=== PATIENT | female | born 1950 | race Caucasian/White ===

== ENCOUNTER 2020-03-17 07:01 | Inpatient (IN) | payer MEDICARE, SELFPAY ==
[2020-03-17] VITALS (27 sets, daily range): BP systolic 70–137; BP diastolic 37–107; PULSE 67–114; RESP 12–23; TEMP 36.4–36.7; O2SAT 93–100; BMI 26.4
--- NOTE | ~2020-03-17 | CT_ITS ---
EXAMINATION:CT chest high resolution wo nm DATE: 03/25/2020 10:20 INDICATION: Abnormal chest radiographs. TECHNIQUE: Computed tomography (CT) of the chest was performed without intravenous contrast. Automate d exposure control and iterative reconstruction technique were employed. The dose-length product (DLP ) was 151.32 mGy-cm. COMPARISON: Chest single view 03/22/2020, 03/17/2020 FINDINGS: There is mild elevation of left hemidiaphragm. There are small pleural effusions. There are patchy groundglass opacities and reticular opacities with architectural distortion involving all lob es, right worse than left. Some of the reticular opacities demonstrate calcifications. There is mild bronchiectasis in right middle lobe and right lower lobe. No honeycombing. There is dependent atelect asis in the lower lobes. There are 11 mm, 9 mm, and 7 mm nodules in right upper lobe. The heart size is normal. There are coronary artery calcifications. No pericardial effusion. There are changes of ch olecystectomy. There is a small volume of perihepatic ascites. There is thoracic dextroscoliosis and thoracolumbar levoscoliosis. There is severe thoracolumbar spondylosis. IMPRESSION: 1. Chronic interstitial lung disease in a pattern of nonspecific interstitial pneumonia (NSIP) versus usual interstitial pneumonia (UIP). 2. Pulmonary nodules measuring up to 11 mm, which may be benign or malignant. Noncontrast chest CT is recommended in 3 months. 3. Small pleural effusions. Reviewed, dictated and finalized at location A. IMPRESSION: 1. Chronic interstitial lung disease in a pattern of nonspecific interstitial p neumonia (NSIP) versus usual interstitial pneumonia (UIP). 2. Pulmonary nodules measuring up to 11 mm, which may be benign or malignant. N oncontrast chest CT is recommended in 3 months. 3. Small pleural effusions.
--- NOTE | ~2020-03-17 | XR_ITS ---
EXAMINATION: XR chest 1V portable EXAM DATE: 03/22/2020 06:13 INDICATION: Pneumonia. TECHNIQUE: Portable AP frontal chest x-ray was obtained. Comparison is made to prior examination from 03/21/2020, 03/20 and 03/19. FINDINGS: There is moderate amount of bilateral ill-defined airspace disease, does not appear signifi cantly changed compared to yesterday, but there may be improvement in the retrocardiac left lower lob e component compared to 03/19. There is no pneumothorax suspected. There are no pleural effusions. Car diomediastinal silhouette is normal. Thoracolumbar spondylosis. Right humeral head rotator cuff repai r anchors. IMPRESSION: Moderate amount of Ill-defined bilateral airspace disease with improvement in retrocardia c consolidation, pneumonia. Uncertain how much of this is chronic interstitial lung disease. Reviewed, dictated and finalized at location A. IMPRESSION: Moderate amount of Ill-defined bilateral airspace disease with impr ovement in retrocardiac consolidation, pneumonia. Uncertain how much of this is chronic interstitial lung disease.
--- NOTE | ~2020-03-17 | XR_ITS ---
EXAMINATION: XR abdomen obstructive series DATE: 03/19/2020 08:29 INDICATION: Abdominal pain TECHNIQUE: Frontal supine and upright views of the abdomen were obtained. COMPARISON: None. FINDINGS: Cholecystectomy clips in the right upper quadrant. Gas within the stomach and several loops of bowel in the abdomen which appear primarily colonic although there is an ahaustral pattern to what appears to be the transverse colon. No dilated gas-filled loops of bowel. No free intraperitoneal gas. Bilat eral coarse interstitial opacities throughout both lungs. Moderate thoracolumbar levoscoliosis with s evere spondylosis. Partially visualized bipolar type right hip hemiarthroplasty. IMPRESSION: 1. No free intraperitoneal gas or dilated gas-filled loops of bowel to suggest obstruction. 2. Bilateral diffuse lung disease which could represent pulmonary edema, pneumonia and/or more chroni c interstitial lung disease. Reviewed, dictated and finalized at location A. IMPRESSION: 1. No free intraperitoneal gas or dilated gas-filled loops of bowel to suggest obstruction. 2. Bilateral diffuse lung disease which could represent pulmonary edema, pneumo analisa and/or more chronic interstitial lung disease.
--- NOTE | ~2020-03-17 | XR_ITS ---
EXAMINATION: XR chest 1V portable DATE: 03/18/2020 05:48 INDICATION: Pneumonia TECHNIQUE: frontal view of the chest was obtained. COMPARISON: Chest radiograph dated 03/17/2020 FINDINGS: Minimal change attending for increased expansion of lungs in interstitial and mild airspace opacities throughout the right lung and in the left mid to lower lung zone. No pleural effusion or pneumothora x. The cardiomediastinal silhouette is normal. Postoperative changes with internal fixation likely fo r posterior spinal fusion at the left side of the mid cervical spine. Suture anchors at the right hum eral head consistent with prior rotator cuff repair. IMPRESSION: 1. No significant change in bilateral predominantly interstitial lung disease, right greater than lef t which could represent asymmetric pulmonary edema, pneumonia or more chronic interstitial lung disea se. Reviewed, dictated and finalized at location A. IMPRESSION: 1. No significant change in bilateral predominantly interstitial lung disease, right greater than left which could represent asymmetric pulmonary edema, pneum onia or more chronic interstitial lung disease.
--- NOTE | ~2020-03-17 | US_ITS ---
EXAMINATION: US venous doppler [facility] DATE: 03/18/2020 13:27 INDICATION: Lower limb edema. TECHNIQUE: Grayscale ultrasound images without and with compression and Doppler ultrasound images of the bilateral lower extremity veins were obtained. COMPARISON: None. FINDINGS: The visualized portions of right common femoral vein, profunda (deep) femoral vein, femoral vein, pop liteal vein, peroneal veins, posterior tibial veins, and greater saphenous vein outflow are patent. The visualized portions of left common femoral vein, profunda femoral vein, femoral vein, popliteal v ein, peroneal veins, posterior tibial veins, and greater saphenous vein outflow are patent. IMPRESSION: 1. No deep venous thrombosis. Reviewed, dictated and finalized at location E.
--- NOTE | ~2020-03-17 | US_ITS ---
EXAMINATION: US carotid duplex BI DATE: 03/19/2020 11:42 INDICATION: Acute encephalopathy. TECHNIQUE: Grayscale, color Doppler, and pulsed Doppler images of the cervical carotid arteries were obtained. The degree of vessel stenosis is placed in one of the following categories: normal, <50%, 5 0-69%, >=70% but less than near-occlusion, near-occlusion, or total occlusion. Note that percent sten osis relative to normal distal artery lumen diameter is indirectly measured from velocity measurement s as described by Wesley, et al. Radiology 2003; 229:340-346. COMPARISON: None. FINDINGS: RIGHT: The right common carotid artery (CCA) peak systolic velocity (PSV) is 68 cm/s. The right internal car otid artery (ICA) PSV is 104 cm/s. The right ICA end-diastolic velocity (EDV) is 33 cm/s. The right I CA/CCA PSV ratio is 1.5. Grayscale and color Doppler images yield an estimate of <50% diameter reduct ion from plaque in the ICA. There is antegrade flow in the right vertebral artery. LEFT: The left CCA PSV is 66 cm/s. The left ICA PSV is 55 cm/s. The left ICA EDV is 27 cm/s. The left ICA/C CA PSV ratio is 1.1. Grayscale and color Doppler images yield an estimate of <50% diameter reduction from plaque in the ICA. There is antegrade flow in the left vertebral artery. IMPRESSION: 1. <50% stenosis in the right internal carotid artery. 2. <50% stenosis in the left internal carotid artery. Reviewed, dictated and finalized at location E.
--- NOTE | ~2020-03-17 | XR_ITS ---
XR chest 1V portable DATE: 03/21/2020 05:23 INDICATION: Pneumonia TECHNIQUE: Portable AP chest on 03/21/2020 at 0504 hours COMPARISON: 03/20/2020 portable AP chest at 0514 hours FINDINGS: There are persistent bilateral patchy pulmonary infiltrates, relatively stable since 020. Heart size appears normal. Aortic arch calcification. There is minimal if any pleural effusion. No pn eumothorax. Osteopenia. IMPRESSION: Little interval change of bilateral patchy pulmonary infiltrates since 03/20/2020 Reviewed, dictated and finalized at location A. IMPRESSION: Little interval change of bilateral patchy pulmonary infiltrates si nce 03/20/2020
--- NOTE | ~2020-03-17 | US_ITS ---
EXAMINATION: US venous doppler UE RT DATE: 03/18/2020 13:29 INDICATION: Right upper limb edema. TECHNIQUE: Grayscale ultrasound images without and with compression and Doppler ultrasound images of the right upper extremity veins were obtained. COMPARISON: None. FINDINGS: The visualized portions of the right internal jugular vein, subclavian vein, axillary vein, brachial veins, basilic vein, radial vein, and ulnar vein are patent. IMPRESSION: 1. No deep venous thrombosis. Reviewed, dictated and finalized at location E.
--- NOTE | ~2020-03-17 | XR_ITS ---
EXAMINATION: XR chest 1V portable DATE: 03/19/2020 05:56 INDICATION: Pneumonia TECHNIQUE: frontal view of the chest was obtained. COMPARISON: Chest radiograph dated 03/18/2020 FINDINGS: No significant interval change in bilateral coarse interstitial and mild airspace opacities throughou t both lungs. No pneumothorax. Minimal blunting at the bilateral costophrenic angles consistent with likely tiny bilateral pleural effusions. The cardiomediastinal silhouette is normal. Mild S-shaped cu rvature of the thoracolumbar spine with severe spondylosis. Suture anchors at the right humeral head consistent with prior rotator cuff repair. Instrumentation along the mid to left-sided the mid cervic al spine which may be related to prior posterior spinal fusion. IMPRESSION: 1. No significant change in bilateral lung disease which could represent pulmonary edema, pneumonia o r more chronic interstitial lung disease. 2. Tiny bilateral pleural effusions. Reviewed, dictated and finalized at location A. IMPRESSION: 1. No significant change in bilateral lung disease which could represent pulmon vipul edema, pneumonia or more chronic interstitial lung disease. 2. Tiny bilateral pleural effusions.
--- NOTE | ~2020-03-17 | XR_ITS ---
EXAMINATION: XR barium swallow modified DATE: 03/25/2020 10:50 INDICATION: Aspiration. TECHNIQUE: The patient was given barium-containing material of multiple consistencies to swallow by t dina speech pathologist while I performed fluoroscopy. Fluoroscopy exposure time was 1.7 minutes. The n umber of fluoroscopy images saved to the PACS was 1. Dose-area product was 0.817 Gy-cm^2. FINDINGS: There was trace laryngeal penetration. No aspiration. IMPRESSION: 1. Trace laryngeal penetration. 2. Please refer to the speech therapy report for recommendations. Reviewed, dictated and finalized at location A.
--- NOTE | ~2020-03-17 | CT_ITS ---
EXAMINATION: CT brain wo con DATE: 03/19/2020 09:34 INDICATION: Acute encephalopathy TECHNIQUE: Computed tomography (CT) of the head was performed without intravenous contrast. The mA wa s adjusted according to patient size. Iterative reconstruction technique was employed. Exam dose: 68 1.00 mGy-cm total exam DLP. COMPARISON: None FINDINGS: There is motion artifact. No intracranial mass lesion or hemorrhage or cerebrovascular accident is evident. No midline shifts o r mass effects. No subdural or epidural hematoma. No orbital mass lesion. No fracture or bone destruction of the cranial vault. Hyperostosis frontalis interna, not likely of a ny clinical significance. Small mucus retention cyst or polyp of the posteromedial left maxillary sinus. The paranasal sinuses and mastoid air cells otherwise are normally developed and aerated. IMPRESSION: No acute intracranial abnormality is detected Reviewed, dictated and finalized at [facility]. Reviewed, dictated and finalized at location [facility].
--- NOTE | ~2020-03-17 | XR_ITS ---
XR chest 1V portable DATE: 03/17/2020 10:46 INDICATION: Failed central venous catheter placement; evaluate for pneumothorax TECHNIQUE: Portable AP chest on 03/17/2020 at 1044 hours COMPARISON: 03/17/2020 portable AP chest at 0744 hours FINDINGS: Postoperative changes of the cervical spine. Diffuse osteopenia. There are congestive changes and bilateral patchy interstitial infiltrates and/atelectasis in the mid and particularly lower lung zones. No pneumothorax is evident following attempted central venous cat heter placement. IMPRESSION: No evidence of pneumothorax following attempted central venous catheter placement Reviewed, dictated and finalized at location [facility]. IMPRESSION: No evidence of pneumothorax following attempted central venous cath eter placement
--- NOTE | ~2020-03-17 | XR_ITS ---
XR chest 1V portable DATE: 03/20/2020 05:23 INDICATION: Pneumonia TECHNIQUE: Portable AP view on 03/20/2020 at 0514 hours COMPARISON: 03/19/2020 portable AP chest at 0534 hours FINDINGS: There are increased bilateral patchy pulmonary infiltrates since 03/19/2020, suggesting incr eased pulmonary edema or bilateral pneumonia. Heart size appears normal. Minimal right pleural effusion is suggested. No pneumothorax. Multiple anchor devices of the right humeral head. Osteopenia. Scoliosis and degenerative changes of the thoracic and lumbar spine. IMPRESSION: Increased bilateral infiltrates since 03/19/2020 Reviewed, dictated and finalized at location [facility].
--- NOTE | ~2020-03-17 | XR_ITS ---
EXAMINATION: XR chest 1V portable DATE: 03/17/2020 07:47 INDICATION: Weakness TECHNIQUE: frontal view of the chest was obtained. COMPARISON: None FINDINGS: Mild bandlike discoid atelectasis near the left costophrenic angle. Probably reticular interstitial o pacities throughout the right lung and to lesser degree in the left mid and lower lung zones. No pleu ral effusion or pneumothorax. The cardiomediastinal silhouette is normal. Mild thoracic dextroscolios is with moderate spondylosis. Suture anchors at the right humeral head suggesting prior rotator cuff repair. IMPRESSION: 1. Bilateral predominantly interstitial lung disease, right greater than left, which could represent asymmetric pulmonary edema, pneumonia, atelectasis or more chronic interstitial lung disease. Reviewed, dictated and finalized at location [facility]. IMPRESSION: 1. Bilateral predominantly interstitial lung disease, right greater than left, which could represent asymmetric pulmonary edema, pneumonia, atelectasis or mor e chronic interstitial lung disease.
--- NOTE | 2020-03-17 07:26 | ED.WEAKNESS ---
HPI - Weakness General Chief complaint: Weakness Stated complaint: WEAK, HYPOTENSION Time Seen by Provider: 03/17/20 07:02 History of Present Illness HPI Narrative: Patient is a 69-year-old female who presents the ER with weakness. Patient's blood pressure was in the 90s yesterday at her PCPs office and they discontinued 1 of her hypertension medications. Patient thinks she has been more weak for the last couple of days but cannot provide any details. She is oriented to self and place. Patient does have a fentanyl and patch in place right chest wall for chronic back pain. Related Data Home Medications Medication Instructions Recorded Confirmed albuterol sulfate [Ventolin HFA] 2 puff INHALATION QID PRN 03/17/20 03/17/20 atorvastatin 80 mg PO DAILY 03/17/20 03/17/20 buspirone 7.5 mg PO BID 03/17/20 03/17/20 diclofenac sodium 75 mg PO BID 03/17/20 03/17/20 fenofibrate micronized 134 mg PO DAILY 03/17/20 03/17/20 fentanyl 1 patch TRANSDERMAL Q72H 03/17/20 03/17/20 furosemide 40 mg PO DAILY 03/17/20 03/17/20 gabapentin 300 mg PO TID 03/17/20 03/17/20 hydroxyzine HCl 25 mg PO TID PRN 03/17/20 03/17/20 metformin 500 mg PO BID 03/17/20 03/17/20 midodrine 2.5 mg PO BID 03/17/20 03/17/20 oxybutynin chloride 10 mg PO DAILY 03/17/20 03/17/20 oxycodone 5 mg PO BID PRN 03/17/20 03/17/20 pantoprazole 40 mg PO BID 03/17/20 03/17/20 quetiapine 100 mg PO BID 03/17/20 03/17/20 Allergies Allergy/AdvReac Type Severity Reaction Status Date / Time No Known Allergies Allergy Verified 03/17/20 07:05 Review of Systems Review of Systems: ROS unobtainable: Yes unobtainable due to mental status PMFSH Past Medical History Medical History (Updated 03/17/20 @ 18:44 by Sheldon Dawson MD) Anemia With history of blood transfusion. Chronic back pain Chronic obstructive pulmonary disease Chronic, continuous use of opioids Fentanyl patch for chronic back pain. Deep venous thrombosis Depression with anxiety Diet-controlled type 2 diabetes mellitus Dyslipidemia Gastroesophageal reflux disease GERD (gastroesophageal reflux disease) Hypertension Osteoarthritis Osteoporosis Surgical History Surgical History (Updated 03/17/20 @ 16:09 by Lyudmila Beard PA-C) History of cataract extraction History of cholecystectomy History of hysterectomy History of right hip replacement Family History Family History Mother Hypertension Other Chronic obstructive pulmonary disease Congestive heart failure Diabetes mellitus Social History Social History (Updated 03/17/20 @ 16:10 by Lyudmila Beard PA-C) Social History: The patient is and lives with her in [place]. Years smoked: 50 Smoking status: Former smoker Tobacco type: cigarettes Alcohol intake: never Substance use: never Gender identity (if verbalized by the patient): Female Spiritual care concerns: No Exam Narrative: Exam Narrative: GENERAL: Chronically ill-appearing, well-nourished, and in no acute distress. HEAD: Normocephalic, atraumatic. ENT: Mucous membranes moist. CHEST: Clear to auscultation. No respiratory distress. HEART: Tachycardic and regular. Normal peripheral pulses. ABDOMEN: Soft, nontender, nondistended. EXTREMITIES: Normal range of motion. 2+ edema. SKIN: Warm, dry, no rash. NEURO:Alert and oriented x2. PSYCH: Normal mood and affect. Course Course Emergency Course: A&Ox3 now that fentanyl patch removed. No change in BP with 2,100ml IV. Pt reports chronically low BP which is why she takes midodrine. Consented to CVC placement. First attempt unsuccessful as the guide wire bent and then we were unable to get back into the IJ. Femoral line in place. Patient will go to the ICU with IV antibiotics and Levophed going. Patient received one half amp of D50 and 5 units of insulin IV. Vital Signs Vital signs: Vital Signs Temperature 97.7 F 03/17/20 06:54
--- NOTE | 2020-03-17 07:27 | PC.NURSE ---
Blood glucose of 74 via unidentified glucose identifier. Online form completed at this time.
--- NOTE | 2020-03-17 07:41 | PC.NURSE ---
straight cath 1125 cc valerio colored urine
[2020-03-17] MEDS: SODIUM CHLORIDE 0.9% IV 2,100 ML/1,000 ML BAG 999 ML IV CONT ×2 (07:43→08:44)
[2020-03-17 07:49] LABS: Hematocrit 22.5 % (37.0-47.0); Mean Corpuscular HGB Conc 31.1 g/dl (32-36); Mean Corpuscular Hemoglobin 27.8 pg (26-34); Mean Corpuscular Volume 89.3 fl (80-100); Mean Platelet Volume 9.1 fl (7.4-10.4); Platelet Count Result 541 k/mm3 (150-375); Red Blood Count 2.52 M/mm3 (4.2-5.4); Red Cell Distribution Width 15.2 % (11.5-14.5); White Blood Count 31.4 K/mm3 (4.5-10.0)
--- NOTE | 2020-03-17 07:49 | ECG_ITS ---
Measurements Intervals [place] Rate: 111 P: -18 IN: 140 QRS: -18 QRSD: 102 T: -12 QT: 326 QTc: 443 Interpretive Statements SINUS TACHYCARDIA LOW QRS VOLTAGE IN PRECORDIAL LEADS BORDERLINE R WAVE PROGRESSION, ANTERIOR LEADS INFERIOR INFARCT, AGE INDETERMINATE ABNORMAL ECG Electronically Signed On 03-17-2020 8:25:51 CDT by Byron Ricci D.O.
[2020-03-17 07:53] LABS: Add Urine Microscopic? YES; Appearance Urine Clear (Clear); Bilirubin Urine Negative (Negative); Blood Urine 2+ (Negative); Color Urine Yellow (Yellow); Glucose Urine UA Negative (Negative); Ketones Urine Negative (Negative); Leukocyte Esterase Ur Negative LEU/UL (Negative); Mucus Urine Rare /lpf; Nitrate Urine Negative (Negative); Protein Urine Negative (Negative); Specific Grav Ur 1.011 (1.001-1.035); Squamous Epithelial Cell Urine Rare /hpf (Few); WBC Urine 0-3 /hpf
[2020-03-17 07:54] LABS: INR 1.5; Prothrombin Time 17.7 Seconds (11.1-14.7)
[2020-03-17 07:55] LABS: Partial Thromboplastin Time 41.7 SECONDS (22.3-36.8)
[2020-03-17 07:56] LABS: Lactic Acid Reflex 1.5 mmol/L (0.7-2.1)
[2020-03-17 08:00] LABS: Band Neutrophils Percent 26 % (0-6); Lymphocytes Absolute Manual 1.25 K/mm3 (1.1-4.5); Monocytes Absolute Manual 1.57 K/mm3 (0.1-0.90); Monocytes Percent Manual 5 % (3-9); Neutrophils Absolute Manual 28.57 K/mm3 (1.7-7.2); Neutrophils Percent Manual 65 % (46-73); Platelet Estimate Increased (Adequate); Total Cells Counted 100
[2020-03-17 08:19] LABS: Alanine Aminotransferase 20 U/L (4-35); Alkaline Phosphatase 215 U/L (38-126); Aspartate Amino Transferase 29 U/L (14-36); Bilirubin,Total 0.9 mg/dL (0.2-1.3); Blood Urea Nitrogen 49 mg/dL (7-17); CRP 26.4 mg/dL (<1.0); Carbon Dioxide 15 mmol/L (22-30); Chloride 98 mmol/L (98-107); Estimated Glomerular Filt Rate 22; Glucose 74 mg/dL (65-105); Potassium 6.2 mmol/L (3.4-5.0); Sodium 121 mmol/L (137-145)
--- NOTE | 2020-03-17 09:30 | PC.NURSE ---
pt spoke with jase Bills on the phone regarding plan of care and need for central line and plan of care. pt to be full code.
[2020-03-17] MEDS: SODIUM CHLORIDE 0.9% IV 2,100 ML/1,000 ML BAG 200 ML IV CONT (09:45)
--- NOTE | 2020-03-17 09:45 | PC.NURSE ---
1st attempt at central right IJ unsuccessful
[2020-03-17 10:56] LABS: Alveolar/Arterial O2 Gradient 14.2 mmHg; Base Excess ABG -9.3 mEq/l (+/-2.0); Carboxyhemoglobin 0.2 % THb (0-2.0); Fractional Inspired Oxygen 21 %; HCO3 ABG 15.4 mEq/l (22.0-26.0); Methemoglobin ABG 0.2 %THb (0-1.5); Oxygen Content ABG 9.2 %vol (16.0-22.0); Oxygen Saturation ABG 97.5 % (95.0-100.0); Oxyhemoglobin 92.5 % THb (90.0-100.0); PCO2 ABG 28.6 mmHg (35.0-45.0); PO2 ABG 101.3 mmHg (80.0-100.0); PO2 FiO2 Ratio Arterial Blood 4.82 %; Reduced Hemoglobin 7.1 %THb (0-5.0); pH ABG 7.349 (7.350-7.450)
[2020-03-17] MEDS: DEXTROSE 50% 25 GM/50 ML SYRINGE IV PUSH ×2 (10:58→14:08)
[2020-03-17 11:01] LABS: Device ROOM AIR; Modified Allen's Test Pass; Site Drawn RIGHT RADIAL; Total Hemoglobin 6.9 g/dL (12.0-18.0)
[2020-03-17] MEDS: INSULIN HUMAN REGULAR (*BKC) 100 UNITS/ML IV PUSH (11:01)
[2020-03-17] MEDS: NOREPINEPHRINE 8 MG/D5W 250 ML 8 MG/250 ML BAG 7.5 MG IV CONT (11:08)
--- NOTE | 2020-03-17 12:15 | PC.NURSE ---
This patient, Kiya Esposito, was admitted to Intensive Care Unit-3. Patient/family oriented to hospital policies and general routines including ID bracelet, bed and alarms, visiting hours, pain management, procedures, bathroom and other care routines, personal items, smoking policy, room service/diet, and visiting hours. Valuables list has been completed. Information on how to activate the Rapid Response Team has been discussed. Patient/Family are encouraged to report perceived risks to care and to ask questions if they do not understand what they are told or what they should do.
--- NOTE | 2020-03-17 12:15 | WPDCNINT ---
Assessment and Plan Assessment and plan (1) Hypotension: Code(s): I95.9 - Hypotension, unspecified Status: Acute Assessment and Plan: patient is hypertension appears to be multifactorial with questionable sepsis secondary to pneumonia although lactate was normal, intravascular volume depletion which also led to her acute kidney injury and narcotics since patient was on p.o. hydrocodone and fentanyl patch with elevated creatinine patient received 30 mL/kg IV fluid bolus in ED now appears to be volume overloaded with bilateral lower extremity edema and bibasilar crackles will hold further IV fluids continue Levophed at this time (2) Septic shock: Code(s): A41.9 - Sepsis, unspecified organism; R65.21 - Severe sepsis with septic shock Status: Acute Assessment and Plan: see above Levophed infusion titration to maintain map above 65 check echo and BNP will check NICOM if pressor requirement increases (3) Pneumonia: Code(s): J18.9 - Pneumonia, unspecified organism Status: Acute Assessment and Plan: blood culture sent and pending empiric Rocephin and azithromycin check urine Legionella and strep pneumo antigen sputum culture COVID-19 suspected. SARS-CoV-2 PCR sent and results pending Patient is in Airborne, Droplet and Contact Isolation (4) MALCOM (acute kidney injury): Code(s): N17.9 - Acute kidney failure, unspecified Status: Acute Assessment and Plan: likely secondary to hypovolemia and medications as patient is on nonsteroidal anti-inflammatory drugs, Lasix, metformin IV fluid bolus given will hold further IV fluids as patient is overall volume overloaded significant amount of urine came out when patient has had Krause placed in ICU monitor electrolytes, urine output and creatinine level (5) Hyperkalemia: Code(s): E87.5 - Hyperkalemia Status: Acute Assessment and Plan: patient given IV fluid bolus and insulin with dextrose recheck level now (6) Diabetes type 2, controlled: Code(s): E11.9 - Type 2 diabetes mellitus without complications Status: Acute Assessment and Plan: hold metformin sliding scale insulin (7) GERD (gastroesophageal reflux disease): Code(s): K21.9 - Gastro-esophageal reflux disease without esophagitis Status: Acute Assessment and Plan: IV Protonix (8) Anemia: Code(s): D64.9 - Anemia, unspecified Status: Acute Assessment and Plan: check stool Hemoccult serial hemoglobin transfuse if needed (9) Encephalopathy: Code(s): G93.40 - Encephalopathy, unspecified Status: Acute Assessment and Plan: appears to be secondary to opioids in the setting of acute kidney injury and has improved as patient is now alert oriented x3 (10) CHF (congestive heart failure): Code(s): I50.9 - Heart failure, unspecified Status: Acute Assessment and Plan: patient reports chronic lower extremity swelling and orthopnea suggestive of heart failure. patient does have COPD which can lead to pulmonary hypertension and right heart failure check BNP and echocardiogram (11) COPD (chronic obstructive pulmonary disease): Code(s): J44.9 - Chronic obstructive pulmonary disease, unspecified Status: Acute Assessment and Plan: does not appear to be in exacerbation no wheezing on exam p.r.n. bronchodilator Additional Plan DVT prophylaxis - SCDs Stress ulcer prophylaxis - on PPI Nutrition - NPO Code Status - Full Code Total Critical Care Time - 35 minutes Due to a high probability of clinically significant, life threatening deterioration, the patient required my highest level of preparedness to intervene emergently and I personally spent this critical care time directly and personally managing the patient. This critical care time included obtaining a history; examining the patient; pulse oximetr
[2020-03-17] MEDS: NOREPINEPHRINE 8 MG/D5W 250 ML 8 MG/250 ML BAG 13.1 MG IV CONT (13:46)
[2020-03-17 14:15] LABS: Hematocrit 22.1 % (37.0-47.0)
[2020-03-17 14:20] LABS: Hemoglobin 6.8 g/dL (12.0-15.0)
[2020-03-17 14:38] LABS: Blood Urea Nitrogen 44 mg/dL (7-17); Calcium 5.5 mg/dL (8.4-10.2); Carbon Dioxide 14 mmol/L (22-30); Chloride 103 mmol/L (98-107); Estimated CRCL calculation 23 ml/min; Estimated Glomerular Filt Rate 26; Glucose 68 mg/dL (65-105); Potassium 5.5 mmol/L (3.4-5.0); Sodium 126 mmol/L (137-145)
[2020-03-17] MEDS: SODIUM BICARBONATE 8.4% 50 MEQ/50 ML VIAL 100 MEQ IV PUSH (15:20)
[2020-03-17] MEDS: SODIUM CHLORIDE 0.9% IV 250 ML 30 ML IV CONT (15:25)
[2020-03-17] MEDS: SODIUM BICARBONATE 8.4% 150 MEQ in DEXTROSE 5% 1,000 ML 950 ML 50 MEQ IV CONT (15:37)
[2020-03-17 15:38] LABS: Lactate Dehydrogenase 300 U/L (313-618); NT Pro B Type Natriuretic Pept 2250 PG/ML (5-100)
[2020-03-17 15:54] LABS: Glucose Point of Care 58 (65-105)
[2020-03-17 15:55] LABS: Glucose Point of Care 92 (65-105)
[2020-03-17] MEDS: ALBUMIN HUMAN 25% 25 GM/100 ML 200 ML IVPB ×2 (17:26→21:45)
[2020-03-17 18:10] LABS: Glucose Point of Care 122 (65-105)
[2020-03-17] MEDS: NOREPINEPHRINE 8 MG/D5W 250 ML 8 MG/250 ML BAG 39.4 MG IV CONT (19:30)
[2020-03-17] MEDS: PANTOPRAZOLE SODIUM IV 40 MG VIAL IV PUSH (20:01)
[2020-03-17 20:03] LABS: Hematocrit 25.7 % (37.0-47.0); Hemoglobin 8.2 g/dL (12.0-15.0)
--- NOTE | 2020-03-17 21:30 | PM.IMHP ---
H&P: HPI History of Present Illness Chief complaint: Generalized weakness. <Lyudmila Beard PA-C - Last Filed: 03/17/20 23:42> Narrative: Kiya Esposito is a 69-year-old female with history of hypertension, dyslipidemia, type 2 diabetes mellitus, anemia chronic pain syndrome on long-term opiates presented to the emergency department earlier this morning via EMS from home for evaluation of generalized weakness. At the time my evaluation, she is somnolent and is not interested in answering many of my questions. As such, some of this medical history is obtained via a review of her electronic medical records as well as discussions with nursing staff. Reportedly the patient was at physical therapy yesterday and was a bit lightheaded. Her blood pressures were found to be a bit low, although no actual numbers were given, and she was instructed to stop taking 1 of her antihypertensives by per her primary care provider. This morning, she was so weak that she was having a hard time holding herself upright and her called 911. On EMS arrival, her blood pressure was 60/40 and on arrival to the emergency department with 74/41. She was found to have a hemoglobin and hematocrit of 6.8 and 22.1% respectively as well as a presumed acute kidney injury. Urinalysis was really unremarkable and her chest x-ray showed bilateral infiltrates with a broad differential diagnosis. She was transfused packed red blood cells and was given IV fluid boluses at 30 milligrams/kilogram. Despite this, her blood pressures continued to be soft, and central line was placed and she is currently on vasopressors. IV fluids have since been discontinued as she developed crackles and pretty significant edema. She is being admitted with shock and presumptive diagnosis of pneumonia, rule out COVID-19. Currently her only complaint is of being a bit cold and wanting an extra blanket. She denies recent travel and sick contacts. No significant cough. No anosmia or dysgeusia. <Lyudmila Beard PA-C - Last Filed: 03/17/20 23:42> Review of Systems Review of Systems: Narrative: Twelve systems were reviewed but are limited as the patient is somnolent and wishes to not answer many questions as she wants to sleep. She denies fever. She has been feeling lightheaded. No sinus congestion, rhinorrhea, otalgia, or odynophagia. She denies chest pain and racing heart. Appetite has been poor but there has been no vomiting or diarrhea. She has noticed a decrease in urine output. She has chronic dyspnea on exertion orthopnea, which is unchanged. Her lower extremity edema is also a chronic finding, but may be a bit worse recently. <Lyudmila Beard PA-C - Last Filed: 03/17/20 23:42> [facility] Past Medical History Medical History: Medical History Anemia With history of blood transfusion. Chronic back pain Chronic obstructive pulmonary disease Chronic, continuous use of opioids Fentanyl patch for chronic back pain. Deep venous thrombosis Depression with anxiety Dyslipidemia Gastroesophageal reflux disease GERD (gastroesophageal reflux disease) Hypertension Osteoarthritis Osteoporosis Type 2 diabetes mellitus <MERRITT Lake Last Filed: 03/17/20 23:42> Surgical History Surgical History: Surgical History History of cataract extraction History of cholecystectomy History of hysterectomy History of right hip replacement <Lyudmila Beard PA-C - Last Filed: 03/17/20 23:42> Family History Family History: Family History Mother Hypertension Other Chronic obstructive pulmonary disease Congestive heart failure Diabetes mellitus <MERRITT [place] Last Filed: 03/17/20 23:42> Social History Social History: Social History (Updated 03/17/20 @ 23:10 by Lyudmila Guzman
[2020-03-17 22:18] LABS: SARS-CoV-2 RNA PCR Negative
[2020-03-17 23:49] LABS: Hematocrit 25.3 % (37.0-47.0); Hemoglobin 8.1 g/dL (12.0-15.0)
[2020-03-18] VITALS (16 sets, daily range): BP systolic 85–130; BP diastolic 53–86; PULSE 83–97; RESP 13–20; TEMP 36.1–37.4; O2SAT 20–99; BMI 26.0
--- NOTE | 2020-03-18 | ECHO_ITS ---
Patient Info Name: Kiya Esposito Age: 69 years : 1950 Gender: Female Ht: 65 in Wt: 157 lbs BSA: 1.82 m2 HR: 92 bpm BP: 112 / 53 mmHg Heart Rhythm: Sinus Rhythm Technical Quality: Good Exam Date: 03/18/2020 10:57 AM Exam Location: [facility] Pulmonary Exam Room: ICU -03 Patient Status: Inpatient Admit Date: 03/17/2020 Staff Ordering Physician: Tong Santana MD Attending Provider: Prabhakar Martínez MD Exam Type: CA echo doppler color flow Study Info Indications - shock Complete two-dimensional, color flow and Doppler transthoracic echocardiogram is performed. Summary 1. Left ventricular chamber dimension is normal. 2. Left ventricular systolic function is normal, estimated at 65-70%. 3. There is mildly increased left ventricular wall thickness. 4. Left ventricular septal wall motion is normal. 5. The left ventricular diastolic function is normal. 6. Global longitudinal strain is normal at -22 %. 7. Right ventricular chamber dimension is mildly enlarged. 8. Left atrial chamber dimension is moderately enlarged. 9. There is mild to moderate mitral valve regurgitation. 10. The mitral valve has thickened leaflets. 11. There is mild tricuspid valve regurgitation. 12. Mild pulmonary hypertension, estimated pulmonary arterial systolic pressure is 44 mmHg. 13. There is mild pulmonic regurgitation. Left Ventricle Left ventricular chamber dimension is normal. Left ventricular systolic function is normal, estimated at 65-70%. There is mildly increased left ventricular wall thickness. Left ventricular septal wall motion is normal. The left ventricular diastolic function is normal. Global longitudinal strain is normal at -22 %. Right Ventricle Right ventricular chamber dimension is mildly enlarged. Right ventricular systolic function is normal. Left Atria Left atrial chamber dimension is moderately enlarged. Right Atria Right atrial chamber dimension is normal. Atrial Septum Intact interatrial septum visualized by color flow imaging. Aortic Valve The aortic valve is trileaflet. There is mild aortic valve sclerosis. There is no aortic valve stenosis. There is trace aortic valve regurgitation. Pulmonic Valve The pulmonic valve is normal. There is no pulmonic valve stenosis. There is mild pulmonic regurgitation. Mitral Valve The mitral valve has thickened leaflets. There is no mitral valve stenosis. There is mild to moderate mitral valve regurgitation. Tricuspid Valve The tricuspid valve leaflets are normal. There is no significant tricuspid valve stenosis. There is mild tricuspid valve regurgitation. Mild pulmonary hypertension, estimated pulmonary arterial systolic pressure is 44 mmHg. Pericardium/Pleural The pericardium appears normal. There is no pericardial effusion. Inferior Vena Cava Normal inferior vena cava with <50% collapse upon inspiration consistent with normal right atrial pressure, 10 mmHg. Aorta The aortic root size at the sinus of Valsalva is normal. The prox ascending aorta size is normal. Left Ventricular Outflow Tract Name Value Normal LVOT 2D LVOT Diameter 2.0 cm LVOT Doppler
[2020-03-18 00:01] LABS: Blood Urea Nitrogen 43 mg/dL (7-17); Calcium 5.8 mg/dL (8.4-10.2); Carbon Dioxide 19 mmol/L (22-30); Chloride 101 mmol/L (98-107); Creatine Kinase < 20 U/L (30-135); Estimated CRCL calculation 27 ml/min; Estimated Glomerular Filt Rate 32; Glucose 154 mg/dL (65-105); Magnesium 2.8 mg/dL (1.6-2.3); Phosphorus 6.8 mg/dL (2.5-4.5); Potassium 5.1 mmol/L (3.4-5.0); Sodium 130 mmol/L (137-145)
[2020-03-18 00:15] LABS: Hemoglobin A1C 5.1 % (<5.7)
[2020-03-18 01:11] LABS: Creatinine Urine 11.3 mg/dL; Sodium Urine Random 21 meq/L
[2020-03-18 01:15] LABS: Folic Acid 16.1 ng/mL (2.76->20); Vitamin B12 > 1000.0 pg/mL (239-931)
[2020-03-18] MEDS: NOREPINEPHRINE 8 MG/D5W 250 ML 8 MG/250 ML BAG 35.6 MG IV CONT (03:17)
[2020-03-18 04:07] LABS: Alveolar/Arterial O2 Gradient 34.2 mmHg; Carboxyhemoglobin 0.2 % THb (0-2.0); Fractional Inspired Oxygen 21 %; HCO3 ABG 19.8 mEq/l (22.0-26.0); Methemoglobin ABG 0.3 %THb (0-1.5); Oxygen Content ABG 10.8 %vol (16.0-22.0); Oxygen Saturation ABG 96.1 % (95.0-100.0); Oxyhemoglobin 91.5 % THb (90.0-100.0); PCO2 ABG 30.8 mmHg (35.0-45.0); PO2 ABG 78.6 mmHg (80.0-100.0); PO2 FiO2 Ratio Arterial Blood 3.74 %; Total Hemoglobin 8.3 g/dL (12.0-18.0); pH ABG 7.426 (7.350-7.450)
[2020-03-18 04:08] LABS: Modified Allen's Test Pass; Site Drawn LEFT RADIAL
[2020-03-18 04:09] LABS: Device ROOM AIR
[2020-03-18] MEDS: ALBUMIN HUMAN 25% 25 GM/100 ML 200 ML IVPB (05:17)
[2020-03-18 05:43] LABS: Alanine Aminotransferase 18 U/L (4-35); Albumin Level 2.7 g/dL (3.5-5.1); Alkaline Phosphatase 144 U/L (38-126); Aspartate Amino Transferase 29 U/L (14-36); Blood Urea Nitrogen 40 mg/dL (7-17); Calcium 6.2 mg/dL (8.4-10.2); Carbon Dioxide 21 mmol/L (22-30); Chloride 105 mmol/L (98-107); Estimated CRCL calculation 27 ml/min; Estimated Glomerular Filt Rate 32; Glucose 152 mg/dL (65-105); Potassium 4.7 mmol/L (3.4-5.0); Sodium 135 mmol/L (137-145)
[2020-03-18] MEDS: PANTOPRAZOLE SODIUM IV 40 MG VIAL IV PUSH ×2 (08:04→20:05)
[2020-03-18 09:03] LABS: Glucose Point of Care 159 (65-105)
--- NOTE | 2020-03-18 09:15 | WPDINTPN ---
Progress Note: A&P Assessment and Plan (1) Hypotension: Code(s): I95.9 - Hypotension, unspecified Status: Acute Assessment and Plan: patient is hypertension appears to be multifactorial with questionable sepsis secondary to pneumonia although lactate was normal, intravascular volume depletion which also led to her acute kidney injury and narcotics since patient was on p.o. hydrocodone and fentanyl patch with elevated creatinine patient received 30 mL/kg IV fluid bolus in ED. patient did not show fluid responsiveness on NICOM assessment. I will hold further IV fluids continue Levophed at this time add vasopressin patient chronically has low blood pressure and is on midodrine at home resume midodrine add stress dose steroids echo pending albumin 25% (2) Septic shock: Code(s): A41.9 - Sepsis, unspecified organism; R65.21 - Severe sepsis with septic shock Status: Acute Assessment and Plan: see above (3) Pneumonia: Code(s): J18.9 - Pneumonia, unspecified organism Status: Acute Assessment and Plan: blood culture sent and pending empiric Rocephin and azithromycin check urine Legionella and strep pneumo antigen sputum culture COVID-19 was suspected due to infiltrates on chest x-ray although her picture did not fit with typical COVID-19. SARS-CoV-2 PCR sent and is negative will discontinue Airborne, Droplet and Contact Isolation (4) MALCOM (acute kidney injury): Code(s): N17.9 - Acute kidney failure, unspecified Status: Acute Assessment and Plan: likely secondary to hypovolemia and medications as patient is on nonsteroidal anti-inflammatory drugs, Lasix, metformin creatinine is improving IV fluid bolus given will hold further IV fluids as patient is overall volume overloaded significant amount of urine came out when patient has had Krause placed in ICU monitor electrolytes, urine output and creatinine level (5) Hyperkalemia: Code(s): E87.5 - Hyperkalemia Status: Acute Assessment and Plan: resolved with IV fluid bolus and insulin with dextrose monitor (6) Diabetes type 2, controlled: Code(s): E11.9 - Type 2 diabetes mellitus without complications Status: Acute Assessment and Plan: hold metformin sliding scale insulin (7) GERD (gastroesophageal reflux disease): Code(s): K21.9 - Gastro-esophageal reflux disease without esophagitis Status: Inactive Assessment and Plan: IV Protonix (8) Anemia: Code(s): D64.9 - Anemia, unspecified Status: Acute Assessment and Plan: not sure what patient's baseline. patient did not report any evidence or history of GI bleed on presentation and no episodes while in the hospital patient received 1 unit of packed red cell transfusion yesterday check stool Hemoccult is pending serial hemoglobin have been stable on IV PPI transfuse if needed (9) Encephalopathy: Code(s): G93.40 - Encephalopathy, unspecified Status: Acute Assessment and Plan: appears to be secondary to opioids in the setting of acute kidney injury and has improved as patient is now alert oriented x3 (10) CHF (congestive heart failure): Code(s): I50.9 - Heart failure, unspecified Status: Acute Assessment and Plan: patient reports chronic lower extremity swelling and orthopnea suggestive of heart failure. patient does have COPD which can lead to pulmonary hypertension and right heart failure BNP is above 2000 echocardiogram is pending (11) COPD (chronic obstructive pulmonary disease): Code(s): J44.9 - Chronic obstructive pulmonary disease, unspecified Status: Inactive Assessment and Plan: does not appear to be in exacerbation no wheezing on exam p.r.n. bronchodilator Additional Plan DVT prophylaxis - SCDs Stress ulcer prophylaxis - on PPI Nutrition - on p.o. diet Code S
[2020-03-18 10:08] LABS: Hematocrit 23.5 % (37.0-47.0); Hemoglobin 7.5 g/dL (12.0-15.0); Red Blood Count 2.68 M/mm3 (4.2-5.4); White Blood Count 18.5 K/mm3 (4.5-10.0)
[2020-03-18 10:09] LABS: Mean Corpuscular HGB Conc 31.9 g/dl (32-36); Mean Corpuscular Volume 87.7 fl (80-100); Platelet Count Result 408 k/mm3 (150-375); Red Cell Distribution Width 15.3 % (11.5-14.5)
[2020-03-18] MEDS: CALCIUM CHLOR 1,000MG/100ML NS 1,000 MG/100 ML BAG 100 MG IVPB (10:33)
[2020-03-18] MEDS: VASOPRESSIN INJ 100 UNITS in DEXTROSE 5% 95 ML IV CONT (10:33)
[2020-03-18 12:00] LABS: IFOB Positive Control Positive; Immunochemical Fecal Occult Bl Positive (N)
--- NOTE | 2020-03-18 12:03 | WPDGICN ---
Assessment and Plan Assessment and plan (1) Profound anemia: Code(s): D64.9 - Anemia, unspecified Status: Acute Assessment and Plan: Patient has rather profound anemia with hemoglobin 6.8 on presentation. Current hemoglobin has improved after transfusion. Now with a hemoglobin 7.5. No obvious signs of GI blood loss noted. Stool Hemoccult is in progress. Would also advise checking for iron folate B12 levels. We will follow with you. Should there be blood in her stool GI endoscopy would be suggested after she has hemodynamic stability. (2) Acute renal failure: Code(s): N17.9 - Acute kidney failure, unspecified Status: Acute Assessment and Plan: Etiology for renal insufficiency unclear. May be dehydrated. Uncertain if this could contribute to her anemia as well. Will continue monitor renal function. (3) Type 2 diabetes mellitus: Code(s): E11.9 - Type 2 diabetes mellitus without complications Status: Acute (4) Chronic back pain: Code(s): M54.9 - Dorsalgia, unspecified; G89.29 - Other chronic pain Status: Acute Assessment and Plan: Chronic narcotic use likely contributes to constipation. She should limit her narcotics if at all feasible. (5) Pneumonia: Code(s): J18.9 - Pneumonia, unspecified organism Status: Acute (6) Chronic obstructive pulmonary disease: Code(s): J44.9 - Chronic obstructive pulmonary disease, unspecified Status: Acute GI Consult Note Consult date/time: 03/18/20 12:03 HPI: Kiya Esposito is a 69 year old female seen in evaluation at the request of the [employer] order filler service. Patient has a past medical history of diabetes, COPD, chronic fentanyl patch use presented to the emergency room yesterday with weakness was found to have low blood pressure. Laboratory testing reveals that she is anemic. Patient denies any obvious signs of blood in her stools. She denies any bruises, nose bleeds or blood in her urine. She been identified as having pneumonia since admission to the hospital. Currently on pressure agents in the intensive care unit. She uses narcotics chronically. Has infrequent bowel habits. Had a bowel movement today after not having 1 for 3-4 days. Stool was somewhat darkish in nature. No obvious blood reported. She has evidence of renal insufficiency identified at the time [place] with elevated creatinine. Review of Systems Review of Systems: All systems reviewed & are unremarkable except as noted in HPI and below PMFSH Past Medical History Medical History Anemia With history of blood transfusion. Chronic back pain Chronic obstructive pulmonary disease Chronic, continuous use of opioids Fentanyl patch for chronic back pain. Deep venous thrombosis Depression with anxiety Dyslipidemia Gastroesophageal reflux disease GERD (gastroesophageal reflux disease) Hypertension Osteoarthritis Osteoporosis Type 2 diabetes mellitus Surgical History Surgical History History of cataract extraction History of cholecystectomy History of hysterectomy History of right hip replacement Family History Family History Mother Hypertension Other Chronic obstructive pulmonary disease Congestive heart failure Diabetes mellitus Social History Social History (Updated 03/17/20 @ 23:10 by Lyudmila Beard PA-C) Social History: The patient is and lives with her in [place]. She smoked for about 50 years and quit several years ago. She denies alcohol and drug use. She designates her son, Sanju Alonzo, as her surrogate decision maker and she wishes to be a full code. Years smoked: 50 Smoking status: Former smoker Tobacco type: cigarettes Alcohol intake: never Substance use: never Gender identity (if verbalized by the
[2020-03-18] MEDS: NOREPINEPHRINE 8 MG/D5W 250 ML 8 MG/250 ML BAG 15 MG IV CONT (12:31)
[2020-03-18] MEDS: MIDODRINE HCL 2.5 MG TABLET 5 MG PO ×2 (12:32→16:33)
[2020-03-18] MEDS: PHENOL/SOD PHENO SPRAY CHERRY (*BKC) 1 SPRAY MUCOUS MEM (12:33)
[2020-03-18] MEDS: LORAZEPAM INJ 2 MG/ML VIAL 0.5 MG IV PUSH (14:08)
[2020-03-18] MEDS: HYDROCORTISONE SODIUM SUCCINATE 100 MG/2 ML VIAL IV PUSH ×2 (14:09→22:18)
[2020-03-18] MEDS: SODIUM BICARBONATE TAB 650 MG TABLET PO (16:33)
--- NOTE | 2020-03-18 17:05 | PM.IMPN ---
Progress Note: A&P Assessment and Plan (1) Shock: Code(s): R57.9 - Shock, unspecified Status: Acute Assessment and Plan: Differential diagnosis includes septic shock versus hypovolemic shock, on levophed (2) Pneumonia: Code(s): J18.9 - Pneumonia, unspecified organism Status: Acute Assessment and Plan: She has been started on azithromycin and ceftriaxone. covid pending (3) Electrolyte imbalance: Code(s): E87.8 - Other disorders of electrolyte and fluid balance, not elsewhere classified Status: Acute Assessment and Plan: Hyponatremia with a sodium of 135 much improved (4) Hypoglycemia: Code(s): E16.2 - Hypoglycemia, unspecified Status: Acute Assessment and Plan: Oral hypoglycemics on hold. Initiate Accu-Cheks and hypoglycemic protocol. (5) Profound anemia: Code(s): D64.9 - Anemia, unspecified Status: Acute Assessment and Plan: hb is 7.5 seen by gi (6) Acute kidney injury: Code(s): N17.9 - Acute kidney failure, unspecified Status: Acute Assessment and Plan: Likely multifactorial in etiology to include hypotension or narcotics - continue to monitor (7) Type 2 diabetes mellitus: Code(s): E11.9 - Type 2 diabetes mellitus without complications Status: Acute Assessment and Plan: Oral hypoglycemics currently on hold. Check hemoglobin A1c. Initiate sliding scale insulin, Accu-Cheks, and hypoglycemic protocol. (8) Chronic, continuous use of opioids: Code(s): F11.90 - Opioid use, unspecified, uncomplicated Status: Acute Assessment and Plan: Fentanyl patch on hold given hypotension. Subjective Date/time seen: 03/18/20 17:05 Interval history: 69-year-old female with history of hypertension, dyslipidemia, type 2 diabetes mellitus, anemia chronic pain syndrome on long-term opiates presented to the emergency department earlier this morning via EMS from home for evaluation of generalized weakness.admitted for suspected covid, pneumonia and septic shock. Discussed case with icu attending. Review of Systems Review of Systems: All systems reviewed & are unremarkable except as noted in HPI and below Exam Narrative: Exam Narrative: bp is 127/67 pulse 92 rr 16 temp 36.8 on room air comfortable in icu room Objective Data Vital Signs Vital Signs: Vital Signs - 24 hr 03/17/20 17:40 03/17/20 18:00 03/17/20 20:00 Temperature 36.7 C 36.7 C Pulse Rate 67 112 H 92 Respiratory Rate 18 20 18 Blood Pressure 97/53 L 114/66 137/107 H Pulse Oximetry 99 100 99 03/17/20 22:00 03/18/20 00:00 03/18/20 02:00 Temperature 37.2 C Pulse Rate 106 H 96 95 Respiratory Rate 12 16 14 Blood Pressure 106/61 116/62 110/61 Pulse Oximetry 97 99 94 03/18/20 04:00 03/18/20 06:00 03/18/20 08:00 Temperature 37.1 C 37.4 C Pulse Rate 96 92 97 Respiratory Rate 14 14 17 Blood Pressure 123/86 112/53 L 118/64 Pulse Oximetry 95 94 93 03/18/20 10:00 03/18/20 12:00 03/18/20 14:00 Temperature 36.1 C L Pulse Rate 93 93 92 Respiratory Rate 20 19 18 Blood Pressure 123/62 129/71 130/68 Pulse Oximetry 97 93 03/18/20 16:00 Temperature 36.8 C Pulse Rate 92 Respiratory Rate 16 Blood Pressure 127/67 Pulse Oximetry 92 Intake/Output Intake/Output: Intake & Output 03/15/20 03/16/20 03/17/20 03/18/20 23:59 23:59 23:59 23:59 Intake Total 3350 3164 Output Total 3500 4850 Balance -150 -9572 Meds/Results Medications: Active
--- NOTE | 2020-03-18 19:05 | PC.NURSE ---
Patient transferred to ICU-9 at 1700
[2020-03-18] MEDS: MORPHINE SULFATE 4 MG/ML INJ IV PUSH (23:34)
[2020-03-19] VITALS (18 sets, daily range): BP systolic 100–143; BP diastolic 52–84; PULSE 82–106; RESP 13–18; TEMP 36.6–36.9; O2SAT 95–100
[2020-03-19 00:57] LABS: Glucose Point of Care 168 (65-105)
[2020-03-19 00:58] LABS: Glucose Point of Care 131 (65-105)
[2020-03-19 04:24] LABS: Hematocrit 24.4 % (37.0-47.0); Hemoglobin 7.8 g/dL (12.0-15.0); Mean Corpuscular Volume 87.5 fl (80-100); Mean Platelet Volume 9.1 fl (7.4-10.4); Platelet Count Result 390 k/mm3 (150-375); Red Blood Count 2.79 M/mm3 (4.2-5.4); Red Cell Distribution Width 14.9 % (11.5-14.5); White Blood Count 20.2 K/mm3 (4.5-10.0)
[2020-03-19 04:37] LABS: Alanine Aminotransferase 22 U/L (4-35); Albumin Level 2.8 g/dL (3.5-5.1); Alkaline Phosphatase 113 U/L (38-126); Aspartate Amino Transferase 36 U/L (14-36); Bilirubin,Total 0.9 mg/dL (0.2-1.3); Blood Urea Nitrogen 30 mg/dL (7-17); Carbon Dioxide 21 mmol/L (22-30); Chloride 106 mmol/L (98-107); Estimated CRCL calculation 33 ml/min; Estimated Glomerular Filt Rate 41; Glucose 127 mg/dL (65-105); Potassium 3.8 mmol/L (3.4-5.0); Sodium 138 mmol/L (137-145)
[2020-03-19] MEDS: HYDROCORTISONE SODIUM SUCCINATE 100 MG/2 ML VIAL IV PUSH (05:03)
[2020-03-19 07:55] LABS: Glucose Point of Care 129 (65-105)
--- NOTE | 2020-03-19 08:07 | WPDGIPROGNO ---
Progress Note: A&P Additional Plan Patient alert this morning. She is a poor historian. No visible bleeding evident. She states abdominal pain has improved dramatically after recent bowel movements. Physical exam reveals her to be alert. Vital signs are stable. She is off of pressor agents this morning. BP much improved. Lungs reveal a few rales. Abdomen is soft and nontender. Labs reveal stool Hemoccult positive. Hemoglobin 7.8, hematocrit 24.4 after transfusion. Stable this morning. Impression 1. Resolved hypotension. 2. Occult blood in stool. 3. Anemia. Likely multifactorial. Cannot exclude bleeding as a contributing cause. 4. Pneumonia. Plan is for GI endoscopy in the morning after preparation today. Continue to monitor hemoglobin. Transfuse if necessary. Subjective Date/time seen: 03/19/20 08:07 Objective Data Vital Signs Vital Signs: Vital Signs - 24 hr 03/18/20 10:00 03/18/20 12:00 03/18/20 14:00 Temperature 36.1 C L Pulse Rate 93 93 92 Respiratory Rate 20 19 18 Blood Pressure 123/62 129/71 130/68 Pulse Oximetry 97 93 03/18/20 16:00 03/18/20 18:00 03/18/20 20:00 Temperature 36.8 C 36.7 C Pulse Rate 93 89 85 Respiratory Rate 16 18 18 Blood Pressure 127/67 85/72 L 92/76 L Pulse Oximetry 92 92 93 03/18/20 20:30 03/18/20 21:00 03/18/20 21:30 Temperature Pulse Rate 85 83 83 Respiratory Rate 17 Blood Pressure 123/70 122/63 111/61 Pulse Oximetry 94 03/18/20 22:00 03/18/20 23:54 03/19/20 00:00 Temperature 36.6 C Pulse Rate 83 83 85 Respiratory Rate 15 13 14 Blood Pressure 122/54 L 103/55 L Pulse Oximetry 94 96 95 03/19/20 01:34 03/19/20 02:00 03/19/20 03:26 Temperature Pulse Rate 84 87 87 Respiratory Rate 14 13 16 Blood Pressure 100/52 L 109/53 L Pulse Oximetry 96 97 96 03/19/20 04:00 03/19/20 05:02 03/19/20 06:00 Temperature 36.8 C Pulse Rate 89 88 85 Respiratory Rate 13 15 13 Blood Pressure 120/59 L 120/60 115/63 Pulse Oximetry 97 97 98 03/19/20 07:53 03/19/20 07:54 Temperature 36.8 C Pulse Rate 94 Respiratory Rate 15 Blood Pressure 121/83 Pulse Oximetry 99 99 Intake/Output Intake/Output: Intake & Output 03/16/20 03/17/20 03/18/20 03/19/20 23:59 23:59 23:59 23:59 Intake Total 3350 3164 500 Output Total 3500 3150 800 Balance -150 -1286 -300 Meds/Results Medications: Active Medications Generic Name Dose Route Start Last Admin Trade Name Freq PRN Reason Stop Dose Admin Acetaminophen 650 mg 03/17/20 11:03 Tylenol Tablet PO Q4H PRN Mild Pain (1-3) or Fever Hydrocodone Bitart/Acetaminophen 1 tab 03/17/20 11:03 03/18/20 20:05 [place]fe 5-325 Mg PO 1 tab Q4H PRN Administration Pain Rated 4-6 Albuterol 2.5 mg 03/17/20 12:56 Albuterol Sulf Neb 2.5mg/0.5ml INHALATION Q4HRT PRN Shortness Of Breath Albuterol 2 puff 03/17/20 23:33 Proventil Hfa INHALATION QID PRN Wheezing Dextrose 12.5 gm 03/17/20 23:29 Dextrose 50% Syringe IV PUSH PRN PRN Hypoglycemia Protocol Glucagon 1 mg 03/17/20 23:29 Glucagon For Inj IM PRN PRN Hypoglycemia Protocol Glucose 15 gm 03/17/20 23:29 Glutose 15 PO PRN PRN Hypoglycemia Protocol Hydrocortisone Sodium Succinate 100 mg 03/18/20 14:00 03/19/20 05:03 Solu-Cortef IV PUSH 100 mg Q8HR YAKELIN Administration Azithromycin 500 mg in 250 mls @ 250 mls/hr 03/18/20 10:00 03/18/20 11:30 Zithromax IVPB Infused Q24H YAKELIN Infusion Ceftriaxone Sodium/Dextrose 1 gm in 50 mls @ 100 mls/hr 03/18/20 08:00 03/19/20 07:38 Rocephin 1 Gm/D5w 50 Ml IVPB 100 mls/hr Q24H YAKELIN Administration Norepinephrine Bitartrate 8 mg in 250 mls @ 0 mls/hr 03/17/20 13:30 03/19/20 04:00 Levophed 8 Mg/D5w 250 Ml IV CONT 0 mcg/min .Q0M YAKELIN 0 mls/hr Titration Protocol 0 MCG/MIN Dextrose 1,000 mls @ 100 mls/hr 03/17/20 23:29 De
[2020-03-19 08:32] LABS: Alveolar/Arterial O2 Gradient 45.6 mmHg; Base Excess ABG -4.7 mEq/l (+/-2.0); Fractional Inspired Oxygen 21 %; HCO3 ABG 18.4 mEq/l (22.0-26.0); Oxygen Content ABG 10.7 %vol (16.0-22.0); Oxygen Saturation ABG 95.4 % (95.0-100.0); Oxyhemoglobin 90.4 % THb (90.0-100.0); PO2 ABG 71.8 mmHg (80.0-100.0); PO2 FiO2 Ratio Arterial Blood 3.42 %; Total Hemoglobin 8.3 g/dL (12.0-18.0); pH ABG 7.452 (7.350-7.450)
[2020-03-19 08:34] LABS: Device ROOM AIR; Modified Allen's Test Pass; Site Drawn RIGHT RADIAL
[2020-03-19] MEDS: ACETAMINOPHEN 325 MG TABLET 650 MG PO ×2 (08:48→17:16)
[2020-03-19 08:53] LABS: Lactic Acid Reflex 0.5 mmol/L (0.7-2.1)
[2020-03-19] MEDS: PANTOPRAZOLE SODIUM IV 40 MG VIAL IV PUSH ×2 (10:13→21:46)
--- NOTE | 2020-03-19 10:37 | PCDIET ---
ICU Rounding Note: Patient on clear liquid diet and preparing for scope tomorrow. Average intake yesterday was 38% of meals. Last recorded weight is 71.7kg which is stable. Bowel Motility: +BM reported with improvement in abdominal pain thereafter. Labs Reviewed: Hgb (7.8), Hct (24.4), Glu (129), BUN (30), Cr (1.3), Alb (2.8) Meds Noted: Albuterol, Zithromax, Rocephin, Solu Cortef, Novolog, Atrovent, Levophed, Protonix, Sodium Bicarbonate, Vasopressin Additional Notes: +Hemoccult. No change in skin reported. Following daily in ICU rounds. Assessing/reassessing every 5 days.
--- NOTE | 2020-03-19 11:30 | WPDINTPN ---
Progress Note: A&P Assessment and Plan (1) Hypotension: Code(s): I95.9 - Hypotension, unspecified Status: Acute Assessment and Plan: patient is hypertension appears to be multifactorial with questionable sepsis secondary to pneumonia although lactate was normal, intravascular volume depletion which also led to her acute kidney injury and narcotics since patient was on p.o. hydrocodone and fentanyl patch with elevated creatinine patient received 30 mL/kg IV fluid bolus in ED. patient did not show fluid responsiveness on NICOM assessment. - off ALL PRESSORS - patient chronically has low blood pressure and is on midodrine at home, will continue midodrine - quickly taper stress dose steroids add stress dose steroids echo 11/17/2019: EF 65-70%, LV diastolic function is normal, mild pulmonary hypertension with RVSP of 44 mmHg. mild to moderate mitral valve regurg with left atrial chamber being moderately enlarged (2) Septic shock: Code(s): A41.9 - Sepsis, unspecified organism; R65.21 - Severe sepsis with septic shock Status: Acute Assessment and Plan: see above (3) Pneumonia: Code(s): J18.9 - Pneumonia, unspecified organism Status: Acute Assessment and Plan: blood culture sent and pending - empiric Rocephin and azithromycin - urine Legionella and strep pneumo antigen pending COVID-19 was suspected due to infiltrates on chest x-ray although her picture did not fit with typical COVID-19. SARS-CoV-2 PCR sent and is negative will discontinue Airborne, Droplet and Contact Isolation (4) MALCOM (acute kidney injury): Code(s): N17.9 - Acute kidney failure, unspecified Status: Acute Assessment and Plan: likely secondary to hypovolemia and medications as patient is on nonsteroidal anti-inflammatory drugs, Lasix, metformin - creatinine is improving - patient adequately fluid-resuscitated - urine output has been good, continue to monitor - monitor electrolytes, urine output and creatinine level (5) Hyperkalemia: Code(s): E87.5 - Hyperkalemia Status: Acute Assessment and Plan: resolved with IV fluid bolus and insulin with dextrose monitor (6) Diabetes type 2, controlled: Code(s): E11.9 - Type 2 diabetes mellitus without complications Status: Acute Assessment and Plan: continue sliding scale and Accu-Cheks (7) GERD (gastroesophageal reflux disease): Code(s): K21.9 - Gastro-esophageal reflux disease without esophagitis Status: Inactive Assessment and Plan: IV Protonix (8) Anemia: Qualifiers: Anemia type: unspecified type Qualified Code(s): D64.9 - Anemia, unspecified Code(s): D64.9 - Anemia, unspecified Status: Acute Assessment and Plan: not sure what patient's baseline. patient did not report any evidence or history of GI bleed on presentation and no episodes while in the hospital - patient received 1 unit of packed red cell transfusion 03/17/2020 - his stool for occult blood was positive - hemoglobin has been stable serial hemoglobin have been stable - on IV PPI - GI has been consulted and appreciate their evaluation and recommendation. for colonoscopy On 03/20/2020 (9) Encephalopathy: Code(s): G93.40 - Encephalopathy, unspecified Status: Acute Assessment and Plan: encephalopathy can be multifactorial, could be related to opioids and kidney injury. - CT scan of the brain did not show any intracranial abnormality - creatinine much improved so doubt uremia - ammonia level < 9, which is normal - ABGs done, did not show any hypercapnia or hypoxia - patient moves all extremities, follows simple commands and is alert and oriented x2 you the name of the President and the year. She could not tell me the name of the hospital but she knew that she is at a hospital. - This could possibly be ICU to the area, could be
[2020-03-19 11:39] LABS: Ammonia < 9 umol/L (9-30)
[2020-03-19 12:27] LABS: Glucose Point of Care 111 (65-105)
[2020-03-19 13:24] LABS: Add Urine Microscopic? YES; Appearance Urine Clear (Clear); Bacteria Urine Trace /hpf; Bilirubin Urine Negative (Negative); Blood Urine 3+ (Negative); Color Urine Yellow (Yellow); Glucose Urine UA Negative (Negative); Ketones Urine Negative (Negative); Leukocyte Esterase Ur Trace LEU/UL (NEGATIVE); Mucus Urine Rare /lpf; Nitrate Urine Negative (Negative); Protein Urine 2+ mg/dL (Negative); RBC Urine >75 /hpf (0-2); Specific Grav Ur 1.018 (1.001-1.035)
[2020-03-19] MEDS: HYDROCORTISONE SODIUM SUCCINATE 100 MG/2 ML VIAL 50 MG IV PUSH ×2 (15:35→21:46)
--- NOTE | 2020-03-19 15:41 | P.PNIM_ITS ---
Progress Note: A&P Assessment and Plan (1) Shock: Code(s): R57.9 - Shock, unspecified Status: Acute Assessment and Plan: * Differential diagnosis includes septic shock versus hypovolemic shock, * On levophed, vasopressin, midodrine * Severe hypotension (2) Pneumonia: Code(s): J18.9 - Pneumonia, unspecified organism Status: Acute Assessment and Plan: * She has been started on azithromycin and ceftriaxone. * covid is negative * wcc is 20,000 * awaiting BC and urine serum antigens (3) Electrolyte imbalance: Code(s): E87.8 - Other disorders of electrolyte and fluid balance, not elsewhere classified Status: Acute Assessment and Plan: * Hyponatremia with a sodium of 135 much improved (4) Hypoglycemia: Code(s): E16.2 - Hypoglycemia, unspecified Status: Acute Assessment and Plan: * Oral hypoglycemics on hold. * Initiate Accu-Cheks and hypoglycemic protocol. (5) Profound anemia: Code(s): D64.9 - Anemia, unspecified Status: Acute Assessment and Plan: * hb is 7.8 seen by gi will be having EGD tomorrow (6) Acute kidney injury: Code(s): N17.9 - Acute kidney failure, unspecified Status: Acute Assessment and Plan: * Likely multifactorial in etiology to include hypotension or narcotics - con tinue to monitor (7) Type 2 diabetes mellitus: Code(s): E11.9 - Type 2 diabetes mellitus without complications Status: Acute Assessment and Plan: * Oral hypoglycemics currently on hold. * Check hemoglobin A1c. * Initiate sliding scale insulin, Accu-Cheks, and hypoglycemic protocol. (8) Chronic, continuous use of opioids: Code(s): F11.90 - Opioid use, unspecified, uncomplicated Status: Acute Assessment and Plan: * Fentanyl patch on hold given hypotension. Subjective Date/time seen: 03/19/20 15:41 Interval history: 69-year-old female with history of hypertension, dyslipidemia, type 2 diabetes mellitus, anemia chronic pain syndrome on long-term opiates presented to the emergency department earlier this morning via EMS from home for evaluation of generalized weakness.Admitted for suspected covid, pneumonia and septic shock. Pt was found to be covid negative, awaiting BC and atypical tests. Pt appears frustrated wants more for pain, uses fentanyl for pain chronically. Holding conversation on the phone does not appear confused. Explained she is going for EGD tomorrow because of low Hb levels. Wants to be left alone. Wants more for pain. Review of Systems 2 Review of Systems: All systems reviewed & are unremarkable except as noted in HPI and below Constitutional: Comments: Upset because of pain Exam Narrative: Exam Narrative: BP is 125/63, pulse 94, RR 14 pt is in icu room not fully examined pt wants to be left alone upset alert talkative but upset Objective Data Vital Signs Vital Signs: Vital Signs - 24 hr 03/18/20 16:00 03/18/20 18:00 03/18
--- NOTE | 2020-03-19 15:41 | PM.IMPN ---
Progress Note: A&P Assessment and Plan (1) Shock: Code(s): R57.9 - Shock, unspecified Status: Acute Assessment and Plan: Differential diagnosis includes septic shock versus hypovolemic shock, On levophed, vasopressin, midodrine Severe hypotension (2) Pneumonia: Code(s): J18.9 - Pneumonia, unspecified organism Status: Acute Assessment and Plan: She has been started on azithromycin and ceftriaxone. covid is negative wcc is 20,000 awaiting BC and urine serum antigens (3) Electrolyte imbalance: Code(s): E87.8 - Other disorders of electrolyte and fluid balance, not elsewhere classified Status: Acute Assessment and Plan: Hyponatremia with a sodium of 135 much improved (4) Hypoglycemia: Code(s): E16.2 - Hypoglycemia, unspecified Status: Acute Assessment and Plan: Oral hypoglycemics on hold. Initiate Accu-Cheks and hypoglycemic protocol. (5) Profound anemia: Code(s): D64.9 - Anemia, unspecified Status: Acute Assessment and Plan: hb is 7.8 seen by gi will be having EGD tomorrow (6) Acute kidney injury: Code(s): N17.9 - Acute kidney failure, unspecified Status: Acute Assessment and Plan: Likely multifactorial in etiology to include hypotension or narcotics - continue to monitor (7) Type 2 diabetes mellitus: Code(s): E11.9 - Type 2 diabetes mellitus without complications Status: Acute Assessment and Plan: Oral hypoglycemics currently on hold. Check hemoglobin A1c. Initiate sliding scale insulin, Accu-Cheks, and hypoglycemic protocol. (8) Chronic, continuous use of opioids: Code(s): F11.90 - Opioid use, unspecified, uncomplicated Status: Acute Assessment and Plan: Fentanyl patch on hold given hypotension. Subjective Date/time seen: 03/19/20 15:41 Interval history: 69-year-old female with history of hypertension, dyslipidemia, type 2 diabetes mellitus, anemia chronic pain syndrome on long-term opiates presented to the emergency department earlier this morning via EMS from home for evaluation of generalized weakness.Admitted for suspected covid, pneumonia and septic shock. Pt was found to be covid negative, awaiting BC and atypical tests. Pt appears frustrated wants more for pain, uses fentanyl for pain chronically. Holding conversation on the phone does not appear confused. Explained she is going for EGD tomorrow because of low Hb levels. Wants to be left alone. Wants more for pain. Review of Systems Review of Systems: All systems reviewed & are unremarkable except as noted in HPI and below Constitutional: Comments: Upset because of pain Exam Narrative: Exam Narrative: BP is 125/63, pulse 94, RR 14 pt is in icu room not fully examined pt wants to be left alone upset alert talkative but upset Objective Data Vital Signs Vital Signs: Vital Signs - 24 hr 03/18/20 16:00 03/18/20 18:00 03/18/20 20:00 Temperature 36.8 C 36.7 C Pulse Rate 93 89 85 Respiratory Rate 16 18 18 Blood Pressure 127/67 85/72 L 92/76 L Pulse Oximetry 92 92 93 03/18/20 20:30 03/18/20 21:00 03/18/20 21:30 Temperature Pulse Rate 85 83 83 Respiratory Rate 17 Blood Pressure 123/70 122/63 111/61 Pulse Oximetry 94 03/18/20 22:00 03/18/20 23:54 03/19/20 00:00 Temperature 36.6 C Pulse Rate 83 83 85 Respiratory Rate 15 13 14 Blood Pressure 122/54 L 103/55 L Pulse Oximetry 94 96 95 03/19/20 01:34 03/19/20 02:00
[2020-03-19] MEDS: PEG (High)/E-LYTE SOLN 4,000 ML BTL 4000 ML PO (15:57)
[2020-03-19] MEDS: MIDODRINE HCL 2.5 MG TABLET 5 MG PO (17:17)
[2020-03-19] MEDS: SODIUM BICARBONATE TAB 650 MG TABLET PO (17:18)
[2020-03-19 20:41] LABS: Glucose Point of Care 124 (65-105)
[2020-03-19 22:28] LABS: Glucose Point of Care 114 (65-105)
[2020-03-20] VITALS (15 sets, daily range): BP systolic 101–135; BP diastolic 56–79; PULSE 62–106; RESP 13–23; TEMP 36.1–36.8; O2SAT 97–100
[2020-03-20 05:46] LABS: Basophils Absolute Auto 0.1 K/mm3 (0.0-0.1); Basophils Percent Auto 0.5 % (0.2-1.2); Hematocrit 24.7 % (37.0-47.0); Hemoglobin 7.8 g/dL (12.0-15.0); Immature Granulocyte Absolute 0.23 K/mm3 (0.00-0.031); Immature Granulocyte Percent A 1.8 % (0-0.5); Lymphocytes Absolute Auto 1.17 K/mm3 (0.9-3.2); Mean Corpuscular HGB Conc 31.6 g/dl (32-36); Mean Corpuscular Hemoglobin 27.6 pg (26-34); Mean Corpuscular Volume 87.3 fl (80-100); Mean Platelet Volume 9.3 fl (7.4-10.4); Monocytes Absolute Auto 0.7 K/mm3 (0.1-0.6); Monocytes Percent Auto 5.4 % (2.6-8.5); Neutrophils Absolute Auto 10.9 K/mm3 (1.3-6.7); Neutrophils Percent Auto 83.3 % (45.5-73.1); Platelet Count Result 324 k/mm3 (150-375); Red Blood Count 2.83 M/mm3 (4.2-5.4); Red Cell Distribution Width 14.6 % (11.5-14.5)
[2020-03-20] MEDS: HYDROCORTISONE SODIUM SUCCINATE 100 MG/2 ML VIAL 50 MG IV PUSH (05:52)
[2020-03-20 06:02] LABS: Alanine Aminotransferase 22 U/L (4-35); Albumin Level 2.4 g/dL (3.5-5.1); Alkaline Phosphatase 112 U/L (38-126); Aspartate Amino Transferase 34 U/L (14-36); Bilirubin,Total 0.7 mg/dL (0.2-1.3); Blood Urea Nitrogen 28 mg/dL (7-17); Calcium 7.5 mg/dL (8.4-10.2); Carbon Dioxide 23 mmol/L (22-30); Chloride 108 mmol/L (98-107); Estimated CRCL calculation 39 ml/min; Estimated Glomerular Filt Rate 49; Glucose 120 mg/dL (65-105); Magnesium 2.7 mg/dL (1.6-2.3); Phosphorus 4.6 mg/dL (2.5-4.5); Potassium 3.2 mmol/L (3.4-5.0); Sodium 136 mmol/L (137-145)
--- NOTE | 2020-03-20 06:54 | WPDANESEPP ---
Anes - Eval Pre Procedure Procedure: Operation Date: 03/20/20 07:30 Proposed Procedures p Esophagogastroduodenoscopy - Inderjit Bourne MD Date/Time: 03/20/20 06:54 Surgeon: Tayla Preop Diagnosis: Anemia Pre Op Diagnosis: Generalized weakness. Patient Data Age: 69 Gender: F Height: 5 ft 5 in Weight: 70 kg Last Vital Signs Temp 97.6 F 03/20/20 04:00 Pulse 62 03/20/20 04:00 Resp 22 H 03/20/20 04:00 BP 101/67 03/20/20 04:00 Pulse Ox 99 03/20/20 04:00 Allergies Allergy/AdvReac Type Severity Reaction Status Date / Time No Known Allergies Allergy Verified 03/17/20 07:05 Home Medications Medication Instructions Recorded Confirmed Type albuterol sulfate [Ventolin HFA] 2 puff INHALATION QID PRN 03/17/20 03/17/20 History atorvastatin 80 mg PO DAILY 03/17/20 03/17/20 History buspirone 7.5 mg PO BID 03/17/20 03/17/20 History diclofenac sodium 75 mg PO BID 03/17/20 03/17/20 History fenofibrate micronized 134 mg PO DAILY 03/17/20 03/17/20 History fentanyl 1 patch TRANSDERMAL Q72H 03/17/20 03/17/20 History furosemide 40 mg PO DAILY 03/17/20 03/17/20 History gabapentin 300 mg PO TID 03/17/20 03/17/20 History hydroxyzine HCl 25 mg PO TID PRN 03/17/20 03/17/20 History metformin 500 mg PO BID 03/17/20 03/17/20 History midodrine 2.5 mg PO BID 03/17/20 03/17/20 History oxybutynin chloride 10 mg PO DAILY 03/17/20 03/17/20 History oxycodone 5 mg PO BID PRN 03/17/20 03/17/20 History pantoprazole 40 mg PO BID 03/17/20 03/17/20 History quetiapine 100 mg PO BID 03/17/20 03/17/20 History Laboratory Tests 03/19/20 03/19/20 03/19/20 07:36 08:25 08:33 WBC RBC Hgb Hct MCV MCH MCHC RDW Plt Count MPV Immature Gran % (Auto) Neut % (Auto) Lymph % (Auto) [place] % (Auto) Eos % (Auto) Baso % (Auto) Lymph # (Auto) [place] # (Auto) Eos # (Auto) Baso # (Auto) Abs Immat Gran (auto) Absolute Neuts (auto) Absolute Nucleated RBC Nucleated RBC % Puncture Site Right radial ABG pH 7.452 H (7.350-7.450) ABG pCO2 27.0 mmHg L mmHg (35.0-45.0) ABG pO2 71.8 mmHg L mmHg (80.0-100.0) ABG PO2/FiO2 Ratio 3.42 % % ABG HCO3 18.4 mEq/l L mEq/l (22.0-26.0) ABG O2 Saturation 95.4 % % (95.0-100.0) ABG O2 Content 10.7 %vol L %vol (16.0-22.0) ABG Base Excess -4.7 mEq/l mEq/l (+/-2.0) A-a Gradient 45.6 mmHg mmHg Oxyhemoglobin 90.4 % THb % THb (90.0-100.0) Total Hemoglobin 8.3 g/dL L g/dL (12.0-18.0) O2 Delivery Device Room air O2 Liters/Min Not Reportable FiO2 21 % % Sodium Potassium Chloride Carbon Dioxide BUN Creatinine Estim Creat Clear Calc Estimated GFR Glucose POC Capillary Glucose 129 mg/dl H mg/dl (65-105) Lactic Acid 0.5 mmol/L L mmol/L (0.7-2.1) Calcium Phosphorus Magnesium Total Bilirubin AST ALT Alkaline Phosphatase Ammonia Total Protein Albumin Urine Color Urine Appearance Urine pH Ur Specific [place] Urine Protein Urine Glucose (UA) Urine Ketones Ur Blood (Man) Urine Nitrate Urine Bilirubin Urine Urobilinogen Ur Leukocyte Esterase Urine RBC Urine WBC Urine Bacteria Urine Mucus 03/19/20 03/19/20 03/19/20 11:16
[2020-03-20] MEDS: LACTATED RINGERS 1,000 ML 150 ML IV CONT (07:18)
[2020-03-20] MEDS: GABAPENTIN 300 MG CAPSULE PO ×3 (08:43→16:48)
[2020-03-20] MEDS: busPIRone HCL 2.5 MG TABLET 7.5 MG PO ×2 (08:43→20:37)
[2020-03-20] MEDS: QUEtiapine FUMARATE 100 MG TABLET PO ×2 (08:43→16:51)
[2020-03-20] MEDS: FUROSEMIDE 40 MG TABLET PO (08:43)
[2020-03-20] MEDS: SODIUM BICARBONATE TAB 650 MG TABLET PO ×2 (08:44→16:51)
[2020-03-20] MEDS: PANTOPRAZOLE SODIUM IV 40 MG VIAL IV PUSH (08:44)
[2020-03-20] MEDS: MIDODRINE HCL 2.5 MG TABLET 5 MG PO ×3 (08:44→16:49)
[2020-03-20 09:00] LABS: Glucose Point of Care 116 (65-105)
--- NOTE | 2020-03-20 10:47 | WPDINTPN ---
Progress Note: A&P Assessment and Plan (1) Hypotension: Code(s): I95.9 - Hypotension, unspecified Status: Acute Assessment and Plan: patient is hypertension appears to be multifactorial with questionable sepsis secondary to pneumonia although lactate was normal, intravascular volume depletion which also led to her acute kidney injury and narcotics since patient was on p.o. hydrocodone and fentanyl patch with elevated creatinine patient received 30 mL/kg IV fluid bolus in ED. patient did not show fluid responsiveness on NICOM assessment. - OFF ALL PRESSORS - patient chronically has low blood pressure and is on midodrine at home, will continue midodrine - quickly taper stress dose steroids - wean stress dose steroids echo 11/17/2019: EF 65-70%, LV diastolic function is normal, mild pulmonary hypertension with RVSP of 44 mmHg. mild to moderate mitral valve regurg with left atrial chamber being moderately enlarged (2) Septic shock: Code(s): A41.9 - Sepsis, unspecified organism; R65.21 - Severe sepsis with septic shock Status: Acute Assessment and Plan: RESOLVED, see above (3) Pneumonia: Code(s): J18.9 - Pneumonia, unspecified organism Status: Acute Assessment and Plan: blood culture sent and pending - empiric Rocephin and azithromycin will continue for total of 5 days - urine Legionella and strep pneumo antigen pending COVID-19 was suspected due to infiltrates on chest x-ray although her picture did not fit with typical COVID-19. SARS-CoV-2 PCR sent and is negative will discontinue Airborne, Droplet and Contact Isolation (4) MALCOM (acute kidney injury): Code(s): N17.9 - Acute kidney failure, unspecified Status: Acute Assessment and Plan: likely secondary to hypovolemia and medications as patient is on nonsteroidal anti-inflammatory drugs, Lasix, metformin - creatinine is improving - patient adequately fluid-resuscitated - urine output has been good, continue to monitor - monitor electrolytes, urine output and creatinine level (5) Hyperkalemia: Code(s): E87.5 - Hyperkalemia Status: Acute Assessment and Plan: RESOLVED - continue to monitor (6) Diabetes type 2, controlled: Code(s): E11.9 - Type 2 diabetes mellitus without complications Status: Acute Assessment and Plan: continue sliding scale and Accu-Cheks (7) GERD (gastroesophageal reflux disease): Code(s): K21.9 - Gastro-esophageal reflux disease without esophagitis Status: Inactive Assessment and Plan: IV Protonix (8) Anemia: Qualifiers: Anemia type: unspecified type Qualified Code(s): D64.9 - Anemia, unspecified Code(s): D64.9 - Anemia, unspecified Status: Acute Assessment and Plan: not sure what patient's baseline. patient did not report any evidence or history of GI bleed on presentation and no episodes while in the hospital - patient received 1 unit of packed red cell transfusion 03/17/2020 - her stool for occult blood was positive - hemoglobin has been stable serial hemoglobin have been stable - on IV PPI - appreciate GI evaluation recommendation, EGD 03/20/2020 showed gastric ulcer, biopsies taken (9) Encephalopathy: Code(s): G93.40 - Encephalopathy, unspecified Status: Acute Assessment and Plan: encephalopathy can be multifactorial, could be related to opioids and kidney injury. - CT scan of the brain did not show any intracranial abnormality - creatinine much improved so doubt uremia - ammonia level < 9, which is normal - ABGs done, did not show any hypercapnia or hypoxia - patient moves all extremities, follows simple commands and is alert and oriented x2 you the name of the President and the year. She could not tell me the name of the hospital but she knew that she is at a hospital. - This could possibly be ICU delirium, - r
[2020-03-20 12:45] LABS: Pneumococcal Antigen Urine Not Detected (Not Detected)
[2020-03-20] MEDS: NEOMYCIN/POLYMYXIN/BACITRACIN OINTMENT PACKET 1 PACKET (12:50)
[2020-03-20 12:57] LABS: Glucose Point of Care 149 (65-105)
[2020-03-20] MEDS: FENOFIBRATE NANOCRYSTALLIZED 145 MG TABLET PO (13:01)
--- NOTE | 2020-03-20 14:05 | PC.NURSE ---
Received from ICU/ via bed.
--- NOTE | 2020-03-20 14:07 | PC.NURSE ---
This patient, Kiya Esposito, was transferred to [facility] on 03/20/20 at 1557. Personal belongings sent with patient. Belongings list checked and signed with receiving RN. Report given to ATTILA Oshea. Appropriate documentation sent with patient. Transferred via bed without issues.
--- NOTE | 2020-03-20 15:05 | PM.IMPN ---
Progress Note: A&P Assessment and Plan (1) Shock: Code(s): R57.9 - Shock, unspecified Status: Resolved Assessment and Plan: Severe hypotension is resolved. (2) Pneumonia: Code(s): J18.9 - Pneumonia, unspecified organism Status: Acute Assessment and Plan: She has been started on azithromycin and ceftriaxone. covid is negative wcc is 13,000 awaiting BC and urine serum antigens (3) Electrolyte imbalance: Code(s): E87.8 - Other disorders of electrolyte and fluid balance, not elsewhere classified Status: Acute Assessment and Plan: Hyponatremia with a sodium of 136 much improved (4) Hypoglycemia: Code(s): E16.2 - Hypoglycemia, unspecified Status: Acute Assessment and Plan: Oral hypoglycemics on hold. Initiate Accu-Cheks and hypoglycemic protocol. (5) Profound anemia: Code(s): D64.9 - Anemia, unspecified Status: Acute Assessment and Plan: Sp EGD (6) Acute kidney injury: Code(s): N17.9 - Acute kidney failure, unspecified Status: Acute Assessment and Plan: Likely multifactorial in etiology to include hypotension or narcotics - continue to monitor (7) Type 2 diabetes mellitus: Code(s): E11.9 - Type 2 diabetes mellitus without complications Status: Acute Assessment and Plan: Oral hypoglycemics currently on hold. Check hemoglobin A1c. Initiate sliding scale insulin, Accu-Cheks, and hypoglycemic protocol. (8) Chronic, continuous use of opioids: Code(s): F11.90 - Opioid use, unspecified, uncomplicated Status: Acute Assessment and Plan: Fentanyl patch on hold given hypotension. Subjective Date/time seen: 03/20/20 15:05 Interval history: 69-year-old female with history of hypertension, dyslipidemia, type 2 diabetes mellitus, anemia chronic pain syndrome on long-term opiates presented to the emergency department earlier this morning via EMS from home for evaluation of generalized weakness.Admitted for suspected covid, pneumonia and septic shock. Pt was found to be covid negative, awaiting BC and atypical tests. Pt appears frustrated wants more for pain, uses fentanyl for pain chronically. Pt had EGD which showed- gastric ulcer, Bp better, hb is 7.8 Review of Systems Review of Systems: All systems reviewed & are unremarkable except as noted in HPI and below Exam Narrative: Exam Narrative: Temp Pulse Resp BP Pulse Ox 36.4 C 97 18 130/67 100 03/20/20 14:00 03/20/20 14:10 03/20/20 14:10 03/20/20 14:00 03/20/20 14:10 Elderly lady upset and frustated not fully examined Objective Data Vital Signs Vital Signs: Vital Signs - 24 hr 03/19/20 15:57 03/19/20 16:00 03/19/20 18:00 Temperature 36.7 C Pulse Rate 86 103 H Respiratory Rate 14 16 Blood Pressure 122/60 143/84 H Pulse Oximetry 100 100 100 03/19/20 20:00 03/19/20 22:00 03/20/20 00:00 Temperature 36.9 C 36.4 C L Pulse Rate 96 88 78 Respiratory Rate 18 15 14 Blood Pressure 131/67 124/73 128/63 Pulse Oximetry 100 99 99 03/20/20 02:00 03/20/20 04:00 03/20/20 06:00 Temperature 36.4 C Pulse Rate 97 62 79 Respiratory Rate 16 22 H 23 H Blood Pressure 135/76 101/67 118/58 L Pulse Oximetry 99 99 97 03/20/20 07:06 03/20/20 07:25 03/20/20 07:35 Temperature Pulse Rate 88 78 81 Respiratory Rate 13 18 18 Blood Pr
[2020-03-20 16:32] LABS: Glucose Point of Care 99 (65-105)
[2020-03-20] MEDS: metFORMIN HCL 500 MG TABLET PO (16:49)
[2020-03-20] MEDS: PANTOPRAZOLE 40 MG TABLET PO (16:49)
[2020-03-20] MEDS: MIDODRINE HCL 2.5 MG TABLET PO (16:50)
[2020-03-20 21:21] LABS: Glucose Point of Care 141 (65-105)
[2020-03-21 04:05] LABS: Osmolality, Urine 162 mOsm/kg (50-1200)
[2020-03-21 06:00] VITALS: BP 119/57; PULSE 85; RESP 20; TEMP 36.4; O2SAT 98
[2020-03-21 06:25] LABS: Hematocrit 25.9 % (37.0-47.0); Hemoglobin 7.8 g/dL (12.0-15.0); Mean Corpuscular HGB Conc 30.1 g/dl (32-36); Mean Corpuscular Hemoglobin 27.4 pg (26-34); Mean Corpuscular Volume 90.9 fl (80-100); Mean Platelet Volume 10.1 fl (7.4-10.4); Platelet Count Result 277 k/mm3 (150-375); Red Blood Count 2.85 M/mm3 (4.2-5.4); Red Cell Distribution Width 14.7 % (11.5-14.5)
[2020-03-21 06:39] LABS: Alanine Aminotransferase 20 U/L (4-35); Albumin Level 2.4 g/dL (3.5-5.1); Alkaline Phosphatase 95 U/L (38-126); Aspartate Amino Transferase 27 U/L (14-36); Bilirubin,Total 0.5 mg/dL (0.2-1.3); Blood Urea Nitrogen 23 mg/dL (7-17); Calcium 7.4 mg/dL (8.4-10.2); Carbon Dioxide 23 mmol/L (22-30); Chloride 108 mmol/L (98-107); Estimated CRCL calculation 47 ml/min; Estimated Glomerular Filt Rate > 60; Glucose 74 mg/dL (65-105); Potassium 2.9 mmol/L (3.4-5.0); Sodium 136 mmol/L (137-145)
--- NOTE | 2020-03-21 07:15 | WPDANESPN ---
Anes - Prog Note Post-Op Date/Time: 03/21/20 07:15 Cardiovascular status: normal Respiratory status: normal Airway patency: baseline Mental status: baseline Post-Op hydration status: normal Vital Signs: Last Vital Signs Temp 36.1 C L 03/20/20 22:00 Pulse 69 03/20/20 22:00 Resp 20 03/20/20 22:00 BP 106/56 L 03/20/20 22:00 Pulse Ox 98 03/20/20 22:00 I/O: Intake & Output 03/20/20 03/20/20 03/21/20 15:59 23:59 07:59 Intake Total 650 747 Output Total 550 Balance 650 197 Laboratory Tests 03/21/20 05:46 03/21/20 05:46 03/17/20 03/18/20 03/20/20 23:40 00:33 08:12 WBC RBC Hgb Hct MCV MCH MCHC RDW Plt Count MPV Sodium Potassium Chloride Carbon Dioxide BUN Creatinine Estim Creat Clear Calc Estimated GFR Glucose POC Capillary Glucose 116 H Serum Osmolality 291 Calcium Total Bilirubin AST ALT Alkaline Phosphatase Total Protein Albumin Urine Osmolality 162 Urine Pneumococcal Ag Not detected 03/20/20 03/20/20 03/20/20 12:48 16:30 20:35 WBC RBC Hgb Hct MCV MCH MCHC RDW Plt Count MPV Sodium Potassium Chloride Carbon Dioxide BUN Creatinine Estim Creat Clear Calc Estimated GFR Glucose POC Capillary Glucose 149 H 99 141 H Serum Osmolality Calcium Total Bilirubin AST ALT Alkaline Phosphatase Total Protein Albumin Urine Osmolality Urine Pneumococcal Ag 03/21/20 03/21/20 05:46 05:46 WBC 9.0 RBC 2.85 L Hgb 7.8 L Hct 25.9 L MCV 90.9 MCH 27.4 MCHC 30.1 L RDW 14.7 H Plt Count 277 MPV 10.1 Sodium 136 L Potassium 2.9 L Chloride 108 H Carbon Dioxide 23 BUN 23 H Creatinine 0.90 Estim Creat Clear Calc 47 Estimated GFR > 60 Glucose 74 POC Capillary Glucose Serum Osmolality Calcium 7.4 L Total Bilirubin 0.5 AST 27 ALT 20 Alkaline Phosphatase 95 Total Protein 5.0 L Albumin 2.4 L Urine Osmolality Urine Pneumococcal Ag Microbiology 03/19/20 13:12 Urine [place] Urine Culture - Preliminary Escherichia Coli Post-procedural complaints: none Patient Feedback: Patient satisfied with anesthetic care.
[2020-03-21 08:08] LABS: Glucose Point of Care 73 (65-105)
[2020-03-21] MEDS: FUROSEMIDE 40 MG TABLET PO (08:57)
[2020-03-21] MEDS: busPIRone HCL 2.5 MG TABLET 7.5 MG PO ×2 (08:57→20:47)
[2020-03-21] MEDS: QUEtiapine FUMARATE 100 MG TABLET PO ×2 (08:57→17:25)
[2020-03-21] MEDS: PANTOPRAZOLE 40 MG TABLET PO ×2 (08:57→17:24)
[2020-03-21] MEDS: ATORVASTATIN 40 MG TABLET 80 MG PO (08:57)
[2020-03-21] MEDS: GABAPENTIN 300 MG CAPSULE PO ×3 (08:57→17:25)
[2020-03-21] MEDS: SODIUM BICARBONATE TAB 650 MG TABLET PO ×2 (08:57→17:24)
[2020-03-21] MEDS: MIDODRINE HCL 2.5 MG TABLET PO ×2 (08:57→17:25)
[2020-03-21] MEDS: HYDROCORTISONE SODIUM SUCCINATE 100 MG/2 ML VIAL 50 MG IV PUSH (08:58)
[2020-03-21] MEDS: FENOFIBRATE NANOCRYSTALLIZED 145 MG TABLET PO (09:00)
[2020-03-21 11:41] LABS: Glucose Point of Care 162 (65-105)
--- NOTE | 2020-03-21 13:14 | WPDGIPROGNO ---
Progress Note: A&P Additional Plan Patient alert and comfortable this morning. Tolerating diet. No additional bleeding noted. Physical exam abdomen benign soft and nontender. Lungs are clear. Heart without murmur. Labs reveal hemoglobin 7.8, hematocrit 25.9, MCV 90.9. Stable Impression 1. Gastric ulcer. Patient on proton pump inhibitor. Plan is to advance diet. Plan is to continue proton pump inhibitor. Avoid nonsteroidal anti-inflammatory agents. Because of gastric ulcer consider follow-up EGD in 2 months. Subjective Date/time seen: 03/21/20 13:14 Objective Data Vital Signs Vital Signs: Vital Signs - 24 hr 03/20/20 14:00 03/20/20 14:10 03/20/20 16:35 Temperature 36.4 C 36.4 C Pulse Rate 97 97 106 H Respiratory Rate 18 18 18 Blood Pressure 130/67 125/57 L Pulse Oximetry 100 100 99 03/20/20 22:00 03/21/20 06:00 Temperature 36.1 C L 36.4 C L Pulse Rate 69 85 Respiratory Rate 20 20 Blood Pressure 106/56 L 119/57 L Pulse Oximetry 98 98 Intake/Output Intake/Output: Intake & Output 03/18/20 03/19/20 03/20/20 03/21/20 23:59 23:59 23:59 23:59 Intake Total 3164 800 1477 1230 Output Total 4850 1550 1150 800 Balance -1686 -750 327 430 Meds/Results Medications: Active Medications Generic Name Dose Route Start Last Admin Trade Name Freq PRN Reason Stop Dose Admin Acetaminophen 650 mg 03/17/20 11:03 03/19/20 17:16 Tylenol Tablet PO 650 mg Q4H PRN Administration Mild Pain (1-3) or Fever Hydrocodone Bitart/Acetaminophen 1 tab 03/17/20 11:03 03/18/20 20:05 [place] 5-325 Mg PO 1 tab Q4H PRN Administration Pain Rated 4-6 Albuterol 2.5 mg 03/17/20 12:56 Albuterol Sulf Neb 2.5mg/0.5ml INHALATION Q4HRT PRN Shortness Of Breath Albuterol 2 puff 03/17/20 23:33 Proventil Hfa INHALATION QID PRN Wheezing Amoxicillin/Clavulanate Potassium 1 tablet 03/21/20 21:00 Augmentin 875-125 Mg Tab PO Q12HR YAKELIN Atorvastatin Calcium 80 mg 03/21/20 09:00 03/21/20 08:57 Lipitor PO 80 mg DAILY YAKELIN Administration Buspirone HCl 7.5 mg 03/20/20 09:00 03/21/20 08:57 Buspar PO 7.5 mg Q12HR YAKELIN Administration Dextrose 12.5 gm 03/17/20 23:29 Dextrose 50% Syringe IV PUSH PRN PRN Hypoglycemia Protocol Fenofibrate 145 mg 03/20/20 09:00 03/21/20 09:00 Tricor PO 145 mg QAM YAKELIN Administration Furosemide 40 mg 03/20/20 09:00 03/21/20 08:57 Lasix Tablet PO 40 mg DAILY YAKELIN Administration Gabapentin 300 mg 03/20/20 09:00 03/21/20 08:57 Neurontin PO 300 mg TID YAKELIN Administration Glucagon 1 mg 03/17/20 23:29 Glucagon For Inj IM PRN PRN Hypoglycemia Protocol Glucose 15 gm 03/17/20 23:29 Glutose 15 PO PRN PRN Hypoglycemia Protocol Hydrocortisone Sodium Succinate 50 mg 03/21/20 09:00 03/21/20 08:58 Solu-Cortef IV PUSH 03/22/20 23:59 50 mg DAILY YAKELIN Administration Hydroxyzine HCl 25 mg 03/20/20 07:59 Atarax Tablet PO TID PRN Anxiety Dextrose 1,000 mls @ 100 mls/hr 03/17/20 23:29 Dextrose 5% 1,000 Ml IVPB PRN PRN Hypoglycemia Protocol Insulin Aspart 2 - 5 units 03/18/20 08:00 03/21/20 11:41 Novolog SUB-Q Not Given TIDWM [facility] Protocol Ipratropium [place] 0.5 mg 03/17/20 12:56 Atrovent Neb INHALATION Q4HRT PRN Shortness Of Breath Metformin HCl 500 mg 03/20/20 17:00 03/21/20 08:08 Glucophage PO Not Given BIDWM [facility] Midodrine 2.5 mg 03/20/20 17:00 03/21/20 08:57 Proamatine PO 2.5 mg BID YAKELIN Administration Morphine Sulfate 4 mg 03/17/20 11:03 03/18/20 23:34 Morphine Sulfate Inj IV PUSH 4 mg Q2H PRN Administration Pain Rated 7-10 Ondansetron HCl 4 mg 03/17/20 11:03 Zofran Inj IV PUSH Q4H PRN Nausea Oxybutynin Chloride 10 mg 03/21/20 09:00 03/21/20 08:57 Ditropan Xl PO 10 mg DAILY [facility] Administ
[2020-03-21 14:00] VITALS: BP 102/72; PULSE 78; RESP 16; TEMP 36.1; O2SAT 96
--- NOTE | 2020-03-21 15:03 | P.PNIM_ITS ---
Progress Note: A&P Assessment and Plan (1) Shock: Code(s): R57.9 - Shock, unspecified Status: Resolved Assessment and Plan: Severe hypotension is resolved. (2) Pneumonia: Code(s): J18.9 - Pneumonia, unspecified organism Status: Acute Assessment and Plan: * She has been started on azithromycin and ceftriaxone. * covid is negative * wcc is 13,000 * awaiting BC and urine serum antigens * All iv abx stopped as pt is having foul smelling diarrhea * Cdiff is ordered potassium low, Wcc is nl, HB is low * order KCL with NS fluids (3) Electrolyte imbalance: Code(s): E87.8 - Other disorders of electrolyte and fluid balance, not elsewhere classified Status: Acute Assessment and Plan: * Hyponatremia with a sodium of 136 much improved (4) Hypoglycemia: Code(s): E16.2 - Hypoglycemia, unspecified Status: Acute Assessment and Plan: * Oral hypoglycemics on hold. * Initiate Accu-Cheks and hypoglycemic protocol. (5) Profound anemia: Code(s): D64.9 - Anemia, unspecified Status: Acute Assessment and Plan: Sp EGD (6) Acute kidney injury: Code(s): N17.9 - Acute kidney failure, unspecified Status: Acute Assessment and Plan: * Likely multifactorial in etiology to include hypotension or narcotics - co ntinue to monitor (7) Type 2 diabetes mellitus: Code(s): E11.9 - Type 2 diabetes mellitus without complications Status: Acute Assessment and Plan: * Oral hypoglycemics currently on hold. * Check hemoglobin A1c. * Initiate sliding scale insulin, Accu-Cheks, and hypoglycemic protocol. (8) Chronic, continuous use of opioids: Code(s): F11.90 - Opioid use, unspecified, uncomplicated Status: Acute Assessment and Plan: * Fentanyl patch on hold given hypotension. Subjective Date/time seen: 03/21/20 15:03 Interval history: 69-year-old female with history of hypertension, dyslipidemia, type 2 diabetes mellitus, anemia chronic pain syndrome on long-term opiates presented to the emergency department earlier this morning via EMS from home for evaluation of generalized weakness.Admitted for suspected covid, pneumonia and s eptic shock. Pt was found to be covid negative, awaiting BC and atypical tests. Pt appears frustrated wants more for pain, uses fentanyl for pain chronically. Pt had EGD which showed- gastric ulcer. Today pt is having foul swelling diarrhea cdiff is ordered. Review of Systems Review of Systems: All systems reviewed & are unremarkable except as noted in HPI and below Respiratory: Respiratory: Denies chest congestion, Denies cough and Denies dyspnea Gastrointestinal: Gastrointestinal: Denies abdominal pain, Reports diarrhea and Reports loose stools Exam Narrative: Exam Narrative: Temp Pulse Resp BP Pulse Ox 36.4 C 97 18 130/67 100
--- NOTE | 2020-03-21 15:03 | PM.IMPN ---
Progress Note: A&P Assessment and Plan (1) Shock: Code(s): R57.9 - Shock, unspecified Status: Resolved Assessment and Plan: Severe hypotension is resolved. (2) Pneumonia: Code(s): J18.9 - Pneumonia, unspecified organism Status: Acute Assessment and Plan: She has been started on azithromycin and ceftriaxone. covid is negative wcc is 13,000 awaiting BC and urine serum antigens All iv abx stopped as pt is having foul smelling diarrhea Cdiff is ordered potassium low, Wcc is nl, HB is low order KCL with NS fluids (3) Electrolyte imbalance: Code(s): E87.8 - Other disorders of electrolyte and fluid balance, not elsewhere classified Status: Acute Assessment and Plan: Hyponatremia with a sodium of 136 much improved (4) Hypoglycemia: Code(s): E16.2 - Hypoglycemia, unspecified Status: Acute Assessment and Plan: Oral hypoglycemics on hold. Initiate Accu-Cheks and hypoglycemic protocol. (5) Profound anemia: Code(s): D64.9 - Anemia, unspecified Status: Acute Assessment and Plan: Sp EGD (6) Acute kidney injury: Code(s): N17.9 - Acute kidney failure, unspecified Status: Acute Assessment and Plan: Likely multifactorial in etiology to include hypotension or narcotics - continue to monitor (7) Type 2 diabetes mellitus: Code(s): E11.9 - Type 2 diabetes mellitus without complications Status: Acute Assessment and Plan: Oral hypoglycemics currently on hold. Check hemoglobin A1c. Initiate sliding scale insulin, Accu-Cheks, and hypoglycemic protocol. (8) Chronic, continuous use of opioids: Code(s): F11.90 - Opioid use, unspecified, uncomplicated Status: Acute Assessment and Plan: Fentanyl patch on hold given hypotension. Subjective Date/time seen: 03/21/20 15:03 Interval history: 69-year-old female with history of hypertension, dyslipidemia, type 2 diabetes mellitus, anemia chronic pain syndrome on long-term opiates presented to the emergency department earlier this morning via EMS from home for evaluation of generalized weakness.Admitted for suspected covid, pneumonia and septic shock. Pt was found to be covid negative, awaiting BC and atypical tests. Pt appears frustrated wants more for pain, uses fentanyl for pain chronically. Pt had EGD which showed- gastric ulcer. Today pt is having foul swelling diarrhea cdiff is ordered. Review of Systems Review of Systems: All systems reviewed & are unremarkable except as noted in HPI and below Respiratory: Respiratory: Denies chest congestion, Denies cough and Denies dyspnea Gastrointestinal: Gastrointestinal: Denies abdominal pain, Reports diarrhea and Reports loose stools Exam Narrative: Exam Narrative: Temp Pulse Resp BP Pulse Ox 36.4 C 97 18 130/67 100 03/20/20 14:00 03/20/20 14:10 03/20/20 14:10 03/20/20 14:00 03/20/20 14:10 Elderly lady upset and frustrated +diarrhea Objective Data Vital Signs Vital Signs: Vital Signs - 24 hr 03/20/20 16:35 03/20/20 22:00 03/21/20 06:00 Temperature 36.4 C 36.1 C L 36.4 C L Pulse Rate 106 H 69 85 Respiratory Rate 18 20 20 Blood Pressure 125/57 L 106/56 L 119/57 L Pulse Oximetry 99 98 98 03/21/20 14:00 Temperature 36.1 C L Pulse Rate 78 Respiratory Rate 16 Blood Pressure 102/72 Pulse Oximetry
[2020-03-21] MEDS: POTASSIUM CHLORIDE INJ 10 MEQ in DEXTROSE 5%/0.45% SOD CHL 1,000 ML 100 MEQ IV CONT (16:29)
[2020-03-21 16:35] LABS: Glucose Point of Care 136 (65-105)
[2020-03-21] MEDS: AMOXICILLIN/CLAVULANATE K 875-125 MG TAB 1 TABLET PO (20:47)
[2020-03-21 20:53] LABS: Glucose Point of Care 195 (65-105)
[2020-03-21 21:04] VITALS: BP 104/47; PULSE 81; RESP 18; TEMP 37.1; O2SAT 97
[2020-03-22] MEDS: POTASSIUM CHLORIDE INJ 10 MEQ in DEXTROSE 5%/0.45% SOD CHL 1,000 ML 100 MEQ IV CONT ×3 (02:42→21:47)
[2020-03-22 05:41] VITALS: BP 111/42; PULSE 74; RESP 20; TEMP 36.7; O2SAT 100
[2020-03-22 06:06] LABS: Hematocrit 23.4 % (37.0-47.0); Hemoglobin 7.3 g/dL (12.0-15.0); Mean Corpuscular HGB Conc 31.2 g/dl (32-36); Mean Corpuscular Hemoglobin 27.4 pg (26-34); Mean Platelet Volume 9.4 fl (7.4-10.4); Platelet Count Result 264 k/mm3 (150-375); Red Blood Count 2.66 M/mm3 (4.2-5.4); Red Cell Distribution Width 14.4 % (11.5-14.5); White Blood Count 8.6 K/mm3 (4.5-10.0)
[2020-03-22 06:37] LABS: Alanine Aminotransferase 16 U/L (4-35); Albumin Level 2.2 g/dL (3.5-5.1); Alkaline Phosphatase 79 U/L (38-126); Aspartate Amino Transferase 22 U/L (14-36); Bilirubin,Total 0.4 mg/dL (0.2-1.3); Blood Urea Nitrogen 13 mg/dL (7-17); Calcium 6.9 mg/dL (8.4-10.2); Carbon Dioxide 26 mmol/L (22-30); Chloride 104 mmol/L (98-107); Estimated CRCL calculation 59 ml/min; Estimated Glomerular Filt Rate > 60; Glucose 103 mg/dL (65-105); Potassium 2.9 mmol/L (3.4-5.0); Sodium 134 mmol/L (137-145)
[2020-03-22 07:43] LABS: Glucose Point of Care 111 (65-105)
[2020-03-22] MEDS: GABAPENTIN 300 MG CAPSULE PO ×3 (08:24→17:15)
[2020-03-22] MEDS: ATORVASTATIN 40 MG TABLET 80 MG PO (08:24)
[2020-03-22] MEDS: busPIRone HCL 2.5 MG TABLET 7.5 MG PO ×2 (08:24→21:34)
[2020-03-22] MEDS: AMOXICILLIN/CLAVULANATE K 875-125 MG TAB 1 TABLET PO ×2 (08:25→21:35)
[2020-03-22] MEDS: FENOFIBRATE NANOCRYSTALLIZED 145 MG TABLET PO (08:26)
[2020-03-22] MEDS: MIDODRINE HCL 2.5 MG TABLET PO ×2 (08:26→17:15)
[2020-03-22] MEDS: HYDROCORTISONE SODIUM SUCCINATE 100 MG/2 ML VIAL 50 MG IV PUSH (08:26)
[2020-03-22] MEDS: QUEtiapine FUMARATE 100 MG TABLET PO ×2 (08:27→17:17)
[2020-03-22] MEDS: PANTOPRAZOLE 40 MG TABLET PO ×2 (08:27→17:16)
[2020-03-22 09:44] LABS: Prolactin 5.4 ng/mL (***)
[2020-03-22 11:57] LABS: Glucose Point of Care 210 (65-105)
[2020-03-22] MEDS: INSULIN ASPART (*BKC) 100 UNITS/ML SUB-Q (12:06)
--- NOTE | 2020-03-22 12:17 | PM.IMPN ---
Progress Note: A&P Assessment and Plan (1) Shock: Code(s): R57.9 - Shock, unspecified Status: Resolved Assessment and Plan: Severe hypotension is resolved. (2) Pneumonia: Code(s): J18.9 - Pneumonia, unspecified organism Status: Acute Assessment and Plan: She has been started on azithromycin orally transitioned off iV abx covid is negative wcc is 8,000 awaiting BC and urine serum antigens All iv abx stopped as pt is having foul smelling diarrhea Cdiff is ordered potassium low, order KCL with NS fluids (3) Electrolyte imbalance: Code(s): E87.8 - Other disorders of electrolyte and fluid balance, not elsewhere classified Status: Acute Assessment and Plan: Hyponatremia with a sodium of 134 much improved (4) Hypoglycemia: Code(s): E16.2 - Hypoglycemia, unspecified Status: Acute Assessment and Plan: Oral hypoglycemics on hold. Initiate Accu-Cheks and hypoglycemic protocol. (5) Profound anemia: Code(s): D64.9 - Anemia, unspecified Status: Acute Assessment and Plan: Sp EGD, pt hb is low will need to dischrage on iron supplements. (6) Acute kidney injury: Code(s): N17.9 - Acute kidney failure, unspecified Status: Acute Assessment and Plan: Likely multifactorial in etiology to include hypotension or narcotics - continue to monitor (7) Type 2 diabetes mellitus: Code(s): E11.9 - Type 2 diabetes mellitus without complications Status: Acute Assessment and Plan: Oral hypoglycemics currently on hold. Check hemoglobin A1c. Initiate sliding scale insulin, Accu-Cheks, and hypoglycemic protocol. (8) Chronic, continuous use of opioids: Code(s): F11.90 - Opioid use, unspecified, uncomplicated Status: Acute Assessment and Plan: Fentanyl patch on hold given hypotension. Subjective Date/time seen: 03/22/20 12:17 Interval history: 69-year-old female with history of hypertension, dyslipidemia, type 2 diabetes mellitus, anemia chronic pain syndrome on long-term opiates presented to the emergency department earlier this morning via EMS from home for evaluation of generalized weakness.Admitted for suspected covid, pneumonia and septic shock. Pt was found to be covid negative, awaiting BC and atypical tests. Pt appears frustrated wants more for pain, uses fentanyl for pain chronically. Pt had EGD which showed- gastric ulcer. Today pt is having foul swelling diarrhea cdiff is ordered.AWaiting results. Pt looks more alert and relaxed today. Diarrhea is better. Pt is eating more Review of Systems Review of Systems: All systems reviewed & are unremarkable except as noted in HPI and below Exam Narrative: Exam Narrative: Temp Pulse Resp BP Pulse Ox 36.7 C 74 20 111/42 L 100 03/22/20 05:41 03/22/20 05:41 03/22/20 05:41 03/22/20 05:41 03/22/20 05:41 Temp Pulse Resp BP Pulse Ox 36.4 C 97 18 130/67 100 03/20/20 14:00 03/20/20 14:10 03/20/20 14:10 03/20/20 14:00 03/20/20 14:10 Elderly lady is calm and pleasant today Objective Data Vital Signs Vital Signs: Vital Signs - 24 hr 03/21/20 14:00 03/21/20 21:04 03/22/20 05:41 Temperature 36.1 C L 37.1 C 36.7 C
[2020-03-22 14:00] VITALS: BP 126/50; PULSE 81; RESP 16; TEMP 36.2; O2SAT 99
[2020-03-22 16:44] LABS: Glucose Point of Care 162 (65-105)
[2020-03-22 19:57] VITALS: BP 120/56; PULSE 73; RESP 18; TEMP 36.7; O2SAT 100
[2020-03-22 22:10] LABS: Glucose Point of Care 158 (65-105)
[2020-03-23 06:19] VITALS: BP 118/58; PULSE 73; RESP 16; TEMP 36.6; O2SAT 97
[2020-03-23 07:38] LABS: Glucose Point of Care 99 (65-105)
[2020-03-23] MEDS: POTASSIUM CHLORIDE INJ 10 MEQ in DEXTROSE 5%/0.45% SOD CHL 1,000 ML 100 MEQ IV CONT ×2 (07:40→18:16)
[2020-03-23] MEDS: ATORVASTATIN 40 MG TABLET 80 MG PO (08:40)
[2020-03-23] MEDS: QUEtiapine FUMARATE 100 MG TABLET PO ×2 (08:41→17:18)
[2020-03-23] MEDS: AMOXICILLIN/CLAVULANATE K 875-125 MG TAB 1 TABLET PO ×2 (08:42→21:53)
[2020-03-23] MEDS: FUROSEMIDE 40 MG TABLET PO (08:43)
[2020-03-23] MEDS: GABAPENTIN 300 MG CAPSULE PO ×3 (08:43→17:19)
[2020-03-23] MEDS: busPIRone HCL 2.5 MG TABLET 7.5 MG PO ×2 (08:44→21:52)
[2020-03-23 08:45] VITALS: RESP 16; O2SAT 97
[2020-03-23] MEDS: PANTOPRAZOLE 40 MG TABLET PO ×2 (08:45→17:18)
[2020-03-23] MEDS: MIDODRINE HCL 2.5 MG TABLET PO ×2 (08:45→17:19)
[2020-03-23] MEDS: FENOFIBRATE NANOCRYSTALLIZED 145 MG TABLET PO (08:45)
[2020-03-23 11:25] LABS: Glucose Point of Care 136 (65-105)
--- NOTE | 2020-03-23 11:36 | WPDGIPROGNO ---
Progress Note: A&P Additional Plan Patient more alert today. She reports some diarrhea. No bleeding described. Physical exam reveals her to be alert and oriented. Lungs are clear. Heart without murmur. Abdomen is soft and nontender. Labs reveal hemoglobin 7.3, hematocrit 23.4, MCV 88. Stools reported to be positive for C difficile toxin. Impression 1. Gastric ulcer. Now on proton pump inhibitor. Plan to avoid nonsteroidal anti-inflammatory agents. Follow-up EGD in 2 months advised. 2. C difficile positive stools. Some stool noted on Sunday. She may have loose stools still . Plan is for 7-10 day course of vancomycin. 3. Urinary tract infection. For 4. Resolved encephalopathy. Plan is to advance diet. Hopefully discharge soon follow-up CBC is an outpatient. Subjective Date/time seen: 03/23/20 11:36 Objective Data Vital Signs Vital Signs: Vital Signs - 24 hr 03/22/20 14:00 03/22/20 19:57 03/23/20 06:19 Temperature 36.2 C L 36.7 C 36.6 C Pulse Rate 81 73 73 Respiratory Rate 16 18 16 Blood Pressure 126/50 L 120/56 L 118/58 L Pulse Oximetry 99 100 97 03/23/20 08:45 Temperature Pulse Rate Respiratory Rate 16 Blood Pressure Pulse Oximetry 97 Intake/Output Intake/Output: Intake & Output 03/20/20 03/21/20 03/22/20 03/23/20 23:59 23:59 23:59 23:59 Intake Total 1477 1770 4797 1390 Output Total 1150 2150 1800 1950 Balance 327 -380 2997 -560 Meds/Results Medications: Active Medications Generic Name Dose Route Start Last Admin Trade Name Freq PRN Reason Stop Dose Admin Acetaminophen 650 mg 03/17/20 11:03 03/19/20 17:16 Tylenol Tablet PO 650 mg Q4H PRN Administration Mild Pain (1-3) or Fever Hydrocodone Bitart/Acetaminophen 1 tab 03/17/20 11:03 03/18/20 20:05 [place] 5-325 Mg PO 1 tab Q4H PRN Administration Pain Rated 4-6 Albuterol 2.5 mg 03/17/20 12:56 Albuterol Sulf Neb 2.5mg/0.5ml INHALATION Q4HRT PRN Shortness Of Breath Albuterol 2 puff 03/17/20 23:33 Proventil Hfa INHALATION QID PRN Wheezing Amoxicillin/Clavulanate Potassium 1 tablet 03/21/20 21:00 03/23/20 08:42 Augmentin 875-125 Mg Tab PO 1 tablet Q12HR YAKELIN Administration Atorvastatin Calcium 80 mg 03/21/20 09:00 03/23/20 08:40 Lipitor PO 80 mg DAILY YAKELIN Administration Buspirone HCl 7.5 mg 03/20/20 09:00 03/23/20 08:44 Buspar PO 7.5 mg Q12HR YAKELIN Administration Dextrose 12.5 gm 03/17/20 23:29 Dextrose 50% Syringe IV PUSH PRN PRN Hypoglycemia Protocol Fenofibrate 145 mg 03/20/20 09:00 03/23/20 08:45 Tricor PO 145 mg QAM YAKELIN Administration Furosemide 40 mg 03/20/20 09:00 03/23/20 08:43 Lasix Tablet PO 40 mg DAILY YAKELIN Administration Gabapentin 300 mg 03/20/20 09:00 03/23/20 08:43 Neurontin PO 300 mg TID YAKELIN Administration Glucagon 1 mg 03/17/20 23:29 Glucagon For Inj IM PRN PRN Hypoglycemia Protocol Glucose 15 gm 03/17/20 23:29 Glutose 15 PO PRN PRN Hypoglycemia Protocol Hydroxyzine HCl 25 mg 03/20/20 07:59 Atarax Tablet PO TID PRN Anxiety Dextrose 1,000 mls @ 100 mls/hr 03/17/20 23:29 Dextrose 5% 1,000 Ml IVPB PRN PRN Hypoglycemia Protocol Potassium Chloride 10 meq/ 1,000 mls @ 100 mls/hr 03/21/20 16:30 03/23/20 07:40 Dextrose/Sodium Chloride IV CONT 100 mls/hr .Q10H YAKELIN Administration Insulin Aspart 2 - 5 units 03/18/20 08:00 03/23/20 11:35 Novolog SUB-Q Not Given TIDWM [facility] Protocol Ipratropium [place] 0.5 mg 03/17/20 12:56 Atrovent Neb INHALATION Q4HRT PRN Shortness Of Breath Metformin HCl 500 mg 03/20/20 17:00 03/21/20 08:08 Glucophage PO Not Given BIDWM YAKELIN Midodrine 2.5 mg 03/20/20 17:00 03/23/20 08:45 Proamatine PO 2.5 mg BID YAKELIN Administration Morphine Sulfate 4 mg 03/17/20 11:03 03/18/20 23:34 Morphine
[2020-03-23] MEDS: VANCOMYCIN ORAL 125 MG/2.5 ML SYRUP PO ×2 (12:59→17:18)
--- NOTE | 2020-03-23 14:41 | PCDIET ---
Nutrition Follow-Up Complete: Suboptimal oral intake related to multiple medical issues as evidenced by meal intake 0-25%. Patient to consume 50% of meals/supplements. Goal: Goal met. Continue goal. Pt current nutrition is DBCC+Glucerna . Nutrition recommendation: Agree Last recorded weight is 70 kg (down 2kg from assessment wt) Bowel Motility:Diarrhea today Labs Reviewed:Glucose 136 Meds Noted:PPI, Vancomycin Additional Notes: Pt eating 85% of meals on appropriate diet. Discussed cdiff+ and how overgrowth leads to symptoms. Edu provided on use of pre and probiotic foods after antibiotic treatment to help suppress cdiff from overgrowth again. Pt agrees to start banatrol TID here. Recommend a good probtiotic such as NOW brand to pt for 3-6 months after d/c. We will continue to monitor every five days.
[2020-03-23 16:52] LABS: Glucose Point of Care 114 (65-105)
--- NOTE | 2020-03-23 17:26 | PM.IMPN ---
Progress Note: A&P Assessment and Plan (1) Shock: Code(s): R57.9 - Shock, unspecified Status: Resolved Assessment and Plan: Severe hypotension is resolved. (2) Pneumonia: Code(s): J18.9 - Pneumonia, unspecified organism Status: Acute Assessment and Plan: She has been started on azithromycin orally transitioned off iV abx covid is negative wcc is 8,000 awaiting BC and urine serum antigens All iv abx stopped as pt is having foul smelling diarrhea Cdiff is ordered potassium low, order KCL with NS fluids 69-year-old female with history of hypertension, dyslipidemia, type 2 diabetes mellitus, anemia chronic pain syndrome on long-term opiates presented to the emergency department earlier this morning via EMS from home for evaluation of generalized weakness.Admitted for suspected covid, pneumonia and septic shock. Pt was found to be covid negative, awaiting BC and atypical tests. Pt appears frustrated wants more for pain, uses fentanyl for pain chronically. Pt had EGD which showed- gastric ulcer. on 03/22 pt was having foul swelling diarrhea cdiff is positive, Pt looks more alert and relaxed today. Diarrhea is better. Pt is eating more, patient is urine culture is positive for E coli ESBL, does not have any urinary sysmptoms will consult Dr. Prado for further recommendation. (3) Electrolyte imbalance: Code(s): E87.8 - Other disorders of electrolyte and fluid balance, not elsewhere classified Status: Acute Assessment and Plan: Hyponatremia with a sodium of 134 much improved (4) Hypoglycemia: Code(s): E16.2 - Hypoglycemia, unspecified Status: Acute Assessment and Plan: Oral hypoglycemics on hold. Initiate Accu-Cheks and hypoglycemic protocol. (5) Profound anemia: Code(s): D64.9 - Anemia, unspecified Status: Acute Assessment and Plan: Sp EGD, pt hb is low will need to dischrage on iron supplements. (6) Acute kidney injury: Code(s): N17.9 - Acute kidney failure, unspecified Status: Acute Assessment and Plan: Likely multifactorial in etiology to include hypotension or narcotics - continue to monitor (7) Type 2 diabetes mellitus: Code(s): E11.9 - Type 2 diabetes mellitus without complications Status: Acute Assessment and Plan: Oral hypoglycemics currently on hold. Check hemoglobin A1c. Initiate sliding scale insulin, Accu-Cheks, and hypoglycemic protocol. (8) Chronic, continuous use of opioids: Code(s): F11.90 - Opioid use, unspecified, uncomplicated Status: Acute Assessment and Plan: Fentanyl patch on hold given hypotension. Subjective Date/time seen: 03/23/20 17:26 Interval history: 69-year-old female with history of hypertension, dyslipidemia, type 2 diabetes mellitus, anemia chronic pain syndrome on long-term opiates presented to the emergency department earlier this morning via EMS from home for evaluation of generalized weakness.Admitted for suspected covid, pneumonia and septic shock. Pt was found to be covid negative, awaiting BC and atypical tests. Pt appears frustrated wants more for pain, uses fentanyl for pain chronically. Pt had EGD which showed- gastric ulcer. on 03/22 pt was having foul swelling diarrhea cdiff is positive, Pt looks more alert and relaxed today. Diarrhea is better. Pt is eating more, patient is urine culture is positive for E coli ESBL, does not have any urinary sysmptoms will consult Dr. Prado for further recommendati
[2020-03-23 17:30] VITALS: BP 105/59; PULSE 60; RESP 16; TEMP 36.3; O2SAT 100
[2020-03-23 20:00] VITALS: BP 125/67; PULSE 86; RESP 16; TEMP 36.7; O2SAT 98
[2020-03-23 21:28] LABS: Legionella pneumophila Ag Ur Not Detected (Not Detected)
[2020-03-23 23:23] LABS: Glucose Point of Care 103 (65-105)
[2020-03-24] MEDS: VANCOMYCIN ORAL 125 MG/2.5 ML SYRUP PO ×5 (00:08→23:06)
[2020-03-24 06:00] VITALS: BP 117/52; PULSE 79; RESP 20; TEMP 37.6; O2SAT 99
[2020-03-24] MEDS: POTASSIUM CHLORIDE INJ 10 MEQ in DEXTROSE 5%/0.45% SOD CHL 1,000 ML 100 MEQ IV CONT ×2 (06:16→17:20)
[2020-03-24 08:01] LABS: Glucose Point of Care 95 (65-105)
[2020-03-24] MEDS: AMOXICILLIN/CLAVULANATE K 875-125 MG TAB 1 TABLET PO (08:38)
[2020-03-24] MEDS: busPIRone HCL 2.5 MG TABLET 7.5 MG PO ×2 (08:38→21:14)
[2020-03-24] MEDS: ATORVASTATIN 40 MG TABLET 80 MG PO (08:39)
[2020-03-24] MEDS: FENOFIBRATE NANOCRYSTALLIZED 145 MG TABLET PO (08:39)
[2020-03-24] MEDS: GABAPENTIN 300 MG CAPSULE PO ×3 (08:40→17:20)
[2020-03-24] MEDS: PANTOPRAZOLE 40 MG TABLET PO ×2 (08:40→17:22)
[2020-03-24] MEDS: MIDODRINE HCL 2.5 MG TABLET PO ×2 (08:41→17:22)
[2020-03-24 08:42] VITALS: PULSE 79; RESP 20; O2SAT 99
[2020-03-24] MEDS: FUROSEMIDE 40 MG TABLET PO (08:42)
[2020-03-24] MEDS: QUEtiapine FUMARATE 100 MG TABLET PO ×2 (08:42→17:22)
--- NOTE | 2020-03-24 09:38 | P.CDI_ITS ---
CDI Query Clarification Request - On arrival H&H 7.0/22.5 then 6.8/22.1 - One unit of blood was transfused - Stool for OB was positive - EGD showed acute gastric ulcer with block material/clot present - Profound anemia has been documented Please clarify cause and acuity of profound anemia: * Acute blood loss anemia due to GI bleed * Acute anemia of other cause * Acute on chronic anemia and cause * Chronic anemia and cause * Other * Unable to determine <Michelle Antony RN - Last Filed: 03/24/20 09:43> Clarified Diagnosis (1) Profound anemia: Code(s): D64.9 - Anemia, unspecified <Michelle Antony RN - Last Filed: 03/24/20 09:43> Status: Acute <Michelle Antony RN - Last Filed: 03/24/20 09:43> Assessment and Plan: most likely acute on chronic 2/2 gastric ulcer found on EGD. <Prabhakar Martínez MD - Last Filed: 03/24/20 14:11>
--- NOTE | 2020-03-24 10:25 | WPDGIPROGNO ---
Progress Note: A&P Additional Plan Patient alert and comfortable this morning. Tolerating diet. No active bleeding described. Diarrhea has improved. Physical exam abdomen soft bowel sounds are present nontender with no organomegaly. Labs reveal hemoglobin 7.3, hematocrit 23.4, MCV 88. Impression 1. Gastric ulcer. Appears to been etiology for GI bleeding. Now resolved. Follow-up EGD in 2 months advised. Continue PPI for now. 2. C difficile toxin positive. Patient now on antibiotics. Brief diarrhea likely related to this. Improving on vancomycin. Continue vancomycin for 1 week after discharge. 3. Pneumonia. 4. Anemia. Likely multifactorial. Blood loss from gastric ulcer likely contributes to this. Subjective Date/time seen: 03/24/20 10:25 Objective Data Vital Signs Vital Signs: Vital Signs - 24 hr 03/23/20 17:30 03/23/20 20:00 03/24/20 06:00 Temperature 36.3 C L 36.7 C 37.6 C Pulse Rate 60 86 79 Respiratory Rate 16 16 20 Blood Pressure 105/59 L 125/67 117/52 L Pulse Oximetry 100 98 99 Intake/Output Intake/Output: Intake & Output 03/21/20 03/22/20 03/23/20 03/24/20 23:59 23:59 23:59 23:59 Intake Total 1770 4797 4342 1440 Output Total 2150 1800 7905 1700 Balance -380 1899 -571 -081 Meds/Results Medications: Active Medications Generic Name Dose Route Start Last Admin Trade Name Freq PRN Reason Stop Dose Admin Acetaminophen 650 mg 03/17/20 11:03 03/19/20 17:16 Tylenol Tablet PO 650 mg Q4H PRN Administration Mild Pain (1-3) or Fever Hydrocodone Bitart/Acetaminophen 1 tab 03/17/20 11:03 03/18/20 20:05 [place] 5-325 Mg PO 1 tab Q4H PRN Administration Pain Rated 4-6 Albuterol 2.5 mg 03/17/20 12:56 Albuterol Sulf Neb 2.5mg/0.5ml INHALATION Q4HRT PRN Shortness Of Breath Albuterol 2 puff 03/17/20 23:33 Proventil Hfa INHALATION QID PRN Wheezing Amoxicillin/Clavulanate Potassium 1 tablet 03/21/20 21:00 03/24/20 08:38 Augmentin 875-125 Mg Tab PO 1 tablet Q12HR YAKELIN Administration Atorvastatin Calcium 80 mg 03/21/20 09:00 03/24/20 08:39 Lipitor PO 80 mg DAILY YAKELIN Administration Buspirone HCl 7.5 mg 03/20/20 09:00 03/24/20 08:38 Buspar PO 7.5 mg Q12HR YAKELIN Administration Dextrose 12.5 gm 03/17/20 23:29 Dextrose 50% Syringe IV PUSH PRN PRN Hypoglycemia Protocol Fenofibrate 145 mg 03/20/20 09:00 03/24/20 08:39 Tricor PO 145 mg QAM YAKELIN Administration Furosemide 40 mg 03/20/20 09:00 03/24/20 08:42 Lasix Tablet PO 40 mg DAILY YAKELIN Administration Gabapentin 300 mg 03/20/20 09:00 03/24/20 08:40 Neurontin PO 300 mg TID YAKELIN Administration Glucagon 1 mg 03/17/20 23:29 Glucagon For Inj IM PRN PRN Hypoglycemia Protocol Glucose 15 gm 03/17/20 23:29 Glutose 15 PO PRN PRN Hypoglycemia Protocol Hydroxyzine HCl 25 mg 03/20/20 07:59 Atarax Tablet PO TID PRN Anxiety Dextrose 1,000 mls @ 100 mls/hr 03/17/20 23:29 Dextrose 5% 1,000 Ml IVPB PRN PRN Hypoglycemia Protocol Potassium Chloride 10 meq/ 1,000 mls @ 100 mls/hr 03/21/20 16:30 03/24/20 06:16 Dextrose/Sodium Chloride IV CONT 100 mls/hr .Q10H [facility] Administration Insulin Aspart 2 - 5 units 03/18/20 08:00 03/24/20 08:38 Novolog SUB-Q Not Given TIDWM [facility] Protocol Ipratropium [place] 0.5 mg 03/17/20 12:56 Atrovent Neb INHALATION Q4HRT PRN Shortness Of Breath Metformin HCl 500 mg 03/20/20 17:00 03/21/20 08:08 Glucophage PO Not Given BIDWM [facility] Miconazole Nitrate 1 applic 03/23/20 09:00 03/24/20 08:41 Aloe [place] TOPICAL 1 applic Q12HR [facility] Administration Midodrine 2.5 mg 03/20/20 17:00 03/24/20 08:41 Proamatine PO 2.5 mg BID YAKELIN Administration Morphine Sulfate 4 mg 03/17/20 11:03 03/18/20 23:34 Morphine Sulfate Inj IV PUSH 4 mg Q2H PRN Ad
[2020-03-24 11:55] LABS: Glucose Point of Care 152 (65-105)
--- NOTE | 2020-03-24 12:09 | WPDINFPN2 ---
Progress Note: A&P Assessment and Plan (1) Colitis due to Clostridioides difficile: Code(s): A04.72 - Enterocolitis due to Clostridium difficile, not specified as recurrent Status: Acute Assessment and Plan: 1. C diff infection 2. Asymptomatic bacteriuria 3. Chronic lung infiltrates, possible ILD 4. Crohn's disease REC Vanc oral # 2 / 14 days. Ok discharge. See records coordinator or Pulmonary for eval of lung infiltrates (no current infection) Subjective Date/time seen: 03/24/20 12:09 Objective Data Vital Signs Vital Signs: Vital Signs - 24 hr 03/23/20 17:30 03/23/20 20:00 03/24/20 06:00 Temperature 36.3 C L 36.7 C 37.6 C Pulse Rate 60 86 79 Respiratory Rate 16 16 20 Blood Pressure 105/59 L 125/67 117/52 L Pulse Oximetry 100 98 99 03/24/20 08:42 Temperature Pulse Rate 79 Respiratory Rate 20 Blood Pressure Pulse Oximetry 99 Intake/Output Intake/Output: Intake & Output 03/21/20 03/22/20 03/23/20 03/24/20 23:59 23:59 23:59 23:59 Intake Total 1770 4797 4342 1440 Output Total 2150 1800 4975 1700 Balance -380 8698 -475 -824 Meds/Results Medications: Active Medications Generic Name Dose Route Start Last Admin Trade Name Freq PRN Reason Stop Dose Admin Acetaminophen 650 mg 03/17/20 11:03 03/19/20 17:16 Tylenol Tablet PO 650 mg Q4H PRN Administration Mild Pain (1-3) or Fever Hydrocodone Bitart/Acetaminophen 1 tab 03/17/20 11:03 03/18/20 20:05 [place] 5-325 Mg PO 1 tab Q4H PRN Administration Pain Rated 4-6 Albuterol 2.5 mg 03/17/20 12:56 Albuterol Sulf Neb 2.5mg/0.5ml INHALATION Q4HRT PRN Shortness Of Breath Albuterol 2 puff 03/17/20 23:33 Proventil Hfa INHALATION QID PRN Wheezing Atorvastatin Calcium 80 mg 03/21/20 09:00 03/24/20 08:39 Lipitor PO 80 mg DAILY YAKELIN Administration Buspirone HCl 7.5 mg 03/20/20 09:00 03/24/20 08:38 Buspar PO 7.5 mg Q12HR YAKELIN Administration Dextrose 12.5 gm 03/17/20 23:29 Dextrose 50% Syringe IV PUSH PRN PRN Hypoglycemia Protocol Fenofibrate 145 mg 03/20/20 09:00 03/24/20 08:39 Tricor PO 145 mg QAM YAKELIN Administration Furosemide 40 mg 03/20/20 09:00 03/24/20 08:42 Lasix Tablet PO 40 mg DAILY YAKELIN Administration Gabapentin 300 mg 03/20/20 09:00 03/24/20 08:40 Neurontin PO 300 mg TID YAKELIN Administration Glucagon 1 mg 03/17/20 23:29 Glucagon For Inj IM PRN PRN Hypoglycemia Protocol Glucose 15 gm 03/17/20 23:29 Glutose 15 PO PRN PRN Hypoglycemia Protocol Hydroxyzine HCl 25 mg 03/20/20 07:59 Atarax Tablet PO TID PRN Anxiety Dextrose 1,000 mls @ 100 mls/hr 03/17/20 23:29 Dextrose 5% 1,000 Ml IVPB PRN PRN Hypoglycemia Protocol Potassium Chloride 10 meq/ 1,000 mls @ 100 mls/hr 03/21/20 16:30 03/24/20 06:16 Dextrose/Sodium Chloride IV CONT 100 mls/hr .Q10H YAKELIN Administration Insulin Aspart 2 - 5 units 03/18/20 08:00 03/24/20 12:01 Novolog SUB-Q Not Given TIDWM [facility] Protocol Ipratropium [place] 0.5 mg 03/17/20 12:56 Atrovent Neb INHALATION Q4HRT PRN Shortness Of Breath Metformin HCl 500 mg 03/20/20 17:00 03/21/20 08:08 Glucophage PO Not Given BIDWM [facility] Miconazole Nitrate 1 applic 03/23/20 09:00 03/24/20 08:41 Aloe [place] TOPICAL 1 applic Q12HR YAKELIN Administration Midodrine 2.5 mg 03/20/20 17:00 03/24/20 08:41 Proamatine PO 2.5 mg BID YAKELIN Administration Morphine Sulfate 4 mg 03/17/20 11:03 03/18/20 23:34 Morphine Sulfate Inj IV PUSH 4 mg Q2H PRN Administration Pain Rated 7-10 Ondansetron HCl 4 mg 03/17/20 11:03 Zofran Inj IV PUSH Q4H PRN Nausea Oxybutynin Chloride 10 mg 03/21/20 09:00 03/24/20 08:40 Ditropan Xl PO 10 mg DAILY YAKELIN Administration Oxycodone HCl 5 mg 03/20/20 15:10 Roxicodone Ir Tablet PO
[2020-03-24 16:00] VITALS: BP 123/64; PULSE 83; RESP 16; TEMP 36.9; O2SAT 98
[2020-03-24 16:48] LABS: Glucose Point of Care 94 (65-105)
--- NOTE | 2020-03-24 16:50 | PM.IMPN ---
Progress Note: A&P Assessment and Plan (1) Colitis due to Clostridioides difficile: Code(s): A04.72 - Enterocolitis due to Clostridium difficile, not specified as recurrent Status: Acute Assessment and Plan: 9-year-old female with history of hypertension, dyslipidemia, type 2 diabetes mellitus, anemia chronic pain syndrome on long-term opiates presented to the emergency department earlier this morning via EMS from home for evaluation of generalized weakness.Admitted for suspected covid, pneumonia and septic shock. Pt was found to be covid negative, awaiting BC and atypical tests. Pt appears frustrated wants more for pain, uses fentanyl for pain chronically. Pt had EGD which showed- gastric ulcer. on 03/22 pt was having foul swelling diarrhea cdiff is positive, patient was started on vancomycin 125 mg p.o. every 6 hours, today patient was seen by Dr. chakraborty recommending to continue vancomycin for 14 days, patient does not need any antibiotics for UTI and pneumonia however his recommending the patient see immigration judge for abnormal chest x-ray will consult Dr. Schmid for her recommendation, patient is clinically stable remains clinically stable tomorrow may discharge home on oral vancomycin (2) Shock: Code(s): R57.9 - Shock, unspecified Status: Resolved Assessment and Plan: resolved (3) Pneumonia: Code(s): J18.9 - Pneumonia, unspecified organism Status: Acute Assessment and Plan: resolved (4) Acute hyponatremia: Code(s): E87.1 - Hypo-osmolality and hyponatremia Status: Acute Assessment and Plan: most likely due to pneumonia now improved (5) Suspected COVID-19 virus infection: Code(s): Z20.828 - Contact with and (suspected) exposure to other viral communicable diseases Status: Acute Assessment and Plan: it was negative (6) Profound anemia: Code(s): D64.9 - Anemia, unspecified Status: Acute Assessment and Plan: most likely due to gastric ulcer (7) Electrolyte imbalance: Code(s): E87.8 - Other disorders of electrolyte and fluid balance, not elsewhere classified Status: Acute Assessment and Plan: most likely due to diarrhea will supplement, (8) Chronic obstructive pulmonary disease: Code(s): J44.9 - Chronic obstructive pulmonary disease, unspecified Status: Acute Assessment and Plan: patient with hx of COPD, chest shows chronic infiltrates will consult Dr. Schmid for further recommendations. Subjective Date/time seen: 03/24/20 16:50 Interval history: 69-year-old female with history of hypertension, dyslipidemia, type 2 diabetes mellitus, anemia chronic pain syndrome on long-term opiates presented to the emergency department earlier this morning via EMS from home for evaluation of generalized weakness.Admitted for suspected covid, pneumonia and septic shock. Pt was found to be covid negative, awaiting BC and atypical tests. Pt appears frustrated wants more for pain, uses fentanyl for pain chronically. Pt had EGD which showed- gastric ulcer. on 03/22 pt was having foul swelling diarrhea cdiff is positive, patient was started on vancomycin 125 mg p.o. every 6 hours, today patient was seen by Dr. chakraborty recommending to continue vancomycin for 14 days, patient does not need any antibiotics for UTI and pneumonia however his recommending the patient see immigration judge for abnormal chest x-ray will consult Dr. Schmid for her recommendation, patient is clinically stable remains clinically stable tomorrow may discharge home on oral vancomycin Review of Systems Review of Systems: All systems reviewed & are unremarkable except as noted in HPI and below Exam Narrative: Exam Narrative: Patient is sitting in the chair Const: General: comfortable and no acute distress HENMT: General nose exam: Normal nares present Mouth: Yes moist mucous membranes Eyes: General: appearance normal, both eyes a
--- NOTE | 2020-03-24 17:02 | CONS_ITS ---
DATE OF CONSULTATION: 03/24/2020 REASON FOR CONSULTATION: Diarrhea. HISTORY OF PRESENT ILLNESS: The patient is a 69-year-old female, known to me from January 22 when she was at [facility] with episode of hypotension and syncope. She had been in the hospital earlier in December with healthcare-associated pneumonia, treated with multiple antibiotics for 2 weeks plus. My assessment at the time was that she had chronic lung disease by x-ray and CT, which was improving. I recommended no additional antibiotics. She did have a positive urine culture at that time, which was asymptomatic. She was discharged home. She was admitted to this hospital on March 17 with generalized weakness. She was found to have some mild hypotension. She had volume resuscitation with success. She has been given currently Augmentin, but also ceftriaxone, azithromycin, hydrocortisone while here. The patient did develop diarrhea several days ago and was started on oral vancomycin yesterday. Consultation now requested. The patient does note that the bowel movements are more firm than previously and also less frequent. She denies nausea, vomiting, abdominal pain, other recent antibiotics for other purposes, fever, chills, sweats, cough, sputum production, hemoptysis, nor any voiding symptoms whatsoever. She also denies flank pain and CVA pain. She hopes to go home soon. ALLERGIES: NONE KNOWN. PRESENT MEDICATIONS: Hydrocortisone is stopped. No other immunosuppressants. HABITS: Ex-smoker. No alcohol. PAST MEDICAL HISTORY: Possible COPD, hyperlipidemia, hypertension, diabetes mellitus, chronic back pain, anxiety, spinal surgeries, cholecystectomy, hysterectomy, rotator cuff repair, DVT, GERD, osteoporosis, osteoarthritis, cataract repairs, right total hip arthroplasty. FAMILY HISTORY: Not pertinent to her present illness. SOCIAL HISTORY: She is , retired and lives in the [facility]. REVIEW OF SYSTEMS: Easy bruisability, generalized weakness. Prior weight loss that has stabilized. A 14-point review otherwise negative. PHYSICAL EXAMINATION: GENERAL: This is an elderly female who appears older than her actual age, thin though not cachectic, no acute distress. VITAL SIGNS: Afebrile since arrival, 79, 20, 117/52, 99% on room air. SKIN: Decreased turgor. Warm and dry. No rashes. NODES: She has no axillary or cervical adenopathy. EENT: Conjunctivae are normal. Pupils equal, round, and reactive to light. The oropharynx, oral mucosa normal. NECK: No masses, thyromegaly, tenderness, or meningismus. LUNGS: Clear to auscultation and percussion. CHEST: Equal expansion. Normal AP diameter. CARDIAC: Regular rate and rhythm. No murmur, gallop, or rub. ABDOMEN: Not distended. No masses. No organomegaly. Soft. EXTREMITIES: No clubbing, cyanosis, edema. NEUROLOGIC: Awake, alert, oriented, appropriate. LABORATORY DATA: Blood cultures from admission, final no growth. Urine culture had an ESBL-producing E coli obtained 2 days after admission. Her C difficile toxin assay is positive. White blood cell count on admission 31.4, has declined since then, 9 on the , 8.6 two days ago. Hemoglobin 7.3, which is stable. Platelets 264. Blood gases 7.45, 27, 72 that is on room air. Accu-Cheks variable, 95 up to 162. Hemoglobin A1c 5.1%. She has mild hyponatremia, hypokalemia, calcium 6.9, albumin 2.2. Urinalysis from the same day as the urine culture, 3+ blood, 2+ protein, 10-15 white cells, greater than 75 red cells. Urine pneumococcal antigen nonreactive and her COVID was negative. Legionella antigen also nonreactive. RADIOLOGY: I personally reviewed her chest x-ray. She has interstitial lung infiltrates, right worse than left. No cavities are involved. ASSESS
--- NOTE | 2020-03-24 17:13 | PM.CNPUL ---
Assessment and Plan Assessment and plan (1) Pulmonary infiltrates: Code(s): R91.8 - Other nonspecific abnormal finding of lung field Status: Acute Assessment and Plan: She has had abnormal chest imaging since November, recurrent infiltrates, has been treated for pneumonia. She has not had any organisms recovered. Dentition is poor, and a swallowing evaluation is indicated. I do not see that she has had this before. She has a long history of tobacco, probable COPD. Differential diagnosis includes chronic ILD, chronic infections including bacterial/mycobacterial, fungal or viral, and assorted noninfectious causes for infiltrates. PLAN: High res chest CT MBS - r/o aspiration with poor dentition as a contributing factor to her persistently abnormal imaging. IgG to evaluate for immune deficiency with recurrent episodes of pneumonia More outpatient follow up with PFT/ walk study and additional evaluation when she is more stable. she says that she is going home tomorrow, and that appears to be fine from the pulmonary standpoint. It is easier to get testing in the hospital than after discharge, so will try to get as much as possible before she is discharged. Thank you for the consult. History of Present Illness History of Present Illness Consult date: 03/25/20 Requesting physician: Prabhakar Martínez MD Reason for consult: abnormal CXR/CT (suspected chronic lung disease ) and other Chief complaint: Generalized weakness. Narrative: NEW: Dr Martínez consulted me to see Kiya Esposito for an abnormal CXR with suspected chronic lung disease; she is a 69 yo female admitted March 17 with extreme weakness and altered mental status with hypotension, BP 74; had sepsis with hypovolemic shock, encephalopathy, presumed pneumonia with bilateral infiltrates R>L, acute kidney injury with anemia. She was critically ill on presentation, was admitted to the ICU, placed on levophed for BP support, however did not require high O2 flow, and was not placed on a ventilator. She had hyponatremia with sodium 121, K+ 6.2, BUN 49, creat 2.2, CRP 26.4, WBC 31.4 K, and H/H 7/22.5% at admission. She improved, was weaned off levophed, March 20 had upper endoscopy showing an acute gastric ulcer causing her anemia. She was diagnosed with C diff enterocolitis and started on oral vanco, and is on a PPI and avoiding NSAIDS. Dr Prado saw her, recommends continuing 14 days of oral vancomycin for C diff colitis. Her blood pressure has been low at home, and midodrine was one of her home meds. Earlier this year she was diagnosed with RUL cavitary pneumonia at [facility] in Nov 2019, treated with vancomycin, Levaquin and Zosyn with completion of IV therapy at a [facility] for 2 weeks in Nov. She was re-admitted at [facility] Dec 3 - several days for hypotension, anemia requiring transfusion with 2 units packed RBC for hemoglobin 6.2, had EGD on Dec 31 showing gastric ulcers and Tonya esophagitis. Was readmitted January 23 with hypotension, CT chest showing improvement in the infiltrates R>L. She has a long history of smoking, stopped last year, at most smoked 2 ppd, and 50 years at the longest. She has a nebulizer at home, says that it does not help her, and she uses only her albuterol rescue inhaler as needed, which is infrequently. She freely admits that she is having problems with her memory, is tearful when I tell her what her admission has shown this past week with acute kidney injury, anemia, upper endoscopy and abnormal CXRs. I am not certain that her recall of symptoms is accurate. She worked in a [employer] 15 years, stopped in 2007 when she went on disability for her back with chronic pain and history of surgery. 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 She suspects the [employer] may have been dangerous with strong smells. She has had pneumonia 3 times in the last year, and not at all in the years prior. She describes being intubated in the
[2020-03-24 21:00] VITALS: BP 129/57; PULSE 75; RESP 16; TEMP 36.9; O2SAT 98
[2020-03-24 21:18] LABS: Glucose Point of Care 184 (65-105)
[2020-03-25] MEDS: POTASSIUM CHLORIDE INJ 10 MEQ in DEXTROSE 5%/0.45% SOD CHL 1,000 ML 100 MEQ IV CONT (02:40)
[2020-03-25] MEDS: VANCOMYCIN ORAL 125 MG/2.5 ML SYRUP PO ×2 (05:22→12:17)
[2020-03-25 06:14] LABS: Blood Urea Nitrogen 3 mg/dL (7-17); Calcium 7.1 mg/dL (8.4-10.2); Carbon Dioxide 23 mmol/L (22-30); Chloride 108 mmol/L (98-107); Estimated CRCL calculation 68 ml/min; Estimated Glomerular Filt Rate > 60; Glucose 93 mg/dL (65-105); Potassium 3.9 mmol/L (3.4-5.0); Sodium 133 mmol/L (137-145)
[2020-03-25 06:25] VITALS: BP 112/64; PULSE 80; RESP 14; TEMP 36.9; O2SAT 98
[2020-03-25] MEDS: PANTOPRAZOLE 40 MG TABLET PO (08:10)
[2020-03-25] MEDS: FENOFIBRATE NANOCRYSTALLIZED 145 MG TABLET PO (08:10)
[2020-03-25] MEDS: busPIRone HCL 2.5 MG TABLET 7.5 MG PO (08:10)
[2020-03-25] MEDS: QUEtiapine FUMARATE 100 MG TABLET PO (08:10)
[2020-03-25] MEDS: ATORVASTATIN 40 MG TABLET 80 MG PO (08:10)
[2020-03-25] MEDS: MIDODRINE HCL 2.5 MG TABLET PO (08:10)
[2020-03-25] MEDS: FUROSEMIDE 40 MG TABLET PO (08:10)
[2020-03-25] MEDS: GABAPENTIN 300 MG CAPSULE PO ×2 (08:11→12:17)
[2020-03-25 08:22] LABS: Glucose Point of Care 99 (65-105)
--- NOTE | 2020-03-25 08:37 | WPDGIPROGNO ---
Progress Note: A&P Additional Plan Patient alert and comfortable this morning. Tolerating diet without difficulty. She states that diarrhea has improved. On physical exam patient is alert. Vital signs are stable. HEENT exam she is anicteric. Lungs are clear to auscultation and percussion. Heart is without murmur. Abdomen bowel sounds are present soft nontender with no organomegaly. Impression 1. Gastric ulcer. Patient improving clinically. Plan to avoid nonsteroidal anti-inflammatory agents. Continue proton pump inhibitor. Follow-up EGD in 2 months advised. 2. C difficile diarrhea. Appreciate infectious disease input. Plan is to continue vancomycin for 7-10 days after discharge. 3. Pneumonia. Pulmonary service now following. Plan plan is for discharge when okay with other services. Follow-up EGD is planned in 2 months. Subjective Date/time seen: 03/25/20 08:37 Objective Data Vital Signs Vital Signs: Vital Signs - 24 hr 03/24/20 08:42 03/24/20 16:00 03/24/20 21:00 Temperature 36.9 C 36.9 C Pulse Rate 79 83 75 Respiratory Rate 20 16 16 Blood Pressure 123/64 129/57 L Pulse Oximetry 99 98 98 03/25/20 06:25 Temperature 36.9 C Pulse Rate 80 Respiratory Rate 14 Blood Pressure 112/64 Pulse Oximetry 98 Intake/Output Intake/Output: Intake & Output 03/22/20 03/23/20 03/24/20 03/25/20 23:59 23:59 23:59 23:59 Intake Total 4797 4342 3585 2300 Output Total 1800 4975 5250 1900 Balance 1657 -236 -0146 400 Meds/Results Medications: Active Medications Generic Name Dose Route Start Last Admin Trade Name Freq PRN Reason Stop Dose Admin Acetaminophen 650 mg 03/17/20 11:03 03/19/20 17:16 Tylenol Tablet PO 650 mg Q4H PRN Administration Mild Pain (1-3) or Fever Hydrocodone Bitart/Acetaminophen 1 tab 03/17/20 11:03 03/18/20 20:05 [place] 5-325 Mg PO 1 tab Q4H PRN Administration Pain Rated 4-6 Albuterol 2.5 mg 03/17/20 12:56 Albuterol Sulf Neb 2.5mg/0.5ml INHALATION Q4HRT PRN Shortness Of Breath Albuterol 2 puff 05/20/20 23:33 Proventil Hfa INHALATION QID PRN Wheezing Atorvastatin Calcium 80 mg 03/21/20 09:00 03/25/20 08:10 Lipitor PO 80 mg DAILY YAKELIN Administration Buspirone HCl 7.5 mg 03/20/20 09:00 03/25/20 08:10 Buspar PO 7.5 mg Q12HR YAKELIN Administration Dextrose 12.5 gm 03/17/20 23:29 Dextrose 50% Syringe IV PUSH PRN PRN Hypoglycemia Protocol Fenofibrate 145 mg 03/20/20 09:00 03/25/20 08:10 Tricor PO 145 mg QAM YAKELIN Administration Furosemide 40 mg 03/20/20 09:00 03/25/20 08:10 Lasix Tablet PO 40 mg DAILY YAKELIN Administration Gabapentin 300 mg 03/20/20 09:00 03/25/20 08:11 Neurontin PO 300 mg TID YAKELIN Administration Glucagon 1 mg 03/17/20 23:29 Glucagon For Inj IM PRN PRN Hypoglycemia Protocol Glucose 15 gm 03/17/20 23:29 Glutose 15 PO PRN PRN Hypoglycemia Protocol Hydroxyzine HCl 25 mg 03/20/20 07:59 Atarax Tablet PO TID PRN Anxiety Dextrose 1,000 mls @ 100 mls/hr 03/17/20 23:29 Dextrose 5% 1,000 Ml IVPB PRN PRN Hypoglycemia Protocol Potassium Chloride 10 meq/ 1,000 mls @ 100 mls/hr 03/21/20 16:30 03/25/20 02:42 Dextrose/Sodium Chloride IV CONT Infused .Q10H YAKELIN Infusion Insulin Aspart 2 - 5 units 03/18/20 08:00 03/25/20 08:09 Novolog SUB-Q Not Given TIDWM [facility] Protocol Ipratropium [place] 0.5 mg 03/17/20 12:56 Atrovent Neb INHALATION Q4HRT PRN Shortness Of Breath Metformin HCl 500 mg 03/20/20 17:00 03/21/20 08:08 Glucophage PO Not Given BIDWM [facility] Miconazole Nitrate 1 applic 03/23/20 09:00 03/25/20 08:11 Aloe [place] TOPICAL 1 applic Q12HR YAKELIN Administration Midodrine 2.5 mg 03/20/20 17:00 03/25/20 08:10 Proamatine PO 2.5 mg BID YAKELIN Administration Morphine Sulfate 4 mg 03/17/20 11
[2020-03-25 11:53] LABS: Glucose Point of Care 109 (65-105)
--- NOTE | 2020-03-25 12:29 | PM.PNPUL ---
Progress Note: A&P Assessment and Plan (1) ILD (interstitial lung disease): Code(s): J84.9 - Interstitial pulmonary disease, unspecified Status: Acute Assessment and Plan: Appears chronic. Not UIP/IPF pattern. NSIP and mixed ILD is more probable - no treatment is required at this time - will order f/u HRCT of the chest in 12 months - f/u with us in clinic 6 weeks - will need outpatient PFT in a few weeks (2) Chronic obstructive pulmonary disease: Code(s): J44.9 - Chronic obstructive pulmonary disease, unspecified Status: Acute Assessment and Plan: - start Spiriva 18 mcg 1 puff daily - start Symbicort 160/4.5 mcg 1 puff bid - PFT as outpatient Subjective Date/time seen: 03/25/20 12:29 Interval history: Reviewed her HRCT CT today which shows asymetric mild fibrosis R>L involving upper and lower lung field. No traction bronchitis or honey combing. She also has small bilateral pleural effusions. She has no history of autoimmune disorders and denies using macrobid or amiodarone. She says she was diagnosed with Crohn's Disease recently at another facility but cannot remember where or by which physician and did not recall getting a colonoscopy or biopsy. Review of Systems Review of Systems: All systems reviewed & are unremarkable except as noted in HPI and below Exam Const: General: comfortable HENMT: Head: normal to inspection and other (extremely thin hair ) Ears: hearing grossly normal bilaterally General nose exam: Normal external nose present and Normal nares present Face and sinus: no sinus tenderness Mouth: Yes dry mucous membranes Teeth and gingiva: poor dentition (few remaining teeth) Throat: posterior oropharynx normal (Mallampati III) Eyes: General: appearance normal, both eyes and all related structures Neck: Neck: no JVD Resp: Effort & Inspection: normal respiratory effort Other: soft crackles left > right bases; she says that she has not been told that she has crackles in the past Cardio: Rate: regular rate Rhythm: regular rhythm Heart sounds: no murmurs GI: GI Palp: Yes Soft to palpation Skin: General skin exam: normal color Neuro: Speech: normal speech (poor memory) Extrem: General: pedal edema (3+ edema almost up to her knees) Psych: Mental Status: mental status grossly normal Objective Data Vital Signs Vital Signs: Vital Signs - 24 hr 05/27/20 16:00 03/24/20 21:00 03/25/20 06:25 Temperature 36.9 C 36.9 C 36.9 C Pulse Rate 83 75 80 Respiratory Rate 16 16 14 Blood Pressure 123/64 129/57 L 112/64 Pulse Oximetry 98 98 98 Intake/Output Intake/Output: Intake & Output 03/22/20 03/23/20 03/24/20 03/25/20 23:59 23:59 23:59 23:59 Intake Total 4797 4342 3585 2940 Output Total 0889 6279 9387 0572 Balance 2587 -208 -1665 -1560 Meds/Results Medications: Active Medications Generic Name Dose Route Start Last Admin Trade Name Freq PRN Reason Stop Dose Admin Acetaminophen 650 mg 03/17/20 11:03 03/19/20 17:16 Tylenol Tablet PO 650 mg Q4H PRN Administration Mild Pain (1-3) or Fever Hydrocodone Bitart/Acetaminophen 1 tab 03/17/20 11:03 03/18/20 20:05 [place] 5-325 Mg PO 1 tab Q4H PRN Administration Pain Rated 4-6 Albuterol 2.5 mg 03/17/20 12:56 Albuterol Sulf Neb 2.5mg/0.5ml INHALATION Q4HRT PRN Shortness Of Breath Albuterol 2 puff 03/17/20 23:33 Proventil Hfa INHALATION QID PRN Wheezing Atorvastatin Calcium 80 mg 03/21/20 09:00 03/25/20 08:10 Lipitor PO 80 mg DAILY YAKELIN Administration Buspirone HCl 7.5 mg 03/20/20 09:00 03/25/20 08:10 Buspar PO 7.5 mg Q12HR YAKELIN Administration Dextrose 12.5 gm 03/17/20 23:29 Dextrose 50% Syringe IV PUSH PRN PRN Hypoglycemia Protocol Fenofibrate 145 mg 03/20/20 09:00 03/25/20 08:10 Tricor PO 145 mg QAM YAKELIN Administration Furosemide 40 mg 03/20/20 09:00 03/25/20 08:10 Lasix Tablet
--- NOTE | 2020-03-25 12:34 | PCSTNOTE ---
Please refer to the Modified Barium Swallow Evaluation in the EMR.
--- NOTE | 2020-03-25 12:41 | PM.DS ---
DS: Admitting Diagnosis Admitting Diagnosis Admitting Diagnosis: Hypotension, unspecified DS: Discharge Diagnosis Discharge Diagnosis (1) Colitis due to Clostridioides difficile: Code(s): A04.72 - Enterocolitis due to Clostridium difficile, not specified as recurrent Status: Acute Assessment and Plan: 69-year-old female with history of hypertension, dyslipidemia, type 2 diabetes mellitus, anemia chronic pain syndrome on long-term opiates presented to the emergency department earlier this morning via EMS from home for evaluation of generalized weakness.Admitted for suspected covid, pneumonia and septic shock. Pt was found to be covid negative, awaiting BC and atypical tests. Pt appears frustrated wants more for pain, uses fentanyl for pain chronically. Pt had EGD which showed- gastric ulcer. on 03/22 pt was having foul swelling diarrhea cdiff is positive, patient was started on vancomycin 125 mg p.o. every 6 hours, today patient was seen by Dr. chakraborty recommending to continue vancomycin for 14 days, patient does not need any antibiotics for UTI and pneumonia however his recommending the patient see genetics teacher for abnormal chest x-ray will consult Dr. Schmid for her recommendation, patient is clinically stable remains clinically stable tomorrow may discharge home on oral vancomycin (2) Shock: Code(s): R57.9 - Shock, unspecified Status: Resolved Assessment and Plan: resolved (3) Pneumonia: Code(s): J18.9 - Pneumonia, unspecified organism Status: Acute Assessment and Plan: resolved (4) Acute hyponatremia: Code(s): E87.1 - Hypo-osmolality and hyponatremia Status: Acute Assessment and Plan: most likely due to pneumonia now improved (5) Suspected COVID-19 virus infection: Code(s): Z20.828 - Contact with and (suspected) exposure to other viral communicable diseases Status: Acute Assessment and Plan: it was negative (6) Profound anemia: Code(s): D64.9 - Anemia, unspecified Status: Acute Assessment and Plan: most likely due to gastric ulcer (7) Electrolyte imbalance: Code(s): E87.8 - Other disorders of electrolyte and fluid balance, not elsewhere classified Status: Acute Assessment and Plan: most likely due to diarrhea will supplement, (8) Chronic obstructive pulmonary disease: Code(s): J44.9 - Chronic obstructive pulmonary disease, unspecified Status: Acute Assessment and Plan: patient with hx of COPD, chest shows chronic infiltrates will consult Dr. Schmid for further recommendations. DS: Summary Hospital Course Reason for hospitalization: Kiya Esposito is a 69-year-old female with history of hypertension, dyslipidemia, type 2 diabetes mellitus, anemia chronic pain syndrome on long-term opiates presented to the emergency department earlier this morning via EMS from home for evaluation of generalized weakness. At the time my evaluation, she is somnolent and is not interested in answering many of my questions. As such, some of this medical history is obtained via a review of her electronic medical records as well as discussions with nursing staff. Reportedly the patient was at physical therapy yesterday and was a bit lightheaded. Her blood pressures were found to be a bit low, although no actual numbers were given, and she was instructed to stop taking 1 of her antihypertensives by per her primary care provider. This morning, she was so weak that she was having a hard time holding herself upright and her called 911. On EMS arrival, her blood pressure was 60/40 and on arrival to the emergency department with 74/41. She was found to have a hemoglobin and hematocrit of 6.8 and 22.1% respectively as well as a presumed acute kidney injury. Urinalysis was really unremarkable and her chest x-ray showed bilateral infiltrates with a broad differential diagnosis. She was transfused p
--- NOTE | 2020-03-25 12:50 | WPDINFPN2 ---
Progress Note: A&P Assessment and Plan (1) Colitis due to Clostridioides difficile: Code(s): A04.72 - Enterocolitis due to Clostridium difficile, not specified as recurrent Status: Acute Assessment and Plan: 1. C diff infection, no further BMs. However, I do not think that her + test is a false +, thus she should still be treated. 2. Asymptomatic bacteriuria 3. Chronic lung infiltrates, possible ILD 4. Crohn's disease REC Vanc oral # 3 / 14 days. Ok discharge. Pulm. Med. eval appreciated. No f/u needed with unless recurrent C diff. Will sign off Subjective Date/time seen: 03/25/20 12:50 Interval history: no further diarrhea, no dysuria nor other voiding symptoms, good appetite Exam Narrative: Exam Narrative: afebrile Const: General: no acute distress Eyes: General: appearance normal, both eyes and all related structures Resp: Auscultation: clear to auscultation bilaterally Cardio: Rate: regular rate Rhythm: regular rhythm Heart sounds: no gallops and no murmurs GI: Inspection: non-distended GI Palp: Yes Soft to palpation, No Tenderness to palpation present (GI) and No Guarding due to palpation present (GI) Auscultation: normal bowel sounds : General: Yes bladder normal to palpation Skin: General skin exam: normal color and no rashes or lesions noted Objective Data Vital Signs Vital Signs: Vital Signs - 24 hr 03/24/20 16:00 03/24/20 21:00 03/25/20 06:25 Temperature 36.9 C 36.9 C 36.9 C Pulse Rate 83 75 80 Respiratory Rate 16 16 14 Blood Pressure 123/64 129/57 L 112/64 Pulse Oximetry 98 98 98 Intake/Output Intake/Output: Intake & Output 03/22/20 03/23/20 03/24/20 03/25/20 23:59 23:59 23:59 23:59 Intake Total 4798 4342 3585 3180 Output Total 3891 7295 5250 4500 Balance 0137 -994 -1667 -0024 Meds/Results Medications: Active Medications Generic Name Dose Route Start Last Admin Trade Name Freq PRN Reason Stop Dose Admin Acetaminophen 650 mg 03/17/20 11:03 03/19/20 17:16 Tylenol Tablet PO 650 mg Q4H PRN Administration Mild Pain (1-3) or Fever Hydrocodone Bitart/Acetaminophen 1 tab 03/17/20 11:03 03/18/20 20:05 [place] 5-325 Mg PO 1 tab Q4H PRN Administration Pain Rated 4-6 Albuterol 2.5 mg 03/17/20 12:56 Albuterol Sulf Neb 2.5mg/0.5ml INHALATION Q4HRT PRN Shortness Of Breath Albuterol 2 puff 03/17/20 23:33 Proventil Hfa INHALATION QID PRN Wheezing Atorvastatin Calcium 80 mg 03/21/20 09:00 03/25/20 08:10 Lipitor PO 80 mg DAILY YAKELIN Administration Budesonide/Formoterol Fumarate 1 puff 03/25/20 20:00 Symbicort 160-4.5 Mcg (*Sp) Inhaler INHALATION Q12HRT YAKELIN Buspirone HCl 7.5 mg 03/20/20 09:00 03/25/20 08:10 Buspar PO 7.5 mg Q12HR YAKELIN Administration Dextrose 12.5 gm 03/17/20 23:29 Dextrose 50% Syringe IV PUSH PRN PRN Hypoglycemia Protocol Fenofibrate 145 mg 03/20/20 09:00 03/25/20 08:10 Tricor PO 145 mg QAM YAKELIN Administration Furosemide 40 mg 03/20/20 09:00 03/25/20 08:10 Lasix Tablet PO 40 mg DAILY YAKELIN Administration Gabapentin 300 mg 03/20/20 09:00 03/25/20 12:17 Neurontin PO 300 mg TID YAKELIN Administration Glucagon 1 mg 03/17/20 23:29 Glucagon For Inj IM PRN PRN Hypoglycemia Protocol Glucose 15 gm 03/17/20 23:29 Glutose 15 PO PRN PRN Hypoglycemia Protocol Hydroxyzine HCl 25 mg 03/20/20 07:59 Atarax Tablet PO TID PRN Anxiety Dextrose 1,000 mls @ 100 mls/hr 03/17/20 23:29 Dextrose 5% 1,000 Ml IVPB PRN PRN Hypoglycemia Protocol Potassium Chloride 10 meq/ 1,000 mls @ 100 mls/hr 03/21/20 16:30 03/25/20 02:42 Dextrose/Sodium Chloride IV CONT Infused .Q10H YAKELIN Infusion Insulin Aspart 2 - 5 units 03/18/20 08:00 05/28/20 12:04 Novolog SUB-Q Not Given TIDWM [facility] Protocol Ipratropium [place] 0.5 mg 03/17/20 1
[2020-03-25 14:00] VITALS: BP 116/54; PULSE 77; RESP 16; TEMP 36.8; O2SAT 100
[2020-03-28 23:59] LABS: Immunoglobulin G, Serum 1076 mg/dL (600-1540); Immunoglobulin G1 710 mg/dL (382-929); Immunoglobulin G2 236 mg/dL (241-700); Immunoglobulin G3 41 mg/dL (22-178)
== END 2020-03-25 15:55 | disposition home health service (06) | DRG 871 ==
LOC: ANHED 10:38 → ANHICU 11:20 → ANH3MED 03-20 14:05
PROVIDERS: Internal Medicine; Internal Medicine Critical Care Medicine; Internal Medicine Gastroenterology; Physician Assistant; Admitting Provider Family Medicine; Emergency Provider Emergency Medicine; PCP Internal Medicine; Visit Provider Family Medicine
PROC: 0DJ08ZZ Inspection of Upper Intestinal Tract, Via Natural or Artificial Opening Endoscopic (ICD-10-PCS; CPT 43235; principal; 2020-03-20 07:30)
DX: A41.9 Sepsis, unspecified organism (principal); J18.9 Pneumonia, unspecified organism; K25.4 Chronic or unspecified gastric ulcer with hemorrhage; E87.1 Hypo-osmolality and hyponatremia; N17.9 Acute kidney failure, unspecified; G93.40 Encephalopathy, unspecified; A04.72 Enterocolitis due to Clostridium difficile, not specified as recurrent; D62 Acute posthemorrhagic anemia; K50.90 Crohn's disease, unspecified, without complications; R65.20 Severe sepsis without septic shock; E87.5 Hyperkalemia; D64.9 Anemia, unspecified; J44.9 Chronic obstructive pulmonary disease, unspecified; E11.9 Type 2 diabetes mellitus without complications; K21.9 Gastro-esophageal reflux disease without esophagitis; I10 Essential (primary) hypertension; F11.90 Opioid use, unspecified, uncomplicated; E11.649 Type 2 diabetes mellitus with hypoglycemia without coma; I95.9 Hypotension, unspecified; I50.9 Heart failure, unspecified; Z03.818 Encounter for observation for suspected exposure to other biological agents ruled out
CPT/HCPCS: 31500; 36415; 36430; 36600; 70450; 71045; 71250; 74019; 80048; 80053; 81001; 82140; 82274; 82375; 82533; 82550; 82570; 82607; 82728; 82746; 82784; 82787; 82805; 83036; 83050; 83605; 83615; 83735; 83880; 83930; 83935; 84100; 84146; 84300; 84443; 85014; 85018; 85025; 85027; 85610; 85730; 86140; 86850; 86900; 86901; 86923; 87040; 87045; 87046; 87077; 87086; 87088; 87186; 87324; 87427; 87449; 87635; 87899; 88305; 88342; 92611; 93005; 93306; 93880; 93970; 93971; 96361; 96365; 96367; 96375; 97110; 97116; 97161; 97165; 97530; 97535; 99291; A9270; C1751; C9113; C9803; J0456; J0696; J1720; J1815; J2060; J2270; J2704; J3480; J7030; J7050; J7070; J7120; P9016; P9047; U0003

== ENCOUNTER 2020-04-07 12:07 | Inpatient (IN) | payer MEDICARE, SELFPAY ==
[2020-04-07] VITALS (14 sets, daily range): BP systolic 73–108; BP diastolic 41–68; PULSE 103–128; RESP 12–26; TEMP 37–37.7; O2SAT 96–100; BMI 25.3
--- NOTE | ~2020-04-07 | CT_ITS ---
EXAMINATION: CT abdomen pelvis w con DATE: 04/07/2020 16:36 INDICATION: Abdominal pain. TECHNIQUE: Computed tomography (CT) of the abdomen and pelvis was performed with 100 mL Omnipaque 350 intravenous contrast. Automated exposure control and iterative reconstruction technique were employe d. The dose-length product was 643.04 mGy-cm. COMPARISON: None. FINDINGS: The visualized portions of the lung bases demonstrate reticular opacities with architectura l distortion in right middle lobe and right lower lobe, consistent with chronic interstitial lung dis ease. There is mild atelectasis in left lower lobe. No pleural effusion. The heart size is normal. No pericardial effusion. The liver demonstrates periportal edema. There are changes of cholecystectomy. There is a small sliding hiatal hernia. There is wall thickening of the gastric antrum. The spleen a nd pancreas are normal. There are masses in the glands measuring up to 2.3 cm on the left measuring s oft tissue attenuation. There are cysts in the kidneys measuring up to 1.4 cm on the left. The append ix is normal. There is a moderate volume of stool in colon. There are many dilated loops of small bow el, most of which are fluid-filled. There is desiccated stool in distal small bowel. There is a small volume of ascites. There is gas in the wall of the proximal duodenum. There is gas in the retroperit oneum. There is gas in the small bowel mesentery. There are scattered foci of free intraperitoneal ga s. There are no pathologically enlarged lymph nodes. Body wall edema is noted. There is a right hip a rthroplasty. There is left thoracolumbar levoscoliosis and severe spondylosis. IMPRESSION: 1. Wall thickening of the gastric antrum, consistent with peptic ulcer disease. 2. Gas in the duodenal wall, retroperitoneum, small bowel mesentery, and peritoneum, consistent with perforated viscus, such as an ulcer. I called this result to Dr. Marvin on 04/07/20 at 17:01. 3. Dilated small bowel without focal transition point, likely adynamic ileus. 4. Bilateral adrenal masses measuring up to 2.3 cm on the left. In the absence of known malignancy, t hese findings are likely adenomas. 5. Small volume of ascites. Reviewed, dictated and finalized at location A. IMPRESSION: 1. Wall thickening of the gastric antrum, consistent with peptic ulcer disease. 2. Gas in the duodenal wall, retroperitoneum, small bowel mesentery, and perito neum, consistent with perforated viscus, such as an ulcer. I called this result to Dr. Marvin on 04/07/20 at 17:01. 3. Dilated small bowel without focal transition point, likely adynamic ileus. 4. Bilateral adrenal masses measuring up to 2.3 cm on the left. In the absence of known malignancy, these findings are likely adenomas. 5. Small volume of ascites.
--- NOTE | ~2020-04-07 | CT_ITS ---
EXAMINATION: CT brain wo con INDICATION: Septic shock, encephalopathy COMPARISON: 03/19/2020 TECHNIQUE: Standard unenhanced head CT. The dose-length product (DLP) was 605.33 mGy-cm. The mA was a djusted according to patient size. Iterative reconstruction technique was employed. FINDINGS: There is no intracranial hemorrhage, acute infarction, or abnormal mass lesion. The ventric les are normal. There is no abnormal mass effect or midline shift. The nieves-white matter differentiat ion is normal. The basal cisterns are patent. The orbits are normal. There are bilateral mastoid effu sions. There is mild mucosal thickening of the paranasal sinuses. IMPRESSION: 1. No acute intracranial abnormality. 2. Bilateral mastoid effusions. Reviewed, dictated and finalized at location A.
--- NOTE | ~2020-04-07 | XR_ITS ---
XR chest 1V portable 04/18/2020 05:38 Indication: Respiratory failure. Septic shock. Procedure: AP portable chest Comparison: Comparison to multiple prior studies sequentially, with oldest reviewed study dated 04/15. Findings: Endotracheal tube tip 4.4 cm above the nichol. NG tube in the stomach. Right IJ central chapin e tip in the SVC. Heart size normal. Mild interstitial edema. No pleural effusion or pneumothorax. Impression: 1: Mild interstitial edema without significant change. Reviewed, dictated and finalized at location A. Impression: 1: Mild interstitial edema without significant change.
--- NOTE | ~2020-04-07 | XR_ITS ---
EXAMINATION: XR chest port-a-cath/central DATE: 04/15/2020 14:24 INDICATION: Central line placement. TECHNIQUE: A single frontal view of the chest was obtained. COMPARISON: Chest single view 04/15/2020 at 5:41 AM FINDINGS: There are interstitial opacities and mild airspace opacities involving all lung zones bilat erally. No pleural effusion or pneumothorax. The heart size is normal. The endotracheal tube tip is 2 .6 cm above the nichol. The nasogastric tube tip is in the stomach. There is a right internal jugular central venous catheter with tip at superior cavoatrial junction. There are suture anchors in right humeral head. IMPRESSION: 1. Central line tip at superior cavoatrial junction. 2. Stable diffuse lung disease, consistent with pulmonary edema versus pneumonia superimposed on metal sorter jennifer interstitial lung disease. Reviewed, dictated and finalized at location A. IMPRESSION: 1. Central line tip at superior cavoatrial junction. 2. Stable diffuse lung disease, consistent with pulmonary edema versus pneumoni a superimposed on chronic interstitial lung disease.
--- NOTE | ~2020-04-07 | XR_ITS ---
XR chest 1V portable 04/17/2020 05:38 Indication: Respiratory failure. Septic shock. Procedure: AP portable chest Comparison: Comparison to multiple prior studies sequentially, with oldest reviewed study dated 04/14. Findings: Endotracheal tube tip 3.7 cm above the nichol. Heart size normal. NG tube in the stomach. R ight IJ central line tip in the SVC. Persistent mild interstitial edema. No pleural effusion or pneum othorax. There are cholecystectomy clips. Impression: 1: Stable mild interstitial edema. Reviewed, dictated and finalized at location A. Impression: 1: Stable mild interstitial edema.
--- NOTE | ~2020-04-07 | US_ITS ---
EXAMINATION: US venous doppler [facility] DATE: 04/21/2020 12:42 INDICATION: Respiratory failure TECHNIQUE: Alcantara scale images without and with compression and Doppler images of the bilateral lower e xtremity veins were obtained. COMPARISON: 03/18/2020 FINDINGS: The peroneal veins are not well demonstrated due to lower limb edema. The right common femoral vein, profunda femoral vein, femoral vein, popliteal vein, posterior tibial veins, and greater saphenous vein are patent. The left common femoral vein, profunda femoral vein, femoral vein, popliteal vein, posterior tibial v eins, and greater saphenous vein are patent. IMPRESSION: 1. Patent bilateral lower extremity veins. No evidence of deep venous thrombosis. Peroneal veins not well evaluated due to edema. Reviewed, dictated and finalized at location A. IMPRESSION: 1. Patent bilateral lower extremity veins. No evidence of deep venous thrombosi s. Peroneal veins not well evaluated due to edema.
--- NOTE | ~2020-04-07 | XR_ITS ---
EXAMINATION: XR chest 1V portable DATE: 04/22/2020 05:31 INDICATION: Intubated TECHNIQUE: frontal view of the chest was obtained. COMPARISON: Chest radiograph dated 04/21/2020 FINDINGS: Endotracheal tube tip 3.1 cm above the nichol. Enteric feeding tube extends into the stomach with dis derrick tip collimated beyond the inferior margin of the [id number]. Right internal jugular central ve nous catheter with distal tip near the superior cavoatrial junction. No significant interval change in diffuse fine reticulonodular opacities in both lungs, right greater than left. No pleural effusion or pneumothorax. The cardiomediastinal silhouette is normal. IMPRESSION: 1. No significant interval change in bilateral lung disease, right greater than left, which could rep resent pneumonia or asymmetric pulmonary edema. Reviewed, dictated and finalized at location A. IMPRESSION: 1. No significant interval change in bilateral lung disease, right greater than left, which could represent pneumonia or asymmetric pulmonary edema.
--- NOTE | ~2020-04-07 | XR_ITS ---
EXAMINATION: XR chest 1V portable EXAM DATE: 04/25/2020 06:13 INDICATION: Respiratory failure. TECHNIQUE: Portable AP frontal chest x-ray was obtained. Comparison is made to prior examination from 04/24/2020. FINDINGS: Endotracheal tube tip is 3-4 centimeters above the nichol (ideal range is between 2 to 5 cm ). There is a right-sided IJ line in position. There is a feeding tube tube seen with tip collimated off the study, but probably in the duodenum. There is mild ill-defined right-sided perihilar distribution predominant airspace disease suspicious for edema and/or pneumonia. There are no sizable pleural effusions. There is no pneumothorax suspe cted. Cardiomediastinal silhouette is normal. Mild to moderate thoracolumbar scoliosis and spondyl osis. There is no significant interval change compared to prior exam. IMPRESSION: 1. Line(s) and tube(s) in position. 2. Stable airspace disease and other findings as above. Reviewed, dictated and finalized at location A.
--- NOTE | ~2020-04-07 | XR_ITS ---
EXAMINATION: XR chest 1V portable DATE: 04/12/2020 05:46 INDICATION: Acute respiratory failure. TECHNIQUE: A single frontal view of the chest was obtained. COMPARISON: Chest single view 04/11/2020, 03/17/2020, CT abdomen and pelvis 04/07/2020 FINDINGS: The lung volumes are normal. There is a diffuse interstitial pattern in the lungs with arch itectural distortion. There are mild airspace opacities in the mid and lower lung zones. No pleural e ffusion or pneumothorax. The heart size is normal. The endotracheal tube tip is 2.1 cm above the preston na. The nasogastric tube tip is in the stomach. There are suture anchors in right humeral head. IMPRESSION: 1. Unchanged diffuse lung disease, consistent with chronic interstitial lung disease with superimpose d atelectasis versus pulmonary edema versus pneumonia. Reviewed, dictated and finalized at location A. IMPRESSION: 1. Unchanged diffuse lung disease, consistent with chronic interstitial lung di sease with superimposed atelectasis versus pulmonary edema versus pneumonia.
--- NOTE | ~2020-04-07 | XR_ITS ---
EXAMINATION: XR fl Dobhoff insert/rad w img DATE: 04/19/2020 11:57 INDICATION: Dobbhoff placement TECHNIQUE: A Dobbhoff type feeding tube was advanced into the duodenum utilizing intermittent fluoroscopy. Small amount of gas and 50 mL Omnipaque 240 contrast material was injected through the existing nasogastri c tube to delineate the anatomy of the stomach. Final image demonstrates the feeding tube in position with the weighted tip at the expected location of the ligament of Treitz. The tube was flushed with 10 mL sterile saline and fixed to the nares with adhesive tape. A single fluoroscopic image was recor ded. A single fluoroscopic spot image was recorded. The amount of fluoroscopy time used during this p rocedure was 1.2 minutes. There were no immediate complications. FINDINGS/IMPRESSION: Successful fluoroscopy-guided Dobbhoff feeding tube placement with distal tip in the fourth portion o f the duodenum. Reviewed, dictated and finalized at location A.
--- NOTE | ~2020-04-07 | CT_ITS ---
EXAMINATION: CTA chest PE protocol DATE: 04/20/2020 22:47 INDICATION: Respiratory failure TECHNIQUE: Computed tomography angiography (CTA) of the chest was performed with 100 mL Omnipaque-350 intravenous contrast timed to evaluate the pulmonary arteries. Coronal maximum intensity projection 3D-reconstructions were created by the technologist. The dose-length product (DLP) was 490.41 mGy-cm. Automated exposure control and iterative reconstruction technique were employed. COMPARISON: 03/25/2020 FINDINGS: The pulmonary arteries are well-opacified. Respiratory motion artifact limits evaluation of peripheral pulmonary arteries. There is no central pulmonary embolism. There appear to be pulmonary emboli of subsegmental branches of the right lower lobe. Groundglass and reticular opacities of the l venkat persist without significant change. Previously described pulmonary nodules also appear stable. Th ere is no pneumothorax. The previously described pleural effusions have resolved. A Dobbhoff tube is followed as far as the stomach. Endotracheal tube is 2.6 cm above the nichol. There is severe thoraco lumbar spondylosis. The heart size is normal. There are no pathologically enlarged thoracic lymph nod es. Upper abdominal ascites has increased. IMPRESSION: 1. Pulmonary emboli in subsegmental branches of the right lower lobe. These findings and recommendati ons were discussed with Alexander Gilbert RN in the ICU at 2305 hours on 04/20/2020. 2. Resolved pleural effusions. 3. Increase in upper abdominal ascites. Reviewed, dictated and finalized at location A. IMPRESSION: 1. Pulmonary emboli in subsegmental branches of the right lower lobe. These fin dings and recommendations were discussed with Alexander Gilbert RN in the ICU at 2 305 hours on 04/20/2020. 2. Resolved pleural effusions. 3. Increase in upper abdominal ascites.
--- NOTE | ~2020-04-07 | XR_ITS ---
EXAMINATION: XR chest 1V portable EXAM DATE: 04/24/2020 05:59 INDICATION: Respiratory failure. TECHNIQUE: Portable AP frontal chest x-ray was obtained. Comparison is made to prior examination from 03/30/2020. FINDINGS: Endotracheal tube tip is 3 centimeters above the nichol (ideal range is between 2 to 5 cm). There is a right-sided IJ line in position. There is a nasogastric tube seen with tip collimated of f the study, but below the left hemidiaphragm. There is mild ill-defined right-sided perihilar distribution predominant airspace disease suspicious for edema and/or pneumonia. There are no sizable pleural effusions. There is no pneumothorax suspe cted. Cardiomediastinal silhouette is normal. Mild to moderate thoracolumbar scoliosis and spondyl osis. There is no significant interval change compared to prior exam. IMPRESSION: 1. Line(s) and tube(s) in position. 2. Stable airspace disease and other findings as above. Reviewed, dictated and finalized at location A.
--- NOTE | ~2020-04-07 | XR_ITS ---
EXAMINATION: XR abdomen NG/feed tube rechec DATE: 04/08/2020 19:30 INDICATION: Nasogastric tube adjustment. TECHNIQUE: A semiupright view of the abdomen was obtained. COMPARISON: Abdomen single view 04/07/2020 FINDINGS: The lower abdomen is excluded. There are no visible dilated loops of bowel. The nasogastric tube tip is in the stomach. There are airspace opacities at left lung base with volume loss, likely atelectasis. There are scattered reticular opacities in the lungs with architectural distortion, cons istent with chronic lung disease. The endotracheal tube tip is in the right mainstem bronchus. IMPRESSION: 1. Endotracheal tube tip in the right mainstem bronchus. Retraction 2.5 cm is recommended. I called t his result to Maria Del Carmen Torres on 04/08/20 at 19:39. 2. Nasogastric tube tip in the stomach. 3. Worsened airspace opacities and volume loss at left lung base, likely atelectasis. Reviewed, dictated and finalized at location A. IMPRESSION: 1. Endotracheal tube tip in the right mainstem bronchus. Retraction 2.5 cm is r ecommended. I called this result to Maria Del Carmen Torres on 04/08/20 at 19:39. 2. Nasogastric tube tip in the stomach. 3. Worsened airspace opacities and volume loss at left lung base, likely atelec tasis.
--- NOTE | ~2020-04-07 | XR_ITS ---
EXAMINATION: XR chest 1V portable INDICATION: Acute respiratory failure TECHNIQUE: Portable AP chest at 0538 hours COMPARISON: 04/08/2020 FINDINGS: The endotracheal tube ends approximately 1.9 cm above the nichol. A nasogastric tube is in the stomach. Left basilar airspace opacities persist without significant change. The lung volumes are low. A mild diffuse interstitial pattern has the appearance of chronic interstitial lung disease. No acute opacities are identified. There is no pleural effusion or pneumothorax. Suture anchors are not ed in the right humeral head. IMPRESSION: 1. No acute cardiopulmonary abnormality. Reviewed, dictated and finalized at location A.
--- NOTE | ~2020-04-07 | XR_ITS ---
EXAMINATION: XR abdomen NG/feed tube insert DATE: 04/07/2020 22:32 INDICATION: Nasogastric tube placement. TECHNIQUE: A semiupright view of the abdomen was obtained. COMPARISON: CT abdomen and pelvis 04/07/2020 FINDINGS: The lower abdomen is excluded. The nasogastric tube tip is in the stomach. There are dilate d loops of small bowel. IMPRESSION: 1. Nasogastric tube tip in the stomach. 2. Dilated small bowel, likely adynamic ileus. Reviewed, dictated and finalized at location A.
--- NOTE | ~2020-04-07 | XR_ITS ---
EXAMINATION: XR chest 1V portable INDICATION: Acute respiratory failure TECHNIQUE: Portable AP chest at 0537 hours COMPARISON: 04/10/2020 FINDINGS: The endotracheal tube ends approximately 3.7 cm above the nichol. The nasogastric tube is in the stomach. Left basilar airspace opacities persist but have improved. Again seen are chronic froylan ateral reticular opacities, consistent with chronic interstitial lung disease. The cardiomediastinal silhouette is normal. No pleural effusion or pneumothorax is identified. IMPRESSION: 1. Minimal left basilar airspace opacity, likely atelectasis. Reviewed, dictated and finalized at location A.
--- NOTE | ~2020-04-07 | XR_ITS ---
XR chest 1V portable 04/07/2020 13:31 Indication: Shortness of breath Procedure: AP portable chest Comparison: Comparison to multiple prior studies sequentially, with oldest reviewed study dated 03/19. Findings: Heart size normal. Left basilar atelectasis. No edema, pleural effusion or pneumothorax. Impression: 1: Left basilar atelectasis. Reviewed, dictated and finalized at location A. Impression: 1: Left basilar atelectasis.
--- NOTE | ~2020-04-07 | XR_ITS ---
EXAMINATION: XR chest ET placement DATE: 04/08/2020 20:00 INDICATION: Endotracheal tube repositioning. TECHNIQUE: A single frontal view of the chest was obtained. COMPARISON: Chest single view 04/07/2020 FINDINGS: There is a diffuse reticular opacities in the lungs with architectural distortion, likely c hronic lung disease. There are airspace opacities at left lung base with volume loss, likely atelecta sis. No pleural effusion or pneumothorax. The heart size is normal. The endotracheal tube tip is 1.8 cm with a chronic. The nasogastric tube tip is in the stomach. There are suture anchors in right onofre ral head. IMPRESSION: 1. Airspace opacities at left lung base with volume loss, likely atelectasis. 2. Chronic interstitial lung disease. Reviewed, dictated and finalized at location A.
--- NOTE | ~2020-04-07 | XR_ITS ---
EXAMINATION: XR chest 1V portable DATE: 04/19/2020 05:42 INDICATION: Respiratory failure. Septic shock. TECHNIQUE: frontal view of the chest was obtained. COMPARISON: Chest radiograph dated 04/18/2020 FINDINGS: Endotracheal tube tip 2.3 cm above the nichol. Nasogastric tube with proximal side-port in the body o f the stomach and distal tip collimated off the study. Oblique skinfold projects over the right lung. No interval change in diffuse mild bilateral interstit ial edema. No focal airspace consolidation, pleural effusion or pneumothorax. The cardiomediastinal s ilhouette is normal. IMPRESSION: 1. Unchanged diffuse bilateral mild interstitial edema. Reviewed, dictated and finalized at location A.
--- NOTE | ~2020-04-07 | XR_ITS ---
EXAMINATION: XR chest 1V portable DATE: 04/15/2020 05:49 INDICATION: Respiratory failure. Septic shock. TECHNIQUE: A single frontal view of the chest was obtained. COMPARISON: Chest single view 04/14/2020 FINDINGS: There is a diffuse interstitial pattern in the lungs with architectural distortion. There a re mild airspace opacities in the lower lung zones. No pleural effusion or pneumothorax. The heart si ze is normal. The endotracheal tube tip is 1.4 cm above the nichol. The nasogastric tube tip is beyon d the inferior margin of the radiograph, but at least to the stomach. IMPRESSION: 1. Stable diffuse lung disease, consistent with chronic interstitial lung disease with superimposed p ulmonary edema versus pneumonia. Reviewed, dictated and finalized at location A. IMPRESSION: 1. Stable diffuse lung disease, consistent with chronic interstitial lung disea se with superimposed pulmonary edema versus pneumonia.
--- NOTE | ~2020-04-07 | XR_ITS ---
EXAMINATION: XR chest 1V portable DATE: 04/16/2020 05:32 INDICATION: Respiratory failure. Septic shock. TECHNIQUE: A single frontal view of the chest was obtained. COMPARISON: Chest single view 04/15/2020 FINDINGS: The lung volumes are small. There is a diffuse interstitial pattern in the lungs. There are mild airspace opacities at right lung base and in the perihilar regions. No pleural effusion or pneu mothorax. The heart size is normal. The endotracheal tube tip is 2.5 cm above the nichol. The nasogas tric tube tip is in the stomach. A right internal jugular central venous catheter is seen with tip in the proximal right atrium. There are suture anchors in right humeral head. Surgical clips in the rig ht upper quadrant are likely from cholecystectomy. IMPRESSION: 1. Diffuse lung disease with slight improvement, consistent with pulmonary edema versus pneumonia sup erimposed on chronic interstitial lung disease. Reviewed, dictated and finalized at location A. IMPRESSION: 1. Diffuse lung disease with slight improvement, consistent with pulmonary romana a versus pneumonia superimposed on chronic interstitial lung disease.
--- NOTE | ~2020-04-07 | XR_ITS ---
EXAMINATION: XR chest 1V portable DATE: 04/20/2020 05:42 INDICATION: Respiratory failure TECHNIQUE: frontal view of the chest was obtained. COMPARISON: Chest radiograph dated 04/19/2020 FINDINGS: Endotracheal tube tip 1.8 cm above the nichol. Nasoenteric feeding tube extends into the stomach with distal tip collimated beyond the inferior margin of the [id number]-yv-vgon. Right internal jugular centra l venous catheter with distal tip near the superior cavoatrial junction. Unchanged diffuse bilateral increased interstitial pattern with Alexander B-lines consistent with mild p ulmonary edema. No focal airspace opacities, pleural effusion or pneumothorax. The cardiomediastinal silhouette is within normal limits accounting for leftward rotation of the patient. IMPRESSION: 1. Unchanged diffuse mild pulmonary edema. Reviewed, dictated and finalized at location A.
--- NOTE | ~2020-04-07 | XR_ITS ---
EXAMINATION: XR chest 1V portable DATE: 04/21/2020 04:55 INDICATION: Respiratory failure TECHNIQUE: frontal view of the chest was obtained. COMPARISON: Chest radiograph and CT dated 04/20/2020 FINDINGS: Endotracheal tube tip 4.9 cm above the nichol. Right internal jugular central venous catheter with di stal tip at the caudal superior vena cava. Enteric feeding tube extends into the stomach with distal tip collimated beyond the inferior margin of the rztss-[id number]-fgap. Similar mild reticulonodular pattern throughout the right lung and subtle opacities in the left lower lung zone. No pleural effusion or pneumothorax. The cardiomediastinal silhouette is within normal li mits accounting for mild leftward rotation of the patient. IMPRESSION: 1. Minimal change in bilateral lung disease, right greater than left which could represent pneumonia or asymmetric pulmonary edema. Reviewed, dictated and finalized at location A. IMPRESSION: 1. Minimal change in bilateral lung disease, right greater than left which coul d represent pneumonia or asymmetric pulmonary edema.
--- NOTE | ~2020-04-07 | XR_ITS ---
EXAMINATION: XR chest 1V portable DATE: 04/23/2020 05:50 INDICATION: Respiratory failure TECHNIQUE: frontal view of the chest was obtained. COMPARISON: Chest radiograph dated 04/22/2020 FINDINGS: Endotracheal tube tip 2.7 cm above the nichol. Right internal jugular central venous catheter tip at the caudal superior vena cava. Enteric feeding tube extends into the stomach with distal tip collimat ed beyond the inferior margin of the hvjgw-og-pzob. No significant interval change in diffuse fine reticulonodular opacities in both lungs, right greater than left. No pleural effusion or pneumothorax. The cardiomediastinal silhouette is normal. IMPRESSION: 1. No significant interval change in bilateral lung disease, right greater than left, which could rep resent pneumonia or asymmetric pulmonary edema. Reviewed, dictated and finalized at location A. IMPRESSION: 1. No significant interval change in bilateral lung disease, right greater than left, which could represent pneumonia or asymmetric pulmonary edema.
--- NOTE | ~2020-04-07 | XR_ITS ---
EXAMINATION: XR chest 1V portable DATE: 04/14/2020 05:26 INDICATION: Acute respiratory failure. TECHNIQUE: A single frontal view of the chest was obtained. COMPARISON: Chest single view 04/13/2020 FINDINGS: There is a diffuse interstitial pattern in the lungs with architectural distortion. There a re mild airspace opacities in the mid and lower lung zones. No pleural effusion or pneumothorax. The heart size is normal. The endotracheal tube tip is 12 mm above the nichol. The nasogastric tube tip i s in the stomach. IMPRESSION: 1. Stable diffuse lung disease, consistent with chronic interstitial lung disease with superimposed p ulmonary edema versus pneumonia. Reviewed, dictated and finalized at location A. IMPRESSION: 1. Stable diffuse lung disease, consistent with chronic interstitial lung disea se with superimposed pulmonary edema versus pneumonia.
--- NOTE | ~2020-04-07 | XR_ITS ---
EXAMINATION: XR chest 1V portable DATE: 04/13/2020 04:25 INDICATION: Acute respiratory failure. TECHNIQUE: A single frontal view of the chest was obtained. COMPARISON: Chest single view 04/12/2020 FINDINGS: There is a diffuse interstitial pattern in the lungs with architectural distortion. There a re mild airspace opacities in the mid and lower lung zones. No pleural effusion or pneumothorax. The heart size is normal. The endotracheal tube tip is 2.2 cm above the nichol. The nasogastric tube tip is in the stomach. Surgical clips in the right upper quadrant are likely from cholecystectomy. IMPRESSION: 1. Stable diffuse lung disease, consistent with chronic interstitial lung disease with superimposed p ulmonary edema versus pneumonia. Reviewed, dictated and finalized at location A. IMPRESSION: 1. Stable diffuse lung disease, consistent with chronic interstitial lung disea se with superimposed pulmonary edema versus pneumonia.
--- NOTE | 2020-04-07 12:40 | PC.NURSE ---
Pt vomited approx 3L of partially digested food on floor, splattering cabinets.
--- NOTE | 2020-04-07 13:09 | ECG_ITS ---
Measurements Intervals [place] Rate: 117 P: -7 NH: 111 QRS: 19 QRSD: 78 T: -56 QT: 242 QTc: 339 Interpretive Statements SINUS OR ECTOPIC ATRIAL TACHYCARDIA WITH SHORT NH INTERVAL LOW QRS VOLTAGE- DIFFUSE LEADS BORDERLINE R WAVE PROGRESSION, ANTERIOR LEADS ST-T WAVE ABNORMALITY IN ANTEROLAT/INF LEADS- CONSIDER ISCHEMIA BASELINE ARTIFACT- I, II, III, AVR, AVL, AVF, V1-V6 ABNORMAL ECG Electronically Signed On 04-07-2020 16:16:26 CDT by Byron Ricci D.O.
--- NOTE | 2020-04-07 13:46 | PC.NURSE ---
Multiple attempts at IV per this RN and one other. Joy, Vascular insert molding operator contacted and at bedside to attempt venipuncture and IV start.
--- NOTE | 2020-04-07 13:52 | ED.ABDPAIN ---
HPI - Abdominal Pain General Chief Complaint: Abdominal Pain Stated Complaint: LOWER LEG SWELLING AND REDNESS Time Seen by Provider: 04/07/20 13:34 Source: patient History of Present Illness HPI narrative: Patient is 69 years old white female complaining of diffuse abdominal pain started this morning associated with vomiting. Patient lives at home with her , came by ambulance. Patient reports having similar symptoms and was hospitalized for 10 days got discharged on March 25 and does not know the diagnosis. Related Data Home Medications Medication Instructions Recorded Confirmed albuterol sulfate [Ventolin HFA] 2 puff INHALATION QID PRN 03/17/20 03/17/20 atorvastatin 80 mg PO DAILY 03/17/20 03/17/20 buspirone 7.5 mg PO BID 03/17/20 03/17/20 diclofenac sodium 75 mg PO BID 03/17/20 03/17/20 fenofibrate micronized 134 mg PO DAILY 03/17/20 03/17/20 fentanyl 1 patch TRANSDERMAL Q72H 03/17/20 03/17/20 furosemide 40 mg PO DAILY 03/17/20 03/17/20 gabapentin 300 mg PO TID 03/17/20 03/17/20 hydroxyzine HCl 25 mg PO TID PRN 03/17/20 03/17/20 metformin 500 mg PO BID 03/17/20 03/17/20 midodrine 2.5 mg PO BID 03/17/20 03/17/20 oxybutynin chloride 10 mg PO DAILY 03/17/20 03/17/20 oxycodone 5 mg PO BID PRN 03/17/20 03/17/20 pantoprazole 40 mg PO BID 03/17/20 03/17/20 quetiapine 100 mg PO BID 03/17/20 03/17/20 Allergies Allergy/AdvReac Type Severity Reaction Status Date / Time No Known Allergies Allergy Verified 04/07/20 12:19 Review of Systems Review of Systems: Narrative: CONSTITUTIONAL: Denies fever, chills, or sweats. EYES: Denies visual changes, redness, or discharge. ENT: Denies rhinorrhea, congestion, sore throat, or otalgia. CARDIOVASCULAR: Denies chest pain, palpitations, or edema. RESPIRATORY: Denies cough or dyspnea. GASTROINTESTINAL: Diffuse abdominal pain, nausea and vomiting GENITOURINARY: Denies dysuria or hematuria. SKIN: Denies rash or itching. MUSCULOSKELETAL: Denies back pain, joint pain, or myalgia. NEUROLOGIC: Denies headache, numbness, or weakness. PSYCHIATRIC: Denies anxiety or depression. [facility] Past Medical History Medical History Anemia With history of blood transfusion. Chronic back pain Chronic obstructive pulmonary disease Chronic, continuous use of opioids Fentanyl patch for chronic back pain. Crohn disease Deep venous thrombosis Depression with anxiety Dyslipidemia Gastroesophageal reflux disease GERD (gastroesophageal reflux disease) Hypertension Osteoarthritis Osteoporosis Pulmonary infiltrates Type 2 diabetes mellitus Surgical History Surgical History History of cataract extraction History of cholecystectomy History of hysterectomy History of right hip replacement Family History Family History Mother Hypertension Sibling Chronic obstructive pulmonary disease was trying to find metastatic cancer, EMR would not allow me to add this diagnosis so I picked COPD because I could. Other Congestive heart failure Diabetes mellitus Social History Social History Social History: The patient is and lives with her in [place]. She smoked for about 50 years and quit several years ago. She denies alcohol and drug use. She designates her son, Sanju Alonzo, as her surrogate decision maker and she wishes to be a full code. Smoking packs per day: 2 Smoking cigarettes per day: 40.0 Years smoked: 50 Smoking pack-years: 100.00 Smoking status: Former smoker Tobacco type: cigarettes Alcohol intake: never Substance use: never Additional occupation/education comments: Worked in a [employer] 15 years, stopped 2007 when disabled due to back pain. Gender identity (if verbalized by the patient): Female Spiritual care concerns: No
[2020-04-07 14:07] LABS: Basophils Absolute Auto 0.1 K/mm3 (0.0-0.1); Basophils Percent Auto 0.4 % (0.2-1.2); Eosinophils Percent Auto 0.1 % (0-4.4); Hematocrit 33.4 % (37.0-47.0); Hemoglobin 10.3 g/dL (12.0-15.0); Immature Granulocyte Absolute 0.18 K/mm3 (0.00-0.031); Immature Granulocyte Percent A 0.9 % (0-0.5); Lymphocytes Percent Auto 2.5 % (18.3-44.2); Mean Corpuscular HGB Conc 30.8 g/dl (32-36); Mean Corpuscular Hemoglobin 28.5 pg (26-34); Mean Corpuscular Volume 92.5 fl (80-100); Mean Platelet Volume 9.7 fl (7.4-10.4); Monocytes Absolute Auto 1.2 K/mm3 (0.1-0.6); Monocytes Percent Auto 5.8 % (2.6-8.5); Neutrophils Absolute Auto 17.8 K/mm3 (1.3-6.7); Neutrophils Percent Auto 90.3 % (45.5-73.1); Platelet Count Result 523 k/mm3 (150-375); Red Blood Count 3.61 M/mm3 (4.2-5.4); Red Cell Distribution Width 16.3 % (11.5-14.5); White Blood Count 19.7 K/mm3 (4.5-10.0)
[2020-04-07 14:14] LABS: INR 1.4; Prothrombin Time 16.8 Seconds (11.1-14.7)
[2020-04-07] MEDS: SODIUM CHLORIDE 0.9% IV 1,000 ML 999 ML IV CONT ×2 (14:23→14:56)
[2020-04-07] MEDS: ONDANSETRON INJ 4 MG/2 ML VIAL IV PUSH ×2 (14:26→21:42)
[2020-04-07 14:46] LABS: Add Urine Microscopic? YES; Appearance Urine Clear (Clear); Bacteria Urine Trace /hpf; Bilirubin Urine Negative (Negative); Blood Urine 2+ (Negative); Color Urine Yellow (Yellow); Glucose Urine UA Negative (Negative); Ketones Urine Negative (Negative); Leukocyte Esterase Ur Negative LEU/UL (Negative); Mucus Urine Rare /lpf; Nitrate Urine Negative (Negative); Protein Urine Negative (Negative); Specific Grav Ur 1.014 (1.001-1.035); Urobilinogen Urine Negative mg/dL (<2.0); WBC Urine 0-3 /hpf
--- NOTE | 2020-04-07 14:55 | PC.NURSE ---
Assumed care of pt. Pt is alert on stretcher, on tele monitor. Discussed POC.
[2020-04-07 15:52] LABS: Alanine Aminotransferase 11 U/L (4-35); Albumin Level 1.4 g/dL (3.5-5.1); Alkaline Phosphatase 92 U/L (38-126); Aspartate Amino Transferase 14 U/L (14-36); Bilirubin,Total 0.2 mg/dL (0.2-1.3); Blood Urea Nitrogen 25 mg/dL (7-17); Calcium 5.1 mg/dL (8.4-10.2); Carbon Dioxide 15 mmol/L (22-30); Chloride 111 mmol/L (98-107); Estimated CRCL calculation 33 ml/min; Estimated Glomerular Filt Rate 41; Glucose 80 mg/dL (65-105); Sodium 134 mmol/L (137-145)
[2020-04-07 16:04] LABS: NT Pro B Type Natriuretic Pept 1570 PG/ML (5-100); Troponin I < 0.012 ng/mL (0.000-0.034)
[2020-04-07 16:08] LABS: Lipase < 10 U/L (23-300)
--- NOTE | 2020-04-07 19:42 | PM.IMHP ---
H&P: HPI History of Present Illness Chief complaint: Perforated viscus/MALCOM/leukocytosis/adrenal mass Narrative: This is a 69 year Diabetic female who is well known to our Hospitalist service was she was just treated and discharged at the end of last month for c. diff colitis and returned to the hospital today with a complaint of diffuse abdominal pain, nausea and vomiting. Her last meal was last night and today she suddenly developed diffuse abdominal pain in the morning. She did have a bowel movement this morning which was well formed and nonbloody. She describes having #3 episodes of nonbloody vomiting today as well. She denies any fevers, chills, cough, chest pain, sore throat, headache, neck stiffness, dysuria, hematuria, diarrhea or rectal bleeding. She does however report worsening lower extremity swelling this week and mild shortness of breath today. She has not required any supplemental oxygen. The patient was evaluated in the ER today and found to have a perforated viscus on CT Abd/Pelvis. General Surgery has been consulted and has asked that we admit the patient to the hospital and they will manage her perforated viscus. The patient is known to be on chronic narcotic medications at home for chronic pain. She was found to be severely septic in the ER today with fever, tachycardia, tachypnea, leukocytosis. Lactic acid is pending. Embossing Press Operator Molded Goods, Dr. Greenfield has been consulted and the patient has been admitted to the ICU. Review of Systems Review of Systems: All systems reviewed & are unremarkable except as noted in HPI and below PMFSH Past Medical History Medical History Anemia With history of blood transfusion. Chronic back pain Chronic obstructive pulmonary disease Chronic, continuous use of opioids Fentanyl patch for chronic back pain. Crohn disease Deep venous thrombosis Depression with anxiety Dyslipidemia Gastroesophageal reflux disease GERD (gastroesophageal reflux disease) Hypertension Osteoarthritis Osteoporosis Pulmonary infiltrates Type 2 diabetes mellitus Surgical History Surgical History History of cataract extraction History of cholecystectomy History of hysterectomy History of right hip replacement Family History Family History Mother Hypertension Sibling Chronic obstructive pulmonary disease was trying to find metastatic cancer, EMR would not allow me to add this diagnosis so I picked COPD because I could. Other Congestive heart failure Diabetes mellitus Social History Social History Social History: The patient is and lives with her in [place]. She smoked for about 50 years and quit several years ago. She denies alcohol and drug use. She designates her son, Sanju Alonzo, as her surrogate decision maker and she wishes to be a full code. Smoking packs per day: 2 Smoking cigarettes per day: 40.0 Years smoked: 50 Smoking pack-years: 100.00 Smoking status: Former smoker Tobacco type: cigarettes Alcohol intake: never Substance use: never Additional occupation/education comments: Worked in a [employer] 15 years, stopped 2007 when disabled due to back pain. Gender identity (if verbalized by the patient): Female Spiritual care concerns: No Meds Home Medications and Allergies Home Medications Medication Instructions Recorded Confirmed Type albuterol sulfate [Ventolin HFA] 2 puff INHALATION QID PRN 03/17/20 04/07/20 History atorvastatin 80 mg PO DAILY 03/17/20 04/07/20 History buspirone 7.5 mg PO BID 03/17/20 04/07/20 History diclofenac sodium 75 mg PO BID 03/17/20 04/07/20 History fenofibrate micronized 134 mg PO DAILY 03/17/20 04/07/20 History fentanyl 1 patch TRANSDERMAL Q72H 03/17/20 04/07/20 History
[2020-04-07] MEDS: LACTATED RINGERS 1,000 ML 150 ML IV CONT (20:13)
[2020-04-07 20:44] LABS: Troponin I < 0.012 ng/mL (0.000-0.034)
--- NOTE | 2020-04-07 20:44 | P.PCNBED_ITS ---
Procedures Central Line Placement Right Femoral: Central Line Date: 04/07/20 Central Line Time: 20:45 Discussed w/ the patient/family/POA,the placement of a central venous catheter, including its clinical necessity/indication & associated potential risks, benifits and alternatives.: Yes Time Out Performed: Yes Patient Position: supine Patient placed on monitor/pulse ox: Yes Provider Prep: mask, sterile gown, sterile gloves, Max. sterile barrier precautions, cap and hand hygiene Central line prep: Povidone-Iodine 1% Local anesthesia used: lidocaine 1% Amount of anesthesia used (ml): 5 Ultrasound used for placement: Yes Central line lumen inserted: triple Green[place]ic: 7 Length (cm): 20 Depth of Insertion (cm): 20 Post procedure: sutured in place, good blood return, all ports aspirated, flushed, capped, tegaderm, hemostatic disc and aseptic technique maintained throughout procedure Complications: none Additional comments: Date of service was 04/07/2020 at 08:30 pm.
[2020-04-07] MEDS: CALCIUM GLUC 1,000 MG/NS 50 ML 1,000 MG/50 ML BAG 100 MG IVPB (20:48)
[2020-04-07 21:09] LABS: Lactic Acid Reflex 3.9 mmol/L (0.7-2.1)
--- NOTE | 2020-04-07 21:57 | PM.CNGS ---
Assessment and Plan Assessment and plan (1) Perforated viscus: Code(s): R19.8 - Other specified symptoms and signs involving the digestive system and abdomen Status: Acute Assessment and Plan: CT reviewed and perforation seems contained within retroperitoneum, given poor surgical candidate will cont medical mgmt c IV abx, resuscitation, bowel rest c NG decompression, d/w pt need for poss emergent operative intervention and pt would like to exhaust conservative measures first, cont serial exams, labs (2) Severe sepsis: Code(s): A41.9 - Sepsis, unspecified organism; R65.20 - Severe sepsis without septic shock Status: Acute Assessment and Plan: see above, may need pressors in addition to IV abx (3) CHF (congestive heart failure): Code(s): I50.9 - Heart failure, unspecified Status: Acute Assessment and Plan: careful resuscitation given CHF (4) Chronic obstructive pulmonary disease: Qualifiers: COPD type: unspecified COPD Qualified Code(s): J44.9 - Chronic obstructive pulmonary disease, unspecified Code(s): J44.9 - Chronic obstructive pulmonary disease, unspecified Status: Chronic Assessment and Plan: currently oxygenating well (5) Suspected COVID-19 virus infection: Code(s): Z20.828 - Contact with and (suspected) exposure to other viral communicable diseases Status: Acute Assessment and Plan: test pending, cont precautions History of Present Illness Consult details Consult date: 04/07/20 Reason for consult: abdominal pain Requesting physician: Tim Quiroga MD Narrative: Pt is a 69 y/o F c multiple med issues presenting to ED c/o 1 d h/o upper abd pain, N/V. Pt reports she last ate the night prior s issue. Pt reports she had normal BM this am. Pt then developed progressively worsening upper abd pain. Pt reports anorexia, nausea, emesis x 3. Pt recently admitted for CDiff and was dc'd last week. Workup in the ED including imaging suggestive of perf'd gastric ulcer. Review of Systems Constitutional: Constitutional: Denies chills, Reports fatigue, Reports lethargy and Reports weakness Eyes: Eyes: Reports no additional eye complaints ENT: Reports Normal hearing present and Denies dysphagia Cardiovascular: Cardiovascular: Denies chest pain, Reports leg edema and Denies palpitations Respiratory: Respiratory: Denies cough and Reports dyspnea Gastrointestinal: Gastrointestinal: Reports abdominal pain, Reports bloating, Denies constipation, Denies diarrhea, Reports nausea and Reports vomiting Genitourinary: Genitourinary: Reports dysuria Musculoskeletal: Musculoskeletal: Denies no additional musculoskeletal complaints Integumentary/Breasts: Skin/Breast: Denies erythema and Denies rash Neurologic: Denies confusion and Denies headache(s) Psychiatric: Psychiatric: Denies no additional psychiatric complaints PMFSH Past Medical History Medical History Anemia With history of blood transfusion. Chronic back pain Chronic obstructive pulmonary disease Chronic, continuous use of opioids Fentanyl patch for chronic back pain. Crohn disease Deep venous thrombosis Depression with anxiety Dyslipidemia Gastroesophageal reflux disease GERD (gastroesophageal reflux disease) Hypertension Osteoarthritis Osteoporosis Pulmonary infiltrates Type 2 diabetes mellitus Surgical History Surgical History History of cataract extraction History of cholecystectomy History of hysterectomy History of right hip replacement Family History Family History Mother Hypertension Sibling Chronic obstructive pulmonary disease was trying to find metastatic cancer, EMR would not allow me to add this diagnosis so I picked COPD because I could. Other Congestive heart failur
[2020-04-07 23:50] LABS: Glucose Point of Care 84 (65-105)
[2020-04-07 23:56] LABS: Reflex Lactic Acid Yes or No Add Lactic
[2020-04-08] VITALS (27 sets, daily range): BP systolic 78–140; BP diastolic 44–75; PULSE 100–129; RESP 12–26; TEMP 36.4–37.2; O2SAT 91–100
[2020-04-08] MEDS: SODIUM CHLORIDE 0.9% IV 500 ML IV CONT (00:05)
[2020-04-08] MEDS: NOREPINEPHRINE 8 MG/D5W 250 ML 8 MG/250 ML BAG 9.4 MG IV CONT (01:35)
[2020-04-08] MEDS: LACTATED RINGERS 1,000 ML 150 ML IV CONT (04:35)
[2020-04-08] MEDS: ONDANSETRON INJ 4 MG/2 ML VIAL IV PUSH (04:54)
[2020-04-08 05:06] LABS: Hematocrit 28.6 % (37.0-47.0); Hemoglobin 8.8 g/dL (12.0-15.0); Mean Corpuscular HGB Conc 30.8 g/dl (32-36); Mean Corpuscular Hemoglobin 28.9 pg (26-34); Mean Corpuscular Volume 93.8 fl (80-100); Mean Platelet Volume 9.6 fl (7.4-10.4); Platelet Count Result 576 k/mm3 (150-375); Red Blood Count 3.05 M/mm3 (4.2-5.4); Red Cell Distribution Width 16.6 % (11.5-14.5); White Blood Count 33.1 K/mm3 (4.5-10.0)
[2020-04-08 05:20] LABS: Lactic Acid 6.1 mmol/L (0.7-2.1)
[2020-04-08 05:25] LABS: Blood Urea Nitrogen 31 mg/dL (7-17); Calcium 6.2 mg/dL (8.4-10.2); Carbon Dioxide 13 mmol/L (22-30); Chloride 105 mmol/L (98-107); Estimated CRCL calculation 22 ml/min; Estimated Glomerular Filt Rate 25; Glucose 52 mg/dL (65-105); Magnesium 2.1 mg/dL (1.6-2.3); Potassium 4.9 mmol/L (3.4-5.0); Sodium 132 mmol/L (137-145)
[2020-04-08] MEDS: DEXTROSE 50% 25 GM/50 ML SYRINGE IV PUSH (05:31)
[2020-04-08 06:14] LABS: Glucose Point of Care 75 (65-105)
[2020-04-08 06:23] LABS: Band Neutrophils Percent 12 % (0-6); Lymphocytes Absolute Manual 1.65 K/mm3 (1.1-4.5); Metamyelocytes Percent 2 %; Monocytes Absolute Manual 2.31 K/mm3 (0.1-0.90); Monocytes Percent Manual 7 % (3-9); Neutrophils Absolute Manual 28.46 K/mm3 (1.7-7.2); Neutrophils Percent Manual 74 % (46-73); Platelet Estimate Increased (Adequate); Total Cells Counted 100
--- NOTE | 2020-04-08 07:16 | PC.NURSE ---
Dr Nicholson notified of change in patient condition.
[2020-04-08] MEDS: LACTATED RINGERS 1,000 ML 999 ML IV CONT ×2 (08:22→21:00)
[2020-04-08 08:41] LABS: Alveolar/Arterial O2 Gradient 41.5 mmHg; Base Excess ABG -13.6 mEq/l (+/-2.0); Fractional Inspired Oxygen 21 %; Oxygen Content ABG 12.3 %vol (16.0-22.0); Oxygen Saturation ABG 96.5 % (95.0-100.0); Oxyhemoglobin 93.9 % THb (90.0-100.0); PO2 ABG 86.4 mmHg (80.0-100.0); PO2 FiO2 Ratio Arterial Blood 4.11 %; Total Hemoglobin 9.2 g/dL (12.0-18.0); pH ABG 7.359 (7.350-7.450)
[2020-04-08] MEDS: SODIUM BICARBONATE 8.4% 150 MEQ in DEXTROSE 5% 1,000 ML 950 ML 100 MEQ IV CONT ×2 (08:41→19:47)
[2020-04-08 08:44] LABS: Modified Allen's Test Pass; PCO2 ABG 18.2 mmHg (35.0-45.0); Site Drawn RIGHT RADIAL
[2020-04-08 08:45] LABS: Device ROOM AIR
[2020-04-08] MEDS: CALCIUM GLUC 2,000 MG/NS 100ML 2,000 MG/100 ML BAG 100 MG IVPB (09:02)
[2020-04-08] MEDS: SODIUM BICARBONATE 8.4% 50 MEQ/50 ML VIAL IV PUSH (09:27)
--- NOTE | 2020-04-08 09:39 | PM.IMPN ---
Progress Note: A&P Assessment and Plan (1) Perforated viscus: Code(s): R19.8 - Other specified symptoms and signs involving the digestive system and abdomen Status: Acute Assessment and Plan: CT A/P shownig wall thickening of the gastric antrum with gas in the duodenal wall, retroperitoneum, small bowel mesentery, and peritoneum consistent with perforated viscus. Patietn with peritoneal signs. Concern for a perforated ulcer or possibly ischemic bowel. General surgery involved and discussed. He was concerned that her symptoms could also be related to colon pathology from the recent CDiff infection and Flagyl added. Continue broad spectrum abx. Plan for surgical exploration later today. Appreciate Photographic Equipment Technician and GenSurg input. (2) Ileus: Code(s): K56.7 - Ileus, unspecified Status: Acute Assessment and Plan: CT scan showing dilated small bowel without focal transition point, likely adynamic ileus. NGT in place to suction. Continue to monitor for the return of bowel function. (3) Severe sepsis: Code(s): A41.9 - Sepsis, unspecified organism; R65.20 - Severe sepsis without septic shock Status: Acute Assessment and Plan: Severe sepsis with septic shock currently on Levophed 16mcg/min. Related to acute peritonitis from perforated viscus. Lactic acid 3.9 on admission with renal failure and leukocytosis. WBC and lactic acid worse today. Metabolic acidosis related to lactic acidosis and currently on bnicarb drip. Continue fluid resuscitation and IV abx. Discussed with surgery who recommended Flagyl which was added. Blood cultures are pending. Central line in place. (4) Suspected COVID-19 virus infection: Code(s): Z20.828 - Contact with and (suspected) exposure to other viral communicable diseases Status: Acute Assessment and Plan: The patient just tested negative for COVID-19 last week and was retested here. Continue Droplet Isolation. Covid-19 results are pending. (5) Acute renal failure: Code(s): N17.9 - Acute kidney failure, unspecified Status: Acute Assessment and Plan: Likely secondary to severe sepsis/ATN. Cr worse today at 2.0. UOP poor. Continue IV fluid hydration. Monitor renal function and urine output. Avoid nephrotoxic agents. Renally dose medications. (6) Hypocalcemia: Code(s): E83.51 - Hypocalcemia Status: Acute Assessment and Plan: Ca 5.1 but corrected calcium for low albumin is 7.2 on admission and she received calcium gluconate. Calcium 6.2 today and this was replaced again. Monitor for signs and symptoms of hypocalcemia. (7) Leukocytosis: Qualifiers: Leukocytosis type: unspecified Qualified Code(s): D72.829 - Elevated white blood cell count, unspecified Code(s): D72.829 - Elevated white blood cell count, unspecified Status: Acute Assessment and Plan: WBC 31K on 03/17 related to the CDiff infection that eventually normallized. WBC 20K on admission now that has climbed to 33K today. Secondary to severe sepsis. Continue to monitor CBCd. (8) Anemia: Qualifiers: Anemia type: unspecified type Qualified Code(s): D64.9 - Anemia, unspecified Code(s): D64.9 - Anemia, unspecified Status: Chronic Assessment and Plan: Chronic anemia in the 7-8 range. B12/folate/Ferritin normal. No iron studies. Hgb 10 on admission but probably more hemoconcentrated. Hgb dropped to 8.8 this morning. Contineu to monitor blood counts. Some old blood in the groin noted by RN but no active bleeding. Monitor H/H, transfuse prn. (9) Thrombocytosis: Code(s): D47.3 - Essential (hemorrhagic) thrombocythemia Status: Acute Assessment and Plan: Likely reactive. Monitor serum platelets. (10) Type 2 diabetes mellitus: Qualifiers: Diabetes mellitus complication status: without complication Di
[2020-04-08] MEDS: metroNIDAZOLE 500 MG/ISO 100ML 500 MG/100 ML BAG 100 MG IVPB ×2 (10:55→19:50)
[2020-04-08 11:09] LABS: Lactic Acid Reflex 8.4 mmol/L (0.7-2.1)
--- NOTE | 2020-04-08 11:14 | WPDCNINT ---
Assessment and Plan Assessment and plan (1) Septic shock: Code(s): A41.9 - Sepsis, unspecified organism; R65.21 - Severe sepsis with septic shock Status: Acute Assessment and Plan: Septic shock most likely related to perforated viscus, ileus -patient adequately fluid-resuscitated -elevated lactic acid, received additional IV fluids in the ICU this morning -continue Zosyn, Flagyl was added -patient going to OR today per surgery -continue Levophed, maintain mean arterial pressures > 65 mm Hg -arterial line was inserted on 04/08/2020 (2) Diabetes type 2, controlled: Code(s): E11.9 - Type 2 diabetes mellitus without complications Status: Acute Assessment and Plan: Continue Accu-Cheks and sliding scale insulin -patient was hypoglycemic morning requiring dextrose. (3) MALCOM (acute kidney injury): Code(s): N17.9 - Acute kidney failure, unspecified Status: Acute Assessment and Plan: Patient with acute kidney injury most likely related to hypotension, septic shock, hypovolemia, ATN -patient given fluids in the ED, on maintenance IV fluids -additional IV fluid bolus given in the ICU this morning -will switch maintenance IV fluids sodium bicarb infusion given severe metabolic acidosis -continue monitor urine output, electrolytes and renal function (4) Anemia: Qualifiers: Anemia type: unspecified type Qualified Code(s): D64.9 - Anemia, unspecified Code(s): D64.9 - Anemia, unspecified Status: Chronic Assessment and Plan: History of chronic anemia with hemoglobin between 7-8. B12/folate/ferritin normal. -continue to monitor blood count. -will transfused if needed (5) Suspected COVID-19 virus infection: Code(s): Z20.828 - Contact with and (suspected) exposure to other viral communicable diseases Status: Acute Assessment and Plan: Patient suspected for COVID-19 -SARS-CoV-2 PCR has been obtained and pending -patient on airborne, droplet and contact precautions -chest x-ray shows left basilar atelectasis (6) Perforated viscus: Code(s): R19.8 - Other specified symptoms and signs involving the digestive system and abdomen Status: Acute Assessment and Plan: CT scan abdomen and pelvis showed wall thickening of the gastric antrum with gas in the duodenal wall, retroperitoneum, small bowel mesentery, and peritoneum consistent with perforated viscus. Patietn with peritoneal signs. Concern for a perforated ulcer. -surgery following the patient -discussed with surgeon, patient will be taken to the OR today -continue antibiotics as above, Flagyl added for possible C diff (7) Ileus: Code(s): K56.7 - Ileus, unspecified Status: Acute Assessment and Plan: CT scan showed dilated small bowels without focal transition point. Likely adynamic ileus. NG tube to suction, patient is having a lot of NG tube drainage -continue bowel rest -NG tube to suction (8) Hypocalcemia: Code(s): E83.51 - Hypocalcemia Status: Acute Assessment and Plan: Calcium repleted (9) DVT prophylaxis: Code(s): Z29.9 - Encounter for prophylactic measures, unspecified Status: Acute Assessment and Plan: DVT prophylaxis: SCDs Stress ulcer prophylaxis: Protonix Additional Plan Discussed with patient, and updated her with her condition and plan of care. She is aware that she will be going to the OR today for exploration Code status: Full code Critical care time spent: 43 minutes Due to a high probability of clinically significant, life threatening deterioration, the patient required my highest level of preparedness to intervene emergently and I personally spent this critical care time directly and personally managing the patient. This critical care time included obtaining a history; examining the patient; pulse oximetry; ordering and review of studies; arranging urgent treatment with development o
[2020-04-08] MEDS: hetaSTARCH 6%/NACL 500 ML 250 ML IV CONT ×2 (11:15→18:17)
--- NOTE | 2020-04-08 11:43 | WPDPROCEDUR ---
Procedures Arterial Line Arterial Line Date: 04/08/20 Arterial Line Time: 08:34 Discussed with the patient/family/POA, the placement of an arterial catheter, including its clinical necessity/indication and associated potential risks, benefits and alternatives.: Yes Time Out Performed: Yes Patient Position: supine Rn Social Services Prep: sterile gown and sterile gloves Site: left and femoral Site Prep: chlorhexidine and sterile drape Skin Anesthesia: 1% lidocaine Technique used: ultrasound-guided Length: 12 cm Closure/Dressing: suture, antimicrobial disc and tegaderm Patient tolerated procedure: well Complications: none
[2020-04-08] MEDS: NOREPINEPHRINE 8 MG/D5W 250 ML 8 MG/250 ML BAG 30 MG IV CONT (11:47)
[2020-04-08 12:00] LABS: Glucose Point of Care 79 (65-105)
[2020-04-08 13:52] LABS: Reflex Lactic Acid Yes or No Add Lactic
--- NOTE | 2020-04-08 14:14 | WPDANESEPPF ---
Anes - Initial Pre Proc Eval Procedure: Operation Date: 04/08/20 15:30 Proposed Procedures p Exploratory Laparotomy, Possible Bowel Resection,Possible Ostomy - Beba Nicholson MD Date/Time: 04/08/20 14:14 Surgeon: Laith Quiroga MD Pre Op Diagnosis: Perforated viscus/MALCOM/leukocytosis/adrenal mass Patient Data Age: 69 Gender: F Height: 5 ft 5 in Weight: 76.2 kg Last Vital Signs Temp 36.6 C 04/08/20 08:00 Pulse 120 H 04/08/20 12:00 Resp 21 H 04/08/20 12:00 BP 110/56 L 04/08/20 12:00 Pulse Ox 93 04/08/20 12:00 Allergies Allergy/AdvReac Type Severity Reaction Status Date / Time No Known Allergies Allergy Verified 04/07/20 12:19 Home Medications Medication Instructions Recorded Confirmed Type albuterol sulfate [Ventolin HFA] 2 puff INHALATION QID PRN 03/17/20 04/07/20 History atorvastatin 80 mg PO DAILY 03/17/20 04/07/20 History buspirone 7.5 mg PO BID 03/17/20 04/07/20 History diclofenac sodium 75 mg PO BID 03/17/20 04/07/20 History fenofibrate micronized 134 mg PO DAILY 03/17/20 04/07/20 History fentanyl 1 patch TRANSDERMAL Q72H 03/17/20 04/07/20 History furosemide 40 mg PO DAILY 03/17/20 04/07/20 History gabapentin 300 mg PO TID 03/17/20 04/07/20 History hydroxyzine HCl 25 mg PO TID PRN 03/17/20 04/07/20 History metformin 500 mg PO BID 03/17/20 04/07/20 History midodrine 2.5 mg PO BID 03/17/20 04/07/20 History oxybutynin chloride 10 mg PO DAILY 03/17/20 04/07/20 History oxycodone 5 mg PO BID PRN 03/17/20 04/07/20 History pantoprazole 40 mg PO BID 03/17/20 04/07/20 History quetiapine 100 mg PO BID 03/17/20 04/07/20 History miconazole nitrate [Aloe [place] 1 applic TOPICAL Q12HR #30 g 03/25/20 04/07/20 Rx Antifungal (micon)] phenol [Chloraseptic Throat [place]] 1 spray MUCOUS MEMBRANE PRN PRN 03/25/20 04/07/20 Rx #10 ml vancomycin 125 mg PO Q6HR #44 ea 03/25/20 04/07/20 Rx Laboratory Tests 04/07/20 04/07/20 04/07/20 13:57 13:57 14:32 WBC 19.7 K/mm3 H K/mm3 (4.5-10.0) RBC 3.61 M/mm3 L M/mm3 (4.2-5.4) Hgb 10.3 g/dL L D g/dL (12.0-15.0) Hct 33.4 % L % (37.0-47.0) MCV 92.5 fl fl (80-100) MCH 28.5 pg pg (26-34) MCHC 30.8 g/dl L g/dl (32-36) RDW 16.3 % H % (11.5-14.5) Plt Count 523 k/mm3 H D k/mm3 (150-375) MPV 9.7 fl fl (7.4-10.4) Immature Gran % (Auto) 0.9 % H % (0-0.5) Neut % (Auto) 90.3 % H % (45.5-73.1) Lymph % (Auto) 2.5 % L % (18.3-44.2) [place] % (Auto) 5.8 % % (2.6-8.5) Eos % (Auto) 0.1 % % (0-4.4) Baso % (Auto) 0.4 % % (0.2-1.2) Lymph # (Auto) 0.50 K/mm3 L K/mm3 (0.9-3.2) [place] # (Auto) 1.2 K/mm3 H K/mm3 (0.1-0.6) Eos # (Auto) 0.0 K/mm3 K/mm3 (0-0.3) Baso # (Auto) 0.1 K/mm3 K/mm3 (0.0-0.1) Abs Immat Gran (auto) 0.18 K/mm3 H K/mm3 (0.00-0.031) Absolute Neuts (auto) 17.8 K/mm3 H K/mm3 (1.3-6.7) Absolute Nucleated RBC 0.0 K/mm3 K/mm3 (0.0-0.012) Total Counted Neutrophils % (Manual) Band Neutrophils % Lymphocytes % (Manual) Monocytes % (Manual) Metamyelocytes % Nucleated RBC % 0.0 % % (0.0-0.2) Abs Neuts (Manual) Abs Lymphs (Manual) Abs Monocytes (Manual) Platelet Estimate PT 16.8 Seconds H Seconds (11.1-14.7) INR 1.4 APTT 38.0 SECONDS H SECONDS (22.3-36.8) Puncture Site ABG pH ABG pCO2 ABG pO2 ABG PO2/FiO2 Ratio ABG HCO3 ABG O2 Saturation ABG O2 Content ABG Base Excess A-a Gradient Oxyhemoglobin Total Hemoglobin O2 Delivery Device O2 Liters/Min FiO2 Sodium
[2020-04-08 14:31] LABS: Lactic Acid 8.6 mmol/L (0.7-2.1)
[2020-04-08] MEDS: METHYLENE BLUE 0.5% INJ 10 ML AMPULE 20 ML IRRIGATION (15:37)
--- NOTE | 2020-04-08 15:59 | SUR.OPER ---
Dr. Nicholson applied Abthera wound dressing to abdominal surgical incision
--- NOTE | 2020-04-08 16:33 | P.OP_ITS ---
Procedure Note - Detailed Date of procedure: 04/08/20 Pre-op diagnosis: Perforated viscus/MALCOM/leukocytosis/adrenal mass intraabdominal sepsis Post-op diagnosis: other (ischemic small bowel) Procedure performed: exploratory laparotomy, lysis of adhesions including Ko cherization of the duodenum, small-bowel resection, placement of greater than 50 sq cm of ABThera wound VAC Description of procedure: The patient was taken into the operating room placed in the supine position. After adequate induction of general anesthesia, the patient was prepped and draped in normal sterile fashion. A time-out was then done to verify the patient's identity as well as the procedure being performed. A generous midline incision is taken down into the peritoneal cavity. Once into the peritoneal cavity, a large amount of ascitic fluid was noted. Of note, no succus or free air was noted. I began by running the small intestine from the ligament of Treitz to the ileo cecal junction. Proximally, the small intestine was noted to be dilated however healthy and viable. Around the area of the mid jejunum, the small intestine becomes more focally narrow and inflamed. There is also noted to be a large amount of vascular congestion. Also in the remaining small intestine, there is noted to be air within the mesentery. This mid to distal jejunum is noted to be viable although there are some areas of duskiness. At the level of the proximal ileum, the intestine in this area is frankly ischemic and necrotic. This continues to about 20 cm proximal to the ileocecal valve. The distal ileum is unremarkable and collapsed. I then examined the colon and the entirety of the colon is noted to be unremarkable. I then examined the stomach which was noted to be dilated but unremarkable. I then Kocherized the duodenum, which was also noted to be unremarkable. The NG tube was noted to be in good position and I had anesthesia flush some methylene blue through the tube. No methylene blue was noted to be leaking. Given this, I went ahead and resected the frankly ischemic small bowel. This was noted to be approximately 2 feet. I decided to leave the small intestine in discontinuity given the patient's instability and the vascular congestion and duskiness in the jejunum. I then copiously washed out the abdominal cavity. ABThera wound VAC was then placed. The patient will now be sent back to the ICU in critical condition. The plan is for second-look laparotomy in the next 24-48 hours. Implants: ABThera wound VAC Anesthesia: GETA Surgeon: Beba Nicholson MD Estimated blood loss (mL): 50 Drains: Yes (abthera wound vac) Packing: Yes Pathology: yes Complications: No immediate complications Condition: critical Disposition: ICU Findings: Frankly ischemic distal jejunum proximal ileum, congestion and duskiness in jejunum, air in small bowel mesentery
[2020-04-08] MEDS: PANTOPRAZOLE SODIUM IV 40 MG VIAL IV PUSH (16:44)
[2020-04-08 16:51] LABS: SARS-CoV-2 RNA PCR Negative
[2020-04-08 18:43] LABS: Glucose Point of Care 79 (65-105)
[2020-04-08] MEDS: NOREPINEPHRINE 8 MG/D5W 250 ML 8 MG/250 ML BAG 52.5 MG IV CONT (18:47)
[2020-04-08 20:50] LABS: Lactic Acid 8.2 mmol/L (0.7-2.1)
[2020-04-08 21:10] LABS: Alveolar/Arterial O2 Gradient 240.1 mmHg; Base Excess ABG -12.5 mEq/l (+/-2.0); Carboxyhemoglobin 0.3 % THb (0-2.0); Fractional Inspired Oxygen 60 %; HCO3 ABG 15.6 mEq/l (22.0-26.0); Methemoglobin ABG 0.2 %THb (0-1.5); Oxygen Content ABG 10.7 %vol (16.0-22.0); Oxygen Saturation ABG 97.9 % (95.0-100.0); Oxyhemoglobin 95.8 % THb (90.0-100.0); PCO2 ABG 46.5 mmHg (35.0-45.0); PO2 ABG 136.6 mmHg (80.0-100.0); PO2 FiO2 Ratio Arterial Blood 2.28 %; Reduced Hemoglobin 3.7 %THb (0-5.0)
[2020-04-08 21:14] LABS: Total Hemoglobin 7.7 g/dL (12.0-18.0); pH ABG 7.144 (7.350-7.450)
[2020-04-08 21:15] LABS: Arterial Blood Gas Vent Mode CMV; Arterial Blood Gas Ventilator rate 12 /MIN; Device VENTILATOR; Site Drawn ARTLINE
[2020-04-08 21:16] LABS: Arterial Blood Gas PEEP 5 cmH2O; Arterial Blood Gas Tidal Volume 430 ml
[2020-04-08] MEDS: SODIUM BICARBONATE 8.4% 50 MEQ/50 ML VIAL (21:32)
[2020-04-08] MEDS: VASOPRESSIN INJ 100 UNITS in DEXTROSE 5% 95 ML IV CONT (21:42)
[2020-04-08 21:47] LABS: Hematocrit 22.2 % (37.0-47.0); Mean Corpuscular HGB Conc 29.3 g/dl (32-36); Mean Corpuscular Hemoglobin 28.3 pg (26-34); Mean Corpuscular Volume 96.5 fl (80-100); Red Cell Distribution Width 16.5 % (11.5-14.5); White Blood Count 18.1 K/mm3 (4.5-10.0)
[2020-04-08 21:58] LABS: Blood Urea Nitrogen 29 mg/dL (7-17); Calcium 5.1 mg/dL (8.4-10.2); Carbon Dioxide 19 mmol/L (22-30); Chloride 103 mmol/L (98-107); Estimated CRCL calculation 23 ml/min; Estimated Glomerular Filt Rate 22; Glucose 90 mg/dL (65-105); Potassium 4.3 mmol/L (3.4-5.0); Sodium 133 mmol/L (137-145)
[2020-04-08 21:59] LABS: Hemoglobin 6.5 g/dL (12.0-15.0)
[2020-04-08 22:06] LABS: Anisocytosis 2+ (NORMAL); Band Neutrophils Percent 27 % (0-6); Lymphocytes Absolute Manual 2.53 K/mm3 (1.1-4.5); Metamyelocytes Percent 2 %; Monocytes Absolute Manual 4.88 K/mm3 (0.1-0.90); Monocytes Percent Manual 27 % (3-9); Neutrophils Absolute Manual 10.31 K/mm3 (1.7-7.2); Neutrophils Percent Manual 30 % (46-73); Platelet Estimate Adequate (Adequate); Total Cells Counted 100
[2020-04-08 22:07] LABS: Hypochromasia 1+ (NORMAL)
[2020-04-08] MEDS: SODIUM CHLORIDE 0.9% IV 250 ML 30 ML IV CONT (22:41)
[2020-04-09] VITALS (50 sets, daily range): BP systolic 85–136; BP diastolic 25–59; PULSE 78–134; RESP 18–28; TEMP 36.1–38.6; O2SAT 92–100; BMI 28.6
[2020-04-09] MEDS: NOREPINEPHRINE 8 MG/D5W 250 ML 8 MG/250 ML BAG 45 MG IV CONT (00:06)
[2020-04-09 00:15] LABS: Glucose Point of Care 84 (65-105)
[2020-04-09] MEDS: metroNIDAZOLE 500 MG/ISO 100ML 500 MG/100 ML BAG 100 MG IVPB ×2 (00:59→06:02)
[2020-04-09] MEDS: CALCIUM GLUC 2,000 MG/NS 100ML 2,000 MG/100 ML BAG 100 MG IVPB (02:22)
[2020-04-09 04:37] LABS: Alveolar/Arterial O2 Gradient 246.3 mmHg; Base Excess ABG -8.5 mEq/l (+/-2.0); Carboxyhemoglobin 0.3 % THb (0-2.0); Fractional Inspired Oxygen 50 %; HCO3 ABG 15.6 mEq/l (22.0-26.0); Methemoglobin ABG 0.1 %THb (0-1.5); Oxygen Content ABG 13.2 %vol (16.0-22.0); Oxygen Saturation ABG 95.7 % (95.0-100.0); Oxyhemoglobin 93.9 % THb (90.0-100.0); PCO2 ABG 27.5 mmHg (35.0-45.0); PO2 ABG 79.3 mmHg (80.0-100.0); PO2 FiO2 Ratio Arterial Blood 1.59 %; Reduced Hemoglobin 5.7 %THb (0-5.0); Total Hemoglobin 9.9 g/dL (12.0-18.0); pH ABG 7.371 (7.350-7.450)
[2020-04-09 04:38] LABS: Arterial Blood Gas PEEP 5 cmH2O; Arterial Blood Gas Tidal Volume 430 ml; Arterial Blood Gas Vent Mode CMV; Arterial Blood Gas Ventilator rate 18 /MIN; Device VENTILATOR; Site Drawn ARTLINE
[2020-04-09] MEDS: NOREPINEPHRINE 8 MG/D5W 250 ML 8 MG/250 ML BAG 48.8 MG IV CONT ×2 (05:50→11:16)
[2020-04-09 06:33] LABS: INR 4.3; Prothrombin Time 40.6 Seconds (11.1-14.7)
[2020-04-09 06:34] LABS: Hematocrit 31.9 % (37.0-47.0); Hemoglobin 9.6 g/dL (12.0-15.0); Mean Corpuscular HGB Conc 30.1 g/dl (32-36); Mean Corpuscular Hemoglobin 28.2 pg (26-34); Mean Corpuscular Volume 93.8 fl (80-100); Mean Platelet Volume 10.2 fl (7.4-10.4); Platelet Count Result 187 k/mm3 (150-375); Red Cell Distribution Width 16.6 % (11.5-14.5); White Blood Count 13.8 K/mm3 (4.5-10.0)
[2020-04-09 06:36] LABS: D Dimer 3.14 ug/mL (<0.48)
[2020-04-09 07:41] LABS: Alkaline Phosphatase 80 U/L (38-126); Aspartate Amino Transferase 53 U/L (14-36); Bilirubin,Total 0.8 mg/dL (0.2-1.3); Blood Urea Nitrogen 31 mg/dL (7-17); Calcium 5.3 mg/dL (8.4-10.2); Carbon Dioxide 16 mmol/L (22-30); Chloride 101 mmol/L (98-107); Glucose 72 mg/dL (65-105); Phosphorus 7.6 mg/dL (2.5-4.5); Potassium 4.6 mmol/L (3.4-5.0); Sodium 131 mmol/L (137-145)
[2020-04-09] MEDS: hetaSTARCH 6%/NACL 500 ML 250 ML IV CONT (07:41)
[2020-04-09] MEDS: SODIUM BICARBONATE 8.4% 150 MEQ in DEXTROSE 5% 1,000 ML 950 ML 100 MEQ IV CONT ×2 (07:45→18:20)
[2020-04-09 07:46] LABS: Fibrinogen 108 mg/dl (215-510)
[2020-04-09] MEDS: PANTOPRAZOLE SODIUM IV 40 MG VIAL IV PUSH (08:11)
[2020-04-09 08:16] LABS: Alanine Aminotransferase 23 U/L (4-35); Estimated CRCL calculation 26 ml/min; Estimated Glomerular Filt Rate 26
[2020-04-09] MEDS: ALBUMIN HUMAN 25% 12.5 GM/50ML 50 ML IVPB ×2 (09:40→20:02)
--- NOTE | 2020-04-09 09:59 | WPDINTPN ---
Progress Note: A&P Assessment and Plan (1) Respiratory failure: Code(s): J96.90 - Respiratory failure, unspecified, unspecified whether with hypoxia or hypercapnia Status: Acute Assessment and Plan: Post surgery respiratory failure secondary to metabolic acidosis, ischemic bowel -patient on 50% FiO2 and peep of 5 commode CMV mode of ventilation -chest x-ray and ABGs reviewed, ventilator adjusted -continue Versed and fentanyl infusion of sedation maintenance a RASS of 0 to -2 (2) Septic shock: Code(s): A41.9 - Sepsis, unspecified organism; R65.21 - Severe sepsis with septic shock Status: Acute Assessment and Plan: Septic shock most likely related to perforated viscus, ileus -patient adequately fluid-resuscitated and continues to be fluid-resuscitated with had a starch, IV fluid bolus, maintenance fluids and blood products -significantly elevated lactic acid, surgeon aware -continue Zosyn, Flagyl -patient going to the OR again today -continue Levophed and vasopressin, maintain mean arterial pressures > 65 mm Hg -arterial line was inserted on 04/08/2020 (3) Perforated viscus: Code(s): R19.8 - Other specified symptoms and signs involving the digestive system and abdomen Status: Acute Assessment and Plan: CT scan abdomen and pelvis showed wall thickening of the gastric antrum with gas in the duodenal wall, retroperitoneum, small bowel mesentery, and peritoneum consistent with perforated viscus. Patietn with peritoneal signs. -patient had significantly elevated lactic acid levels, was in septic shock, patient was taken to the OR on 04/08/2020 status post ex lap, lysis of adhesions, small-bowel resection, of wound VAC placement. -surgery following closely, will be taking patient back to the OR again today -patient be given albumin and Hespan, -coagulopathy be corrected aggressively, giving 2 units of cryoprecipitate, since of FFP, 1 unit of platelet -patient did receive a unit of packed RBCs overnight -continue antibiotics as above, Flagyl added for possible C diff (4) Diabetes type 2, controlled: Code(s): E11.9 - Type 2 diabetes mellitus without complications Status: Acute Assessment and Plan: Continue Accu-Cheks and sliding scale insulin (5) MALCOM (acute kidney injury): Code(s): N17.9 - Acute kidney failure, unspecified Status: Acute Assessment and Plan: Patient with acute kidney injury most likely related to hypotension, septic shock, hypovolemia, ATN -patient given fluids in the ED, on sodium bicarb infusion -additional IV fluid bolus given in the ICU this morning along with blood products -continue monitor urine output, electrolytes and renal function (6) Anemia: Qualifiers: Anemia type: unspecified type Qualified Code(s): D64.9 - Anemia, unspecified Code(s): D64.9 - Anemia, unspecified Status: Chronic Assessment and Plan: History of chronic anemia with hemoglobin between 7-8. B12/folate/ferritin normal. -continue to monitor blood count. -patient received 1 unit of packed RBCs overnight (7) Suspected COVID-19 virus infection: Code(s): Z20.828 - Contact with and (suspected) exposure to other viral communicable diseases Status: Acute Assessment and Plan: Patient suspected for COVID-19 -SARS-CoV-2 PCR -NEGATIVE -patient taken OFF airborne, droplet and contact precautions -chest x-ray shows left basilar atelectasis (8) Ileus: Code(s): K56.7 - Ileus, unspecified Status: Acute Assessment and Plan: CT scan showed dilated small bowels without focal transition point. Likely adynamic ileus. NG tube to suction, patient is having a lot of NG tube drainage -continue bowel rest -NG tube to suction (9) Hypocalcemia: Code(s): E83.51 - Hypocalcemia Status: Acute Assessment and Plan: Calcium repleted (10) DVT prophylaxis: Code(s): Z29.9 - Encounter f
--- NOTE | 2020-04-09 10:01 | WPDANESPN ---
Anes - Prog Note Post-Op Date/Time: 04/09/20 10:01 Cardiovascular status: other (Pt continues on vasopressors per RN) Respiratory status: other (Pt intubated and on ventilator ) Airway patency: other (Pt. intubated and on ventilator) Mental status: other (Pt sedated, intubated and on ventilator) Post-Op hydration status: normal Vital Signs: Last Vital Signs Temp 37.4 C 04/09/20 08:00 Pulse 133 H 04/09/20 08:02 Resp 26 H 04/09/20 08:00 BP 118/54 L 04/09/20 08:00 Pulse Ox 100 04/09/20 06:00 Pain Score (VAS): Patient remains intubated and on ventilator at time of assessment. Vasopressors continue per RN. No concerns per RN at this time. I/O: Intake & Output 04/08/20 04/09/20 04/09/20 23:59 07:59 15:59 Intake Total 3850.0 2205.7 Output Total 950 2150 Balance 2900.0 55.7 Laboratory Tests 04/09/20 05:48 04/09/20 05:47 04/07/20 04/08/20 04/08/20 18:18 08:27 10:50 WBC RBC Hgb Hct MCV MCH MCHC RDW Plt Count MPV Immature Gran % (Auto) Neut % (Auto) Lymph % (Auto) [place] % (Auto) Eos % (Auto) Baso % (Auto) Lymph # (Auto) [place] # (Auto) Eos # (Auto) Baso # (Auto) Abs Immat Gran (auto) Absolute Neuts (auto) Absolute Nucleated RBC Total Counted Neutrophils % (Manual) Band Neutrophils % Lymphocytes % (Manual) Monocytes % (Manual) Metamyelocytes % Nucleated RBC % Abs Neuts (Manual) Abs Lymphs (Manual) Abs Monocytes (Manual) Platelet Estimate % Immature Plt Fraction Hypochromasia Anisocytosis PT INR APTT Fibrinogen D-Dimer Puncture Site ABG pH ABG pCO2 ABG pO2 ABG PO2/FiO2 Ratio ABG HCO3 ABG O2 Saturation ABG O2 Content ABG Base Excess A-a Gradient Oxyhemoglobin Carboxyhemoglobin Methemoglobin Reduced Hemoglobin Total Hemoglobin O2 Delivery Device O2 Liters/Min Minute Volume Vent Rate Vent Mode FiO2 Tidal Volume PEEP Peak Inspir Pressure Pressure Support Sodium Potassium Chloride Carbon Dioxide BUN Creatinine Estim Creat Clear Calc Estimated GFR Glucose POC Capillary Glucose Lactic Acid 8.4 H* Calcium Phosphorus Magnesium Total Bilirubin AST ALT Alkaline Phosphatase Total Protein Albumin SARS-CoV-2 RNA (RT-PCR) Negative Blood Type O Positive Antibody Screen Negative Crossmatch See Detail 04/08/20 04/08/20 04/08/20 11:43 14:08 18:30 WBC RBC Hgb Hct MCV MCH MCHC RDW Plt Count MPV Immature Gran % (Auto) Neut % (Auto) Lymph % (Auto) [place] % (Auto) Eos % (Auto) Baso % (Auto) Lymph # (Auto) [place] # (Auto) Eos # (Auto) Baso # (Auto) Abs Immat Gran (auto) Absolute Neuts (auto) Absolute Nucleated RBC Total Counted Neutrophils % (Manual) Band Neutrophils % Lymphocytes % (Manual) Monocytes % (Manual) Metamyelocytes % Nucleated RBC % Abs Neuts (Manual) Abs Lymphs (Manual) Abs Monocytes (Manual) Platelet Estimate % Immature Plt Fraction Hypochromasia Anisocytosis PT INR APTT Fibrinogen D-Dimer Puncture Site ABG pH ABG pCO2 ABG pO2 ABG PO2/FiO2 Ratio ABG HCO3 ABG O2 Saturation ABG O2 Content ABG Base Excess A-a Gradient Oxyhemoglobin Carboxyhemoglobin Methemoglobin Reduced Hemoglobin Total Hemoglobin O2 Delivery Device O2 Liters/Min Minute Volume Vent Rate Vent Mode FiO2 Tidal Volume PEEP Peak Inspir Pressure Pressure Support Sodium Potassium Chloride Carbon Dioxide BUN Creatinine Estim Creat Clear Calc Estimated GFR Glucose POC Capillary Glucose 79 79 Lactic Acid 8.6 H* Calcium Phosphorus Magnesium Tota
[2020-04-09] MEDS: SODIUM CHLORIDE 0.9% IV 250 ML 30 ML IV CONT (10:45)
[2020-04-09 11:21] LABS: Glucose Point of Care 51 (65-105)
[2020-04-09] MEDS: DEXTROSE 50% 25 GM/50 ML SYRINGE IV PUSH (11:26)
[2020-04-09 11:51] LABS: Glucose Point of Care 143 (65-105)
[2020-04-09 11:51] LABS: Glucose Point of Care 131 (65-105)
[2020-04-09] MEDS: SODIUM CHLORIDE 0.9% IV 250 ML 30 ML (12:43)
--- NOTE | 2020-04-09 13:40 | PC.NURSE ---
To OR per [bed. IV fluids, levophed, versed, fentynal, vasopressin, and 2 units of FFP infusing. Pt bagged during transport and tolerated transport. Pt also sent with wound vac, NG, ETT, and menchaca in place. Consent obtained from Juan Esposito, .
--- NOTE | 2020-04-09 14:19 | WPDANESEFPP ---
Anes - Eval Final PreProcedure Day of Procedure 04/09/20 14:19 Patient weight: overweight Heart: tachycardia Lungs: decreased breath sounds Airway: other (intubated) Neurological: unresponsive (sedated) Last oral intake: >/= 8 hours ASA classification: V Emergent: yes Anesthetic plan: proceed Anesthesia type and monitoring: general ETT, standard monitoring and invasive monitoring Informed Consent: The patient's anesthetic plan and its attendant risks and benefits were discussed with the patient/family/POA. Questions were solicited and answers provided to the satisfaction of the patient/family/POA.
--- NOTE | 2020-04-09 15:11 | PM.IMPN ---
Progress Note: A&P Assessment and Plan (1) Perforated viscus: Code(s): R19.8 - Other specified symptoms and signs involving the digestive system and abdomen Status: Acute Assessment and Plan: CT A/P shownig wall thickening of the gastric antrum with gas in the duodenal wall, retroperitoneum, small bowel mesentery, and peritoneum consistent with perforated viscus. Patient taken to the OR yesterday and is now POD#1 from a exploratory laparotomy, lysis of adhesions, small-bowel resection (approx 2 feet), placement of wound VAC. Mid to distal jejunum is noted to be viable with areas of duskiness. At the level of the proximal ileum, there was jaylin ischemia and necrosis up to 20cm proximal to the ileoccecal valve. Plan for repeat surgery today. POD #0: Patient again noted to have ischemic bowel requiring 13.5 inches resected at the distal jejunum and proximal ileum. (2) Severe sepsis: Code(s): A41.9 - Sepsis, unspecified organism; R65.20 - Severe sepsis without septic shock Status: Acute Assessment and Plan: Severe sepsis with septic shock currently on Levophed and RAIL BENDER. Related to acute peritonitis from perforated viscus and ischemic bowel. Lactic acid 3.9 on admission but 10 this morning. Metabolic lactic acidosis and currently on bnicarb drip. Possible DIC now with fibrinogen 108, DD 3, and INR 4.3. FFP, Cryo ordered. Continue fluid resuscitation and IV abx. Discussed with writing center director. (3) Ileus: Code(s): K56.7 - Ileus, unspecified Status: Acute Assessment and Plan: CT scan showing dilated small bowel without focal transition point related to above. As above. (4) Acute renal failure: Code(s): N17.9 - Acute kidney failure, unspecified Status: Acute Assessment and Plan: Likely secondary to severe sepsis/ATN. Cr stable at 1.9 today. )nly 50Ml record for UOP yesterday but RN states 450ml and about 100 today. Continue to monitor renal function and urine output. Avoid nephrotoxic agents. Renally dose medications. (5) Hypocalcemia: Code(s): E83.51 - Hypocalcemia Status: Acute Assessment and Plan: Serum calcium remains in the 5 range. This will be near impossible to correct given that her Albumin was 1.0 this mornig. Albumin was given. (6) Leukocytosis: Qualifiers: Leukocytosis type: unspecified Qualified Code(s): D72.829 - Elevated white blood cell count, unspecified Code(s): D72.829 - Elevated white blood cell count, unspecified Status: Acute Assessment and Plan: WBC 31K on 03/17 related to the CDiff infection that eventually normallized. WBC 20K on admission now that has climbed to 33K yesterday. WBC down to 13.8K today but again may not be a good prognostic sign. Continue to monitor CBCd. (7) Anemia: Qualifiers: Anemia type: unspecified type Qualified Code(s): D64.9 - Anemia, unspecified Code(s): D64.9 - Anemia, unspecified Status: Chronic Assessment and Plan: Chronic anemia in the 7-8 range. B12/folate/Ferritin normal. No iron studies. Hgb 10 on admission but probably more hemoconcentrated. Hgb dropped to 6.5 last night and received 1U PRBC. Hgb better this morning. Contineu to monitor H/H, transfuse prn. (8) Thrombocytosis: Code(s): D47.3 - Essential (hemorrhagic) thrombocythemia Status: Acute Assessment and Plan: Likely reactive but now trending down which may not be a good prognostic sign. Continue to monitor serum platelets. (9) Type 2 diabetes mellitus: Qualifiers: Diabetes mellitus complication status: without complication Diabetes mellitus roller repairer insulin use: without roller repairer use Qualified Code(s): E11.9 - Type 2 diabetes mellitus without complications Code(s): E11.9 - Type 2 diabetes mellitus without complications Status: Chronic Assessment and Plan: Glucose revie
--- NOTE | 2020-04-09 15:17 | P.OP_ITS ---
Procedure Note - Detailed Date of procedure: 04/09/20 Pre-op diagnosis: intraabdominal sepsis, ischemic bowel Post-op diagnosis: same Procedure performed: Second-look laparotomy, abdominal washout, small-bowel resection, placement of greater than 50 sq cm of abdominal wound VAC Description of procedure: The patient was taken to the operating and placed in the supine. After adequate induction of general anesthesia, the patient was prepped and draped normal sterile fashion. A time-out was then done to verify the patient's identity as well as the procedure being performed. Of note, the previous ABThera wound VAC was removed prior to prepping the patient. I began by this exploring the abdomen. There was noted to be a small amount of ascites. No bleeding or abscess cavity was noted in the abdominal cavity. I began once again by examining the stomach and upper abdomen which was unremarkable. This examination did include the duodenum which was again noted to be dilated but unremarkable. Liver was also noted to be dusky but u nremarkable. I then examined rest of the small intestine from the ligament of Treitz distally. The proximal jejunum was noted to be dilated but unremarkable. Upon getting to the mid jejunum, the bowel becomes much more congested and inflamed. The bowel did look somewhat improved compared to yesterday. Distally, in the distal jejunum proximal ileum, there were areas of jaylin ischemia. I did end up resecting these areas and it included about 13-1/2 inches of small intestine. There was another area proximal to this that had some patchy duskiness but no jaylin ischemia. The distal ileum was noted to be unremarkable. The entirety of the colon was examined and noted to be unremarkable. Given this I went ahead and washed out the abdomen. The ABThera wound VAC was then replaced and was noted to be greater than 50 sq cm. The patient tolerated the procedure relatively well and will be transferred back to the ICU in critically ill condition. Of note Dr. Mariano did open up the small bowel specimen on the back table and there was noted to be some areas of transmural necrosis as well as diffuse mucosal thickening and inflammation. Implants: ABThera abdominal wound VAC Anesthesia: GLMA and GETA Surgeon: Beba Nicholson MD Estimated blood loss (mL): 5 Drains: Yes Packing: Yes Pathology: yes Complications: No immediate complications Condition: critical Disposition: ICU Findings: additional 13.5 and segment of ischemic small bowel
--- NOTE | 2020-04-09 15:50 | PC.NURSE ---
Addendum entered by Romina Sandoval RN 04/09/20 17:24: Levophed infusing at rate of 20mcg/min upon return. Original Note: Returned from OR per bed. IV fluids, vasopressin and levophed infusing upon return.
[2020-04-09] MEDS: NOREPINEPHRINE 8 MG/D5W 250 ML 8 MG/250 ML BAG 37.5 MG IV CONT (17:00)
[2020-04-09 18:04] LABS: Glucose Point of Care 83 (65-105)
[2020-04-09 19:43] LABS: Alveolar/Arterial O2 Gradient 208.6 mmHg; Base Excess ABG -3.9 mEq/l (+/-2.0); Fractional Inspired Oxygen 50 %; HCO3 ABG 20.5 mEq/l (22.0-26.0); Oxygen Content ABG 10.3 %vol (16.0-22.0); Oxyhemoglobin 95.2 % THb (90.0-100.0); PCO2 ABG 34.1 mmHg (35.0-45.0); PO2 ABG 109.5 mmHg (80.0-100.0); PO2 FiO2 Ratio Arterial Blood 2.19 %; pH ABG 7.397 (7.350-7.450)
[2020-04-09 19:48] LABS: Device VENTILATOR; Modified Allen's Test Pass; Site Drawn ARTLINE; Total Hemoglobin 7.5 g/dL (12.0-18.0)
[2020-04-09 19:50] LABS: Arterial Blood Gas PEEP 5 cmH2O; Arterial Blood Gas Tidal Volume 430 ml; Arterial Blood Gas Vent Mode CMV; Arterial Blood Gas Ventilator rate 18 /MIN
[2020-04-09 20:05] LABS: Hematocrit 22.4 % (37.0-47.0); Mean Corpuscular HGB Conc 30.8 g/dl (32-36); Mean Corpuscular Hemoglobin 28.4 pg (26-34); Mean Corpuscular Volume 92.2 fl (80-100); Mean Platelet Volume 10.2 fl (7.4-10.4); Platelet Count Result 76 k/mm3 (150-375); Red Blood Count 2.43 M/mm3 (4.2-5.4); Red Cell Distribution Width 16.6 % (11.5-14.5); White Blood Count 8.5 K/mm3 (4.5-10.0)
[2020-04-09 20:06] LABS: Hemoglobin 6.9 g/dL (12.0-15.0)
[2020-04-09 20:17] LABS: INR 2.1; Prothrombin Time 22.8 Seconds (11.1-14.7)
[2020-04-09 20:18] LABS: Partial Thromboplastin Time 45.3 SECONDS (22.3-36.8)
[2020-04-09 20:19] LABS: Fibrinogen 148 mg/dl (215-510)
[2020-04-09 20:21] LABS: D Dimer 1.97 ug/mL (<0.48); Lactic Acid Reflex 9.4 mmol/L (0.7-2.1)
[2020-04-09 20:24] LABS: Blood Urea Nitrogen 30 mg/dL (7-17); Calcium 5.7 mg/dL (8.4-10.2); Carbon Dioxide 19 mmol/L (22-30); Chloride 97 mmol/L (98-107); Estimated CRCL calculation 26 ml/min; Estimated Glomerular Filt Rate 26; Glucose 98 mg/dL (65-105); Phosphorus 7.5 mg/dL (2.5-4.5); Potassium 3.9 mmol/L (3.4-5.0); Sodium 132 mmol/L (137-145)
[2020-04-09 23:03] LABS: Reflex Lactic Acid Yes or No Add Lactic
[2020-04-10] VITALS (35 sets, daily range): BP systolic 90–127; BP diastolic 42–59; PULSE 72–91; RESP 18–20; TEMP 36.4–37.2; O2SAT 91–100
[2020-04-10 00:01] LABS: Lactic Acid 9.2 mmol/L (0.7-2.1)
[2020-04-10] MEDS: metroNIDAZOLE 500 MG/ISO 100ML 500 MG/100 ML BAG 100 MG IVPB ×5 (00:04→23:08)
[2020-04-10 00:26] LABS: Glucose Point of Care 89 (65-105)
[2020-04-10] MEDS: NOREPINEPHRINE 8 MG/D5W 250 ML 8 MG/250 ML BAG 33.8 MG IV CONT ×2 (00:45→14:28)
[2020-04-10] MEDS: ALBUMIN HUMAN 25% 12.5 GM/50ML 50 ML IVPB ×4 (01:07→20:47)
[2020-04-10 05:37] LABS: Glucose Point of Care 70 (65-105)
[2020-04-10] MEDS: SODIUM BICARBONATE 8.4% 150 MEQ in DEXTROSE 5% 1,000 ML 950 ML 100 MEQ IV CONT (06:20)
[2020-04-10 06:21] LABS: Hematocrit 28.9 % (37.0-47.0); Hemoglobin 9.3 g/dL (12.0-15.0); Mean Corpuscular HGB Conc 32.2 g/dl (32-36); Mean Corpuscular Hemoglobin 28.9 pg (26-34); Mean Corpuscular Volume 89.8 fl (80-100); Platelet Count Result 60 k/mm3 (150-375); Red Blood Count 3.22 M/mm3 (4.2-5.4); Red Cell Distribution Width 15.8 % (11.5-14.5); White Blood Count 8.7 K/mm3 (4.5-10.0)
[2020-04-10 06:40] LABS: Alanine Aminotransferase 25 U/L (4-35); Albumin Level 1.8 g/dL (3.5-5.1); Alkaline Phosphatase 67 U/L (38-126); Aspartate Amino Transferase 51 U/L (14-36); Bilirubin,Total 1.8 mg/dL (0.2-1.3); Blood Urea Nitrogen 28 mg/dL (7-17); Calcium 5.4 mg/dL (8.4-10.2); Carbon Dioxide 22 mmol/L (22-30); Chloride 95 mmol/L (98-107); Estimated CRCL calculation 30 ml/min; Estimated Glomerular Filt Rate 30; Glucose 114 mg/dL (65-105); Lactic Acid 8.8 mmol/L (0.7-2.1); Magnesium 1.9 mg/dL (1.6-2.3); Phosphorus 6.4 mg/dL (2.5-4.5); Potassium 3.2 mmol/L (3.4-5.0); Sodium 131 mmol/L (137-145)
[2020-04-10] MEDS: NOREPINEPHRINE 8 MG/D5W 250 ML 8 MG/250 ML BAG 50.6 MG IV CONT (07:00)
[2020-04-10 08:16] LABS: Immature Platelet Fraction Pct 2.4 % (0.9-11.2); Mean Platelet Volume 10.7 fl (7.4-10.4); Platelet Count Result 59 k/mm3 (150-375)
[2020-04-10 08:23] LABS: INR 2.3; Prothrombin Time 24.8 Seconds (11.1-14.7)
[2020-04-10 08:24] LABS: Partial Thromboplastin Time 51.1 SECONDS (22.3-36.8)
[2020-04-10 08:27] LABS: D Dimer 2.61 ug/mL (<0.48)
[2020-04-10 08:37] LABS: Fibrinogen 136 mg/dl (215-510)
[2020-04-10] MEDS: PANTOPRAZOLE SODIUM IV 40 MG VIAL IV PUSH (08:45)
[2020-04-10] MEDS: CALCIUM GLUC 2,000 MG/NS 100ML 2,000 MG/100 ML BAG 100 MG IVPB (08:45)
--- NOTE | 2020-04-10 08:47 | PM.IMPN ---
Progress Note: A&P Assessment and Plan (1) Perforated viscus: Code(s): R19.8 - Other specified symptoms and signs involving the digestive system and abdomen Status: Acute Assessment and Plan: CT A/P 04/07/20 showing wall thickening of the gastric antrum with gas in the duodenal wall, retroperitoneum, small bowel mesentery, and peritoneum consistent with perforated viscus. Patient taken to the OR 04/08 and is now POD#2 from a exploratory laparotomy, lysis of adhesions, small-bowel resection (approx 2 feet), placement of wound VAC. Mid to distal jejunum is noted to be viable with areas of duskiness. At the level of the proximal ileum, there was jaylin ischemia and necrosis up to 20cm proximal to the ileoccecal valve. Ptient had repeat surgery 04/09/20 and is now POD #1 from a bowel resection of 13.5 inches of the distal jejunum and proximal ileum. There was no evidence of bowel leakage. Plan for a 3rd surgery since still some areas of possible bowel necrosis. TPN to start. (2) Severe sepsis: Code(s): A41.9 - Sepsis, unspecified organism; R65.20 - Severe sepsis without septic shock Status: Acute Assessment and Plan: Severe sepsis with septic shock currently on Levophed and DIE MAINTENANCE. Related to acute peritonitis from perforated viscus and ischemic bowel. Lactic acid 3.9 on admission but down to 8.8 this morning. Metabolic lactic acidosis and currently on bicarb drip. INR better at 2.3 with fibrinogen 136 and DD 2.6. Continue fluid resuscitation and IV abx. Discussed with rim technician and general surgeon. (3) Acute renal failure: Code(s): N17.9 - Acute kidney failure, unspecified Status: Acute Assessment and Plan: Likely secondary to severe sepsis/ATN. Cr as high as 2.2 but has dropped to 1.5 today. UOP improved today. Continue to monitor renal function and urine output. Avoid nephrotoxic agents. Renally dose medications. (4) Hypocalcemia: Code(s): E83.51 - Hypocalcemia Status: Acute Assessment and Plan: Serum calcium remains in the 5 range. Albumin given and Albumin at 1.9 today. Continue to follow. (5) Ileus: Code(s): K56.7 - Ileus, unspecified Status: Acute Assessment and Plan: CT scan showing dilated small bowel without focal transition point related to above. As above. (6) Leukocytosis: Qualifiers: Leukocytosis type: unspecified Qualified Code(s): D72.829 - Elevated white blood cell count, unspecified Code(s): D72.829 - Elevated white blood cell count, unspecified Status: Acute Assessment and Plan: WBC 20K on admission that climbed to 33K but has now normalized which may not be a good prognistic sign. Continue to monitor CBCd. (7) Anemia: Qualifiers: Anemia type: unspecified type Qualified Code(s): D64.9 - Anemia, unspecified Code(s): D64.9 - Anemia, unspecified Status: Chronic Assessment and Plan: Chronic anemia in the 7-8 range. B12/folate/Ferritin normal. No iron studies. Hgb 10 on admission but probably more hemoconcentrated. Hgb dropped to 6.5 on 04/08 and received 1U PRBC. Hgb stable in the 9 range. Continue to monitor H/H, transfuse prn. (8) Thrombocytosis: Code(s): D47.3 - Essential (hemorrhagic) thrombocythemia Status: Acute Assessment and Plan: Thrombocytosis related to above but now has converted to thrombocytopenia. Plt count has dropped to 50K range now related to consumption and DIC. Monitor closely. No Heparin products. (9) Type 2 diabetes mellitus: Qualifiers: Diabetes mellitus complication status: without complication Diabetes mellitus senior living insulin use: without intermediate designer use Qualified Code(s): E11.9 - Type 2 diabetes mellitus without complications Code(s): E11.9 - Type 2 diabetes mellitus without complications Status: Chronic Assessment and Plan: Glucose r
--- NOTE | 2020-04-10 09:48 | WPDINTPN ---
Progress Note: A&P Assessment and Plan (1) Respiratory failure: Qualifiers: Respiratory failure complication: unspecified whether with hypoxia or hypercapnia Code(s): J96.90 - Respiratory failure, unspecified, unspecified whether with hypoxia or hypercapnia Status: Acute Assessment and Plan: Post surgery respiratory failure secondary to metabolic acidosis, ischemic bowel -patient on 50% FiO2 and peep of 5, on CMV mode of ventilation, will decrease FiO2 40% -chest x-ray and ABGs reviewed, ventilator adjusted -continue Versed and fentanyl infusion of sedation maintenance a RASS of 0 to -2 (2) Septic shock: Code(s): A41.9 - Sepsis, unspecified organism; R65.21 - Severe sepsis with septic shock Status: Acute Assessment and Plan: Septic shock most likely related to perforated viscus, ileus, ischemic bowel -patient adequately fluid-resuscitated and continues to be fluid-resuscitated. Now on albumin -lactic acid trending down gradually with still elevated at 8.8 -continue Zosyn, Flagyl -continue Levophed and vasopressin, maintain mean arterial pressures > 65 mm Hg -arterial line was inserted on 04/08/2020 (3) Perforated viscus: Code(s): R19.8 - Other specified symptoms and signs involving the digestive system and abdomen Status: Acute Assessment and Plan: CT scan abdomen and pelvis showed wall thickening of the gastric antrum with gas in the duodenal wall, retroperitoneum, small bowel mesentery, and peritoneum consistent with perforated viscus. Patietn with peritoneal signs. -04/08/2020 status post ex lap, lysis of adhesions, small-bowel resection, of wound VAC placement. - 04/09/2020: Status post 2nd laparotomy abdominal washout and 13 in of small-bowel resection along with wound VAC placement -coagulopathy be corrected aggressively, giving 2 units of cryoprecipitate, since of FFP, 1 unit of platelet -patient did receive a unit of packed RBCs overnight -continue antibiotics as above, Flagyl added for possible C diff (4) Diabetes type 2, controlled: Code(s): E11.9 - Type 2 diabetes mellitus without complications Status: Acute Assessment and Plan: Continue Accu-Cheks and sliding scale insulin (5) MALCOM (acute kidney injury): Code(s): N17.9 - Acute kidney failure, unspecified Status: Acute Assessment and Plan: Patient with acute kidney injury most likely related to hypotension, septic shock, hypovolemia, ATN -patient given fluids in the ED, on sodium bicarb infusion -multiple blood products were given on 04/09/2020: Urine output has slightly improved, creatinine trending down -continue monitor urine output, electrolytes and renal function (6) Anemia: Qualifiers: Anemia type: unspecified type Qualified Code(s): D64.9 - Anemia, unspecified Code(s): D64.9 - Anemia, unspecified Status: Chronic Assessment and Plan: History of chronic anemia with hemoglobin between 7-8. B12/folate/ferritin normal. -patient was transfused 1 unit of packed RBCs on 04/09/2020 -monitor H&H transfuse as needed (7) Suspected COVID-19 virus infection: Code(s): Z20.828 - Contact with and (suspected) exposure to other viral communicable diseases Status: Acute Assessment and Plan: Patient suspected for COVID-19 -SARS-CoV-2 PCR -NEGATIVE -patient taken OFF airborne, droplet and contact precautions -chest x-ray shows left basilar atelectasis (8) Ileus: Code(s): K56.7 - Ileus, unspecified Status: Acute Assessment and Plan: CT scan showed dilated small bowels without focal transition point. Likely adynamic ileus. NG tube to suction, patient is having a lot of NG tube drainage -continue bowel rest -NG tube to suction (9) Hypocalcemia: Code(s): E83.51 - Hypocalcemia Status: Acute Assessment and Plan: Calcium repleted (10) DVT prophylaxis: Code(s): Z29.9 - Encou
--- NOTE | 2020-04-10 10:57 | WPDANESPN ---
Anes - Prog Note Post-Op Date/Time: 04/10/20 10:57 Cardiovascular status: other (management per ICU team) Respiratory status: other (Pt intubated and on ventilator ) Airway patency: other (Pt. intubated and on ventilator) Mental status: other (Pt sedated) Post-Op hydration status: normal (management per ICU team) Vital Signs: Last Vital Signs Temp 36.4 C 04/10/20 08:00 Pulse 72 04/10/20 10:05 Resp 18 04/10/20 10:00 BP 119/51 L 04/10/20 10:00 Pulse Ox 91 04/10/20 10:00 I/O: Intake & Output 04/09/20 04/10/20 04/10/20 23:59 07:59 15:59 Intake Total 1951.0 2142.7 Output Total 825 1875 Balance 1126.0 267.7 Laboratory Tests 04/10/20 08:04 04/10/20 06:07 04/08/20 04/09/20 04/09/20 08:27 11:15 11:47 WBC RBC Hgb Hct MCV MCH MCHC RDW Plt Count MPV % Immature Plt Fraction PT INR APTT Fibrinogen D-Dimer Puncture Site ABG pH ABG pCO2 ABG pO2 ABG PO2/FiO2 Ratio ABG HCO3 ABG O2 Saturation ABG O2 Content ABG Base Excess A-a Gradient Oxyhemoglobin Total Hemoglobin O2 Delivery Device O2 Liters/Min Minute Volume Vent Rate Vent Mode FiO2 Tidal Volume PEEP Peak Inspir Pressure Pressure Support Sodium Potassium Chloride Carbon Dioxide BUN Creatinine Estim Creat Clear Calc Estimated GFR Glucose POC Capillary Glucose 51 L* 131 H Lactic Acid Calcium Phosphorus Magnesium Total Bilirubin AST ALT Alkaline Phosphatase Total Protein Albumin Blood Type O Positive Antibody Screen Negative Crossmatch See Detail 04/09/20 04/09/20 04/09/20 11:49 17:58 19:21 WBC RBC Hgb Hct MCV MCH MCHC RDW Plt Count MPV % Immature Plt Fraction PT INR APTT Fibrinogen D-Dimer Puncture Site Artline ABG pH 7.397 ABG pCO2 34.1 L ABG pO2 109.5 H ABG PO2/FiO2 Ratio 2.19 ABG HCO3 20.5 L ABG O2 Saturation 98.0 ABG O2 Content 10.3 L ABG Base Excess -3.9 A-a Gradient 208.6 Oxyhemoglobin 95.2 Total Hemoglobin 7.5 L* O2 Delivery Device Ventilator O2 Liters/Min Not Reportable Minute Volume Not Reportable Vent Rate 18 Vent Mode Cmv FiO2 50 Tidal Volume 430 PEEP 5 Peak Inspir Pressure Not Reportable Pressure Support Not Reportable Sodium Potassium Chloride Carbon Dioxide BUN Creatinine Estim Creat Clear Calc Estimated GFR Glucose POC Capillary Glucose 143 H 83 Lactic Acid Calcium Phosphorus Magnesium Total Bilirubin AST ALT Alkaline Phosphatase Total Protein Albumin Blood Type Antibody Screen Crossmatch 04/09/20 04/09/20 04/09/20 20:00 20:00 20:00 WBC 8.5 RBC 2.43 L Hgb 6.9 L* Hct 22.4 L MCV 92.2 MCH 28.4 MCHC 30.8 L RDW 16.6 H Plt Count 76 L D MPV 10.2 % Immature Plt Fraction PT 22.8 H D INR 2.1 APTT 45.3 H Fibrinogen 148 L D-Dimer 1.97 H Puncture Site ABG pH ABG pCO2 ABG pO2 ABG PO2/FiO2 Ratio ABG HCO3 ABG O2 Saturation ABG O2 Content ABG Base Excess A-a Gradient Oxyhemoglobin Total Hemoglobin O2 Delivery Device O2 Liters/Min Minute Volume Vent Rate Vent Mode FiO2 Tidal Volume PEEP Peak Inspir Pressure Pressure Support Sodium 132 L Potassium 3.9 Chloride 97 L Carbon Dioxide 19 L BUN 30 H Creatinine 1.90 H Estim Creat Clear Calc 26 Estimated GFR 26 L Glucose 98 POC Capillary Glucose Lactic Acid Calcium 5.7 L Phosphorus 7.5 H Magnesium 2.0 Total Bilirubin AST ALT Alkaline Phosphatase Total Protein Albumin Blood Type Antibody Screen Crossmatch 04/09/20 04/09/20 04/10/20 20:00 23
--- NOTE | 2020-04-10 11:12 | PM.PNGS ---
Progress Note: A&P Assessment and Plan (1) Severe sepsis: Code(s): A41.9 - Sepsis, unspecified organism; R65.20 - Severe sepsis without septic shock Status: Acute Assessment and Plan: see above, on pressors in addition to IV abx Pressors have been able to be weaned some overnight. (2) CHF (congestive heart failure): Code(s): I50.9 - Heart failure, unspecified Status: Acute Assessment and Plan: careful resuscitation given CHF (3) Chronic obstructive pulmonary disease: Qualifiers: COPD type: unspecified COPD Qualified Code(s): J44.9 - Chronic obstructive pulmonary disease, unspecified Code(s): J44.9 - Chronic obstructive pulmonary disease, unspecified Status: Chronic Assessment and Plan: currently oxygenating well (4) Suspected COVID-19 virus infection: Code(s): Z20.828 - Contact with and (suspected) exposure to other viral communicable diseases Status: Acute Assessment and Plan: test shows negative for this virus. (5) Coagulopathy: Code(s): D68.9 - Coagulation defect, unspecified Status: Acute (6) Sacral decubitus ulcer, stage II: Code(s): L89.152 - Pressure ulcer of sacral region, stage 2 Status: Chronic (7) Perforated viscus: Code(s): R19.8 - Other specified symptoms and signs involving the digestive system and abdomen Status: Acute Assessment and Plan: I was present with Dr. Nicholson at the patient's 2nd look surgery yesterday. A small amount more of small bowel distally was resected. ABThera was replaced. There was no significant peritoneal contamination. Patient's lactic acid continues to run high so there may still be some compromised bowel present however there is no signs of purulence coming from the ABThera drainage system. For now will plan another look within the abdomen on Sunday in the afternoon. If her vitals become less stable and/or her lactic acid goes up significantly we may move that up by 1 day. For today will continue supportive care in the ICU. (8) Type 2 diabetes mellitus: Qualifiers: Diabetes mellitus complication status: without complication Diabetes mellitus fpc insulin use: without fpc use Qualified Code(s): E11.9 - Type 2 diabetes mellitus without complications Code(s): E11.9 - Type 2 diabetes mellitus without complications Status: Chronic Assessment and Plan: Treatment as per hospitalist and lumber puller service. Subjective Subjective Date/Time Seen: 04/10/20 11:12 Post Op day: 1 (Patient had 2nd look procedure yesterday, slightly more small bowel was removed.) Interval history: Patient remains intubated and on a ventilator with sedation so is not able to contribute any history. -04/09/2020: Status post 2nd laparotomy abdominal washout and 13 inches of small-bowel resection along with replacement of the Abthera abdomminal wound VAC system. 04/27/2020: Patient remains intubated, on 50% FiO2 and peep of 5. Patient remains on Levophed at 27 mcg/min and vasopressinm at 0.02 units/min. Urine output has improved overnight, creatinine trending down. Lactic slightly down to 8.8. Patient has been afebrile. Increased NG tube and wound VAC drainage. Remains on you bicarb infusion as maintenance fluids. Patient sedated with fentanyl 100 mcg/hour and Versed 3 mg/hour. Review of Systems Review of Systems: Narrative: Patient is intubated and unable to contribute anything for review of systems. Exam HENMT: Mouth: Yes dry mucous membranes Eyes: Pupils: Equal, round and reactive pupils present EOM: EOMs intact bilaterally Neck: Neck: supple and no JVD Lymphatic: lymphadenopathy not noted Resp: Auscultation: diminished lung sounds Cardio: Rate: tachycardic GI: Inspection: other (Abthera open abdominal treatment in place, serous drainage in container.) GI Palp: Yes Firmness to palpation present (GI) and No Hernia prese
[2020-04-10 11:38] LABS: Glucose Point of Care 75 (65-105)
[2020-04-10 11:43] LABS: Eosinophils Percent Auto 0.3 % (0-4.4); Hematocrit 30.5 % (37.0-47.0); Hemoglobin 9.9 g/dL (12.0-15.0); Immature Granulocyte Absolute 0.05 K/mm3 (0.00-0.031); Immature Granulocyte Percent A 0.6 % (0-0.5); Immature Platelet Fraction Pct 2.9 % (0.9-11.2); Lymphocytes Absolute Auto 0.78 K/mm3 (0.9-3.2); Lymphocytes Percent Auto 9.9 % (18.3-44.2); Mean Corpuscular HGB Conc 32.5 g/dl (32-36); Mean Corpuscular Hemoglobin 28.7 pg (26-34); Mean Corpuscular Volume 88.4 fl (80-100); Mean Platelet Volume 9.7 fl (7.4-10.4); Monocytes Absolute Auto 0.4 K/mm3 (0.1-0.6); Monocytes Percent Auto 5.1 % (2.6-8.5); Neutrophils Absolute Auto 6.6 K/mm3 (1.3-6.7); Neutrophils Percent Auto 84.1 % (45.5-73.1); Platelet Count Result 53 k/mm3 (150-375); Red Blood Count 3.45 M/mm3 (4.2-5.4); Red Cell Distribution Width 15.8 % (11.5-14.5); White Blood Count 7.9 K/mm3 (4.5-10.0)
[2020-04-10 11:57] LABS: Partial Thromboplastin Time 45.4 SECONDS (22.3-36.8)
[2020-04-10 12:01] LABS: Albumin Level 1.9 g/dL (3.5-5.1); Alkaline Phosphatase 74 U/L (38-126); Aspartate Amino Transferase 47 U/L (14-36); Blood Urea Nitrogen 26 mg/dL (7-17); Calcium 5.9 mg/dL (8.4-10.2); Carbon Dioxide 21 mmol/L (22-30); Chloride 94 mmol/L (98-107); Glucose 113 mg/dL (65-105); Potassium 3.7 mmol/L (3.4-5.0); Sodium 131 mmol/L (137-145)
[2020-04-10 12:16] LABS: Alanine Aminotransferase 26 U/L (4-35); Estimated CRCL calculation 33 ml/min; Estimated Glomerular Filt Rate 34
[2020-04-10] MEDS: SODIUM CHLORIDE 0.9% IV 250 ML 30 ML IV CONT (12:52)
[2020-04-10 14:11] LABS: Transferrin < 80 mg/dL (206-381)
[2020-04-10] MEDS: SODIUM CHLORIDE 0.9% IV 250 ML 30 ML (15:06)
[2020-04-10] MEDS: FAT EMULSIONS IV 20% 250 ML 20.8 ML IVPB (17:13)
[2020-04-10 18:05] LABS: Glucose Point of Care 114 (65-105)
[2020-04-10] MEDS: TOLNAFTATE 1% POWDER 45 GM BTL 1 APPLIC TOPICAL (20:29)
[2020-04-10] MEDS: NOREPINEPHRINE 8 MG/D5W 250 ML 8 MG/250 ML BAG 28.1 MG IV CONT (21:30)
[2020-04-10 21:31] LABS: Reflex Lactic Acid Yes or No Add Lactic
[2020-04-10 22:13] LABS: Lactic Acid 7.2 mmol/L (0.7-2.1)
[2020-04-10 23:59] LABS: Glucose Point of Care 136 (65-105)
[2020-04-11] VITALS (21 sets, daily range): BP systolic 93–111; BP diastolic 47–53; PULSE 8–107; RESP 18–20; TEMP 36.1–37.1; O2SAT 96–100
[2020-04-11] MEDS: ALBUMIN HUMAN 25% 12.5 GM/50ML 50 ML IVPB ×3 (00:04→11:02)
[2020-04-11 04:08] LABS: Alveolar/Arterial O2 Gradient 80.9 mmHg; Base Excess ABG 1.9 mEq/l (+/-2.0); Carboxyhemoglobin 0.3 % THb (0-2.0); Fractional Inspired Oxygen 30 %; HCO3 ABG 25.4 mEq/l (22.0-26.0); Methemoglobin ABG 0.2 %THb (0-1.5); Oxygen Content ABG 13.5 %vol (16.0-22.0); Oxygen Saturation ABG 97.5 % (95.0-100.0); Oxyhemoglobin 95.1 % THb (90.0-100.0); PCO2 ABG 35.4 mmHg (35.0-45.0); PO2 ABG 91.4 mmHg (80.0-100.0); PO2 FiO2 Ratio Arterial Blood 3.05 %; Reduced Hemoglobin 4.4 %THb (0-5.0); pH ABG 7.474 (7.350-7.450)
[2020-04-11 04:09] LABS: Arterial Blood Gas PEEP 5 cmH2O; Arterial Blood Gas Vent Mode CMV; Arterial Blood Gas Ventilator rate 18 /MIN; Device VENTILATOR; Site Drawn ARTLINE
[2020-04-11 04:10] LABS: Arterial Blood Gas Tidal Volume 430 ml
[2020-04-11] MEDS: metroNIDAZOLE 500 MG/ISO 100ML 500 MG/100 ML BAG 100 MG IVPB ×4 (04:17→23:47)
[2020-04-11 05:12] LABS: Hematocrit 29.1 % (37.0-47.0); Hemoglobin 9.8 g/dL (12.0-15.0); Immature Platelet Fraction Pct 3.2 % (0.9-11.2); Mean Corpuscular HGB Conc 33.7 g/dl (32-36); Mean Corpuscular Hemoglobin 30.1 pg (26-34); Mean Corpuscular Volume 89.3 fl (80-100); Mean Platelet Volume 11.2 fl (7.4-10.4); Platelet Count Result 55 k/mm3 (150-375); Red Blood Count 3.26 M/mm3 (4.2-5.4); Red Cell Distribution Width 15.4 % (11.5-14.5); White Blood Count 3.8 K/mm3 (4.5-10.0)
[2020-04-11 05:22] LABS: INR 1.8; Prothrombin Time 20.5 Seconds (11.1-14.7)
[2020-04-11 05:23] LABS: Partial Thromboplastin Time 38.8 SECONDS (22.3-36.8)
[2020-04-11 05:39] LABS: Lactic Acid 7.7 mmol/L (0.7-2.1)
[2020-04-11 05:40] LABS: Alanine Aminotransferase 25 U/L (4-35); Albumin Level 2.3 g/dL (3.5-5.1); Alkaline Phosphatase 72 U/L (38-126); Aspartate Amino Transferase 34 U/L (14-36); Blood Urea Nitrogen 24 mg/dL (7-17); Calcium 5.9 mg/dL (8.4-10.2); Carbon Dioxide 23 mmol/L (22-30); Chloride 93 mmol/L (98-107); Estimated CRCL calculation 45 ml/min; Estimated Glomerular Filt Rate 49; Glucose 143 mg/dL (65-105); Phosphorus 3.9 mg/dL (2.5-4.5); Potassium 2.4 mmol/L (3.4-5.0); Sodium 127 mmol/L (137-145)
[2020-04-11] MEDS: NOREPINEPHRINE 8 MG/D5W 250 ML 8 MG/250 ML BAG 22.5 MG IV CONT (06:29)
[2020-04-11] MEDS: PANTOPRAZOLE SODIUM IV 40 MG VIAL IV PUSH (08:10)
[2020-04-11] MEDS: CALCIUM GLUC 2,000 MG/NS 100ML 2,000 MG/100 ML BAG 100 MG IVPB (08:11)
[2020-04-11] MEDS: TOLNAFTATE 1% POWDER 45 GM BTL 1 APPLIC TOPICAL ×2 (08:11→18:19)
[2020-04-11] MEDS: SODIUM BICARBONATE 8.4% 150 MEQ in DEXTROSE 5% 1,000 ML 950 ML 50 MEQ IV CONT (08:14)
--- NOTE | 2020-04-11 08:45 | WPDINTPN ---
Progress Note: A&P Assessment and Plan (1) Respiratory failure: Qualifiers: Respiratory failure complication: unspecified whether with hypoxia or hypercapnia Code(s): J96.90 - Respiratory failure, unspecified, unspecified whether with hypoxia or hypercapnia Status: Acute Assessment and Plan: Post surgery respiratory failure secondary to metabolic acidosis, ischemic bowel -patient on 30% FiO2 and peep of 5, on CMV mode of ventilation, -chest x-ray and ABGs reviewed, ventilator adjusted -continue Versed and fentanyl infusion of sedation maintenance a RASS of 0 to -2 (2) Septic shock: Code(s): A41.9 - Sepsis, unspecified organism; R65.21 - Severe sepsis with septic shock Status: Acute Assessment and Plan: Septic shock most likely related to perforated viscus, ileus, ischemic bowel -patient adequately fluid-resuscitated and continues to be fluid-resuscitated. Now on albumin -lactic acid trending down gradually with still elevated at 7.7 -continue Zosyn, Flagyl -continue Levophed and vasopressin, maintain mean arterial pressures > 65 mm Hg -arterial line was inserted on 04/08/2020 (3) Perforated viscus: Code(s): R19.8 - Other specified symptoms and signs involving the digestive system and abdomen Status: Acute Assessment and Plan: CT scan abdomen and pelvis showed wall thickening of the gastric antrum with gas in the duodenal wall, retroperitoneum, small bowel mesentery, and peritoneum consistent with perforated viscus. Patietn with peritoneal signs. -04/08/2020 status post ex lap, lysis of adhesions, small-bowel resection, of wound VAC placement. - 04/09/2020: Status post 2nd laparotomy abdominal washout and 13 in of small-bowel resection along with wound VAC placement -coagulopathy be corrected aggressively, giving 2 units of cryoprecipitate, since of FFP, 1 unit of platelet -patient did receive a unit of packed RBCs overnight -continue antibiotics as above, Flagyl added for possible C diff -discussed with surgery, patient will be taken to OR on 04/12/2020, as she continues to have elevated lactic acid which could be due to some compromise bowel still present. (4) Diabetes type 2, controlled: Code(s): E11.9 - Type 2 diabetes mellitus without complications Status: Acute Assessment and Plan: Continue Accu-Cheks and sliding scale insulin -patient started on TPN on 04/10/2022 (5) MALCOM (acute kidney injury): Code(s): N17.9 - Acute kidney failure, unspecified Status: Acute Assessment and Plan: Patient with acute kidney injury most likely related to hypotension, septic shock, hypovolemia, ATN -patient given fluids in the ED, on sodium bicarb infusion -multiple blood products were given on 04/09/2020: Urine output has slightly improved, creatinine trending down -continue monitor urine output, electrolytes and renal function -creatinine 1.1 this morning, -significant amount wound VAC in NG drainage likely secondary to 3rd spacing. Patient on albumin (6) Anemia: Qualifiers: Anemia type: unspecified type Qualified Code(s): D64.9 - Anemia, unspecified Code(s): D64.9 - Anemia, unspecified Status: Chronic Assessment and Plan: History of chronic anemia with hemoglobin between 7-8. B12/folate/ferritin normal. -patient was transfused 1 unit of packed RBCs on 04/09/2020. Hemoglobin has been stable -monitor H&H transfuse as needed (7) Suspected COVID-19 virus infection: Code(s): Z20.828 - Contact with and (suspected) exposure to other viral communicable diseases Status: Acute Assessment and Plan: Patient suspected for COVID-19 -SARS-CoV-2 PCR -NEGATIVE -patient taken OFF airborne, droplet and contact precautions -chest x-ray shows left basilar atelectasis (8) Ileus: Code(s): K56.7 - Ileus, unspecified Status: Acute Assessment and Plan: CT scan showed dilated small harjit
[2020-04-11 09:40] LABS: Add Urine Microscopic? YES; Appearance Urine Clear (Clear); Bacteria Urine Trace /hpf; Bilirubin Urine Negative (Negative); Blood Urine 3+ (Negative); Budding Yeast Urine Present /hpf; Color Urine Amber (Yellow); Glucose Urine UA Negative (Negative); Ketones Urine Negative (Negative); Leukocyte Esterase Ur Trace LEU/UL (Negative); Nitrate Urine Negative (Negative); Protein Urine 2+ mg/dL (Negative); RBC Urine 21-50 /hpf (0-2); Urobilinogen Urine Negative mg/dL (<2.0)
[2020-04-11 09:45] LABS: Creatine Kinase 168 U/L (30-135)
[2020-04-11] MEDS: FAT EMULSIONS IV 20% 250 ML 20.8 ML IVPB (11:00)
[2020-04-11 11:08] LABS: Glucose Point of Care 138 (65-105)
[2020-04-11 11:20] LABS: Triglycerides 681 mg/dL (<150)
--- NOTE | 2020-04-11 13:00 | PM.IMPN ---
Progress Note: A&P Assessment and Plan (1) Perforated viscus: Code(s): R19.8 - Other specified symptoms and signs involving the digestive system and abdomen Status: Acute Assessment and Plan: CT A/P 04/07/20 showing wall thickening of the gastric antrum with gas in the duodenal wall, retroperitoneum, small bowel mesentery, and peritoneum consistent with perforated viscus. Patient taken to the OR 04/08 and is now POD#3 from a exploratory laparotomy, lysis of adhesions, small-bowel resection (approx 2 feet), placement of wound VAC. Mid to distal jejunum is noted to be viable with areas of duskiness. At the level of the proximal ileum, there was jaylin ischemia and necrosis up to 20cm proximal to the ileoccecal valve. Patient had repeat surgery 04/09/20 and is now POD #2 from a bowel resection of 13.5 inches of the distal jejunum and proximal ileum. There was no evidence of bowel leakage. Plan for a 3rd surgery tomorrow since still some areas of possible bowel necrosis. Continue TPN. (2) Severe sepsis: Code(s): A41.9 - Sepsis, unspecified organism; R65.20 - Severe sepsis without septic shock Status: Acute Assessment and Plan: Severe sepsis with septic shock currently on Levophed. Related to acute peritonitis from perforated viscus and ischemic bowel. Lactic acid 3.9 on admission and peaked at 10. Better today at 7.7 this morning. Metabolic lactic acidosis and currently on bicarb drip. INR better at 1.8. Has received 2U PRBC, 6U FFP, 2U Plt, and 3U Cryo. Continue fluids and IV abx. Discussed with technical fellow. (3) Acute renal failure: Code(s): N17.9 - Acute kidney failure, unspecified Status: Acute Assessment and Plan: Likely secondary to severe sepsis/ATN. Cr as high as 2.2 but has dropped to 1.1 today related to improved renalperfusion. Good UOP. Continue to monitor renal function and urine output. Avoid nephrotoxic agents. Renally dose medications. (4) Hypocalcemia: Code(s): E83.51 - Hypocalcemia Status: Acute Assessment and Plan: Serum calcium remains in the 5 range. Albumin given and Albumin at 2.3 today with corrected Ca 7.6. Continue to follow. (5) Ileus: Code(s): K56.7 - Ileus, unspecified Status: Acute Assessment and Plan: CT scan showing dilated small bowel without focal transition point related to above. As above. (6) Leukocytosis: Qualifiers: Leukocytosis type: unspecified Qualified Code(s): D72.829 - Elevated white blood cell count, unspecified Code(s): D72.829 - Elevated white blood cell count, unspecified Status: Acute Assessment and Plan: WBC 20K on admission that climbed to 33K but has now normalized which may not be a good prognistic sign. Continue to monitor CBCd. (7) Anemia: Qualifiers: Anemia type: unspecified type Qualified Code(s): D64.9 - Anemia, unspecified Code(s): D64.9 - Anemia, unspecified Status: Chronic Assessment and Plan: Chronic anemia in the 7-8 range. B12/folate/Ferritin normal. No iron studies. Hgb 10 on admission but probably more hemoconcentrated. Hgb dropped to 6.5 on 04/08 and received 1U PRBC. Hgb dropped again and received a 2nd unit on 04/09. Hgb stable in the 9 range since last transfusion. Continue to monitor H/H, transfuse prn. (8) Thrombocytosis: Code(s): D47.3 - Essential (hemorrhagic) thrombocythemia Status: Acute Assessment and Plan: Thrombocytosis related to above but now has converted to thrombocytopenia. Plt count has dropped to 50K range now related to consumption. Monitor closely. No Heparin products. 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
[2020-04-11 16:44] LABS: Glucose Point of Care 142 (65-105)
[2020-04-11 20:49] LABS: Potassium 2.3 mmol/L (3.4-5.0)
--- NOTE | 2020-04-11 21:16 | PM.PNGS ---
Progress Note: A&P Assessment and Plan (1) Severe sepsis: Code(s): A41.9 - Sepsis, unspecified organism; R65.20 - Severe sepsis without septic shock Status: Acute Assessment and Plan: see above, on pressors in addition to IV abx Pressors have been able to be weaned some overnight. (2) CHF (congestive heart failure): Code(s): I50.9 - Heart failure, unspecified Status: Acute Assessment and Plan: careful resuscitation given CHF (3) Chronic obstructive pulmonary disease: Qualifiers: COPD type: unspecified COPD Qualified Code(s): J44.9 - Chronic obstructive pulmonary disease, unspecified Code(s): J44.9 - Chronic obstructive pulmonary disease, unspecified Status: Chronic Assessment and Plan: currently oxygenating well (4) Suspected COVID-19 virus infection: Code(s): Z20.828 - Contact with and (suspected) exposure to other viral communicable diseases Status: Acute Assessment and Plan: test shows negative for this virus. (5) Coagulopathy: Code(s): D68.9 - Coagulation defect, unspecified Status: Acute Assessment and Plan: Still partially of concern. Now white count is low. Dr. Greenfield gave platelets yesterday and her platelets count is still low at 55,000 five thousand. May consider repeat transfusion today and repeat testing in a.m. because surgical intervention is planned tomorrow afternoon. (6) Sacral decubitus ulcer, stage II: Code(s): L89.152 - Pressure ulcer of sacral region, stage 2 Status: Chronic (7) Perforated viscus: Code(s): R19.8 - Other specified symptoms and signs involving the digestive system and abdomen Status: Acute Assessment and Plan: I was present with Dr. Nicholson at the patient's 2nd look surgery Sunday. A small amount more of small bowel distally was resected. Abthera was replaced. There was no significant peritoneal contamination. Patient's lactic acid continues to run high so there may still be some compromised bowel present, however there is no signs of purulence coming from the Abthera drainage system. For now will plan another look within the abdomen on Sunday in the afternoon. If her vitals become less stable and/or her lactic acid goes up significantly we may move that up. For today will continue supportive care in the ICU. (8) Type 2 diabetes mellitus: Qualifiers: Diabetes mellitus penitentiary insulin use: without exterminator helper use Diabetes mellitus complication status: without complication Qualified Code(s): E11.9 - Type 2 diabetes mellitus without complications Code(s): E11.9 - Type 2 diabetes mellitus without complications Status: Chronic Assessment and Plan: Treatment as per hospitalist and cylinder dyer service. Subjective Subjective Date/Time Seen: Late entry: 21:17 visit was @ 04/11/20 07:16 Patient seen and examined early this morning in the ICU. Remains intubated on CMV mode of ventilation, 30% FiO2, peep of 5. Patient on Levophed 12 mcg/min.(Down for 25 yesterday) Off vasopressin. Patient on fentanyl 25 mcg/hr and Versed 1 mg/hr fro sedation. Patient with better urine output, creatinine 1.10 this morning. Lactic 7.7. LFTs have normalized. Patient now has leukopenia with WBC of 3.8, hemoglobin of 9.8 and platelet counts of 55. Patient is on TPN, sodium bicarbonate at 50 mL/hr. Patient has had significant amount of drainage in the wound VAC Approx - 2000 cc of light yellow clear drianage and some NG drainage. Review of Systems Review of Systems: Narrative: patient is a is intubated and on sedation so is not cooperative for this part of the exam. Exam Const: General: in distress moderate; No confusion Orientation/consciousness: No confusion HENMT: Mouth: Yes dry mucous membranes Eyes: Pupils: Equal, round and reactive pupils present EOM: EOMs intact bilaterally Neck: Neck: supple and no JVD Lymphatic
[2020-04-11] MEDS: NOREPINEPHRINE 8 MG/D5W 250 ML 8 MG/250 ML BAG 15 MG IV CONT (21:25)
[2020-04-11 23:30] LABS: Glucose Point of Care 150 (65-105)
[2020-04-12] VITALS (34 sets, daily range): BP systolic 89–112; BP diastolic 48–64; PULSE 75–128; RESP 18–28; TEMP 36.4–37.2; O2SAT 94–100
[2020-04-12] MEDS: VASOPRESSIN INJ 100 UNITS in DEXTROSE 5% 95 ML IV CONT (01:51)
[2020-04-12 02:15] LABS: Magnesium 1.9 mg/dL (1.6-2.3); Potassium 2.9 mmol/L (3.4-5.0)
[2020-04-12 04:03] LABS: Alveolar/Arterial O2 Gradient 74.7 mmHg; Base Excess ABG -0.7 mEq/l (+/-2.0); Carboxyhemoglobin 0.3 % THb (0-2.0); Fractional Inspired Oxygen 30 %; HCO3 ABG 22.4 mEq/l (22.0-26.0); Methemoglobin ABG 0.3 %THb (0-1.5); Oxygen Content ABG 15.2 %vol (16.0-22.0); Oxyhemoglobin 95.6 % THb (90.0-100.0); PCO2 ABG 31.7 mmHg (35.0-45.0); Reduced Hemoglobin 3.8 %THb (0-5.0); Total Hemoglobin 11.2 g/dL (12.0-18.0); pH ABG 7.467 (7.350-7.450)
[2020-04-12 04:04] LABS: Arterial Blood Gas PEEP 5 cmH2O; Arterial Blood Gas Vent Mode CMV; Arterial Blood Gas Ventilator rate 18 /MIN; Device VENTILATOR; Site Drawn ARTLINE
[2020-04-12 04:05] LABS: Arterial Blood Gas Tidal Volume 430 ml
[2020-04-12 05:21] LABS: Glucose Point of Care 189 (65-105)
[2020-04-12] MEDS: metroNIDAZOLE 500 MG/ISO 100ML 500 MG/100 ML BAG 100 MG IVPB ×4 (05:43→23:53)
[2020-04-12 06:46] LABS: Basophils Percent Auto 0.2 % (0.2-1.2); Eosinophils Percent Auto 0.2 % (0-4.4); Hematocrit 30.9 % (37.0-47.0); Immature Granulocyte Absolute 0.03 K/mm3 (0.00-0.031); Immature Granulocyte Percent A 0.5 % (0-0.5); Immature Platelet Fraction Pct 7.8 % (0.9-11.2); Lymphocytes Absolute Auto 0.97 K/mm3 (0.9-3.2); Lymphocytes Percent Auto 15.3 % (18.3-44.2); Mean Corpuscular HGB Conc 32.4 g/dl (32-36); Mean Corpuscular Hemoglobin 28.6 pg (26-34); Mean Corpuscular Volume 88.3 fl (80-100); Mean Platelet Volume 12.6 fl (7.4-10.4); Monocytes Absolute Auto 0.5 K/mm3 (0.1-0.6); Monocytes Percent Auto 8.4 % (2.6-8.5); Neutrophils Absolute Auto 4.8 K/mm3 (1.3-6.7); Neutrophils Percent Auto 75.4 % (45.5-73.1); Platelet Count Result 28 k/mm3 (150-375); Red Cell Distribution Width 14.8 % (11.5-14.5); White Blood Count 6.3 K/mm3 (4.5-10.0)
[2020-04-12 06:56] LABS: INR 2.2; Prothrombin Time 23.6 Seconds (11.1-14.7)
[2020-04-12 06:57] LABS: Partial Thromboplastin Time 41.7 SECONDS (22.3-36.8)
[2020-04-12 07:00] LABS: D Dimer 3.21 ug/mL (<0.48)
[2020-04-12 07:03] LABS: Fibrinogen 187 mg/dl (215-510)
[2020-04-12 07:09] LABS: Albumin Level 2.1 g/dL (3.5-5.1); Alkaline Phosphatase 65 U/L (38-126); Aspartate Amino Transferase 21 U/L (14-36); Blood Urea Nitrogen 16 mg/dL (7-17); Calcium 6.2 mg/dL (8.4-10.2); Carbon Dioxide 25 mmol/L (22-30); Chloride 97 mmol/L (98-107); Estimated CRCL calculation 48 ml/min; Estimated Glomerular Filt Rate 55; Glucose 180 mg/dL (65-105); Magnesium 1.9 mg/dL (1.6-2.3); Phosphorus 2.6 mg/dL (2.5-4.5); Potassium 3.1 mmol/L (3.4-5.0); Sodium 130 mmol/L (137-145)
[2020-04-12 07:41] LABS: Alanine Aminotransferase 23 U/L (4-35)
[2020-04-12 07:47] LABS: Transferrin < 80 mg/dL (206-381)
[2020-04-12] MEDS: CALCIUM GLUC 2,000 MG/NS 100ML 2,000 MG/100 ML BAG 100 MG IVPB (08:28)
[2020-04-12] MEDS: PANTOPRAZOLE SODIUM IV 40 MG VIAL IV PUSH (08:28)
[2020-04-12] MEDS: TOLNAFTATE 1% POWDER 45 GM BTL 1 APPLIC TOPICAL ×2 (08:28→21:31)
--- NOTE | 2020-04-12 09:12 | WPDINTPN ---
Progress Note: A&P Assessment and Plan (1) Respiratory failure: Qualifiers: Respiratory failure complication: unspecified whether with hypoxia or hypercapnia Chronicity: acute Qualified Code(s): J96.00 - Acute respiratory failure, unspecified whether with hypoxia or hypercapnia Code(s): J96.90 - Respiratory failure, unspecified, unspecified whether with hypoxia or hypercapnia Status: Acute Assessment and Plan: Post surgery respiratory failure secondary to metabolic acidosis, ischemic bowel -patient on 30% FiO2 and peep of 5, on CMV mode of ventilation, -chest x-ray and ABGs reviewed, ventilator adjusted -continue Versed and fentanyl infusion of sedation maintenance a RASS of 0 to -2 (2) Septic shock: Code(s): A41.9 - Sepsis, unspecified organism; R65.21 - Severe sepsis with septic shock Status: Acute Assessment and Plan: Septic shock most likely related to perforated viscus, ileus, ischemic bowel -patient adequately fluid-resuscitated and continues to be fluid-resuscitated. Now on albumin -lactic acid trending down gradually with still elevated at 7.0 -continue Zosyn, Flagyl -continue Levophed and vasopressin, maintain mean arterial pressures > 65 mm Hg -arterial line was inserted on 04/08/2020 (3) Perforated viscus: Code(s): R19.8 - Other specified symptoms and signs involving the digestive system and abdomen Status: Acute Assessment and Plan: CT scan abdomen and pelvis showed wall thickening of the gastric antrum with gas in the duodenal wall, retroperitoneum, small bowel mesentery, and peritoneum consistent with perforated viscus. Patietn with peritoneal signs. -04/08/2020 status post ex lap, lysis of adhesions, small-bowel resection, of wound VAC placement. - 04/09/2020: Status post 2nd laparotomy abdominal washout and 13 in of small-bowel resection along with wound VAC placement -coagulopathy be corrected aggressively, giving 2 units of cryoprecipitate, since of FFP, 1 unit of platelet -patient did receive a unit of packed RBCs overnight -continue antibiotics as above, Flagyl added for possible C diff -to OR today, will give 2 units of platelets, 1 unit of cryoprecipitate and 2 units of FFP (4) Diabetes type 2, controlled: Code(s): E11.9 - Type 2 diabetes mellitus without complications Status: Acute Assessment and Plan: Continue Accu-Cheks and sliding scale insulin -patient started on TPN on 04/10/2022 (5) MALCOM (acute kidney injury): Code(s): N17.9 - Acute kidney failure, unspecified Status: Acute Assessment and Plan: Patient with acute kidney injury most likely related to hypotension, septic shock, hypovolemia, ATN -patient given fluids in the ED, on sodium bicarb infusion -continue monitor urine output, electrolytes and renal function -creatinine 1.0 this morning, -significant amount wound VAC in NG drainage likely secondary to 3rd spacing. Patient on albumin (6) Anemia: Qualifiers: Anemia type: unspecified type Qualified Code(s): D64.9 - Anemia, unspecified Code(s): D64.9 - Anemia, unspecified Status: Chronic Assessment and Plan: History of chronic anemia with hemoglobin between 7-8. B12/folate/ferritin normal. -patient was transfused 1 unit of packed RBCs on 04/09/2020. Hemoglobin has been stable -monitor H&H transfuse as needed (7) Suspected COVID-19 virus infection: Code(s): Z20.828 - Contact with and (suspected) exposure to other viral communicable diseases Status: Acute Assessment and Plan: Patient suspected for COVID-19 -SARS-CoV-2 PCR -NEGATIVE -patient taken OFF airborne, droplet and contact precautions -chest x-ray shows left basilar atelectasis (8) Ileus: Code(s): K56.7 - Ileus, unspecified Status: Acute Assessment and Plan: CT scan showed dilated small bowels without focal transition point. Likely adynamic ileus. NG tube to
[2020-04-12] MEDS: SODIUM CHLORIDE 0.9% IV 250 ML 30 ML IV CONT (11:01)
[2020-04-12] MEDS: NOREPINEPHRINE 8 MG/D5W 250 ML 8 MG/250 ML BAG 16.9 MG IV CONT (11:01)
--- NOTE | 2020-04-12 11:17 | PCDIET ---
Nutrition Follow-Up Complete: Inadequate oral intake related to small bowel resection as evidenced by NPO status, mechanical ventilation. Patient to meet estimated nutritional needs. Goal: Progressing towards goal. Continue current goal Pt current nutrition is TPN 03/12 + 20% lipids. Nutrition recommendation: Agree Last recorded weight is 77.1 kg (wt down slightly from 78.1kg on assessment) Bowel Motility: 04/11 Labs Reviewed:Bilirubin 2.0, Lactic 7.0, Ca 6.2, Glucose 180, GFR 55, K 3.1, Na 130, Alb 2.1 Meds Noted:Albumin, Levo, Insulin, Versed, Protonix, Fentanyl, Flagyl, Additional Notes: Pt with perforated viscus and wound vac. Currently npo. Bowels moving appropriately. TPN started at 35ml/hr, providing 1180 kcals, 42g protein, and 1132ml of fluid, meeting 66% of needs today. We will continue this rate for 24hrs and reassess for tolerance. Recommend increasing to goal of 70ml/hr tomorrow if tolerating. At goal, pt will receive 1693 kcals, 84 g protein, and 1930ml of fluid. Third abdominal surgery today. Pt with 3rd spacing. Albumin started. We will follow up tomorrow to check appropriateness for increasing TPN.
[2020-04-12 11:58] LABS: Glucose Point of Care 117 (65-105)
[2020-04-12] MEDS: ALBUMIN HUMAN 25% 12.5 GM/50ML 50 ML IVPB ×3 (12:12→23:10)
[2020-04-12] MEDS: SODIUM BICARBONATE 8.4% 150 MEQ in DEXTROSE 5% 1,000 ML 950 ML 50 MEQ IV CONT (13:53)
[2020-04-12 14:20] LABS: Potassium 3.4 mmol/L (3.4-5.0)
--- NOTE | 2020-04-12 15:14 | WPDANESEFPP ---
Anes - Eval Final PreProcedure Day of Procedure 04/12/20 15:14 Patient weight: overweight Heart: tachycardia Lungs: decreased breath sounds Airway: other (intubated) Neurological: unresponsive Last oral intake: >/= 8 hours ASA classification: V Emergent: yes Anesthetic plan: proceed Anesthesia type and monitoring: general and standard monitoring Informed Consent: The patient's anesthetic plan and its attendant risks and benefits were discussed with the patient/family/POA. Questions were solicited and answers provided to the satisfaction of the patient/family/POA.
--- NOTE | 2020-04-12 15:40 | PM.PROC ---
Procedure Note - Detailed Date of procedure: 04/12/20 Pre-op diagnosis: intraabdominal sepsis, ischemic bowel Post-op diagnosis: same Procedure performed: Reopening of previous laparotomy, abdominal washout, entero entero anastomosis, placement of abdominal wound VAC Description of procedure: The patient was taken to the operating room placed in the supine position. Induction of general anesthesia, the patient was prepped and draped in normal sterile fashion. The previous ABThera wound VAC was removed and a time-out was performed. Began by examining the intra-abdominal contents. No further evidence of ischemia was noted and there is only a mild amount of ascites within the abdominal cavity. The small bowel looked to be somewhat inflamed, however it was much improved from previous exploration. There was no evidence of any further ischemic bowel. At this point, I went ahead and did a entero entero anastomosis between the distal jejunum and the distal ileum. This was done with a 55 CAROLINE stapler followed by a TX 60 stapler. This was a [id number] functional end-to-end anastomosis. Given the amount of inflammation I did go ahead and over sewed the staple lines with interrupted 3 0 silk sutures. I closed the mesenteric defect with a 3 0 silk suture. We then did a thorough intra-abdominal washout. The stomach duodenum in the entirety of the colon was visualized and noted to be on remarkable. The NG tube was noted to be in good position and the body of the stomach. I then went ahead and closed the fascia with looped 0 PDS suture x2. A abdominal wound VAC was then placed over the fascial closure. The patient tolerated the procedure well and continues to be in critically ill condition. She will be sent to the ICU in critical condition. Implants: none Surgeon: Beba Nicholson MD Estimated blood loss (mL): 5 Drains: No Packing: Yes Pathology: none sent Complications: No immediate complications Condition: critical Disposition: ICU Findings: no further evidence of ischemia
--- NOTE | 2020-04-12 16:24 | PM.IMPN ---
Progress Note: A&P Assessment and Plan (1) Perforated viscus: Code(s): R19.8 - Other specified symptoms and signs involving the digestive system and abdomen Status: Acute Assessment and Plan: CT A/P 04/07/20 showing wall thickening of the gastric antrum with gas in the duodenal wall, retroperitoneum, small bowel mesentery, and peritoneum consistent with perforated viscus. Patient taken to the OR 04/08 and is now POD#4 from a exploratory laparotomy, lysis of adhesions, small-bowel resection (approx 2 feet), placement of wound VAC. Mid to distal jejunum is noted to be viable with areas of duskiness. At the level of the proximal ileum, there was jaylin ischemia and necrosis up to 20cm proximal to the ileoccecal valve. Patient had repeat surgery 04/09/20 and is now POD #23 from a bowel resection of 13.5 inches of the distal jejunum and proximal ileum. There was no evidence of bowel leakage. A 3rd surgery performed earlier today (POD#0) and patient had abdominal washout and entero-entero anastomosis. Wound vac placed. She is having BMs. Continue TPN. Appreciate General surgery and outsole splicer input. (2) Severe sepsis: Code(s): A41.9 - Sepsis, unspecified organism; R65.20 - Severe sepsis without septic shock Status: Acute Assessment and Plan: Severe sepsis with septic shock currently on Levophed and vasopressin. Related to acute peritonitis from perforated viscus and ischemic bowel. Lactic acid 3.9 on admission and peaked at 10. Better today at 7.0 this morning. Metabolic lactic acidosis and remains on bicarb drip. INR Up to 2.2. Has received multiple blood products. Continue fluids and IV abx. (3) Paroxysmal atrial fibrillation: Code(s): I48.0 - Paroxysmal atrial fibrillation Status: Acute Assessment and Plan: Evidence of atrial fib by tele. Related to above. Contineu to monitor. (4) Acute renal failure: Code(s): N17.9 - Acute kidney failure, unspecified Status: Acute Assessment and Plan: Likely secondary to severe sepsis/ATN. Cr as high as 2.2 but has dropped to 1.0 today related to improved renal perfusion. Good UOP. Continue to monitor renal function and urine output. Avoid nephrotoxic agents. Renally dose medications. (5) Thrombocytopenia: Code(s): D69.6 - Thrombocytopenia, unspecified Status: Acute Assessment and Plan: Thrombocytosis related to above but now has converted to thrombocytopenia. Plt count has dropped to 28K today. [place] related to consumption. Patient received platelet transfusion today prior to surgery. Monitor closely. No Heparin products. (6) Hypocalcemia: Code(s): E83.51 - Hypocalcemia Status: Acute Assessment and Plan: Serum calcium remains in the 5-6 range but related to the hypoalbuminemia. Albumin given and Albumin at 2.1 today with corrected Ca 7.7. Continue to follow. (7) Ileus: Code(s): K56.7 - Ileus, unspecified Status: Acute Assessment and Plan: CT scan showing dilated small bowel without focal transition point related to above. As above. (8) Leukocytosis: Qualifiers: Leukocytosis type: unspecified Qualified Code(s): D72.829 - Elevated white blood cell count, unspecified Code(s): D72.829 - Elevated white blood cell count, unspecified Status: Acute Assessment and Plan: WBC 20K on admission that climbed to 33K but has now normalized which may not be a good prognistic sign. Continue to monitor CBCd. (9) Anemia: Qualifiers: Anemia type: unspecified type Qualified Code(s): D64.9 - Anemia, unspecified Code(s): D64.9 - Anemia, unspecified Status: Chronic Assessment and Plan: Chronic anemia in the 7-8 range. B12/folate/Ferritin normal. No iron studies. Hgb 10 on admission but probably more hemoconcentrated. Hgb dropped to 6.5 on 04/08 and received 1U PRBC. Hgb dropped
[2020-04-12] MEDS: FAT EMULSIONS IV 20% 250 ML 20.8 ML IVPB (16:52)
[2020-04-12 17:18] LABS: Glucose Point of Care 126 (65-105)
[2020-04-13] VITALS (22 sets, daily range): BP systolic 94–113; BP diastolic 43–58; PULSE 73–101; RESP 14–19; TEMP 36.3–36.6; O2SAT 99–100
[2020-04-13 00:11] LABS: Glucose Point of Care 207 (65-105)
[2020-04-13] MEDS: INSULIN ASPART (*BKC) 100 UNITS/ML SUB-Q (00:14)
[2020-04-13 04:50] LABS: Hematocrit 28.7 % (37.0-47.0); Hemoglobin 9.5 g/dL (12.0-15.0); Immature Platelet Fraction Pct 9.3 % (0.9-11.2); Mean Corpuscular HGB Conc 33.1 g/dl (32-36); Mean Corpuscular Hemoglobin 29.2 pg (26-34); Mean Corpuscular Volume 88.3 fl (80-100); Mean Platelet Volume 12.3 fl (7.4-10.4); Platelet Count Result 53 k/mm3 (150-375); Red Blood Count 3.25 M/mm3 (4.2-5.4); Red Cell Distribution Width 14.7 % (11.5-14.5); White Blood Count 6.6 K/mm3 (4.5-10.0)
[2020-04-13 04:58] LABS: Alveolar/Arterial O2 Gradient 47.4 mmHg; Base Excess ABG 3.6 mEq/l (+/-2.0); Carboxyhemoglobin 0.3 % THb (0-2.0); Fractional Inspired Oxygen 30 %; Methemoglobin ABG 0.1 %THb (0-1.5); Oxygen Content ABG 13.7 %vol (16.0-22.0); Oxygen Saturation ABG 98.7 % (95.0-100.0); Oxyhemoglobin 96.7 % THb (90.0-100.0); PCO2 ABG 36.2 mmHg (35.0-45.0); PO2 FiO2 Ratio Arterial Blood 4.13 %; Reduced Hemoglobin 2.9 %THb (0-5.0); Total Hemoglobin 9.9 g/dL (12.0-18.0); pH ABG 7.491 (7.350-7.450)
[2020-04-13 04:59] LABS: Modified Allen's Test Pass; Site Drawn ARTLINE
[2020-04-13 05:00] LABS: Arterial Blood Gas Ventilator rate 18 /MIN; Device VENTILATOR
[2020-04-13 05:01] LABS: Arterial Blood Gas PEEP 5 cmH2O; Arterial Blood Gas Pressure Support 0 cmH2O; Arterial Blood Gas Tidal Volume 430 ml; Arterial Blood Gas Vent Mode CMV; INR 2.1; Prothrombin Time 23.1 Seconds (11.1-14.7)
[2020-04-13 05:02] LABS: Partial Thromboplastin Time 37.3 SECONDS (22.3-36.8)
[2020-04-13 05:05] LABS: D Dimer 2.53 ug/mL (<0.48)
[2020-04-13 05:06] LABS: Lactic Acid 6.7 mmol/L (0.7-2.1)
[2020-04-13 05:14] LABS: Fibrinogen 217 mg/dl (215-510)
[2020-04-13 05:15] LABS: Alanine Aminotransferase 20 U/L (4-35); Albumin Level 2.4 g/dL (3.5-5.1); Alkaline Phosphatase 51 U/L (38-126); Aspartate Amino Transferase 18 U/L (14-36); Bilirubin,Total 1.9 mg/dL (0.2-1.3); Blood Urea Nitrogen 13 mg/dL (7-17); Calcium 6.7 mg/dL (8.4-10.2); Carbon Dioxide 28 mmol/L (22-30); Chloride 94 mmol/L (98-107); Estimated CRCL calculation 67 ml/min; Estimated Glomerular Filt Rate > 60; Glucose 194 mg/dL (65-105); Magnesium 1.8 mg/dL (1.6-2.3); Phosphorus 1.5 mg/dL (2.5-4.5); Potassium 2.2 mmol/L (3.4-5.0); Sodium 131 mmol/L (137-145)
[2020-04-13] MEDS: NOREPINEPHRINE 8 MG/D5W 250 ML 8 MG/250 ML BAG 11.3 MG IV CONT (05:24)
[2020-04-13] MEDS: metroNIDAZOLE 500 MG/ISO 100ML 500 MG/100 ML BAG 100 MG IVPB ×4 (05:36→23:28)
[2020-04-13] MEDS: ALBUMIN HUMAN 25% 12.5 GM/50ML 50 ML IVPB ×3 (06:34→17:11)
[2020-04-13] MEDS: TOLNAFTATE 1% POWDER 45 GM BTL 1 APPLIC TOPICAL ×2 (08:46→20:26)
[2020-04-13] MEDS: PANTOPRAZOLE SODIUM IV 40 MG VIAL IV PUSH (08:46)
[2020-04-13] MEDS: MAGNESIUM SULF 2 GM/WATER 50ML 2 GM/50 ML BAG IVPB (08:55)
[2020-04-13] MEDS: POTASSIUM PHOS,M-BASIC-D-BASIC 20 MMOL in SODIUM CHLORIDE 0.9% IV 250 ML 62.5 MMOL IVPB (10:32)
--- NOTE | 2020-04-13 10:37 | WPDINTPN ---
Progress Note: A&P Assessment and Plan (1) Respiratory failure: Qualifiers: Chronicity: acute Respiratory failure complication: unspecified whether with hypoxia or hypercapnia Qualified Code(s): J96.00 - Acute respiratory failure, unspecified whether with hypoxia or hypercapnia Code(s): J96.90 - Respiratory failure, unspecified, unspecified whether with hypoxia or hypercapnia Status: Acute Assessment and Plan: Post surgery respiratory failure secondary to metabolic acidosis, ischemic bowel -patient on 30% FiO2 and peep of 5, on CMV mode of ventilation, -chest x-ray and ABGs reviewed, ventilator adjusted -continue Versed and fentanyl infusion of sedation maintenance a RASS of 0 to -2 (2) Septic shock: Code(s): A41.9 - Sepsis, unspecified organism; R65.21 - Severe sepsis with septic shock Status: Acute Assessment and Plan: Septic shock most likely related to perforated viscus, ileus, ischemic bowel -patient adequately fluid-resuscitated and continues to be fluid-resuscitated. Now on albumin -lactic acid trending down gradually with still elevated at 7.0 -continue Zosyn, Flagyl -continue Levophed and vasopressin, maintain mean arterial pressures > 65 mm Hg -arterial line was inserted on 04/08/2020 (3) Perforated viscus: Code(s): R19.8 - Other specified symptoms and signs involving the digestive system and abdomen Status: Acute Assessment and Plan: CT scan abdomen and pelvis showed wall thickening of the gastric antrum with gas in the duodenal wall, retroperitoneum, small bowel mesentery, and peritoneum consistent with perforated viscus. Patietn with peritoneal signs. -04/08/2020 status post ex lap, lysis of adhesions, small-bowel resection, of wound VAC placement. - 04/09/2020: Status post 2nd laparotomy abdominal washout and 13 in of small-bowel resection along with wound VAC placement -04/11/2020: Reopening of previous laparotomy, abdominal washout, entero entero anastomosis, placement of abdominal wound VAC -continue antibiotics as above, -Surgery following the patient closely (4) Diabetes type 2, controlled: Code(s): E11.9 - Type 2 diabetes mellitus without complications Status: Acute Assessment and Plan: Continue Accu-Cheks and sliding scale insulin (5) MALCOM (acute kidney injury): Code(s): N17.9 - Acute kidney failure, unspecified Status: Acute Assessment and Plan: Patient with acute kidney injury most likely related to hypotension, septic shock, hypovolemia, ATN -patient given fluids in the ED, on sodium bicarb infusion -continue monitor urine output, electrolytes and renal function -creatinine 1.0 this morning, - 3rd spacing. Patient on albumin (6) Anemia: Qualifiers: Anemia type: unspecified type Qualified Code(s): D64.9 - Anemia, unspecified Code(s): D64.9 - Anemia, unspecified Status: Chronic Assessment and Plan: History of chronic anemia with hemoglobin between 7-8. B12/folate/ferritin normal. -patient was transfused 1 unit of packed RBCs on 04/09/2020. Hemoglobin has been stable -monitor H&H transfuse as needed (7) Suspected COVID-19 virus infection: Code(s): Z20.828 - Contact with and (suspected) exposure to other viral communicable diseases Status: Acute Assessment and Plan: Patient suspected for COVID-19 -SARS-CoV-2 PCR -NEGATIVE -patient taken OFF airborne, droplet and contact precautions -chest x-ray shows left basilar atelectasis (8) Ileus: Code(s): K56.7 - Ileus, unspecified Status: Acute Assessment and Plan: CT scan showed dilated small bowels without focal transition point. Likely adynamic ileus. NG tube to suction, patient is having a lot of NG tube drainage -continue bowel rest -NG tube to suction (9) Hypocalcemia: Code(s): E83.51 - Hypocalcemia Status: Acute Assessment and Plan: Calcium replet
--- NOTE | 2020-04-13 11:02 | PCDIET ---
Nutrition Follow-Up Complete: Nutrition Diagnosis: Inadequate oral intake related to small bowel resection as evidenced by NPO status, mechanical ventilation. Nutrition Goal: Patient to meet estimated nutritional needs. Goal in progress. Patient receiving Clinimix E 5/15 at 35mL/hr with 250mL 20% lipids. MD ordering increase to 50mL/hr Clinimix for 1352kcal and 60 grams protein daily. Goal recommended is 70mL/hr. However, given decreased urine output and significant edema, rate cautiously being increased. Last recorded weight is 76.8 kg which is stable. Bowel Motility: Multiple BM's reported - rectal tube now in place Labs Reviewed: Hgb (9.5), Hct (28.7), Ca (6.7), PO4 (1.5), K (2.2), Na (131), Alb (2.4) Meds Noted: Albumin, Fentanyl, Novolog, Magnesium Sulfate, Flagyl, Levophed, Protonix, Zosyn, Versed, KCl, K-Phos, Vasopressin, Calcium Gluconate Additional Notes: Wound vac to abdomen s/p multiple surgeries. RN placed preventative Mepilex on coccyx area. Will continue to monitor with same goal. Nutrition Monitoring and Evaluation: Follow up every Sunday/Sunday. Follow daily in ICU rounds.
[2020-04-13] MEDS: CALCIUM GLUC 2,000 MG/NS 100ML 2,000 MG/100 ML BAG 100 MG IVPB (11:23)
[2020-04-13] MEDS: FAT EMULSIONS IV 20% 250 ML 20.8 ML IVPB (11:45)
[2020-04-13 11:53] LABS: Triglycerides 301 mg/dL (<150)
[2020-04-13 12:19] LABS: Glucose Point of Care 187 (65-105)
--- NOTE | 2020-04-13 13:42 | PM.PNGS ---
Progress Note: A&P Assessment and Plan (1) Ischemic necrosis of small bowel: Code(s): K55.029 - Acute infarction of small intestine, extent unspecified Status: Acute Assessment and Plan: path reviewed, reanastomosis yesterday as SB appeared viable, +BMs, cont TPN for now, will start trickle feeds (2) Respiratory failure: Qualifiers: Chronicity: acute Respiratory failure complication: unspecified whether with hypoxia or hypercapnia Qualified Code(s): J96.00 - Acute respiratory failure, unspecified whether with hypoxia or hypercapnia Code(s): J96.90 - Respiratory failure, unspecified, unspecified whether with hypoxia or hypercapnia Status: Acute Assessment and Plan: wean vent as sherine (3) Shock: Code(s): R57.9 - Shock, unspecified Status: Resolved Assessment and Plan: cont abx, wean pressors as sherine (4) Severe sepsis: Code(s): A41.9 - Sepsis, unspecified organism; R65.20 - Severe sepsis without septic shock Status: Acute Assessment and Plan: see above Subjective Subjective Date/Time Seen: 04/13/20 13:42 interval history noted from overnight, multiple loose BMs, pressor requirements stable Review of Systems Review of Systems: ROS unobtainable: Yes unobtainable due to medical condition Exam Resp: Auscultation: diminished lung sounds Cardio: Rate: tachycardic GI: Other: S, sl dist, vac C/D/I Objective Data Vital Signs Vital Signs: Vital Signs - 24 hr 04/12/20 14:00 04/12/20 14:10 04/12/20 16:00 Temperature 36.9 C Pulse Rate 99 88 128 H Respiratory Rate 18 25 H Blood Pressure 110/56 L 98/50 L Pulse Oximetry 94 100 97 04/12/20 16:18 04/12/20 16:34 04/12/20 17:27 Temperature 36.9 C 36.8 C Pulse Rate 121 H 116 H 113 H Respiratory Rate 19 18 Blood Pressure 93/51 L 89/49 L Pulse Oximetry 99 98 100 04/12/20 18:00 04/12/20 18:05 04/12/20 19:54 Temperature 36.9 C 36.9 C Pulse Rate 106 H 112 H 85 Respiratory Rate 20 Blood Pressure 104/53 L Pulse Oximetry 99 98 04/12/20 20:00 04/12/20 20:01 04/12/20 21:31 Temperature Pulse Rate 85 83 87 Respiratory Rate 18 18 19 Blood Pressure 93/58 L 98/52 L Pulse Oximetry 100 98 99 04/12/20 22:00 04/12/20 22:49 04/12/20 23:20 Temperature 36.4 C L Pulse Rate 77 75 81 Respiratory Rate 18 18 Blood Pressure 96/59 L 108/53 L Pulse Oximetry 99 100 100 04/12/20 23:21 04/13/20 00:00 04/13/20 02:00 Temperature 36.6 C Pulse Rate 80 79 76 Respiratory Rate 18 18 18 Blood Pressure 113/54 L 105/49 L Pulse Oximetry 100 100 100 04/13/20 02:06 04/13/20 04:00 04/13/20 04:01 Temperature 36.4 C L Pulse Rate 76 80 73 Respiratory Rate 18 18 Blood Pressure 94/55 L Pulse Oximetry 100 100 100 04/13/20 04:45 04/13/20 05:00 04/13/20 06:00 Temperature Pulse Rate 78 79 85 Respiratory Rate 18 14 Blood Pressure 100/49 L Pulse Oximetry 100 100 99 04/13/20 08:00 04/13/20 08:45 04/13/20 10:00 Temperature 36.4 C Pulse Rate 85 76 81 Respiratory Rate 14 18 Blood Pressure 105/50 L 110/53 L Pulse Oximetry 99 100 100 04/13/20 11:45 04/13/20 12:00 Temperature 36.3 C L Pulse Rate 84 83 Respiratory Rate 18 Blood Pressure 110/49 L Pulse Oximetry 100 100 Intake/Output Intake/Output: Intake & Output 04/10/20 04/11/20 04/12/20 04/13/20 23:59 23:59 23:59 23:59 Intake Total 4248.7 4459 4764.8 2235 Output Total 4225 4800 3150 560 Balance 23.7 -341 1614.8 1675 Meds/Results Medications: Active Medications Generic Name Dose Route Start Last Admin Trade Name Freq PRN Reason Stop Dose Admin Alteplase, Recombinant 2 mg 04/12/20 09:11 Cathflo Activase IV PUSH ONCE PRN Line Occlusion Dextrose 12.5 gm 04/07/20 19:48 04/09/20 11:26 Dextrose 50% Syringe IV PUSH 12.5 gm PRN PRN Administration Hypoglycemia Protocol Glucagon 1 mg 04/07/20 19:48 Glucagon For Inj IM PRN PRN
[2020-04-13 17:18] LABS: Glucose Point of Care 178 (65-105)
--- NOTE | 2020-04-13 18:01 | PM.IMPN ---
Progress Note: A&P Assessment and Plan (1) Perforated viscus: Code(s): R19.8 - Other specified symptoms and signs involving the digestive system and abdomen Status: Acute Assessment and Plan: CT A/P 04/07/20 showing wall thickening of the gastric antrum with gas in the duodenal wall, retroperitoneum, small bowel mesentery, and peritoneum consistent with perforated viscus. Patient taken to the OR 04/08 and is now POD#4 from a exploratory laparotomy, lysis of adhesions, small-bowel resection (approx 2 feet), placement of wound VAC. Mid to distal jejunum is noted to be viable with areas of duskiness. At the level of the proximal ileum, there was jaylin ischemia and necrosis up to 20cm proximal to the ileoccecal valve. Patient had repeat surgery 04/09/20 and is now POD #3 from a bowel resection of 13.5 inches of the distal jejunum and proximal ileum. There was no evidence of bowel leakage. 3rd surgery 04/12 viable bowel and reanastomed. Continue TPN. (2) Severe sepsis: Code(s): A41.9 - Sepsis, unspecified organism; R65.20 - Severe sepsis without septic shock Status: Acute Assessment and Plan: Severe sepsis with septic shock currently on Levophed. Related to acute peritonitis from perforated viscus and ischemic bowel. Lactic acid 3.9 on admission and peaked at 10. Better today at 7.0 this morning. Metabolic lactic acidosis and currently on bicarb drip. . Has received 2U PRBC, 6U FFP, 2U Plt, and 3U Cryo. Continue fluids and IV abx. (3) Acute renal failure: Code(s): N17.9 - Acute kidney failure, unspecified Status: Acute Assessment and Plan: Likely secondary to severe sepsis/ATN. Cr as high as 2.2 but has dropped to 0.7 today related to improved renal perfusion. Good UOP. Continue to monitor renal function and urine output. Avoid nephrotoxic agents. Renally dose medications. (4) Hypocalcemia: Code(s): E83.51 - Hypocalcemia Status: Acute Assessment and Plan: Serum calcium remains in the 6.7 range now Albumin given good range. Continue to follow. (5) Ileus: Code(s): K56.7 - Ileus, unspecified Status: Acute Assessment and Plan: CT scan showing dilated small bowel without focal transition point related to above. As above. (6) Leukocytosis: Qualifiers: Leukocytosis type: unspecified Qualified Code(s): D72.829 - Elevated white blood cell count, unspecified Code(s): D72.829 - Elevated white blood cell count, unspecified Status: Acute Assessment and Plan: WBC 20K on admission that climbed to 33K but has now normalized which may not be a good prognistic sign. Continue to monitor CBCd. (7) Anemia: Qualifiers: Anemia type: unspecified type Qualified Code(s): D64.9 - Anemia, unspecified Code(s): D64.9 - Anemia, unspecified Status: Chronic Assessment and Plan: Chronic anemia in the 7-8 range. B12/folate/Ferritin normal. No iron studies. Hgb 10 on admission but probably more hemoconcentrated. Hgb dropped to 6.5 on 04/08 and received 1U PRBC. Hgb dropped again and received a 2nd unit on 04/09. Hgb stable in the 9 range since last transfusion(9.5 today). Continue to monitor H/H, transfuse prn. (8) Thrombocytosis: Code(s): D47.3 - Essential (hemorrhagic) thrombocythemia Status: Acute Assessment and Plan: Thrombocytosis related to above but now has converted to thrombocytopenia. Plt count has dropped to 50K range now related to consumption. Monitor closely. No Heparin products. (9) Type 2 diabetes mellitus: Qualifiers: Diabetes mellitus complication status: without complication Diabetes mellitus termite control technician insulin use: without termite control technician use Qualified Code(s): E11.9 - Type 2 diabetes mellitus without complications Code(s): E11.9 - Type 2 diabetes mellitus without complications Status: Chronic Ass
[2020-04-13 23:36] LABS: Potassium 2.7 mmol/L (3.4-5.0)
[2020-04-14] VITALS (24 sets, daily range): BP systolic 95–128; BP diastolic 48–65; PULSE 88–121; RESP 18–23; TEMP 36.3–37.5; O2SAT 98–100
[2020-04-14 00:57] LABS: Glucose Point of Care 178 (65-105)
[2020-04-14 04:53] LABS: Base Excess ABG 3.8 mEq/l (+/-2.0); Carboxyhemoglobin 0.3 % THb (0-2.0); Fractional Inspired Oxygen 30 %; HCO3 ABG 26.4 mEq/l (22.0-26.0); Methemoglobin ABG 0.3 %THb (0-1.5); Oxygen Content ABG 14.4 %vol (16.0-22.0); Oxygen Saturation ABG 99.7 % (95.0-100.0); Oxyhemoglobin 97.4 % THb (90.0-100.0); PCO2 ABG 32.4 mmHg (35.0-45.0); PO2 ABG 288.3 mmHg (80.0-100.0); pH ABG 7.529 (7.350-7.450)
[2020-04-14 04:55] LABS: Device VENTILATOR; Site Drawn ARTLINE
[2020-04-14 04:57] LABS: Arterial Blood Gas PEEP 5 cmH2O; Arterial Blood Gas Tidal Volume 400 ml; Arterial Blood Gas Vent Mode CMV; Arterial Blood Gas Ventilator rate 18 /MIN
[2020-04-14] MEDS: metroNIDAZOLE 500 MG/ISO 100ML 500 MG/100 ML BAG 100 MG IVPB ×4 (05:00→23:33)
[2020-04-14 05:47] LABS: Hematocrit 28.5 % (37.0-47.0); Hemoglobin 9.2 g/dL (12.0-15.0); Mean Corpuscular HGB Conc 32.3 g/dl (32-36); Mean Corpuscular Hemoglobin 28.4 pg (26-34); Mean Platelet Volume 12.4 fl (7.4-10.4); Platelet Count Result 71 k/mm3 (150-375); Red Blood Count 3.24 M/mm3 (4.2-5.4); Red Cell Distribution Width 14.7 % (11.5-14.5); White Blood Count 7.8 K/mm3 (4.5-10.0)
[2020-04-14 05:53] LABS: Prothrombin Time 21.9 Seconds (11.1-14.7)
[2020-04-14 06:02] LABS: Blood Urea Nitrogen 9 mg/dL (7-17); Calcium 6.9 mg/dL (8.4-10.2); Carbon Dioxide 27 mmol/L (22-30); Chloride 96 mmol/L (98-107); Estimated CRCL calculation 59 ml/min; Estimated Glomerular Filt Rate > 60; Glucose 184 mg/dL (65-105); Magnesium 2.1 mg/dL (1.6-2.3); Potassium 3.1 mmol/L (3.4-5.0); Sodium 132 mmol/L (137-145)
--- NOTE | 2020-04-14 08:01 | WPDINTPN ---
Progress Note: A&P Assessment and Plan (1) Respiratory failure: Qualifiers: Chronicity: acute Respiratory failure complication: unspecified whether with hypoxia or hypercapnia Qualified Code(s): J96.00 - Acute respiratory failure, unspecified whether with hypoxia or hypercapnia Code(s): J96.90 - Respiratory failure, unspecified, unspecified whether with hypoxia or hypercapnia Status: Acute Assessment and Plan: Post surgery respiratory failure secondary to metabolic acidosis, ischemic bowel -patient on 30% FiO2 and peep of 5, on CMV mode of ventilation, -chest x-ray and ABGs reviewed, ventilator adjusted, decreased rate to 16 -continue Versed and fentanyl infusion of sedation maintenance a RASS of 0 to -2 -have asked bedside nurse to wean the sedation and allow the patient to wake up (2) Septic shock: Code(s): A41.9 - Sepsis, unspecified organism; R65.21 - Severe sepsis with septic shock Status: Acute Assessment and Plan: Septic shock most likely related to perforated viscus, ileus, ischemic bowel -patient adequately fluid-resuscitated and continues to be fluid-resuscitated. Now on albumin -lactic acid pending -continue Zosyn, Flagyl -continue Levophed and vasopressin, maintain mean arterial pressures > 65 mm Hg -arterial line was inserted on 04/08/2020 (3) Perforated viscus: Code(s): R19.8 - Other specified symptoms and signs involving the digestive system and abdomen Status: Acute Assessment and Plan: CT scan abdomen and pelvis showed wall thickening of the gastric antrum with gas in the duodenal wall, retroperitoneum, small bowel mesentery, and peritoneum consistent with perforated viscus. Patietn with peritoneal signs. -04/08/2020 status post ex lap, lysis of adhesions, small-bowel resection, of wound VAC placement. - 04/09/2020: Status post 2nd laparotomy abdominal washout and 13 in of small-bowel resection along with wound VAC placement -04/11/2020: Reopening of previous laparotomy, abdominal washout, entero entero anastomosis, placement of abdominal wound VAC -continue antibiotics as above, -Surgery following the patient closely (4) Diabetes type 2, controlled: Code(s): E11.9 - Type 2 diabetes mellitus without complications Status: Acute Assessment and Plan: Continue Accu-Cheks and sliding scale insulin (5) MALCOM (acute kidney injury): Code(s): N17.9 - Acute kidney failure, unspecified Status: Acute Assessment and Plan: RESOLVED: Patient with acute kidney injury most likely related to hypotension, septic shock, hypovolemia, ATN -patient given fluids in the ED, on sodium bicarb infusion -continue monitor urine output, electrolytes and renal function -creatinine 0.8 this morning, - 3rd spacing. Continue albumin -will replace potassium and phosphorus (6) Anemia: Qualifiers: Anemia type: unspecified type Qualified Code(s): D64.9 - Anemia, unspecified Code(s): D64.9 - Anemia, unspecified Status: Chronic Assessment and Plan: History of chronic anemia with hemoglobin between 7-8. B12/folate/ferritin normal. -patient was transfused 1 unit of packed RBCs on 04/09/2020. - Hemoglobin has been stable -monitor H&H transfuse as needed (7) Suspected COVID-19 virus infection: Code(s): Z20.828 - Contact with and (suspected) exposure to other viral communicable diseases Status: Acute Assessment and Plan: Patient suspected for COVID-19 -SARS-CoV-2 PCR -NEGATIVE -patient taken OFF airborne, droplet and contact precautions -chest x-ray shows left basilar atelectasis (8) Ileus: Code(s): K56.7 - Ileus, unspecified Status: Acute Assessment and Plan: Likely resolved this patient having bowel movements and tolerating tube feeds. - CT scan on admission showed dilated small bowels without focal transition point. Likely adynamic ileus. NG tube to suctio
[2020-04-14] MEDS: POTASSIUM PHOS,M-BASIC-D-BASIC 20 MMOL in SODIUM CHLORIDE 0.9% IV 250 ML 62.5 MMOL IVPB (09:26)
[2020-04-14] MEDS: CALCIUM GLUC 2,000 MG/NS 100ML 2,000 MG/100 ML BAG 100 MG IVPB (09:26)
[2020-04-14] MEDS: TOLNAFTATE 1% POWDER 45 GM BTL 1 APPLIC TOPICAL ×2 (09:31→21:05)
[2020-04-14] MEDS: PANTOPRAZOLE SODIUM IV 40 MG VIAL IV PUSH (09:31)
[2020-04-14 09:43] LABS: Lactic Acid Reflex 3.6 mmol/L (0.7-2.1)
--- NOTE | 2020-04-14 11:21 | PCDIET ---
Nutrition Follow-Up Complete: Nutrition Diagnosis: Inadequate oral intake related to small bowel resection as evidenced by NPO status, mechanical ventilation. Nutrition Goal: Patient to meet estimated nutritional needs. Goal in progress. MD clarified Clinimix E rate of 50mL/hr. Patient also receiving 250mL 20% lipids daily and Vital 1.2 tube feedings at 5mL/hr. Recommend continuing Clinimix at 50mL/hr until able to significantly increase tube feeding rate. If surgery agreeable, would also suggest increasing tube feeding to 10mL/hr today. Last recorded weight is 77.2 kg which is increased. +I/O. Bowel Motility: +FMS in place for loose stool. Labs Reviewed: Glu (184), K (3.1), Na (132), TG (301), PO4 (2.0), Ca (6.9) Meds Noted: Calcium Gluconate, KCl, Fentanyl, Novolog, Protonix, Zosyn, Albuterol, Flagyl, Versed, Levophed, K-Phos, Vasopressin Additional Notes: Wound vac to abdomen. No skin changes reported. Will continue to monitor with same goal. Nutrition Monitoring and Evaluation: Follow up every Sunday/Sunday. Follow daily in ICU rounds.
[2020-04-14 12:27] LABS: Reflex Lactic Acid Yes or No Add Lactic
[2020-04-14] MEDS: FAT EMULSIONS IV 20% 250 ML 20.8 ML IVPB (13:20)
[2020-04-14] MEDS: ALBUMIN HUMAN 25% 12.5 GM/50ML 50 ML IVPB ×3 (13:21→23:33)
[2020-04-14 13:25] LABS: Lactic Acid 3.3 mmol/L (0.7-2.1)
[2020-04-14 14:08] LABS: Glucose Point of Care 184 (65-105)
--- NOTE | 2020-04-14 15:00 | PM.PNGS ---
Progress Note: A&P Assessment and Plan (1) Ischemic necrosis of small bowel: Code(s): K55.029 - Acute infarction of small intestine, extent unspecified Status: Acute Assessment and Plan: 04/08/20 - ex. lap, lysis of adhesions, small-bowel resection, placement of ABThera wound VAC 04/09/20 - Second-look laparotomy, abdominal washout, small-bowel resection, placement of abdominal wound VAC 04/12/20 - Reopening of previous laparotomy, abdominal washout, entero-entero anastomosis, placement of abdominal wound VAC Continues to improve, abd exam unchanged, +BMs.Tolerating trickle tube feedings. Continue TPN for now, will increase tube feeding rate per recommendations of extractor operator. (2) Respiratory failure: Qualifiers: Chronicity: acute Respiratory failure complication: unspecified whether with hypoxia or hypercapnia Qualified Code(s): J96.00 - Acute respiratory failure, unspecified whether with hypoxia or hypercapnia Code(s): J96.90 - Respiratory failure, unspecified, unspecified whether with hypoxia or hypercapnia Status: Acute Assessment and Plan: Intubated and sedated. Wean vent per CCP. (3) Shock: Code(s): R57.9 - Shock, unspecified Status: Resolved Assessment and Plan: Has been adequately fluid resuscitated. Continue antibiotics. Lactic acid trending down to 3.3 today. Vasopressors continue to be weaned down. Care per CCP. (4) Severe sepsis: Code(s): A41.9 - Sepsis, unspecified organism; R65.20 - Severe sepsis without septic shock Status: Acute Assessment and Plan: See above. Additional Plan Discussed the plan of care with Dr. Nicholson today. Subjective Subjective Date/Time Seen: 04/14/20 15:00 Interval history: Patient intubated and sedated. Review of Systems Review of Systems: ROS unobtainable: Yes unobtainable due to endotracheal tube and unobtainable due to medical condition Exam Const: General: comfortable and other (Sedated) Nutritional Appearance: average body habitus Resp: Auscultation: rhonchi throughout Cardio: Rate: regular rate Rhythm: regular rhythm GI: Inspection: incision (midline wound vac c/d/i) and other (mildly distended) GI Palp: Yes Soft to palpation Auscultation: Hypoactive bowel sounds present Other: FMS with brown liquid stool output Urinary Catheter: Urinary Catheter: patent and draining and urine clear Skin: General skin exam: normal color Rashes: no rashes Neuro: Other: Limited d/t sedation/mechanical ventilation. Extrem: General: edema bilateral (upper and lower ext., pitting) Objective Data Vital Signs Vital Signs: Vital Signs - 24 hr 04/13/20 16:00 04/13/20 17:39 04/13/20 18:00 Temperature 36.3 C L Pulse Rate 85 89 90 Respiratory Rate 15 19 Blood Pressure 97/43 L 102/46 L Pulse Oximetry 100 100 100 04/13/20 20:00 04/13/20 22:00 04/13/20 22:08 Temperature 36.4 C Pulse Rate 89 98 88 Respiratory Rate 19 18 Blood Pressure 100/51 L 111/58 L Pulse Oximetry 100 100 99 04/13/20 23:00 04/14/20 00:00 04/14/20 01:50 Temperature 36.7 C Pulse Rate 98 91 88 Respiratory Rate 19 Blood Pressure 110/52 L Pulse Oximetry 99 100 100 04/14/20 02:00 04/14/20 03:23 04/14/20 04:00 Temperature Pulse Rate 88 91 93 Respiratory Rate 22 H 18 19 Blood Pressure 107/48 L 106/51 L Pulse Oximetry 100 99 99 04/14/20 04:05 04/14/20 05:00 04/14/20 06:00 Temperature 36.7 C Pulse Rate 93 90 Respiratory Rate 18 Blood Pressure 100/56 L Pulse Oximetry 100 98 04/14/20 08:00 04/14/20 08:10 04/14/20 10:00 Temperature 36.6 C Pulse Rate 92 95 97 Respiratory Rate 20 19 Blood Pressure 110/53 L 103/51 L Pulse Oximetry 100 100 100 04/14/20 11:52 04/14/20 14:34 Temperature Pulse Rate 101 H 96 Respiratory Rate Blood Pressure Pulse Oximetry 100 99 Intake/Output Intake/Output: Intake & Output 04/11/20 04/12/20 04/13/20 04/14/20 23:59 23:59 23:59 23
--- NOTE | 2020-04-14 17:35 | PM.IMPN ---
Progress Note: A&P Assessment and Plan (1) Perforated viscus: Code(s): R19.8 - Other specified symptoms and signs involving the digestive system and abdomen Status: Acute Assessment and Plan: CT A/P 04/07/20 showing wall thickening of the gastric antrum with gas in the duodenal wall, retroperitoneum, small bowel mesentery, and peritoneum consistent with perforated viscus. Patient taken to the OR 04/08 and is now POD#5 from a exploratory laparotomy, lysis of adhesions, small-bowel resection (approx 2 feet), placement of wound VAC. Mid to distal jejunum is noted to be viable with areas of duskiness. At the level of the proximal ileum, there was jaylin ischemia and necrosis up to 20cm proximal to the ileoccecal valve. Patient had repeat surgery 04/09/20 and is now POD #4 from a bowel resection of 13.5 inches of the distal jejunum and proximal ileum. There was no evidence of bowel leakage. 3rd surgery 04/12 viable bowel and reanastomed. Continue TPN. (2) Severe sepsis: Code(s): A41.9 - Sepsis, unspecified organism; R65.20 - Severe sepsis without septic shock Status: Acute Assessment and Plan: Severe sepsis with septic shock currently on Levophed. Related to acute peritonitis from perforated viscus and ischemic bowel. Lactic acid 3.9 on admission and peaked at 10. Better today at 3.3 this morning. Metabolic lactic acidosis and currently on bicarb drip. . Has received 2U PRBC, 6U FFP, 2U Plt, and 3U Cryo. Continue fluids and IV abx. (3) Acute renal failure: Code(s): N17.9 - Acute kidney failure, unspecified Status: Acute Assessment and Plan: Likely secondary to severe sepsis/ATN. Cr as high as 2.2 but has dropped to 0.8 today related to improved renal perfusion. Good UOP. Continue to monitor renal function and urine output. Avoid nephrotoxic agents. Renally dose medications. (4) Hypocalcemia: Code(s): E83.51 - Hypocalcemia Status: Acute Assessment and Plan: Serum calcium remains in the 6.9 now Albumin given good range. Continue to follow. (5) Ileus: Code(s): K56.7 - Ileus, unspecified Status: Acute Assessment and Plan: CT scan showing dilated small bowel without focal transition point related to above. As above. (6) Leukocytosis: Qualifiers: Leukocytosis type: unspecified Qualified Code(s): D72.829 - Elevated white blood cell count, unspecified Code(s): D72.829 - Elevated white blood cell count, unspecified Status: Acute Assessment and Plan: WBC 20K on admission that climbed to 33K but has now normalized which may not be a good prognistic sign. Continue to monitor CBCd. (7) Anemia: Qualifiers: Anemia type: unspecified type Qualified Code(s): D64.9 - Anemia, unspecified Code(s): D64.9 - Anemia, unspecified Status: Chronic Assessment and Plan: Chronic anemia in the 7-8 range. B12/folate/Ferritin normal. No iron studies. Hgb 10 on admission but probably more hemoconcentrated. Hgb dropped to 6.5 on 04/08 and received 1U PRBC. Hgb dropped again and received a 2nd unit on 04/09. Hgb stable in the 9 range since last transfusion(9.3 today). Continue to monitor H/H, transfuse prn. (8) Thrombocytosis: Code(s): D47.3 - Essential (hemorrhagic) thrombocythemia Status: Acute Assessment and Plan: Thrombocytosis related to above but now has converted to thrombocytopenia. Plt count has dropped to 50K range now related to consumption. Monitor closely. No Heparin products. (9) Type 2 diabetes mellitus: Qualifiers: Diabetes mellitus superintendent marine oil terminal insulin use: without superintendent marine oil terminal use Diabetes mellitus complication status: without complication Qualified Code(s): E11.9 - Type 2 diabetes mellitus without complications Code(s): E11.9 - Type 2 diabetes mellitus without complications Status: Chronic Assessme
[2020-04-14 18:27] LABS: Glucose Point of Care 218 (65-105)
[2020-04-14] MEDS: INSULIN ASPART (*BKC) 100 UNITS/ML SUB-Q (18:27)
[2020-04-14] MEDS: NOREPINEPHRINE 8 MG/D5W 250 ML 8 MG/250 ML BAG 3.8 MG IV CONT (19:55)
[2020-04-14] MEDS: VASOPRESSIN INJ 100 UNITS in DEXTROSE 5% 95 ML IV CONT (20:45)
[2020-04-14 22:46] LABS: Potassium 2.7 mmol/L (3.4-5.0)
--- NOTE | 2020-04-14 22:55 | PC.NURSE ---
Dr. Menaly notified of increased respirations, HR as well as low potassium. Start low dose precedex, No bolus, 40meq KRider IV x1.
[2020-04-15] VITALS (24 sets, daily range): BP systolic 99–132; BP diastolic 53–67; PULSE 78–121; RESP 18–25; TEMP 36.7–38.3; O2SAT 99–100
[2020-04-15 00:43] LABS: Glucose Point of Care 215 (65-105)
[2020-04-15] MEDS: INSULIN ASPART (*BKC) 100 UNITS/ML SUB-Q (00:49)
[2020-04-15 04:16] LABS: Hematocrit 26.2 % (37.0-47.0); Hemoglobin 8.3 g/dL (12.0-15.0); Mean Corpuscular HGB Conc 31.7 g/dl (32-36); Mean Corpuscular Volume 88.5 fl (80-100); Mean Platelet Volume 11.8 fl (7.4-10.4); Platelet Count Result 83 k/mm3 (150-375); Red Blood Count 2.96 M/mm3 (4.2-5.4); Red Cell Distribution Width 14.8 % (11.5-14.5); White Blood Count 6.2 K/mm3 (4.5-10.0)
[2020-04-15 04:25] LABS: INR 1.8; Prothrombin Time 20.6 Seconds (11.1-14.7)
[2020-04-15 04:26] LABS: Partial Thromboplastin Time 39.2 SECONDS (22.3-36.8)
[2020-04-15 04:32] LABS: Alanine Aminotransferase 11 U/L (4-35); Albumin Level 2.3 g/dL (3.5-5.1); Alkaline Phosphatase 44 U/L (38-126); Aspartate Amino Transferase 19 U/L (14-36); Bilirubin,Total 2.2 mg/dL (0.2-1.3); Blood Urea Nitrogen 12 mg/dL (7-17); Calcium 7.3 mg/dL (8.4-10.2); Carbon Dioxide 27 mmol/L (22-30); Chloride 99 mmol/L (98-107); Estimated CRCL calculation 67 ml/min; Estimated Glomerular Filt Rate > 60; Glucose 191 mg/dL (65-105); Lactic Acid 2.9 mmol/L (0.7-2.1); Phosphorus 2.7 mg/dL (2.5-4.5); Potassium 3.5 mmol/L (3.4-5.0); Sodium 134 mmol/L (137-145)
[2020-04-15 04:53] LABS: Alveolar/Arterial O2 Gradient 71.1 mmHg; Carboxyhemoglobin 0.3 % THb (0-2.0); Fractional Inspired Oxygen 30 %; HCO3 ABG 24.9 mEq/l (22.0-26.0); Methemoglobin ABG 0.5 %THb (0-1.5); Oxygen Content ABG 11.9 %vol (16.0-22.0); Oxygen Saturation ABG 98.3 % (95.0-100.0); Oxyhemoglobin 95.6 % THb (90.0-100.0); PCO2 ABG 31.8 mmHg (35.0-45.0); PO2 ABG 105.4 mmHg (80.0-100.0); PO2 FiO2 Ratio Arterial Blood 3.51 %; Reduced Hemoglobin 3.6 %THb (0-5.0); Total Hemoglobin 8.7 g/dL (12.0-18.0)
[2020-04-15 04:54] LABS: Arterial Blood Gas PEEP 5 cmH2O; Arterial Blood Gas Tidal Volume 400 ml; Arterial Blood Gas Vent Mode CMV; Arterial Blood Gas Ventilator rate 16 /MIN; Device VENTILATOR; Site Drawn ARTLINE; pH ABG 7.511 (7.350-7.450)
[2020-04-15] MEDS: metroNIDAZOLE 500 MG/ISO 100ML 500 MG/100 ML BAG 100 MG IVPB ×4 (05:17→23:14)
[2020-04-15 05:35] LABS: Band Neutrophils Percent 18 % (0-6); Lymphocytes Absolute Manual 1.61 K/mm3 (1.1-4.5); Microcytosis 1+ (NORMAL); Monocytes Percent Manual 13 % (3-9); Neutrophils Absolute Manual 3.78 K/mm3 (1.7-7.2); Neutrophils Percent Manual 43 % (46-73); Platelet Estimate Decreased (Adequate); Total Cells Counted 100
[2020-04-15 05:36] LABS: Hypochromasia 1+ (NORMAL)
[2020-04-15] MEDS: ALBUMIN HUMAN 25% 12.5 GM/50ML 50 ML IVPB ×3 (06:18→17:34)
--- NOTE | 2020-04-15 08:21 | WPDINTPN ---
Progress Note: A&P Assessment and Plan (1) Respiratory failure: Qualifiers: Chronicity: acute Respiratory failure complication: unspecified whether with hypoxia or hypercapnia Qualified Code(s): J96.00 - Acute respiratory failure, unspecified whether with hypoxia or hypercapnia Code(s): J96.90 - Respiratory failure, unspecified, unspecified whether with hypoxia or hypercapnia Status: Acute Assessment and Plan: Post surgery respiratory failure secondary to metabolic acidosis, ischemic bowel -patient on 30% FiO2 and peep of 5, on CMV mode of ventilation, -chest x-ray and ABGs reviewed, ventilator adjusted, decreased rate to 16 - OFF fentanyl and versed. - Not waking up off sedation meds. - Pt overnight was tacycardic and tacypnie, started on Precedex infusion. (2) Septic shock: Code(s): A41.9 - Sepsis, unspecified organism; R65.21 - Severe sepsis with septic shock Status: Acute Assessment and Plan: Septic shock most likely related to perforated viscus, ileus, ischemic bowel -patient adequately fluid-resuscitated and continues to be fluid-resuscitated. Now on albumin -lactic acid pending -continue Zosyn, Flagyl -continue Levophed and vasopressin, maintain mean arterial pressures > 65 mm Hg -arterial line was inserted on 04/08/2020 (3) Perforated viscus: Code(s): R19.8 - Other specified symptoms and signs involving the digestive system and abdomen Status: Acute Assessment and Plan: CT scan abdomen and pelvis showed wall thickening of the gastric antrum with gas in the duodenal wall, retroperitoneum, small bowel mesentery, and peritoneum consistent with perforated viscus. Patietn with peritoneal signs. -04/08/2020 status post ex lap, lysis of adhesions, small-bowel resection, of wound VAC placement. - 04/09/2020: Status post 2nd laparotomy abdominal washout and 13 in of small-bowel resection along with wound VAC placement -04/11/2020: Reopening of previous laparotomy, abdominal washout, entero entero anastomosis, placement of abdominal wound VAC -continue antibiotics as above, -Surgery following the patient closely (4) Diabetes type 2, controlled: Code(s): E11.9 - Type 2 diabetes mellitus without complications Status: Acute Assessment and Plan: Continue Accu-Cheks and sliding scale insulin (5) MALCOM (acute kidney injury): Code(s): N17.9 - Acute kidney failure, unspecified Status: Acute Assessment and Plan: RESOLVED: Patient with acute kidney injury most likely related to hypotension, septic shock, hypovolemia, ATN -patient given fluids in the ED, on sodium bicarb infusion -continue monitor urine output, electrolytes and renal function -creatinine 0.7 this morning, - 3rd spacing. Continue albumin -will replace potassium and phosphorus (6) Anemia: Qualifiers: Anemia type: unspecified type Qualified Code(s): D64.9 - Anemia, unspecified Code(s): D64.9 - Anemia, unspecified Status: Chronic Assessment and Plan: History of chronic anemia with hemoglobin between 7-8. B12/folate/ferritin normal. -patient was transfused 1 unit of packed RBCs on 04/09/2020. - Hemoglobin has been stable -monitor H&H transfuse as needed (7) Suspected COVID-19 virus infection: Code(s): Z20.828 - Contact with and (suspected) exposure to other viral communicable diseases Status: Acute Assessment and Plan: Patient suspected for COVID-19 -SARS-CoV-2 PCR -NEGATIVE -patient taken OFF airborne, droplet and contact precautions -chest x-ray shows left basilar atelectasis (8) Ileus: Code(s): K56.7 - Ileus, unspecified Status: Acute Assessment and Plan: Likely resolved this patient having bowel movements and tolerating tube feeds. - CT scan on admission showed dilated small bowels without focal transition point. Likely adynamic ileus. NG tube to suction, patient is having
[2020-04-15] MEDS: TOLNAFTATE 1% POWDER 45 GM BTL 1 APPLIC TOPICAL ×2 (09:00→20:32)
--- NOTE | 2020-04-15 11:08 | PCDIET ---
ICU Rounding Note: Patient receiving Vital 1.2 at 20mL/hr without signs/symptoms of intolerance. Continues on Clinimix E at 50mL/hr with 250mL 20% lipid daily. Total enteral/parenteral nutrition providing 1880kcal and 93 grams protein daily. Recommend goal tube feeding of 60mL/hr Vital 1.2 for 1584kcal and 99g protein over presumed 22 hours/day. Would taper PN as tube feedings increase. Last recorded weight is 77.8kg which is stable. Bowel Motility: FMS in place for liquid stools. Labs Reviewed: Hgb (8.3), Hct (26.2), Glu (191), Na (134), Alb (2.3), Kayla Ca (8.66) Meds Noted: Albumin, Vasopressin, Precedex, Levophed, Novolog, Flagyl, KCl Additional Notes: Wound vac to abdomen. Following daily in ICU rounds. Assessing/reassessing every Sunday/Sunday.
[2020-04-15] MEDS: FAT EMULSIONS IV 20% 250 ML 20.8 ML IVPB (11:55)
[2020-04-15 12:12] LABS: Glucose Point of Care 191 (65-105)
--- NOTE | 2020-04-15 15:11 | PM.PNGS ---
Progress Note: A&P Assessment and Plan (1) Ischemic necrosis of small bowel: Code(s): K55.029 - Acute infarction of small intestine, extent unspecified Status: Acute Assessment and Plan: 04/08/20 - ex. lap, lysis of adhesions, small-bowel resection, placement of ABThera wound VAC 04/09/20 - Second-look laparotomy, abdominal washout, small-bowel resection, placement of abdominal wound VAC 04/12/20 - Reopening of previous laparotomy, abdominal washout, entero-entero anastomosis, placement of abdominal wound VAC Continues to improve, abd exam unchanged, +BMs. Tolerating tube feedings, will start increasing tube feedings towards recommended goal. Continue TPN for now, slowly titrate down while increasing tube feedings. (2) Respiratory failure: Qualifiers: Chronicity: acute Respiratory failure complication: unspecified whether with hypoxia or hypercapnia Qualified Code(s): J96.00 - Acute respiratory failure, unspecified whether with hypoxia or hypercapnia Code(s): J96.90 - Respiratory failure, unspecified, unspecified whether with hypoxia or hypercapnia Status: Acute Assessment and Plan: Intubated and sedated. Wean vent per CCP. (3) Shock: Code(s): R57.9 - Shock, unspecified Status: Resolved Assessment and Plan: Has been adequately fluid resuscitated. Continue antibiotics. Lactic acid continues to trend down. Vasopressors continue to be weaned down. Care per CCP. (4) Severe sepsis: Code(s): A41.9 - Sepsis, unspecified organism; R65.20 - Severe sepsis without septic shock Status: Acute Assessment and Plan: See above. Additional Plan Discussed the plan of care with Dr. Bharat zhao. Subjective Subjective Date/Time Seen: 04/15/20 15:11 Interval history: Patient intubated and sedated. Per the nurse, tolerating tube feedings with low residuals. +BMs with fecal management device Review of Systems Review of Systems: ROS unobtainable: Yes unobtainable due to endotracheal tube and unobtainable due to medical condition Exam Const: General: other (Sedated) GI: Inspection: incision (midline wound vac c/d/i) and other (mildly distended) GI Palp: Yes Soft to palpation Auscultation: Hypoactive bowel sounds present Other: FMS with brown liquid stool output Urinary Catheter: Urinary Catheter: patent and draining and urine clear Skin: General skin exam: normal color Neuro: Other: Sedated. withdraws to pain. Will not open eyes or nod on my exam. Limited exam d/t sedation. Extrem: General: edema bilateral (upper and lower ext., pitting) Objective Data Vital Signs Vital Signs: Vital Signs - 24 hr 04/14/20 16:00 04/14/20 18:00 04/14/20 20:00 Temperature 36.3 C L 37.5 C Pulse Rate 97 118 H 116 H Respiratory Rate 20 21 H 23 H Blood Pressure 117/54 L 113/56 L 128/65 Pulse Oximetry 100 100 100 04/14/20 20:02 04/14/20 21:00 04/14/20 22:00 Temperature Pulse Rate 120 H 117 H 119 H Respiratory Rate 22 H 22 H Blood Pressure 104/54 L 111/57 L Pulse Oximetry 100 100 100 04/14/20 23:05 04/14/20 23:47 04/14/20 23:49 Temperature Pulse Rate 121 H 120 H 120 H Respiratory Rate 22 H Blood Pressure 106/56 L Pulse Oximetry 100 100 04/15/20 00:00 04/15/20 02:00 04/15/20 02:40 Temperature Pulse Rate 121 H 88 85 Respiratory Rate 25 H 21 H Blood Pressure 99/53 L 115/62 Pulse Oximetry 100 100 100 04/15/20 03:55 04/15/20 03:59 04/15/20 04:00 Temperature 37.2 C Pulse Rate 81 81 83 Respiratory Rate 21 H 23 H Blood Pressure 99/53 L 109/55 L Pulse Oximetry 100 100 04/15/20 05:02 04/15/20 06:00 04/15/20 08:00 Temperature 36.7 C Pulse Rate 79 85 91 Respiratory Rate 22 H 21 H Blood Pressure 118/58 L 109/64 Pulse Oximetry 100 100 100 04/15/20 08:27 04/15/20 10:00 04/15/20 11:20 Temperature Pulse Rate 79 78 78 Respiratory Rate 18 Blood Pressure 99/56 L Pulse Oximetry 100 100 100 04/15/20 12:00
--- NOTE | 2020-04-15 16:57 | PM.IMPN ---
Progress Note: A&P Assessment and Plan (1) Perforated viscus: Code(s): R19.8 - Other specified symptoms and signs involving the digestive system and abdomen Status: Acute Assessment and Plan: CT A/P 04/07/20 showing wall thickening of the gastric antrum with gas in the duodenal wall, retroperitoneum, small bowel mesentery, and peritoneum consistent with perforated viscus. Patient taken to the OR 04/08 and is now POD#7 from a exploratory laparotomy, lysis of adhesions, small-bowel resection (approx 2 feet), placement of wound VAC. Mid to distal jejunum is noted to be viable with areas of duskiness. At the level of the proximal ileum, there was jaylin ischemia and necrosis up to 20cm proximal to the ileoccecal valve. Patient had repeat surgery 04/09/20 and is now POD #6 from a bowel resection of 13.5 inches of the distal jejunum and proximal ileum. There was no evidence of bowel leakage. 3rd surgery 04/12 viable bowel and reanastomed. Continue TPN. (2) Severe sepsis: Code(s): A41.9 - Sepsis, unspecified organism; R65.20 - Severe sepsis without septic shock Status: Acute Assessment and Plan: Severe sepsis with septic shock currently on Levophed. Related to acute peritonitis from perforated viscus and ischemic bowel. Lactic acid 3.9 on admission and peaked at 10. Better today at 2.9 this morning. Metabolic lactic acidosis and currently on bicarb drip. . Has received 2U PRBC, 6U FFP, 2U Plt, and 3U Cryo. Continue fluids and IV abx. (3) Acute renal failure: Code(s): N17.9 - Acute kidney failure, unspecified Status: Acute Assessment and Plan: Likely secondary to severe sepsis/ATN. Cr as high as 2.2 but has dropped to 0.7 today related to improved renal perfusion. Good UOP. Continue to monitor renal function and urine output. Avoid nephrotoxic agents. Renally dose medications. (4) Hypocalcemia: Code(s): E83.51 - Hypocalcemia Status: Acute Assessment and Plan: Serum calcium 7.3 now ,Albumin given good range. Continue to follow. (5) Ileus: Code(s): K56.7 - Ileus, unspecified Status: Acute Assessment and Plan: CT scan showing dilated small bowel without focal transition point related to above. As above. (6) Leukocytosis: Qualifiers: Leukocytosis type: unspecified Qualified Code(s): D72.829 - Elevated white blood cell count, unspecified Code(s): D72.829 - Elevated white blood cell count, unspecified Status: Acute Assessment and Plan: WBC 20K on admission that climbed to 33K but has now normalized which may not be a good prognistic sign. Continue to monitor CBCd. (7) Anemia: Qualifiers: Anemia type: unspecified type Qualified Code(s): D64.9 - Anemia, unspecified Code(s): D64.9 - Anemia, unspecified Status: Chronic Assessment and Plan: Chronic anemia in the 7-8 range. B12/folate/Ferritin normal. No iron studies. Hgb 10 on admission but probably more hemoconcentrated. Hgb dropped to 6.5 on 04/08 and received 1U PRBC. Hgb dropped again and received a 2nd unit on 04/09. Hgb stable in the 9 range since last transfusion(8.3 today). Continue to monitor H/H, transfuse prn. (8) Thrombocytosis: Code(s): D47.3 - Essential (hemorrhagic) thrombocythemia Status: Acute Assessment and Plan: Thrombocytosis related to above but now has converted to thrombocytopenia. Plt count has dropped to 50K range now related to consumption. Monitor closely. No Heparin products. (9) Type 2 diabetes mellitus: Qualifiers: Diabetes mellitus assisted insulin use: without assisted use Diabetes mellitus complication status: without complication Qualified Code(s): E11.9 - Type 2 diabetes mellitus without complications Code(s): E11.9 - Type 2 diabetes mellitus without complications Status: Chronic Assessment and Plan:
[2020-04-15 17:53] LABS: Glucose Point of Care 149 (65-105)
[2020-04-15] MEDS: PANTOPRAZOLE SODIUM IV 40 MG VIAL IV PUSH (20:17)
[2020-04-15 23:30] LABS: Glucose Point of Care 163 (65-105)
[2020-04-15] MEDS: ALTEPLASE 2 MG VIAL (CATHFLO) IV PUSH (23:41)
[2020-04-16] VITALS (21 sets, daily range): BP systolic 85–127; BP diastolic 42–70; PULSE 69–126; RESP 19–36; TEMP 37.2–37.8; O2SAT 100
[2020-04-16] MEDS: NOREPINEPHRINE 8 MG/D5W 250 ML 8 MG/250 ML BAG 7.5 MG IV CONT (04:19)
[2020-04-16 04:22] LABS: PCO2 ABG 29.1 mmHg (35.0-45.0); PO2 ABG 112.9 mmHg (80.0-100.0); pH ABG 7.502 (7.350-7.450)
[2020-04-16 04:23] LABS: Alveolar/Arterial O2 Gradient 66.8 mmHg; Base Excess ABG -0.4 mEq/l (+/-2.0); Carboxyhemoglobin 0.3 % THb (0-2.0); HCO3 ABG 22.3 mEq/l (22.0-26.0); Methemoglobin ABG 0.3 %THb (0-1.5); Oxygen Content ABG 12.3 %vol (16.0-22.0); Oxygen Saturation ABG 98.5 % (95.0-100.0); Oxyhemoglobin 96.5 % THb (90.0-100.0); Reduced Hemoglobin 2.9 %THb (0-5.0); Total Hemoglobin 8.9 g/dL (12.0-18.0)
[2020-04-16 04:24] LABS: Arterial Blood Gas Ventilator rate 14 /MIN; Device VENTILATOR; Fractional Inspired Oxygen 30 %; PO2 FiO2 Ratio Arterial Blood 3.76 %; Site Drawn ARTLINE
[2020-04-16 04:25] LABS: Arterial Blood Gas PEEP 5 cmH2O; Arterial Blood Gas Tidal Volume 400 ml; Arterial Blood Gas Vent Mode CMV
[2020-04-16] MEDS: metroNIDAZOLE 500 MG/ISO 100ML 500 MG/100 ML BAG 100 MG IVPB (05:35)
[2020-04-16 05:47] LABS: Triglycerides 221 mg/dL (<150)
[2020-04-16 05:48] LABS: Blood Urea Nitrogen 18 mg/dL (7-17); Calcium 7.1 mg/dL (8.4-10.2); Carbon Dioxide 24 mmol/L (22-30); Chloride 103 mmol/L (98-107); Estimated CRCL calculation 67 ml/min; Estimated Glomerular Filt Rate > 60; Glucose 231 mg/dL (65-105); Lactic Acid 1.8 mmol/L (0.7-2.1); Phosphorus 3.2 mg/dL (2.5-4.5); Potassium 3.4 mmol/L (3.4-5.0); Sodium 133 mmol/L (137-145)
[2020-04-16 05:51] LABS: Glucose Point of Care 227 (65-105)
[2020-04-16] MEDS: INSULIN ASPART (*BKC) 100 UNITS/ML SUB-Q ×2 (06:11→13:14)
[2020-04-16] MEDS: PANTOPRAZOLE SODIUM IV 40 MG VIAL IV PUSH ×2 (09:22→20:05)
[2020-04-16] MEDS: TOLNAFTATE 1% POWDER 45 GM BTL 1 APPLIC TOPICAL ×2 (09:28→20:03)
--- NOTE | 2020-04-16 09:46 | PC.NURSE ---
Patient not sedated at this time.
--- NOTE | 2020-04-16 11:03 | PCDIET ---
Nutrition Follow-Up Complete: Nutrition Diagnosis: Inadequate oral intake related to small bowel resection as evidenced by NPO status, mechanical ventilation. Nutrition Goal: Patient to meet estimated nutritional needs. Goal met. Patient now tolerating Vital 1.2 tube feedings at 40mL/hr (1056kcal, 66g protein over 22 hours/day) and Clinimix at 40mL/hr with lipids (1182kcal, 48g protein). Recommend continuing to advance tube feedings if appropriate, per surgery, to goal of 60mL/hr. In mean time, recommend cutting Clinimix to 20mL/hr with lipids for total tube feeding/TPN of 1647kcal and 72g protein daily. Last recorded weight is 75.8 kg which is down from last review. Bowel Motility: +BMs per rectal tube. MD adding Florastor today. Labs Reviewed: TG (221), Glu (227), BUN (18), Na (133), Alb (2.3), Kayla Ca (8.46), pCO2 (29.1) Meds Noted: Cefepime, Precedex, Novolog, Levophed, Protonix, KCl, Vasopressin Additional Notes: Right buttocks with deep tissue injury. Wound nurse following. Wound vac to abdomen. Will continue to monitor with same goal. Nutrition Monitoring and Evaluation: Follow up every Sunday/Sunday. Follow daily in ICU rounds.
--- NOTE | 2020-04-16 11:14 | PM.PNGS ---
Progress Note: A&P Assessment and Plan (1) Ischemic necrosis of small bowel: Code(s): K55.029 - Acute infarction of small intestine, extent unspecified Status: Acute Assessment and Plan: 04/08/20 - ex. lap, lysis of adhesions, small-bowel resection, placement of ABThera wound VAC 04/09/20 - Second-look laparotomy, abdominal washout, small-bowel resection, placement of abdominal wound VAC 04/12/20 - Reopening of previous laparotomy, abdominal washout, entero-entero anastomosis, placement of abdominal wound VAC Continues to improve, abd exam unchanged, +BMs. Tolerating tube feedings, increase to recommended goal and titrate off TPN. Wound care nurses will plan to change Wound VAC today. (2) Respiratory failure: Qualifiers: Chronicity: acute Respiratory failure complication: unspecified whether with hypoxia or hypercapnia Qualified Code(s): J96.00 - Acute respiratory failure, unspecified whether with hypoxia or hypercapnia Code(s): J96.90 - Respiratory failure, unspecified, unspecified whether with hypoxia or hypercapnia Status: Acute Assessment and Plan: Intubated and sedated. Wean vent per CCP. (3) Shock: Code(s): R57.9 - Shock, unspecified Status: Resolved Assessment and Plan: Has been adequately fluid resuscitated. Continue antibiotics. Lactic acid continues to trend down. Vasopressors continue to be weaned down. Care per CCP. (4) Severe sepsis: Code(s): A41.9 - Sepsis, unspecified organism; R65.20 - Severe sepsis without septic shock Status: Acute Assessment and Plan: See above. Additional Plan Discussed the plan of care with Dr. Nicholson today. Subjective Subjective Date/Time Seen: 04/16/20 11:14 Interval history: Patient intubated and sedated. Review of Systems Review of Systems: ROS unobtainable: Yes unobtainable due to endotracheal tube and unobtainable due to medical condition Exam Const: General: other (Sedated) Resp: Auscultation: clear to auscultation bilaterally Cardio: Rate: regular rate Rhythm: regular rhythm GI: Inspection: incision (midline wound vac c/d/i) and other (mildly distended) GI Palp: Yes Soft to palpation Auscultation: Hypoactive bowel sounds present Other: FMS with gibbs liquid stool output Urinary Catheter: Urinary Catheter: patent and draining, urine clear and urine dark Neuro: Other: Sedated. withdraws to pain. Will not open eyes or nod on my exam. Limited exam d/t sedation. Extrem: General: edema bilateral (upper and lower ext., pitting) Objective Data Vital Signs Vital Signs: Vital Signs - 24 hr 04/15/20 11:20 04/15/20 12:00 04/15/20 14:00 Temperature 37.0 C Pulse Rate 78 92 87 Respiratory Rate 19 22 H Blood Pressure 132/63 125/67 Pulse Oximetry 100 100 100 04/15/20 14:14 04/15/20 16:00 04/15/20 17:25 Temperature 37.9 C H Pulse Rate 87 91 100 Respiratory Rate 24 H Blood Pressure 119/63 Pulse Oximetry 100 100 100 04/15/20 18:00 04/15/20 20:00 04/15/20 20:15 Temperature 38.3 C H 38.3 C H Pulse Rate 98 91 Respiratory Rate 22 H 23 H Blood Pressure 113/58 L 124/61 Pulse Oximetry 99 100 04/15/20 20:40 04/15/20 20:45 04/15/20 22:00 Temperature 38.2 C H 38.0 C H Pulse Rate 100 88 Respiratory Rate 19 Blood Pressure 120/60 Pulse Oximetry 100 100 04/15/20 23:14 04/16/20 00:00 04/16/20 00:17 Temperature 37.8 C H Pulse Rate 87 78 79 Respiratory Rate 19 Blood Pressure 106/52 L Pulse Oximetry 99 100 04/16/20 01:59 04/16/20 02:00 04/16/20 04:00 Temperature 37.2 C Pulse Rate 79 79 85 Respiratory Rate 21 H 19 Blood Pressure 111/53 L 95/50 L Pulse Oximetry 100 100 100 04/16/20 04:32 04/16/20 06:00 04/16/20 08:00 Temperature Pulse Rate 85 83 74 Respiratory Rate 23 H Blood Pressure 103/52 L Pulse Oximetry 100 100 04/16/20 08:15 Temperature Pulse Rate 69 Respiratory Rate Blood Pressure Pulse Oximetry 100
--- NOTE | 2020-04-16 12:03 | WPDINTPN ---
Progress Note: A&P Assessment and Plan (1) Respiratory failure: Qualifiers: Chronicity: acute Respiratory failure complication: unspecified whether with hypoxia or hypercapnia Qualified Code(s): J96.00 - Acute respiratory failure, unspecified whether with hypoxia or hypercapnia Code(s): J96.90 - Respiratory failure, unspecified, unspecified whether with hypoxia or hypercapnia Status: Acute Assessment and Plan: Post surgery respiratory failure secondary to metabolic acidosis, ischemic bowel -patient on 30% FiO2 and peep of 5, on CMV mode of ventilation, -chest x-ray and ABGs reviewed, ventilator adjusted, decreased rate to 16 - OFF fentanyl and versed. - Not waking up off sedation meds. -continue low-dose Precedex (2) Septic shock: Code(s): A41.9 - Sepsis, unspecified organism; R65.21 - Severe sepsis with septic shock Status: Acute Assessment and Plan: Septic shock most likely related to perforated viscus, ileus, ischemic bowel -patient adequately fluid-resuscitated and continues to be fluid-resuscitated. Now on albumin -lactic acid 1.8 this morning -sputum cultures growing Klebsiella, Zosyn switched to cefepime, - metronidazole was discontinued -continue Levophed and vasopressin, maintain mean arterial pressures > 65 mm Hg -arterial line was inserted on 04/08/2020, will remove arterial line -femoral central line was removed on 04/15/2020 and JACC catheter was placed on 04/15/2020 (3) Perforated viscus: Code(s): R19.8 - Other specified symptoms and signs involving the digestive system and abdomen Status: Acute Assessment and Plan: CT scan abdomen and pelvis showed wall thickening of the gastric antrum with gas in the duodenal wall, retroperitoneum, small bowel mesentery, and peritoneum consistent with perforated viscus. Patietn with peritoneal signs. -04/08/2020 status post ex lap, lysis of adhesions, small-bowel resection, of wound VAC placement. - 04/09/2020: Status post 2nd laparotomy abdominal washout and 13 in of small-bowel resection along with wound VAC placement -04/11/2020: Reopening of previous laparotomy, abdominal washout, entero entero anastomosis, placement of abdominal wound VAC -continue antibiotics as above, -Surgery following the patient closely (4) Diabetes type 2, controlled: Code(s): E11.9 - Type 2 diabetes mellitus without complications Status: Acute Assessment and Plan: Continue Accu-Cheks and sliding scale insulin (5) MALCOM (acute kidney injury): Code(s): N17.9 - Acute kidney failure, unspecified Status: Acute Assessment and Plan: RESOLVED: Patient with acute kidney injury most likely related to hypotension, septic shock, hypovolemia, ATN -patient given fluids in the ED, off IV fluids -continue monitor urine output, electrolytes and renal function -creatinine 0.7 this morning, -lactic acid has normalized - 3rd spacing. Continue albumin -will replace potassium (6) Anemia: Qualifiers: Anemia type: unspecified type Qualified Code(s): D64.9 - Anemia, unspecified Code(s): D64.9 - Anemia, unspecified Status: Chronic Assessment and Plan: History of chronic anemia with hemoglobin between 7-8. B12/folate/ferritin normal. -patient was transfused 1 unit of packed RBCs on 04/09/2020. - Hemoglobin has been stable -monitor H&H transfuse as needed (7) Suspected COVID-19 virus infection: Code(s): Z20.828 - Contact with and (suspected) exposure to other viral communicable diseases Status: Acute Assessment and Plan: Patient suspected for COVID-19 -SARS-CoV-2 PCR -NEGATIVE -patient taken OFF airborne, droplet and contact precautions -chest x-ray shows left basilar atelectasis (8) Ileus: Code(s): K56.7 - Ileus, unspecified Status: Acute Assessment and Plan: Resolved: Likely resolved this patient having bowel movements and
[2020-04-16] MEDS: FAT EMULSIONS IV 20% 250 ML 20.8 ML IVPB (12:40)
[2020-04-16 12:42] LABS: Ammonia 32 umol/L (9-30)
[2020-04-16] MEDS: SACCHAROMYCES BOULARDII 250 MG CAPSULE PO ×2 (12:43→17:26)
[2020-04-16 13:12] LABS: Glucose Point of Care 201 (65-105)
[2020-04-16] MEDS: MICAFUNGIN SODIUM 100 MG in SODIUM CHLORIDE 0.9% IV 100 ML IVPB (15:09)
--- NOTE | 2020-04-16 17:35 | PM.IMPN ---
Progress Note: A&P Assessment and Plan (1) Perforated viscus: Code(s): R19.8 - Other specified symptoms and signs involving the digestive system and abdomen Status: Acute Assessment and Plan: CT A/P 04/07/20 showing wall thickening of the gastric antrum with gas in the duodenal wall, retroperitoneum, small bowel mesentery, and peritoneum consistent with perforated viscus. Patient taken to the OR 04/08 and is now POD#8 from a exploratory laparotomy, lysis of adhesions, small-bowel resection (approx 2 feet), placement of wound VAC. Mid to distal jejunum is noted to be viable with areas of duskiness. At the level of the proximal ileum, there was jaylin ischemia and necrosis up to 20cm proximal to the ileoccecal valve. Patient had repeat surgery 04/09/20 and is now POD #7 from a bowel resection of 13.5 inches of the distal jejunum and proximal ileum. There was no evidence of bowel leakage. 3rd surgery 04/12 viable bowel and reanastomed. Continue TPN. (2) Severe sepsis: Code(s): A41.9 - Sepsis, unspecified organism; R65.20 - Severe sepsis without septic shock Status: Acute Assessment and Plan: Severe sepsis with septic shock currently on Levophed. Related to acute peritonitis from perforated viscus and ischemic bowel. Lactic acid 3.9 on admission and peaked at 10. Better today at 1.8 this morning. Metabolic lactic acidosis and currently on bicarb drip. . Has received 2U PRBC, 6U FFP, 2U Plt, and 3U Cryo. Continue fluids and IV abx. urine now growing Klebsiella and antibiotics changed to cefepime and Blood cultures growing yeast and Micafungin started (3) Acute renal failure: Code(s): N17.9 - Acute kidney failure, unspecified Status: Acute Assessment and Plan: Likely secondary to severe sepsis/ATN. Cr as high as 2.2 but has dropped to 0.7 today related to improved renal perfusion. Good UOP. Continue to monitor renal function and urine output. (4) Hypocalcemia: Code(s): E83.51 - Hypocalcemia Status: Acute Assessment and Plan: Serum calcium 7.1 now ,with low albumin , in good range Continue to follow. (5) Ileus: Code(s): K56.7 - Ileus, unspecified Status: Acute Assessment and Plan: CT scan showing dilated small bowel without focal transition point related to above. As above. resolving with bms and tube feedings started. stopped TPN with yeast (6) Leukocytosis: Qualifiers: Leukocytosis type: unspecified Qualified Code(s): D72.829 - Elevated white blood cell count, unspecified Code(s): D72.829 - Elevated white blood cell count, unspecified Status: Acute Assessment and Plan: WBC 20K on admission that climbed to 33K but has now normalized which may not be a good prognistic sign. Continue to monitor CBCd. (7) Anemia: Qualifiers: Anemia type: unspecified type Qualified Code(s): D64.9 - Anemia, unspecified Code(s): D64.9 - Anemia, unspecified Status: Chronic Assessment and Plan: Chronic anemia in the 7-8 range. B12/folate/Ferritin normal. No iron studies. Hgb 10 on admission but probably more hemoconcentrated. Hgb dropped to 6.5 on 04/08 and received 1U PRBC. Hgb dropped again and received a 2nd unit on 04/09. Hgb stable in the 9 range since last transfusion. Continue to monitor H/H, transfuse prn. (8) Thrombocytosis: Code(s): D47.3 - Essential (hemorrhagic) thrombocythemia Status: Acute Assessment and Plan: Thrombocytosis related to above but now has converted to thrombocytopenia. Plt count has dropped to 50K range now related to consumption. Monitor closely. No Heparin products. 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
[2020-04-16 17:36] LABS: Glucose Point of Care 164 (65-105)
[2020-04-17] VITALS (24 sets, daily range): BP systolic 85–125; BP diastolic 54–70; PULSE 96–113; RESP 19–100; TEMP 37.2–38.1; O2SAT 20–100
[2020-04-17 00:02] LABS: Glucose Point of Care 182 (65-105)
[2020-04-17 04:28] LABS: Alveolar/Arterial O2 Gradient 88.2 mmHg; Base Excess ABG -1.2 mEq/l (+/-2.0); Carboxyhemoglobin 0.3 % THb (0-2.0); Fractional Inspired Oxygen 30 %; HCO3 ABG 19.5 mEq/l (22.0-26.0); Methemoglobin ABG 0.4 %THb (0-1.5); Oxygen Content ABG 18.6 %vol (16.0-22.0); Oxygen Saturation ABG 98.2 % (95.0-100.0); Oxyhemoglobin 96.5 % THb (90.0-100.0); PO2 ABG 98.3 mmHg (80.0-100.0); PO2 FiO2 Ratio Arterial Blood 3.28 %; Reduced Hemoglobin 2.8 %THb (0-5.0); Total Hemoglobin 13.6 g/dL (12.0-18.0)
[2020-04-17 04:30] LABS: Device VENTILATOR; Modified Allen's Test Pass; PCO2 ABG 23.3 mmHg (35.0-45.0); Site Drawn LEFT RADIAL
[2020-04-17 04:31] LABS: Arterial Blood Gas PEEP 5 cmH2O; Arterial Blood Gas Vent Mode ASV
[2020-04-17 05:50] LABS: Glucose Point of Care 179 (65-105)
[2020-04-17 05:55] LABS: Potassium 3.6 mmol/L (3.4-5.0)
[2020-04-17 06:00] LABS: Blood Urea Nitrogen 25 mg/dL (7-17); Calcium 7.2 mg/dL (8.4-10.2); Carbon Dioxide 19 mmol/L (22-30); Chloride 108 mmol/L (98-107); Estimated CRCL calculation 59 ml/min; Estimated Glomerular Filt Rate > 60; Glucose 195 mg/dL (65-105); Phosphorus 3.6 mg/dL (2.5-4.5); Sodium 135 mmol/L (137-145)
--- NOTE | 2020-04-17 07:49 | WPDINTPN ---
Progress Note: A&P Assessment and Plan (1) Respiratory failure: Qualifiers: Chronicity: acute Respiratory failure complication: unspecified whether with hypoxia or hypercapnia Qualified Code(s): J96.00 - Acute respiratory failure, unspecified whether with hypoxia or hypercapnia Code(s): J96.90 - Respiratory failure, unspecified, unspecified whether with hypoxia or hypercapnia Status: Acute Assessment and Plan: Post surgery respiratory failure secondary to metabolic acidosis, ischemic bowel -patient on 30% FiO2 and peep of 5, on ASV mode of ventilation, -chest x-ray and ABGs reviewed -will change minute ventilation target to 90% -will also try pressure support ventilation. Tidal volumes low and rate high on pressure support of 10/5. Patient placed on 20/5. Will continue as tolerated - OFF fentanyl and versed. -continue low-dose Precedex (2) Septic shock: Code(s): A41.9 - Sepsis, unspecified organism; R65.21 - Severe sepsis with septic shock Status: Acute Assessment and Plan: Septic shock most likely related to perforated viscus, ileus, ischemic bowel -patient adequately fluid-resuscitated Now on albumin -lactic acid has normalized -sputum cultures growing Klebsiella, Zosyn switched to cefepime, - metronidazole was discontinued -continue vasopressors as needed to maintain mean arterial pressures > 65 mm Hg -arterial line was inserted on 04/08/2020, and was later removed -femoral central line was removed on 04/15/2020 and JACC catheter was placed on 04/15/2020 -repeat blood cultures today (3) Perforated viscus: Code(s): R19.8 - Other specified symptoms and signs involving the digestive system and abdomen Status: Acute Assessment and Plan: CT scan abdomen and pelvis showed wall thickening of the gastric antrum with gas in the duodenal wall, retroperitoneum, small bowel mesentery, and peritoneum consistent with perforated viscus. Patietn with peritoneal signs. -04/08/2020 status post ex lap, lysis of adhesions, small-bowel resection, of wound VAC placement. - 04/09/2020: Status post 2nd laparotomy abdominal washout and 13 in of small-bowel resection along with wound VAC placement -04/11/2020: Reopening of previous laparotomy, abdominal washout, entero entero anastomosis, placement of abdominal wound VAC -continue antibiotics as above, -Surgery following the patient closely - wound management per surgery (4) Diabetes type 2, controlled: Code(s): E11.9 - Type 2 diabetes mellitus without complications Status: Acute Assessment and Plan: Continue Accu-Cheks and sliding scale insulin (5) MALCOM (acute kidney injury): Code(s): N17.9 - Acute kidney failure, unspecified Status: Acute Assessment and Plan: RESOLVED: Patient with acute kidney injury most likely related to hypotension, septic shock, hypovolemia, ATN -patient given fluids in the ED, off IV fluids -continue monitor urine output, electrolytes and renal function -creatinine 0.7 this morning, -lactic acid has normalized - 3rd spacing. Continue albumin -will replace potassium (6) Anemia: Qualifiers: Anemia type: unspecified type Qualified Code(s): D64.9 - Anemia, unspecified Code(s): D64.9 - Anemia, unspecified Status: Chronic Assessment and Plan: History of chronic anemia with hemoglobin between 7-8. B12/folate/ferritin normal. -patient was transfused 1 unit of packed RBCs on 04/09/2020. - Hemoglobin has been stable -monitor H&H transfuse as needed (7) Suspected COVID-19 virus infection: Code(s): Z20.828 - Contact with and (suspected) exposure to other viral communicable diseases Status: Acute Assessment and Plan: Patient suspected for COVID-19 -SARS-CoV-2 PCR -NEGATIVE -patient taken OFF airborne, droplet and contact precautions (8) Ileus: Code(s): K56.7 - Ileus, unspecified Status: Ac
[2020-04-17] MEDS: PANTOPRAZOLE SODIUM IV 40 MG VIAL IV PUSH ×2 (08:24→21:13)
[2020-04-17] MEDS: TOLNAFTATE 1% POWDER 45 GM BTL 1 APPLIC TOPICAL ×2 (08:24→21:14)
[2020-04-17 08:30] LABS: Basophils Percent Auto 0.2 % (0.2-1.2); Hematocrit 24.8 % (37.0-47.0); Immature Granulocyte Absolute 0.13 K/mm3 (0.00-0.031); Immature Granulocyte Percent A 2.1 % (0-0.5); Lymphocytes Absolute Auto 1.17 K/mm3 (0.9-3.2); Lymphocytes Percent Auto 18.7 % (18.3-44.2); Mean Corpuscular HGB Conc 32.3 g/dl (32-36); Mean Corpuscular Hemoglobin 28.9 pg (26-34); Mean Corpuscular Volume 89.5 fl (80-100); Mean Platelet Volume 11.9 fl (7.4-10.4); Monocytes Absolute Auto 0.6 K/mm3 (0.1-0.6); Monocytes Percent Auto 9.4 % (2.6-8.5); Neutrophils Absolute Auto 4.4 K/mm3 (1.3-6.7); Neutrophils Percent Auto 69.6 % (45.5-73.1); Platelet Count Result 147 k/mm3 (150-375); Red Blood Count 2.77 M/mm3 (4.2-5.4); Red Cell Distribution Width 16.9 % (11.5-14.5); White Blood Count 6.3 K/mm3 (4.5-10.0)
[2020-04-17 08:41] LABS: Lactic Acid 2.5 mmol/L (0.7-2.1); Platelet Estimate Adequate (Adequate); Poikilocytosis 1+ (NORMAL); Stomatocytes 2+ (NORMAL)
[2020-04-17] MEDS: SODIUM BICARBONATE TAB 650 MG TABLET PO ×3 (09:03→16:41)
[2020-04-17] MEDS: SACCHAROMYCES BOULARDII 250 MG CAPSULE PO ×3 (09:03→16:42)
[2020-04-17] MEDS: MICAFUNGIN SODIUM 100 MG in SODIUM CHLORIDE 0.9% IV 100 ML IVPB (09:03)
--- NOTE | 2020-04-17 09:37 | PM.PNGS ---
Progress Note: A&P Assessment and Plan (1) Ischemic necrosis of small bowel: Code(s): K55.029 - Acute infarction of small intestine, extent unspecified Status: Acute Assessment and Plan: Continue wound VAC and critical care. Resume tube feedings. (2) Encephalopathy: Code(s): G93.40 - Encephalopathy, unspecified Status: Acute Assessment and Plan: Showing some signs of improvement. (3) Respiratory failure: Qualifiers: Chronicity: acute Respiratory failure complication: unspecified whether with hypoxia or hypercapnia Qualified Code(s): J96.00 - Acute respiratory failure, unspecified whether with hypoxia or hypercapnia Code(s): J96.90 - Respiratory failure, unspecified, unspecified whether with hypoxia or hypercapnia Status: Acute Subjective Subjective Date/Time Seen: 04/17/20 09:37 Interval history: Moving a little more per nursing. Seems to be more aware. Still on ventilator. Tube feedings currently on hold due to high residual. To be restarted later this morning at 30 an hour. Review of Systems Review of Systems: ROS unobtainable: Yes unobtainable due to endotracheal tube Exam GI: Inspection: non-distended and incision (Wound VAC in place) GI Palp: Yes Soft to palpation Auscultation: Hypoactive bowel sounds present Objective Data Vital Signs Vital Signs: Vital Signs - 24 hr 04/16/20 10:00 04/16/20 11:15 04/16/20 12:00 Temperature 37.3 C Pulse Rate 93 87 92 Respiratory Rate 23 H 25 H Blood Pressure 106/54 L 122/57 L Pulse Oximetry 100 100 100 04/16/20 14:00 04/16/20 14:20 04/16/20 16:00 Temperature 37.5 C Pulse Rate 99 105 H 111 H Respiratory Rate 24 H 28 H Blood Pressure 118/64 127/62 Pulse Oximetry 100 100 100 04/16/20 17:10 04/16/20 18:00 04/16/20 19:36 Temperature Pulse Rate 109 H 126 H 124 H Respiratory Rate 33 H Blood Pressure 115/70 Pulse Oximetry 100 100 100 04/16/20 20:00 04/16/20 22:00 04/16/20 22:42 Temperature 37.7 C H Pulse Rate 122 H 114 H 117 H Respiratory Rate 36 H 30 H Blood Pressure 107/64 97/66 L Pulse Oximetry 100 100 100 04/17/20 00:00 04/17/20 01:18 04/17/20 02:00 Temperature 37.2 C Pulse Rate 112 H 106 H 107 H Respiratory Rate 28 H 34 H Blood Pressure 97/58 L 85/54 L Pulse Oximetry 100 100 100 04/17/20 04:00 04/17/20 04:31 04/17/20 04:33 Temperature 37.4 C Pulse Rate 108 H 112 H 113 H Respiratory Rate 30 H Blood Pressure 98/66 L Pulse Oximetry 100 100 04/17/20 06:00 04/17/20 08:00 04/17/20 08:12 Temperature 37.9 C H Pulse Rate 110 H 108 H 104 H Respiratory Rate 31 H 25 H Blood Pressure 99/66 L 106/62 Pulse Oximetry 100 99 99 04/17/20 08:27 04/17/20 08:57 Temperature 37.9 C H 37.7 C H Pulse Rate Respiratory Rate Blood Pressure Pulse Oximetry Intake/Output Intake/Output: Intake & Output 04/14/20 04/15/20 04/16/20 04/17/20 23:59 23:59 23:59 23:59 Intake Total 2470.4667 3245 2268.5 875 Output Total 2200 2700 3700 1500 Balance 270.4667 545 -1431.5 -625 Meds/Results Medications: Active Medications Generic Name Dose Route Start Last Admin Trade Name Freq PRN Reason Stop Dose Admin Alteplase, Recombinant 2 mg 04/12/20 09:11 04/15/20 23:41 Cathflo Activase IV PUSH 2 mg ONCE PRN Administration Line Occlusion Dextrose 12.5 gm 04/07/20 19:48 04/09/20 11:26 Dextrose 50% Syringe IV PUSH 12.5 gm PRN PRN Administration Hypoglycemia Protocol Glucagon 1 mg 04/07/20 19:48 Glucagon For Inj IM PRN PRN Hypoglycemia Protocol Dextrose 1,000 mls @ 100 mls/hr 04/07/20 19:48 Dextrose 5% 1,000 Ml IVPB PRN PRN Hypoglycemia Protocol Norepinephrine Bitartrate 8 mg in 250 mls @ 0 mls/hr 04/08/20 01:20 04/16/20 18:11 Levophed 8 Mg/D5w 250 Ml IV CONT 0 mcg/min .Q0M YAKELIN 0 mls/hr Titration Protocol 0 MCG/MIN Vasopressin 100 units/ 1
[2020-04-17] MEDS: ALTEPLASE 2 MG VIAL (CATHFLO) IV PUSH ×2 (11:52→14:22)
[2020-04-17 12:08] LABS: Glucose Point of Care 158 (65-105)
--- NOTE | 2020-04-17 15:14 | PM.IMPN ---
Progress Note: A&P Assessment and Plan (1) Perforated viscus: Code(s): R19.8 - Other specified symptoms and signs involving the digestive system and abdomen Status: Acute Assessment and Plan: CT A/P 04/07/20 showing wall thickening of the gastric antrum with gas in the duodenal wall, retroperitoneum, small bowel mesentery, and peritoneum consistent with perforated viscus. Patient taken to the OR 04/08 and is now POD#9 from a exploratory laparotomy, lysis of adhesions, small-bowel resection (approx 2 feet), placement of wound VAC. Mid to distal jejunum is noted to be viable with areas of duskiness. At the level of the proximal ileum, there was jaylin ischemia and necrosis up to 20cm proximal to the ileoccecal valve. Patient had repeat surgery 04/09/20 and is now POD #8 from a bowel resection of 13.5 inches of the distal jejunum and proximal ileum. There was no evidence of bowel leakage. 3rd surgery 04/12 POD#5 viable bowel and reanastomed. TPN stopped with yeast in blood 04/16. (2) Severe sepsis: Code(s): A41.9 - Sepsis, unspecified organism; R65.20 - Severe sepsis without septic shock Status: Acute Assessment and Plan: Severe sepsis with septic shock currently on Levophed. Related to acute peritonitis from perforated viscus and ischemic bowel. Lactic acid 3.9 on admission and peaked at 10. today at 2.5 this morning. Metabolic lactic acidosis and currently on bicarb drip. . Has received 3U PRBC, 6U FFP, 2U Plt, and 3U Cryo. Continue fluids and IV abx. urine now growing Klebsiella and antibiotics changed to cefepime 04/16 and Blood cultures growing yeast and Micafungin started 04/16 (3) Acute renal failure: Code(s): N17.9 - Acute kidney failure, unspecified Status: Acute Assessment and Plan: Likely secondary to severe sepsis/ATN. Cr as high as 2.2 but has dropped to 0.7 today related to improved renal perfusion. Good UOP. Continue to monitor renal function and urine output. (4) Hypocalcemia: Code(s): E83.51 - Hypocalcemia Status: Acute Assessment and Plan: Serum calcium 7.2 now ,with low albumin , in good range Continue to follow. (5) Ileus: Code(s): K56.7 - Ileus, unspecified Status: Acute Assessment and Plan: CT scan showing dilated small bowel without focal transition point related to above. As above. resolving with bms and tube feedings started 04/16. stopped TPN with yeast (6) Leukocytosis: Qualifiers: Leukocytosis type: unspecified Qualified Code(s): D72.829 - Elevated white blood cell count, unspecified Code(s): D72.829 - Elevated white blood cell count, unspecified Status: Acute Assessment and Plan: WBC 20K on admission that climbed to 33K but has now normalized(6.3) which may not be a good prognistic sign. Continue to monitor CBC (7) Anemia: Qualifiers: Anemia type: unspecified type Qualified Code(s): D64.9 - Anemia, unspecified Code(s): D64.9 - Anemia, unspecified Status: Chronic Assessment and Plan: Chronic anemia in the 7-8 range. B12/folate/Ferritin normal. No iron studies. Hgb 10 on admission but probably more hemoconcentrated. Hgb dropped to 6.5 on 04/08 and received 1U PRBC. Hgb dropped again and received a 2nd unit on 04/09. Hgb stable in the 9 range since last transfusion. Continue to monitor H/H, transfuse prn. (8) Thrombocytosis: Code(s): D47.3 - Essential (hemorrhagic) thrombocythemia Status: Acute Assessment and Plan: Thrombocytosis related to above but now has converted to thrombocytopenia. Plt count dropped to 50K range now related to consumption and rebounded to 143K today.. Monitor closely. No Heparin products. (9) Type 2 diabetes mellitus: Qualifiers: Diabetes mellitus manager long term care insulin use: without skilled nursing use Diabetes mellitus complication status: without complicatio
[2020-04-17 18:10] LABS: Glucose Point of Care 169 (65-105)
[2020-04-18] VITALS (26 sets, daily range): BP systolic 102–139; BP diastolic 60–89; PULSE 92–127; RESP 12–32; TEMP 36.2–37.4; O2SAT 98–100
[2020-04-18 00:18] LABS: Glucose Point of Care 150 (65-105)
[2020-04-18 04:31] LABS: Alveolar/Arterial O2 Gradient 72.4 mmHg; Base Excess ABG -2.8 mEq/l (+/-2.0); Carboxyhemoglobin 0.3 % THb (0-2.0); Fractional Inspired Oxygen 30 %; HCO3 ABG 18.9 mEq/l (22.0-26.0); Methemoglobin ABG 0.2 %THb (0-1.5); Oxygen Content ABG 11.7 %vol (16.0-22.0); Oxygen Saturation ABG 98.7 % (95.0-100.0); Oxyhemoglobin 96.8 % THb (90.0-100.0); PO2 ABG 114.8 mmHg (80.0-100.0); PO2 FiO2 Ratio Arterial Blood 3.83 %; Reduced Hemoglobin 2.7 %THb (0-5.0); Total Hemoglobin 8.4 g/dL (12.0-18.0)
[2020-04-18 04:36] LABS: Modified Allen's Test Pass; PCO2 ABG 22.7 mmHg (35.0-45.0); Site Drawn RIGHT RADIAL; pH ABG 7.539 (7.350-7.450)
[2020-04-18 04:37] LABS: Arterial Blood Gas PEEP 5 cmH2O; Arterial Blood Gas Vent Mode ASV; Device VENTILATOR
[2020-04-18 05:38] LABS: Hematocrit 25.5 % (37.0-47.0); Hemoglobin 7.9 g/dL (12.0-15.0); Mean Corpuscular Hemoglobin 28.8 pg (26-34); Mean Corpuscular Volume 93.1 fl (80-100); Platelet Count Result 251 k/mm3 (150-375); Red Blood Count 2.74 M/mm3 (4.2-5.4); Red Cell Distribution Width 17.7 % (11.5-14.5); White Blood Count 6.5 K/mm3 (4.5-10.0)
[2020-04-18 05:53] LABS: Alanine Aminotransferase 16 U/L (4-35); Albumin Level 2.5 g/dL (3.5-5.1); Alkaline Phosphatase 230 U/L (38-126); Aspartate Amino Transferase 24 U/L (14-36); Bilirubin,Total 2.5 mg/dL (0.2-1.3); Blood Urea Nitrogen 27 mg/dL (7-17); Calcium 7.1 mg/dL (8.4-10.2); Carbon Dioxide 21 mmol/L (22-30); Chloride 110 mmol/L (98-107); Estimated CRCL calculation 68 ml/min; Estimated Glomerular Filt Rate > 60; Glucose 177 mg/dL (65-105); Lactic Acid 1.3 mmol/L (0.7-2.1); Magnesium 2.4 mg/dL (1.6-2.3); Phosphorus 3.6 mg/dL (2.5-4.5); Potassium 3.2 mmol/L (3.4-5.0); Sodium 138 mmol/L (137-145)
[2020-04-18 06:47] LABS: Glucose Point of Care 159 (65-105)
--- NOTE | 2020-04-18 07:00 | WPDINTPN ---
Progress Note: A&P Assessment and Plan (1) Respiratory failure: Qualifiers: Chronicity: acute Respiratory failure complication: unspecified whether with hypoxia or hypercapnia Qualified Code(s): J96.00 - Acute respiratory failure, unspecified whether with hypoxia or hypercapnia Code(s): J96.90 - Respiratory failure, unspecified, unspecified whether with hypoxia or hypercapnia Status: Acute Assessment and Plan: Post surgery respiratory failure secondary to metabolic acidosis, ischemic bowel -patient on 30% FiO2 and peep of 5, on ASV mode of ventilation, -chest x-ray and ABGs reviewed -ASV minute ventilation target 04/17 changed to 90% -patient tolerated pressure support 20/5 for few hours yesterday. Anything below that patient has high RSBI. She appears to be very weak. I will again try pressure support ventilation today as tolerated and try to wean down on the pressure support. -this is day 10 for patient on ventilator and she does not appear anywhere close to being weaned or extubated. I will continue to work on weaning for next few days but if that does not work, she will need tracheostomy if desired by patient and family - OFF fentanyl and versed. -continue low-dose Precedex (2) Septic shock: Code(s): A41.9 - Sepsis, unspecified organism; R65.21 - Severe sepsis with septic shock Status: Acute Assessment and Plan: Septic shock most likely related to perforated viscus, ileus, ischemic bowel -patient adequately fluid-resuscitated Now on albumin -lactic acid has normalized -sputum cultures growing Klebsiella, Zosyn switched to cefepime, - metronidazole was discontinued -continue vasopressors as needed to maintain mean arterial pressures > 65 mm Hg -arterial line was inserted on 04/08/2020, and was later removed -femoral central line was removed on 04/15/2020 and JACC catheter was placed on 04/15/2020 -repeat blood cultures sent 04/17 (3) Perforated viscus: Code(s): R19.8 - Other specified symptoms and signs involving the digestive system and abdomen Status: Acute Assessment and Plan: CT scan abdomen and pelvis showed wall thickening of the gastric antrum with gas in the duodenal wall, retroperitoneum, small bowel mesentery, and peritoneum consistent with perforated viscus. Patietn with peritoneal signs. -04/08/2020 status post ex lap, lysis of adhesions, small-bowel resection, of wound VAC placement. - 04/09/2020: Status post 2nd laparotomy abdominal washout and 13 in of small-bowel resection along with wound VAC placement -04/11/2020: Reopening of previous laparotomy, abdominal washout, entero entero anastomosis, placement of abdominal wound VAC -continue antibiotics as above, -Surgery following the patient closely - wound management per surgery (4) Diabetes type 2, controlled: Code(s): E11.9 - Type 2 diabetes mellitus without complications Status: Acute Assessment and Plan: Continue Accu-Cheks and sliding scale insulin (5) MALCOM (acute kidney injury): Code(s): N17.9 - Acute kidney failure, unspecified Status: Acute Assessment and Plan: RESOLVED: Patient with acute kidney injury most likely related to hypotension, septic shock, hypovolemia, ATN -patient given fluids in the ED, off IV fluids -continue monitor urine output, electrolytes and renal function -creatinine 0.7 this morning, -lactic acid has normalized - 3rd spacing. Continue albumin -will replace low potassium (6) Anemia: Qualifiers: Anemia type: unspecified type Qualified Code(s): D64.9 - Anemia, unspecified Code(s): D64.9 - Anemia, unspecified Status: Chronic Assessment and Plan: History of chronic anemia with hemoglobin between 7-8. B12/folate/ferritin normal. -patient was transfused 1 unit of packed RBCs on 04/09/2020. - Hemoglobin has been stable -monitor H&H transfuse as needed (7) Suspected COVID-19 virus i
[2020-04-18] MEDS: TOLNAFTATE 1% POWDER 45 GM BTL 1 APPLIC TOPICAL ×2 (08:58→19:35)
[2020-04-18] MEDS: SACCHAROMYCES BOULARDII 250 MG CAPSULE PO ×3 (08:59→17:32)
[2020-04-18] MEDS: PANTOPRAZOLE SODIUM IV 40 MG VIAL IV PUSH ×2 (08:59→19:35)
[2020-04-18] MEDS: SODIUM BICARBONATE TAB 650 MG TABLET 1300 MG PO ×3 (08:59→17:32)
[2020-04-18] MEDS: MICAFUNGIN SODIUM 100 MG in SODIUM CHLORIDE 0.9% IV 100 ML IVPB (09:00)
[2020-04-18] MEDS: POTASSIUM CHLORIDE 20 MEQ PACKET (FOR LIQUID) 40 MEQ PO (09:00)
[2020-04-18] MEDS: ENOXAPARIN 40 MG/0.4 ML SYRINGE SUB-Q (09:22)
[2020-04-18] MEDS: METOCLOPRAMIDE HCL 10 MG/10 ML SOLN UDC PO ×3 (09:22→19:34)
[2020-04-18 11:48] LABS: Glucose Point of Care 162 (65-105)
--- NOTE | 2020-04-18 14:26 | WPDINFPN2 ---
Progress Note: A&P Additional Plan Pt was seen and consult dictated. thank you. Subjective Date/time seen: 04/18/20 14:26 Objective Data Vital Signs Vital Signs: Vital Signs - 24 hr 04/17/20 16:00 04/17/20 16:53 04/17/20 18:11 Temperature 37.4 C Pulse Rate 103 H 97 101 H Respiratory Rate 32 H Blood Pressure 112/65 Pulse Oximetry 98 100 04/17/20 18:12 04/17/20 19:30 04/17/20 20:00 Temperature 38.1 C H Pulse Rate 101 H 97 103 H Respiratory Rate 30 H 32 H Blood Pressure 113/70 125/69 Pulse Oximetry 100 99 100 04/17/20 22:00 04/17/20 23:00 04/18/20 00:00 Temperature 37.2 C 37.1 C Pulse Rate 113 H 111 H 109 H Respiratory Rate 29 H 27 H Blood Pressure 111/64 120/71 Pulse Oximetry 100 100 98 04/18/20 02:00 04/18/20 02:10 04/18/20 04:00 Temperature 37.2 C Pulse Rate 95 92 95 Respiratory Rate 32 H 28 H Blood Pressure 108/79 110/78 Pulse Oximetry 100 100 100 04/18/20 04:41 04/18/20 06:00 04/18/20 07:50 Temperature Pulse Rate 95 96 93 Respiratory Rate 31 H Blood Pressure 122/60 Pulse Oximetry 100 100 100 04/18/20 08:00 04/18/20 08:01 04/18/20 10:00 Temperature 37.4 C Pulse Rate 93 94 101 H Respiratory Rate 20 Blood Pressure 111/63 Pulse Oximetry 100 04/18/20 10:01 04/18/20 10:56 04/18/20 11:33 Temperature 37.3 C Pulse Rate 100 119 H Respiratory Rate 32 H Blood Pressure 120/71 Pulse Oximetry 100 99 04/18/20 12:00 04/18/20 12:12 Temperature Pulse Rate 112 H 112 H Respiratory Rate 20 Blood Pressure 102/76 Pulse Oximetry 99 100 Intake/Output Intake/Output: Intake & Output 04/15/20 04/16/20 04/17/20 04/18/20 23:59 23:59 23:59 23:59 Intake Total 3245 2268.5 1301.4 646 Output Total 2700 3700 2750 1500 Balance 545 -1431.5 -1448.6 -854 Meds/Results Medications: Active Medications Generic Name Dose Route Start Last Admin Trade Name Freq PRN Reason Stop Dose Admin Alteplase, Recombinant 2 mg 04/12/20 09:11 04/17/20 14:22 Cathflo Activase IV PUSH 2 mg ONCE PRN Administration Line Occlusion Dextrose 12.5 gm 04/07/20 19:48 04/09/20 11:26 Dextrose 50% Syringe IV PUSH 12.5 gm PRN PRN Administration Hypoglycemia Protocol Enoxaparin Sodium 40 mg 04/18/20 09:00 04/18/20 09:22 Lovenox SUB-Q 40 mg DAILY YAKELIN Administration Fentanyl Citrate 25 mcg 04/18/20 11:30 04/18/20 11:56 Sublimaze IV PUSH 25 mcg Q2H PRN Administration Pain Rated 7-10 Glucagon 1 mg 04/07/20 19:48 Glucagon For Inj IM PRN PRN Hypoglycemia Protocol Dextrose 1,000 mls @ 100 mls/hr 04/07/20 19:48 Dextrose 5% 1,000 Ml IVPB PRN PRN Hypoglycemia Protocol Norepinephrine Bitartrate 8 mg in 250 mls @ 0 mls/hr 04/08/20 01:20 04/18/20 09:37 Levophed 8 Mg/D5w 250 Ml IV CONT Infused .Q0M YAKELIN Titration Protocol 0 MCG/MIN Dextrose 1,000 mls @ 50 mls/hr 04/10/20 10:47 Dextrose 10% IV CONT .Q20H PRN if PN is interrupted Dexmedetomidine HCl 400 mcg in 100 mls @ 7.72 mls/hr 04/14/20 22:50 04/18/20 13:20 Precedex 400 Mcg/100 Ml IV CONT 0.4 mcg/kg/hr .[id number] YAKELIN 7.7 mls/hr Titration Protocol 0.4 MCG/KG/HR Cefepime HCl 2 gm in 50 mls @ 100 mls/hr 04/16/20 08:05 04/18/20 09:32 Maxipime 2 Gm/D5w 50 Ml IVPB Infused Q8H YAKELIN Infusion Micafungin Sodium 100 mg/ 100 mls @ 100 mls/hr 04/16/20 14:35 04/18/20 09:45 Sodium Chloride IVPB Infused DAILY YAKELIN Infusion Insulin Aspart 2 - 5 units 04/08/20 00:00 04/18/20 11:46 Novolog SUB-Q Not Given Q6HR [facility] Protocol Levalbuterol HCl 2 puff 04/07/20 19:47 Xopenex Hfa INHALATION Q6HRT PRN Shortness Of Breath Metoclopramide HCl 10 mg 04/18/20 08:00 04/18/20 13:13 Reglan Liquid PO 10 mg Q6H [facility] Administration Miconazole Nitrate 1 applic 04/16/20 09:00 04/18/20 08:59 Aloe [place] TOPICAL 1 applic Q12HR YAKELIN
--- NOTE | 2020-04-18 15:49 | PM.IMPN ---
Progress Note: A&P Assessment and Plan (1) Perforated viscus: Code(s): R19.8 - Other specified symptoms and signs involving the digestive system and abdomen Status: Acute Assessment and Plan: CT A/P 04/07/20 showing wall thickening of the gastric antrum with gas in the duodenal wall, retroperitoneum, small bowel mesentery, and peritoneum consistent with perforated viscus. Patient taken to the OR 04/08 and is now POD#10 from a exploratory laparotomy, lysis of adhesions, small-bowel resection (approx 2 feet), placement of wound VAC. Mid to distal jejunum is noted to be viable with areas of duskiness. At the level of the proximal ileum, there was jaylin ischemia and necrosis up to 20cm proximal to the ileoccecal valve. Patient had repeat surgery 04/09/20 and is now POD #9 from a bowel resection of 13.5 inches of the distal jejunum and proximal ileum. There was no evidence of bowel leakage. 3rd surgery 04/12 POD#6 viable bowel and reanastomed. TPN stopped with yeast in blood 04/16. Tube feedings now and possible Dobhoff 04/19 (2) Severe sepsis: Code(s): A41.9 - Sepsis, unspecified organism; R65.20 - Severe sepsis without septic shock Status: Acute Assessment and Plan: Severe sepsis with septic shock currently on Levophed. Related to acute peritonitis from perforated viscus and ischemic bowel. Lactic acid 3.9 on admission and peaked at 10. today at 1.3 this morning. Metabolic lactic acidosis and currently on bicarb drip. . Has received 3U PRBC, 6U FFP, 2U Plt, and 3U Cryo. Continue fluids and IV abx. urine now growing Klebsiella and antibiotics changed to cefepime 04/16 and Blood cultures growing yeast and Micafungin started 04/16 (3) Acute renal failure: Code(s): N17.9 - Acute kidney failure, unspecified Status: Acute Assessment and Plan: Likely secondary to severe sepsis/ATN. Cr as high as 2.2 but has dropped to 0.7 today related to improved renal perfusion. Good UOP. Continue to monitor renal function and urine output. (4) Hypocalcemia: Code(s): E83.51 - Hypocalcemia Status: Acute Assessment and Plan: Serum calcium 7.1 now ,with low albumin , in good range Continue to follow. (5) Ileus: Code(s): K56.7 - Ileus, unspecified Status: Acute Assessment and Plan: CT scan showing dilated small bowel without focal transition point related to above. As above. resolving with bms and tube feedings started 04/16. stopped TPN with yeast (6) Leukocytosis: Qualifiers: Leukocytosis type: unspecified Qualified Code(s): D72.829 - Elevated white blood cell count, unspecified Code(s): D72.829 - Elevated white blood cell count, unspecified Status: Acute Assessment and Plan: WBC 20K on admission that climbed to 33K but has now normalized(6.3) which may not be a good prognistic sign. Continue to monitor CBC (7) Anemia: Qualifiers: Anemia type: unspecified type Qualified Code(s): D64.9 - Anemia, unspecified Code(s): D64.9 - Anemia, unspecified Status: Chronic Assessment and Plan: Chronic anemia in the 7-8 range. B12/folate/Ferritin normal. No iron studies. Hgb 10 on admission but probably more hemoconcentrated. Hgb dropped to 6.5 on 04/08 and received 1U PRBC. Hgb dropped again and received a 2nd unit on 04/09. Hgb stable in the 9 range since last transfusion. Continue to monitor H/H, transfuse prn. (8) Thrombocytosis: Code(s): D47.3 - Essential (hemorrhagic) thrombocythemia Status: Acute Assessment and Plan: Thrombocytosis related to above but now has converted to thrombocytopenia. Plt count dropped to 50K range now related to consumption and rebounded to 251K today.. Lovenox started for DVT prophylaxis (9) Type 2 diabetes mellitus: Qualifiers: Diabetes mellitus medical terminologist insulin use: without medical terminologist use Diabetes deepa
[2020-04-18 16:44] LABS: Alveolar/Arterial O2 Gradient 95.1 mmHg; Base Excess ABG -5.3 mEq/l (+/-2.0); Fractional Inspired Oxygen 30 %; Oxygen Content ABG 12.1 %vol (16.0-22.0); Oxygen Saturation ABG 97.7 % (95.0-100.0); Oxyhemoglobin 95.5 % THb (90.0-100.0); PCO2 ABG 22.9 mmHg (35.0-45.0); PO2 ABG 91.9 mmHg (80.0-100.0); PO2 FiO2 Ratio Arterial Blood 3.06 %; Total Hemoglobin 8.9 g/dL (12.0-18.0); pH ABG 7.488 (7.350-7.450)
[2020-04-18 16:45] LABS: Arterial Blood Gas PEEP 5 cmH2O; Arterial Blood Gas Vent Mode CMV; Arterial Blood Gas Ventilator rate 18 /MIN; Device VENTILATOR; Modified Allen's Test Pass; Site Drawn LEFT RADIAL
[2020-04-18 16:46] LABS: Arterial Blood Gas Tidal Volume 360 ml
[2020-04-18] MEDS: SODIUM CHLORIDE 0.9% IV 500 ML IV CONT (17:24)
[2020-04-18 17:39] LABS: Glucose Point of Care 185 (65-105)
[2020-04-18] MEDS: SODIUM BICARBONATE 8.4% 150 MEQ in WATER, STERILE FOR INJECTION 950 ML 75 MEQ IV CONT (19:31)
--- NOTE | 2020-04-18 20:12 | CONS_ITS ---
DATE OF CONSULTATION: 04/18/2020 REQUESTING PHYSICIAN: TABITHA] REASON FOR CONSULTATION: Candidemia. HISTORY OF PRESENT ILLNESS: This is a 69-year-old female with significant past medical history of type 2 diabetes with recently treated at the hospital for Clostridium difficile colitis and sent home, returned to the hospital on 04/07/2020 with acute abdominal pain, subsequently found to have perforated viscus and taken to the operating room on April 08, found to have small intestinal infarction requiring resection. The patient since then has had a prolonged recovery, apparently around the , spiked a temperature and blood cultures done at that time, several days later showed yeast in the blood. The patient had a right groin central line, which has been removed. A newer line has been in the right jugular area. Infectious Disease was consulted for further antifungal management. Currently, the patient is intubated and sedated. Therefore, history is obtained from the chart. REVIEW OF SYSTEMS: Unable to obtain since the patient is intubated and sedated and nonverbal. PAST MEDICAL HISTORY: Significant for anemia, COPD, Crohn disease, dyslipidemia, gastroesophageal reflux disease, type 2 diabetes, and osteoarthritis. PAST SURGICAL HISTORY: Cholecystectomy, hysterectomy, and right hip surgery. FAMILY HISTORY: Positive for hypertension, COPD, and congestive heart failure, as well as diabetes. REVIEW OF SYSTEMS: Unable to obtain. The patient is intubated and sedated. MEDICATIONS: At home, 1. Albuterol. 2. Atorvastatin. 3. Fenofibrate. 4. Fentanyl. 5. Furosemide. 6. Gabapentin. 7. Hydrocerin. 8. Metformin. 9. Midodrine. 10. Pantoprazole. 11. Miconazole. 12. Phenol. 13. Vancomycin p.o., completed on 04/07. Medications in the hospital, currently, the patient is on 1. Mycamine, day #3. 2. Cefepime, day #3. 3. Norepinephrine. 4. Insulin. 5. Pantoprazole. 6. Enoxaparin. 7. Insulin sliding scale. PHYSICAL EXAMINATION: GENERAL: The patient is intubated and sedated. VITAL SIGNS: Temperature is 37, pulse rate of 112, respiratory rate of 20, blood pressure of 102/78, saturating 97% on 30% FiO2. HEAD AND NECK EXAMINATION: Normocephalic, atraumatic. ET tube is in place. NECK: Supple. Right internal jugular line in place. LUNGS: Poor inspiratory effort. Scattered rhonchi. CARDIOVASCULAR SYSTEM: Positive S1, positive S2. Slightly tachycardic. No murmur. ABDOMINAL EXAM: Hypoactive bowel sound. Laparotomy site wound VAC in place. No surrounding erythema. GENITOURINARY: Indwelling catheter in place. EXTREMITIES: Trace edema. NEUROLOGICAL: The patient is sedated and intubated. LABORATORY EXAMINATION: Blood culture from April 17, so far negative. Blood culture 1/2 sets from April 12, is showing yeast. Second set is negative. Sputum culture is showing Klebsiella pneumoniae, susceptibilities pending. Chest x-ray, mild interstitial edema without significant change. CT scan of the abdomen and pelvis on the showed wall thickening of the gastric antrum consistent with septic ulcer disease, gas in the duodenal wall and retroperitoneum, small bowel mesentery, and peritoneum consistent with perforated viscus. ASSESSMENT AND PLAN: 1. Fungemia in a patient who is a high risk due to recent abdominal surgery, antibiotics use, and central line placement, empirically started on Mycamine. I agree mostly christopher family is the culprit. Identification of the yeast is pending. Therefore, empiric Mycamine therapy is reasonable. Repeat blood cultures have been so far negative. Follow up on identification of organism and adjust antifungal accordingly. Central line has been removed. A new central line in the right IJ has been melodie
[2020-04-18 23:51] LABS: Glucose Point of Care 186 (65-105)
[2020-04-19] VITALS (25 sets, daily range): BP systolic 101–151; BP diastolic 58–97; PULSE 11–117; RESP 12–32; TEMP 36.1–38.4; O2SAT 98–100
[2020-04-19] MEDS: METOCLOPRAMIDE HCL 10 MG/10 ML SOLN UDC PO ×4 (02:52→19:57)
[2020-04-19 03:59] LABS: Alveolar/Arterial O2 Gradient 55.1 mmHg; Carboxyhemoglobin 0.3 % THb (0-2.0); Fractional Inspired Oxygen 30 %; HCO3 ABG 21.3 mEq/l (22.0-26.0); Methemoglobin ABG 0.3 %THb (0-1.5); Oxygen Content ABG 12.1 %vol (16.0-22.0); Oxygen Saturation ABG 98.9 % (95.0-100.0); Oxyhemoglobin 96.6 % THb (90.0-100.0); PCO2 ABG 26.8 mmHg (35.0-45.0); PO2 ABG 127.3 mmHg (80.0-100.0); PO2 FiO2 Ratio Arterial Blood 4.24 %; Reduced Hemoglobin 2.8 %THb (0-5.0); Total Hemoglobin 8.7 g/dL (12.0-18.0)
[2020-04-19 04:01] LABS: Device VENTILATOR; Modified Allen's Test Pass; Site Drawn LEFT RADIAL; pH ABG 7.518 (7.350-7.450)
[2020-04-19 04:02] LABS: Arterial Blood Gas PEEP 5 cmH2O; Arterial Blood Gas Tidal Volume 360 ml; Arterial Blood Gas Vent Mode CMV; Arterial Blood Gas Ventilator rate 15 /MIN
[2020-04-19 05:02] LABS: Hematocrit 22.7 % (37.0-47.0); Mean Corpuscular HGB Conc 30.4 g/dl (32-36); Mean Corpuscular Hemoglobin 28.5 pg (26-34); Mean Corpuscular Volume 93.8 fl (80-100); Mean Platelet Volume 10.9 fl (7.4-10.4); Platelet Count Result 301 k/mm3 (150-375); Red Blood Count 2.42 M/mm3 (4.2-5.4); Red Cell Distribution Width 17.6 % (11.5-14.5); White Blood Count 6.6 K/mm3 (4.5-10.0)
[2020-04-19 05:16] LABS: Alanine Aminotransferase 17 U/L (4-35); Albumin Level 2.2 g/dL (3.5-5.1); Alkaline Phosphatase 231 U/L (38-126); Aspartate Amino Transferase 26 U/L (14-36); Bilirubin,Total 1.8 mg/dL (0.2-1.3); Blood Urea Nitrogen 27 mg/dL (7-17); Calcium 6.7 mg/dL (8.4-10.2); Carbon Dioxide 24 mmol/L (22-30); Chloride 112 mmol/L (98-107); Estimated CRCL calculation 59 ml/min; Estimated Glomerular Filt Rate > 60; Glucose 192 mg/dL (65-105); Lactic Acid 1.4 mmol/L (0.7-2.1); Magnesium 2.4 mg/dL (1.6-2.3); Phosphorus 2.8 mg/dL (2.5-4.5); Potassium 3.4 mmol/L (3.4-5.0); Sodium 141 mmol/L (137-145)
[2020-04-19 05:29] LABS: Hemoglobin 6.9 g/dL (12.0-15.0)
--- NOTE | 2020-04-19 08:10 | WPDINTPN ---
Progress Note: A&P Assessment and Plan (1) Respiratory failure: Qualifiers: Chronicity: acute Respiratory failure complication: unspecified whether with hypoxia or hypercapnia Qualified Code(s): J96.00 - Acute respiratory failure, unspecified whether with hypoxia or hypercapnia Code(s): J96.90 - Respiratory failure, unspecified, unspecified whether with hypoxia or hypercapnia Status: Acute Assessment and Plan: Post surgery respiratory failure secondary to metabolic acidosis, ischemic bowel -patient on 30% FiO2 and peep of 5, -I have tried various mode including high pressure support and a ASV optimize weaning but patient fails after some time with high RSBI. I switch patient back to assist control ventilation yesterday after patient failed pressure support of 20/5 and then ASV mode. Continue assist control but will decrease volume to 320 -some of the tachypnea appears to be driven by pain and hence fentanyl was added. I will start a low rate fentanyl drip -chest x-ray and ABGs reviewed -She appears to be very weak. I will again try pressure support ventilation today as tolerated and try to wean down on the pressure support. -this is day 11 for patient on ventilator and she does not appear anywhere close to being weaned or extubated. I will continue to work on weaning for next few days but if that does not work, she will need tracheostomy if desired by patient and family (2) Septic shock: Code(s): A41.9 - Sepsis, unspecified organism; R65.21 - Severe sepsis with septic shock Status: Acute Assessment and Plan: Septic shock most likely related to perforated viscus, ileus, ischemic bowel -patient adequately fluid-resuscitated Now on albumin -lactic acid has normalized -sputum cultures growing Klebsiella, Zosyn switched to cefepime, - metronidazole was discontinued -continue vasopressors as needed to maintain mean arterial pressures > 65 mm Hg -arterial line was inserted on 04/08/2020, and was later removed -femoral central line was removed on 04/15/2020 and JACC catheter was placed on 04/15/2020 -repeat blood cultures sent 04/17 and are negative at this time (3) Perforated viscus: Code(s): R19.8 - Other specified symptoms and signs involving the digestive system and abdomen Status: Acute Assessment and Plan: CT scan abdomen and pelvis showed wall thickening of the gastric antrum with gas in the duodenal wall, retroperitoneum, small bowel mesentery, and peritoneum consistent with perforated viscus. Patietn with peritoneal signs. -04/08/2020 status post ex lap, lysis of adhesions, small-bowel resection, of wound VAC placement. - 04/09/2020: Status post 2nd laparotomy abdominal washout and 13 in of small-bowel resection along with wound VAC placement -04/11/2020: Reopening of previous laparotomy, abdominal washout, entero entero anastomosis, placement of abdominal wound VAC -continue antibiotics as above, -Surgery following the patient closely - wound management per surgery (4) Diabetes type 2, controlled: Code(s): E11.9 - Type 2 diabetes mellitus without complications Status: Acute Assessment and Plan: Continue Accu-Cheks and sliding scale insulin (5) MALCOM (acute kidney injury): Code(s): N17.9 - Acute kidney failure, unspecified Status: Acute Assessment and Plan: RESOLVED: Patient with acute kidney injury most likely related to hypotension, septic shock, hypovolemia, ATN -patient given fluids in the ED, off IV fluids -continue monitor urine output, electrolytes and renal function -creatinine has normalized -lactic acid has normalized - 3rd spacing. -will replace low potassium (6) Anemia: Qualifiers: Anemia type: unspecified type Qualified Code(s): D64.9 - Anemia, unspecified Code(s): D64.9 - Anemia, unspecified Status: Chronic Assessment and Plan: History of chronic anemia with hemogl
[2020-04-19] MEDS: SODIUM CHLORIDE 0.9% IV 250 ML 30 ML IV CONT (08:16)
[2020-04-19] MEDS: MICAFUNGIN SODIUM 100 MG in SODIUM CHLORIDE 0.9% IV 100 ML IVPB (08:17)
[2020-04-19] MEDS: PANTOPRAZOLE SODIUM IV 40 MG VIAL IV PUSH ×2 (08:21→20:00)
[2020-04-19] MEDS: ENOXAPARIN 40 MG/0.4 ML SYRINGE SUB-Q (08:21)
[2020-04-19] MEDS: SODIUM BICARBONATE TAB 650 MG TABLET 1300 MG PO (08:22)
[2020-04-19] MEDS: TOLNAFTATE 1% POWDER 45 GM BTL 1 APPLIC TOPICAL ×2 (08:23→20:00)
[2020-04-19] MEDS: SACCHAROMYCES BOULARDII 250 MG CAPSULE PO ×3 (08:23→16:43)
--- NOTE | 2020-04-19 08:49 | PM.PNGS ---
Progress Note: A&P Assessment and Plan (1) Ischemic necrosis of small bowel: Code(s): K55.029 - Acute infarction of small intestine, extent unspecified Status: Acute Assessment and Plan: cont current mgmt c TF, slowly increase as sherine, vac per wound care (2) Respiratory failure: Qualifiers: Chronicity: acute Respiratory failure complication: unspecified whether with hypoxia or hypercapnia Qualified Code(s): J96.00 - Acute respiratory failure, unspecified whether with hypoxia or hypercapnia Code(s): J96.90 - Respiratory failure, unspecified, unspecified whether with hypoxia or hypercapnia Status: Acute Assessment and Plan: 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 Pt sherine TF at 20ml/hr. Pt on minimal sedation but still s purposeful neurologic activity. Review of Systems Review of Systems: ROS unobtainable: Yes unobtainable due to endotracheal tube and unobtainable due to medical condition Exam Resp: Auscultation: diminished lung sounds Cardio: Rate: tachycardic GI: Other: S, sl dist, vac C/D/I Objective Data Vital Signs Vital Signs: Vital Signs - 24 hr 04/18/20 10:00 04/18/20 10:01 04/18/20 10:56 Temperature Pulse Rate 101 H 100 119 H Respiratory Rate 32 H Blood Pressure 120/71 Pulse Oximetry 100 99 04/18/20 11:33 04/18/20 12:00 04/18/20 12:12 Temperature 37.3 C Pulse Rate 112 H 112 H Respiratory Rate 20 Blood Pressure 102/76 Pulse Oximetry 99 100 04/18/20 14:00 04/18/20 14:01 04/18/20 14:47 Temperature Pulse Rate 116 H 116 H 120 H Respiratory Rate 27 H Blood Pressure 120/72 Pulse Oximetry 100 100 04/18/20 16:00 04/18/20 16:01 04/18/20 17:01 Temperature 37.2 C Pulse Rate 125 H 124 H 125 H Respiratory Rate 29 H 32 H Blood Pressure 136/75 128/76 Pulse Oximetry 100 99 04/18/20 17:05 04/18/20 18:00 04/18/20 20:00 Temperature 36.2 C L Pulse Rate 123 H 127 H 103 H Respiratory Rate 24 H 18 Blood Pressure 139/76 126/69 Pulse Oximetry 100 99 100 04/18/20 22:00 04/18/20 23:00 04/19/20 00:00 Temperature 36.2 C L Pulse Rate 110 H 108 H 112 H Respiratory Rate 12 14 Blood Pressure 111/89 108/62 Pulse Oximetry 100 100 100 04/19/20 02:00 04/19/20 04:00 04/19/20 04:59 Temperature 36.1 C L Pulse Rate 90 98 98 Respiratory Rate 12 12 Blood Pressure 104/58 L 101/64 Pulse Oximetry 100 100 100 04/19/20 05:37 04/19/20 08:00 04/19/20 08:32 Temperature 36.8 C Pulse Rate 88 105 H 106 H Respiratory Rate 24 H 31 H Blood Pressure 106/65 111/72 Pulse Oximetry 100 99 Intake/Output Intake/Output: Intake & Output 04/16/20 04/17/20 04/18/20 04/19/20 23:59 23:59 23:59 23:59 Intake Total 2268.5 1301.4 1156 1319 Output Total 3700 2750 2850 1300 Balance -1431.5 -1448.6 -1694 19 Meds/Results Medications: Active Medications Generic Name Dose Route Start Last Admin Trade Name Freq PRN Reason Stop Dose Admin Alteplase, Recombinant 2 mg 04/12/20 09:11 04/17/20 14:22 Cathflo Activase IV PUSH 2 mg ONCE PRN Administration Line Occlusion Dextrose 12.5 gm 04/07/20 19:48 04/09/20 11:26 Dextrose 50% Syringe IV PUSH 12.5 gm PRN PRN Administration Hypoglycemia Protocol Enoxaparin Sodium 40 mg 04/18/20 09:00 04/19/20 08:21 Lovenox SUB-Q 40 mg DAILY YAKELIN Administration Fentanyl Citrate 25 mcg 04/18/20 11:30 04/18/20 23:21 Sublimaze IV PUSH 25 mcg Q2H PRN Administration Pain Rated 7-10 Glucagon 1 mg 04/07/20 19:48 Glucagon For Inj IM PRN PRN Hypoglycemia Protocol Dextrose 1,000 mls @ 100 mls/hr 04/07/20 19:48 Dextrose 5% 1,000 Ml IVPB P
[2020-04-19] MEDS: CALCIUM CHLOR 1,000MG/100ML NS 1,000 MG/100 ML BAG 100 MG IVPB (09:43)
--- NOTE | 2020-04-19 10:27 | PM.EVENT ---
Event Note Event Note Event Note: Spoke to patient's son Sanju coronado and updated him with the events and patient's current status. Explained with the patient's failure to wean from ventilator and need for continued ventilator support. He told me that he has spoken to his mother in the past and she would be agreeable for trach and PEG and this scenario if needed.
--- NOTE | 2020-04-19 11:07 | PCDIET ---
ICU Rounding Note: Patient has been receiving Vital 1.2 at 20mL/hr. Reglan started for slightly higher residuals (~250mL) over the weekend with plan for change to Dobhoff tube today. Diarrhea continues. Discussed with MD plan to change to Jevity 1.2 at 20mL/hr for additional fiber. If tolerated, would suggest increase toward goal of 65mL/hr. Last recorded weight is 69.1kg which is decreased from last review. -I/O. Bowel Motility: +Diarrhea; FMS in place. Labs Reviewed: Hgb (6.9), Hct (22.7), Glu (192), BUN (27), Alb (2.2), Kayla Ca (8.14), Mg (2.4) Meds Noted: Albumin, Calcium Chloride, Fentanyl, Reglan, Levophed, Protonix, Cefepime, Novolog, Micafungin, Florastor Additional Notes: Right buttock with pressure ulcer. Anterior abdomen with surgical site. Following daily in ICU rounds. Assessing/reassessing every Sunday/Sunday.
--- NOTE | 2020-04-19 12:12 | WPDINFPN2 ---
Progress Note: A&P Assessment and Plan (1) Candidal septicemia: Code(s): B37.7 - Candidal sepsis Status: Acute Assessment and Plan: 1. Tonya septicemia, line vs intraabd. source. Line changed. 2. Past C diff 3. Klebsiella in sputum, possible tracheobronchitis 4. Small bowel ischemia, multiple operations REC Micafungin # 4 / 10 days. Cefepime # 4 / 7 days. IJ line in place. Wound vac in place. Subjective Date/time seen: 04/19/20 12:12 Interval history: opens eyes to voice. Intubated Exam Narrative: Exam Narrative: afebrile Const: General: no acute distress Resp: Effort & Inspection: normal respiratory effort Auscultation: clear to auscultation bilaterally Cardio: Rate: tachycardic Rhythm: regular rhythm Heart sounds: no murmurs GI: Inspection: distended GI Palp: Yes Soft to palpation and No Guarding due to palpation present (GI) Other: midline vac Urinary Catheter: Urinary Catheter: patent and draining and urine clear Skin: General skin exam: no rashes or lesions noted Objective Data Vital Signs Vital Signs: Vital Signs - 24 hr 04/18/20 14:00 04/18/20 14:01 04/18/20 14:47 Temperature Pulse Rate 116 H 116 H 120 H Respiratory Rate 27 H Blood Pressure 120/72 Pulse Oximetry 100 100 04/18/20 16:00 04/18/20 16:01 04/18/20 17:01 Temperature 37.2 C Pulse Rate 125 H 124 H 125 H Respiratory Rate 29 H 32 H Blood Pressure 136/75 128/76 Pulse Oximetry 100 99 04/18/20 17:05 04/18/20 18:00 04/18/20 20:00 Temperature 36.2 C L Pulse Rate 123 H 127 H 103 H Respiratory Rate 24 H 18 Blood Pressure 139/76 126/69 Pulse Oximetry 100 99 100 04/18/20 22:00 04/18/20 23:00 04/19/20 00:00 Temperature 36.2 C L Pulse Rate 110 H 108 H 112 H Respiratory Rate 12 14 Blood Pressure 111/89 108/62 Pulse Oximetry 100 100 100 04/19/20 02:00 04/19/20 04:00 04/19/20 04:59 Temperature 36.1 C L Pulse Rate 90 98 98 Respiratory Rate 12 12 Blood Pressure 104/58 L 101/64 Pulse Oximetry 100 100 100 04/19/20 05:37 04/19/20 08:00 04/19/20 08:32 Temperature 36.8 C Pulse Rate 88 105 H 106 H Respiratory Rate 24 H 31 H Blood Pressure 106/65 111/72 Pulse Oximetry 100 99 04/19/20 08:48 04/19/20 08:49 04/19/20 09:00 Temperature 36.8 C 38.3 C H Pulse Rate 114 H 106 H 109 H Respiratory Rate 25 H 32 H Blood Pressure 109/68 122/79 Pulse Oximetry 100 99 100 04/19/20 10:00 04/19/20 10:55 Temperature 37.7 C H Pulse Rate 111 H 106 H Respiratory Rate 18 25 H Blood Pressure 130/71 138/73 Pulse Oximetry 100 99 Intake/Output Intake/Output: Intake & Output 04/16/20 04/17/20 04/18/20 04/19/20 23:59 23:59 23:59 23:59 Intake Total 2268.5 1301.4 1156 2079 Output Total 3700 2750 2850 1300 Balance -1431.5 -1448.6 -1694 779 Meds/Results Medications: Active Medications Generic Name Dose Route Start Last Admin Trade Name Freq PRN Reason Stop Dose Admin Alteplase, Recombinant 2 mg 04/12/20 09:11 04/17/20 14:22 Cathflo Activase IV PUSH 2 mg ONCE PRN Administration Line Occlusion Dextrose 12.5 gm 04/07/20 19:48 04/09/20 11:26 Dextrose 50% Syringe IV PUSH 12.5 gm PRN PRN Administration Hypoglycemia Protocol Enoxaparin Sodium 40 mg 04/18/20 09:00 04/19/20 08:21 Lovenox SUB-Q 40 mg DAILY YAKELIN Administration Fentanyl Citrate 25 mcg 04/18/20 11:30 04/18/20 23:21 Sublimaze IV PUSH 25 mcg Q2H PRN Administration Pain Rated 7-10 Glucagon 1 mg 04/07/20 19:48 Glucagon For Inj IM PRN PRN Hypoglycemia Protocol Dextrose 1,000 mls @ 100 mls/hr 04/07/20 19:48 Dextrose 5% 1,000 Ml IVPB PRN PRN Hypoglycemia Protocol Norepinephrine Bitartrate 8 mg in 250 mls @ 0 mls/hr 04/08/20 01:20 04/18/20 09:37 Levophed 8 Mg/D5w 250 Ml IV CONT Infused .Q0M YAKELIN Titration Protocol 0 MCG/MIN Dextrose 1,000 mls @ 50 mls/hr 04/10/20 10:47 Dextrose 10%
[2020-04-19] MEDS: ALBUMIN HUMAN 25% 25 GM/100 ML 100 ML IVPB (12:27)
[2020-04-19 12:31] LABS: Glucose Point of Care 178 (65-105)
[2020-04-19 16:55] LABS: Hematocrit 27.5 % (37.0-47.0); Hemoglobin 8.7 g/dL (12.0-15.0)
[2020-04-19] MEDS: ACETAMINOPHEN ELIXIR 325 MG/10.15 ML UDC 650 MG FEED TUBE (17:09)
[2020-04-19 17:15] LABS: Glucose Point of Care 188 (65-105)
--- NOTE | 2020-04-19 17:48 | PM.IMPN ---
Progress Note: A&P Assessment and Plan (1) Perforated viscus: Code(s): R19.8 - Other specified symptoms and signs involving the digestive system and abdomen Status: Acute Assessment and Plan: CT A/P 04/07/20 showing wall thickening of the gastric antrum with gas in the duodenal wall, retroperitoneum, small bowel mesentery, and peritoneum consistent with perforated viscus. Patient taken to the OR 04/08 and is now POD#11 from a exploratory laparotomy, lysis of adhesions, small-bowel resection (approx 2 feet), placement of wound VAC. Mid to distal jejunum is noted to be viable with areas of duskiness. At the level of the proximal ileum, there was jaylin ischemia and necrosis up to 20cm proximal to the ileoccecal valve. Patient had repeat surgery 04/09/20 and is now POD #10 from a bowel resection of 13.5 inches of the distal jejunum and proximal ileum. There was no evidence of bowel leakage. 3rd surgery 04/12 POD#7 viable bowel and reanastomed. TPN stopped with yeast in blood 04/16. Tube feedings now and Dobhoff placed today (2) Severe sepsis: Code(s): A41.9 - Sepsis, unspecified organism; R65.20 - Severe sepsis without septic shock Status: Acute Assessment and Plan: Severe sepsis with septic shock currently on Levophed. Related to acute peritonitis from perforated viscus and ischemic bowel. Lactic acid 3.9 on admission and peaked at 10. today at 1.3 this morning. Metabolic lactic acidosis and currently on bicarb drip. . Has received 3U PRBC, 6U FFP, 2U Plt, and 3U Cryo. Continue fluids and IV abx. urine now growing Klebsiella and antibiotics changed to cefepime 04/16 (d#4/) Blood cultures growing yeast and Micafungin started 04/16 (D#02/05) (3) Acute renal failure: Code(s): N17.9 - Acute kidney failure, unspecified Status: Acute Assessment and Plan: Likely secondary to severe sepsis/ATN. Cr as high as 2.2 but has dropped to 0.7 today related to improved renal perfusion. Good UOP. Continue to monitor renal function and urine output. (4) Hypocalcemia: Code(s): E83.51 - Hypocalcemia Status: Acute Assessment and Plan: Serum calcium 7.1 now ,with low albumin(2.2) , in good range Continue to follow. (5) Ileus: Code(s): K56.7 - Ileus, unspecified Status: Acute Assessment and Plan: . As above. resolving with bms and tube feedings started 04/16. stopped TPN with yeast 04/16 (6) Leukocytosis: Qualifiers: Leukocytosis type: unspecified Qualified Code(s): D72.829 - Elevated white blood cell count, unspecified Code(s): D72.829 - Elevated white blood cell count, unspecified Status: Acute Assessment and Plan: WBC 20K on admission that climbed to 33K but has now normalized(6.3) which may not be a good prognistic sign. Continue to monitor CBC (7) Anemia: Qualifiers: Anemia type: unspecified type Qualified Code(s): D64.9 - Anemia, unspecified Code(s): D64.9 - Anemia, unspecified Status: Chronic Assessment and Plan: Chronic anemia in the 7-8 range. B12/folate/Ferritin normal. No iron studies. Hgb 10 on admission but probably more hemoconcentrated. Hgb dropped to 6.5 on 04/08 and received 1U PRBC. Hgb dropped again and received a 2nd unit on 04/09. Hbg 6.9 today and receive another unit of blood. Continue to monitor H/H, transfuse prn. (8) Thrombocytosis: Code(s): D47.3 - Essential (hemorrhagic) thrombocythemia Status: Acute Assessment and Plan: Thrombocytosis related to above but now has converted to thrombocytopenia. Plt count dropped to 50K range now related to consumption and rebounded to 301K today.. Lovenox started for DVT prophylaxis (9) Type 2 diabetes mellitus: Qualifiers: Diabetes mellitus complication status: without complication Diabetes mellitus intermediate insulin use: without intermediate use Qualified Cod
[2020-04-19 23:04] LABS: Glucose Point of Care 188 (65-105)
[2020-04-20] VITALS (24 sets, daily range): BP systolic 78–161; BP diastolic 43–90; PULSE 74–148; RESP 16–38; TEMP 36.9–37.9; O2SAT 100
[2020-04-20] MEDS: METOCLOPRAMIDE HCL 10 MG/10 ML SOLN UDC PO (01:45)
[2020-04-20] MEDS: ACETAMINOPHEN ELIXIR 325 MG/10.15 ML UDC 650 MG FEED TUBE ×2 (01:47→20:00)
[2020-04-20 04:33] LABS: Hematocrit 28.5 % (37.0-47.0); Hemoglobin 8.7 g/dL (12.0-15.0); Mean Corpuscular HGB Conc 30.5 g/dl (32-36); Mean Corpuscular Hemoglobin 28.7 pg (26-34); Mean Corpuscular Volume 94.1 fl (80-100); Mean Platelet Volume 10.5 fl (7.4-10.4); Platelet Count Result 349 k/mm3 (150-375); Red Blood Count 3.03 M/mm3 (4.2-5.4); White Blood Count 8.1 K/mm3 (4.5-10.0)
[2020-04-20 04:38] LABS: Alveolar/Arterial O2 Gradient 70.9 mmHg; Base Excess ABG -2.9 mEq/l (+/-2.0); Carboxyhemoglobin 0.3 % THb (0-2.0); Fractional Inspired Oxygen 30 %; HCO3 ABG 19.6 mEq/l (22.0-26.0); Methemoglobin ABG 0.4 %THb (0-1.5); Oxygen Content ABG 13.1 %vol (16.0-22.0); Oxygen Saturation ABG 98.4 % (95.0-100.0); Oxyhemoglobin 96.5 % THb (90.0-100.0); PCO2 ABG 26.8 mmHg (35.0-45.0); PO2 ABG 111.5 mmHg (80.0-100.0); PO2 FiO2 Ratio Arterial Blood 3.72 %; Reduced Hemoglobin 2.8 %THb (0-5.0); Total Hemoglobin 9.5 g/dL (12.0-18.0); pH ABG 7.483 (7.350-7.450)
[2020-04-20 04:39] LABS: Device VENTILATOR; Modified Allen's Test Unable to perform; Site Drawn RIGHT RADIAL
[2020-04-20 04:40] LABS: Arterial Blood Gas PEEP 5 cmH2O; Arterial Blood Gas Tidal Volume 320 ml; Arterial Blood Gas Vent Mode CMV; Arterial Blood Gas Ventilator rate 15 /MIN
[2020-04-20 04:46] LABS: Alanine Aminotransferase 18 U/L (4-35); Albumin Level 2.6 g/dL (3.5-5.1); Alkaline Phosphatase 198 U/L (38-126); Aspartate Amino Transferase 25 U/L (14-36); Bilirubin,Total 1.7 mg/dL (0.2-1.3); Blood Urea Nitrogen 25 mg/dL (7-17); Calcium 7.7 mg/dL (8.4-10.2); Carbon Dioxide 22 mmol/L (22-30); Chloride 115 mmol/L (98-107); Estimated CRCL calculation 68 ml/min; Estimated Glomerular Filt Rate > 60; Glucose 197 mg/dL (65-105); Magnesium 2.5 mg/dL (1.6-2.3); Phosphorus 2.5 mg/dL (2.5-4.5); Potassium 3.1 mmol/L (3.4-5.0); Sodium 147 mmol/L (137-145)
[2020-04-20] MEDS: KCL 20 MEQ/SW 100 ML 100 ML 50 MEQ IVPB (06:14)
--- NOTE | 2020-04-20 07:45 | WPDINTPN ---
Progress Note: A&P Assessment and Plan (1) Respiratory failure: Qualifiers: Chronicity: acute Respiratory failure complication: unspecified whether with hypoxia or hypercapnia Qualified Code(s): J96.00 - Acute respiratory failure, unspecified whether with hypoxia or hypercapnia Code(s): J96.90 - Respiratory failure, unspecified, unspecified whether with hypoxia or hypercapnia Status: Acute Assessment and Plan: Post surgery respiratory failure secondary to metabolic acidosis, ischemic bowel -patient on 30% FiO2 and peep of 5, -I have tried various mode including high pressure support and a ASV optimize weaning but patient fails after some time with high RSBI. I switch patient back to assist control ventilation yesterday after patient failed pressure support of 20/5 and then ASV mode. Continue assist control with volume to 320 -some of the tachypnea appears to be driven by pain and hence fentanyl was added. Patient is on low rate fentanyl drip -chest x-ray and ABGs reviewed -She appears to be very weak. I will again try pressure support ventilation today as tolerated and try to wean down on the pressure support. -this is day 13 for patient on ventilator. I spoke to patient's son Sanju by phone on 04/19 and updated him with the events and patient's current status. Explained with the patient's failure to wean from ventilator and need for continued ventilator support. He told me that he has spoken to his mother in the past and she would be agreeable for trach and PEG and this scenario if needed. and she does not appear anywhere close to being weaned or extubated. -I will consult ENT for tracheostomy and GI for PEG placement evaluation (2) Septic shock: Code(s): A41.9 - Sepsis, unspecified organism; R65.21 - Severe sepsis with septic shock Status: Acute Assessment and Plan: Septic shock most likely related to perforated viscus, ileus, ischemic bowel -patient adequately fluid-resuscitated Now on albumin -lactic acid has normalized -sputum cultures growing Klebsiella, Zosyn switched to cefepime, metronidazole was discontinued -blood cultures are positive for Tonya glabrata. Patient is on IV micafungin -continue vasopressors as needed to maintain mean arterial pressures > 65 mm Hg. -arterial line was inserted on 04/08/2020, and was later removed -femoral central line was removed on 04/15/2020 and JACC catheter was placed on 04/15/2020 -repeat blood cultures sent 04/17 and are negative at this time -consult infectious disease -patient will need ophtho examination but we do not have inpatient ophthalmology at this hospital. I will discuss with infectious disease specialist. (3) Perforated viscus: Code(s): R19.8 - Other specified symptoms and signs involving the digestive system and abdomen Status: Acute Assessment and Plan: CT scan abdomen and pelvis showed wall thickening of the gastric antrum with gas in the duodenal wall, retroperitoneum, small bowel mesentery, and peritoneum consistent with perforated viscus. Patietn with peritoneal signs. -04/08/2020 status post ex lap, lysis of adhesions, small-bowel resection, of wound VAC placement. - 04/09/2020: Status post 2nd laparotomy abdominal washout and 13 in of small-bowel resection along with wound VAC placement -04/11/2020: Reopening of previous laparotomy, abdominal washout, entero entero anastomosis, placement of abdominal wound VAC -continue antibiotics as above, -Surgery following the patient closely - wound management per surgery (4) Diabetes type 2, controlled: Code(s): E11.9 - Type 2 diabetes mellitus without complications Status: Acute Assessment and Plan: Continue Accu-Cheks and sliding scale insulin (5) MALCOM (acute kidney injury): Code(s): N17.9 - Acute kidney failure, unspecified Status: Acute Assessment and Plan: RESOLVED: Patient with acute kidney injury most lik
[2020-04-20] MEDS: MICAFUNGIN SODIUM 100 MG in SODIUM CHLORIDE 0.9% IV 100 ML IVPB (08:06)
[2020-04-20] MEDS: DEXTROSE 5% IN WATER 500 ML 100 ML IV CONT (08:08)
[2020-04-20] MEDS: TOLNAFTATE 1% POWDER 45 GM BTL 1 APPLIC TOPICAL ×2 (08:09→20:01)
[2020-04-20] MEDS: SACCHAROMYCES BOULARDII 250 MG CAPSULE PO (08:09)
[2020-04-20] MEDS: POTASSIUM CHLORIDE 20 MEQ PACKET (FOR LIQUID) 40 MEQ PO (08:09)
[2020-04-20] MEDS: PANTOPRAZOLE SODIUM IV 40 MG VIAL IV PUSH ×2 (08:09→20:01)
[2020-04-20] MEDS: ENOXAPARIN 40 MG/0.4 ML SYRINGE SUB-Q (08:09)
--- NOTE | 2020-04-20 08:25 | PM.IMPN ---
Progress Note: A&P Assessment and Plan (1) Severe sepsis: Code(s): A41.9 - Sepsis, unspecified organism; R65.20 - Severe sepsis without septic shock Status: Acute Assessment and Plan: Severe sepsis with septic shock currently off Levophed since 04/16. Related to acute peritonitis from perforated viscus and ischemic bowel. Lactic acid 3.9 on admission and peaked at 10. Metabolic lactic acidosis was treated with bicarb drip but currently off. Has received 3U PRBC, 7U FFP, 4U Plt, and 4U Cryo. Urine now growing Klebsiella and antibiotics changed to cefepime 04/16 (d#5/7) Blood cultures growing yeast and Micafungin started 04/16 (D#5/) (2) Candidal septicemia: Code(s): B37.7 - Candidal sepsis Status: Acute Assessment and Plan: As above. (3) Perforated viscus: Code(s): R19.8 - Other specified symptoms and signs involving the digestive system and abdomen Status: Acute Assessment and Plan: CT A/P 04/07/20 showing wall thickening of the gastric antrum with gas in the duodenal wall, retroperitoneum, small bowel mesentery, and peritoneum consistent with perforated viscus. Patient taken to the OR 04/08 and is now POD#12 from a exploratory laparotomy, lysis of adhesions, small-bowel resection (approx 2 feet), placement of wound VAC. Mid to distal jejunum is noted to be viable with areas of duskiness. At the level of the proximal ileum, there was jaylin ischemia and necrosis up to 20cm proximal to the ileoccecal valve. Patient had repeat surgery 04/09/20 and is now POD #11 from a bowel resection of 13.5 inches of the distal jejunum and proximal ileum. There was no evidence of bowel leakage. 3rd surgery 04/12 POD#8 viable bowel and reanastomed. TPN stopped with yeast in blood 04/16. Tolerating tube feedings with good BMs. Currently on Reglan which is to be stopped today. PEG and Trach being considered. (4) Acute renal failure: Code(s): N17.9 - Acute kidney failure, unspecified Status: Acute Assessment and Plan: Likely secondary to severe sepsis/ATN. Cr as high as 2.2 but has dropped to normal and has remained normal for over 1 week. Good UOP. Continue to monitor renal function and urine output. (5) Hypocalcemia: Code(s): E83.51 - Hypocalcemia Status: Acute Assessment and Plan: Serum calcium 7.7 with Albumin at 2.6. Continue to follow. (6) Ileus: Code(s): K56.7 - Ileus, unspecified Status: Acute Assessment and Plan: Resolved. Patient having bowel movements and tolerating tube feedings. (7) Leukocytosis: Qualifiers: Leukocytosis type: unspecified Qualified Code(s): D72.829 - Elevated white blood cell count, unspecified Code(s): D72.829 - Elevated white blood cell count, unspecified Status: Acute Assessment and Plan: WBC 20K on admission that climbed to 33K but has now normalized. Continue to monitor CBC (8) Anemia: Qualifiers: Anemia type: unspecified type Qualified Code(s): D64.9 - Anemia, unspecified Code(s): D64.9 - Anemia, unspecified Status: Chronic Assessment and Plan: Chronic anemia in the 7-8 range. B12/folate/Ferritin normal. No iron studies. Hgb 10 on admission but probably more hemoconcentrated. Hgb dropped to 6.5 on 04/08 and received 1U PRBC. Hgb dropped again and received a 2nd unit on 04/09. Hbg 6.9 on 04/19 and receive another unit of blood. Hemoglobin in the 8 range in remaining stable. Continue to monitor H/H, transfuse prn. (9) Thrombocytosis: Code(s): D47.3 - Essential (hemorrhagic) thrombocythemia Status: Acute Assessment and Plan: Thrombocytosis related to above but then converted to thrombocytopenia. Plt count dropped to 50K range felt related to consumption and rebounded to normal. Lovenox started for DVT prophylaxis.Continue to monitor closely. (10) Type 2 diabetes mellitus:
--- NOTE | 2020-04-20 09:02 | WPDCN ---
HPI Data of Consult Date/Time: 04/20/20 09:02 Requesting Physician: Laith Quiroga MD Primary Care Provider: Jb Meyers, Consult Narrative Narrative: Kiya Esposito is a 69 year old female I was asked to see Kiya Esposito for prolonged intubation will schedule a tracheotomy on Sunday PMF Past Medical History Medical History Anemia With history of blood transfusion. Chronic back pain Chronic obstructive pulmonary disease Chronic, continuous use of opioids Fentanyl patch for chronic back pain. Crohn disease Deep venous thrombosis Depression with anxiety Dyslipidemia Gastroesophageal reflux disease GERD (gastroesophageal reflux disease) Hypertension Osteoarthritis Osteoporosis Pulmonary infiltrates Type 2 diabetes mellitus Surgical History Surgical History History of cataract extraction History of cholecystectomy History of hysterectomy History of right hip replacement Family History Family History Mother Hypertension Sibling Chronic obstructive pulmonary disease was trying to find metastatic cancer, EMR would not allow me to add this diagnosis so I picked COPD because I could. Other Congestive heart failure Diabetes mellitus Social History Social History Social History: The patient is and lives with her in [place]. She smoked for about 50 years and quit several years ago. She denies alcohol and drug use. She designates her son, Sanju Alonzo, as her surrogate decision maker and she wishes to be a full code. Smoking packs per day: 2 Smoking cigarettes per day: 40.0 Years smoked: 50 Smoking pack-years: 100.00 Smoking status: Former smoker Tobacco type: cigarettes Alcohol intake: never Substance use: never Additional occupation/education comments: Worked in a [employer] 15 years, stopped 2007 when disabled due to back pain. Gender identity (if verbalized by the patient): Female Spiritual care concerns: No Meds Home Medications and Allergies Home Medications Medication Instructions Recorded Confirmed Type albuterol sulfate [Ventolin HFA] 2 puff INHALATION QID PRN 03/17/20 04/07/20 History atorvastatin 80 mg PO DAILY 03/17/20 04/07/20 History buspirone 7.5 mg PO BID 03/17/20 04/07/20 History diclofenac sodium 75 mg PO BID 03/17/20 04/07/20 History fenofibrate micronized 134 mg PO DAILY 03/17/20 04/07/20 History fentanyl 1 patch TRANSDERMAL Q72H 03/17/20 04/07/20 History furosemide 40 mg PO DAILY 03/17/20 04/07/20 History gabapentin 300 mg PO TID 03/17/20 04/07/20 History hydroxyzine HCl 25 mg PO TID PRN 03/17/20 04/07/20 History metformin 500 mg PO BID 03/17/20 04/07/20 History midodrine 2.5 mg PO BID 03/17/20 04/07/20 History oxybutynin chloride 10 mg PO DAILY 03/17/20 04/07/20 History oxycodone 5 mg PO BID PRN 03/17/20 04/07/20 History pantoprazole 40 mg PO BID 03/17/20 04/07/20 History quetiapine 100 mg PO BID 03/17/20 04/07/20 History miconazole nitrate [Aloe [place] 1 applic TOPICAL Q12HR #30 g 03/25/20 04/07/20 Rx Antifungal (micon)] phenol [Chloraseptic Throat Flushing] 1 spray MUCOUS MEMBRANE PRN PRN 03/25/20 04/07/20 Rx #10 ml vancomycin 125 mg PO Q6HR #44 ea 03/25/20 04/07/20 Rx Allergies Allergy/AdvReac Type Severity Reaction Status Date / Time No Known Allergies Allergy Verified 04/07/20 12:19 Vital Signs Vital Signs - 24 hr 04/19/20 10:00 04/19/20 10:55 04/19/20 11:45 Temperature 37.7 C H Pulse Rate 111 H 106 H 110 H Respiratory Rate 18 25 H Blood Pressure 130/71 138/73 Pulse Oximetry 100 99 98 04/19/20 12:00 04/19/20 14:00 04/19/20 15:00 Temperature 36.8 C Pulse Rate 116 H 115 H 117 H Respiratory Rate 30 H 24 H Blood Pressure 151/97 H
--- NOTE | 2020-04-20 09:41 | WPDGICN ---
Assessment and Plan Assessment and plan (1) Ischemic necrosis of small bowel: Code(s): K55.029 - Acute infarction of small intestine, extent unspecified Status: Acute (2) Respiratory failure: Qualifiers: Chronicity: acute Respiratory failure complication: unspecified whether with hypoxia or hypercapnia Qualified Code(s): J96.00 - Acute respiratory failure, unspecified whether with hypoxia or hypercapnia Code(s): J96.90 - Respiratory failure, unspecified, unspecified whether with hypoxia or hypercapnia Status: Acute Assessment and Plan: Patient currently on the ventilator post surgical therapy for ischemic bowel. Patient has been unable to be weaned in appears to be ventilator dependent. I been asked see the patient for gastrostomy tube. We will attempt this on . Patient has a large abdominal scar which has the potential of interfering with placement of the percutaneous endoscopic gastrostomy tube. However it appears there may be adequate room in the upper stomach will attempt this on . (3) Anemia: Qualifiers: Anemia type: unspecified type Qualified Code(s): D64.9 - Anemia, unspecified Code(s): D64.9 - Anemia, unspecified Status: Chronic Assessment and Plan: Patient has chronic underlying anemia. Perhaps aggravated by recent gastric ulcer. Plan is to keep patient on proton pump inhibitor for gastric ulcer identified 1 month ago. (4) Diabetes type 2, controlled: Code(s): E11.9 - Type 2 diabetes mellitus without complications Status: Acute (5) Septic shock: Code(s): A41.9 - Sepsis, unspecified organism; R65.21 - Severe sepsis with septic shock Status: Acute (6) MALCOM (acute kidney injury): Code(s): N17.9 - Acute kidney failure, unspecified Status: Acute (7) Gastric ulcer: Code(s): K25.9 - Gastric ulcer, unspecified as acute or chronic, without hemorrhage or perforation Status: Acute Assessment and Plan: Identified by endoscopic exam 1 month ago. Patient had GI bleeding during that admission. Plan is to keep patient on Protonix for this reason. CT scan performed at time admission confirmed edema in the lower stomach area is possible this may interfere with PEG tube placement will re-evaluate at the time of endoscopy . GI Consult Note Consult date/time: 04/20/20 09:41 HPI: Kiya Esposito is a 69 year old female seen in evaluation at the request of the rn ambulatory service. Patient currently intubated on the ventilator felt to be ventilator dependent. Patient will require a PEG tube. Patient is unable to give any additional history because she is intubated. Patient known to me from recent hospital stay 1 month ago was found to have gastric ulcer with GI bleeding. She was discharged home in a stable condition. Readmitted to the hospital approximately 3 weeks ago with perforated small bowel. Surgical exploration revealed ischemic bowel in the jejunum and ileum resection in this area was subsequently performed. Patient has been on the ventilator subsequently in is unable to be weaned currently receiving tube feedings via a Dobbhoff tube. Review of Systems Review of Systems: ROS unobtainable: Yes unobtainable due to endotracheal tube PMFSH Past Medical History Medical History Anemia With history of blood transfusion. Chronic back pain Chronic obstructive pulmonary disease Chronic, continuous use of opioids Fentanyl patch for chronic back pain. Crohn disease Deep venous thrombosis Depression with anxiety Dyslipidemia Gastroesophageal reflux disease GERD (gastroesophageal reflux disease) Hypertension Osteoarthritis Osteoporosis Pulmonary infiltrates Type 2 diabetes mellitus Surgical History Surgical History History of cataract extraction History of cholecystect
--- NOTE | 2020-04-20 10:09 | PM.PNGS ---
Progress Note: A&P Assessment and Plan (1) Ischemic necrosis of small bowel: Code(s): K55.029 - Acute infarction of small intestine, extent unspecified Status: Acute Assessment and Plan: 04/08/20 - ex. lap, lysis of adhesions, small-bowel resection, placement of ABThera wound VAC 04/09/20 - Second-look laparotomy, abdominal washout, small-bowel resection, placement of abdominal wound VAC 04/12/20 - Reopening of previous laparotomy, abdominal washout, entero-entero anastomosis, placement of abdominal wound VAC Continue current management and slowly increasing tube feeding as tolerated. +BMs, Dobhoff in place and Reglan was added. Wound VAC care per wound nurses. We will follow peripherally at this point. Please call if any concerns arise in the future. (2) Respiratory failure: Qualifiers: Chronicity: acute Respiratory failure complication: unspecified whether with hypoxia or hypercapnia Qualified Code(s): J96.00 - Acute respiratory failure, unspecified whether with hypoxia or hypercapnia Code(s): J96.90 - Respiratory failure, unspecified, unspecified whether with hypoxia or hypercapnia Status: Acute Assessment and Plan: Care per Prepress Supervisor, has been unable to wean off ventilator support. ENT consulted and plan for trach on Sunday. GI being consulted for PEG placement. (3) Septic shock: Code(s): A41.9 - Sepsis, unspecified organism; R65.21 - Severe sepsis with septic shock Status: Acute Assessment and Plan: Due to #1 above. Largely resolved. Lactic acidosis resolved. Sputum grew Klebsiella p. and blood cultures positive for Tonya glabrata. Repeat blood cx on 04/17 NGTD. Currently on IV Micafungin and Cefepime. Continue management per primary team. Additional Plan Discussed the plan of care with Dr. Nicholson today. Subjective Subjective Date/Time Seen: 04/20/20 09:30 Interval history: Patient intubated and sedated. She does open eyes on exam today and is not consistent with following commands. Will not nod yes or no when asked questions. TF@ 40mL/hr. Review of Systems Review of Systems: ROS unobtainable: Yes unobtainable due to endotracheal tube and unobtainable due to medical condition Exam Const: General: comfortable and other (Fentanyl drip for sedation but alert on my exam) Resp: Auscultation: diminished lung sounds Cardio: Rate: tachycardic Rhythm: regular rhythm GI: Inspection: other (mildly distended) GI Palp: Yes Soft to palpation Auscultation: Hypoactive bowel sounds present Other: Midline wound VAC clean/dry/intact Urinary Catheter: Urinary Catheter: patent and draining, urine clear and urine dark Neuro: Other: Limited d/t medical condition - intubated/sedated. Not consistent with following commands. Unable to nod appropriately. Extrem: General: edema bilateral (upper and lower ext., pitting) Objective Data Vital Signs Vital Signs: Vital Signs - 24 hr 04/19/20 10:55 04/19/20 11:45 04/19/20 12:00 Temperature 37.7 C H 36.8 C Pulse Rate 106 H 110 H 116 H Respiratory Rate 25 H 30 H Blood Pressure 138/73 151/97 H Pulse Oximetry 99 98 98 04/19/20 14:00 04/19/20 15:00 04/19/20 16:00 Temperature 38.4 C H Pulse Rate 115 H 117 H 114 H Respiratory Rate 24 H 29 H Blood Pressure 130/66 125/65 Pulse Oximetry 99 99 98 04/19/20 17:00 04/19/20 17:09 04/19/20 18:00 Temperature 38.4 C H Pulse Rate 104 H 100 Respiratory Rate 18 Blood Pressure 129/72 Pulse Oximetry 99 100 04/19/20 20:00 04/19/20 20:06 04/19/20 20:13 Temperature Pulse Rate 94 100 96 Respiratory Rate 24 H 25 H Blood Pressure 124/68 Pulse Oximetry 100 100 100 04/19/20 22:00 04/19/20 23:22 04/20/20 00:00 Temperature 37.6 C 37.6 C Pulse Rate 96 94 95 Respiratory Rate 25 H 27 H Blood Pressure 128/69 112/65 Pulse Oximetry 100 100 100 04/20/20 02:00 04/20/20 02:07 04/20/20 03:52 Temperature Pulse Rate 89 95 95 Respiratory Rate 26 H 26 H
[2020-04-20 10:26] LABS: Basophils Percent Auto 0.3 % (0.2-1.2); Hematocrit 27.4 % (37.0-47.0); Hemoglobin 8.5 g/dL (12.0-15.0); Immature Granulocyte Absolute 0.07 K/mm3 (0.00-0.031); Immature Granulocyte Percent A 0.8 % (0-0.5); Lymphocytes Absolute Auto 1.62 K/mm3 (0.9-3.2); Lymphocytes Percent Auto 18.1 % (18.3-44.2); Mean Corpuscular Hemoglobin 28.9 pg (26-34); Mean Corpuscular Volume 93.2 fl (80-100); Mean Platelet Volume 10.2 fl (7.4-10.4); Monocytes Absolute Auto 0.6 K/mm3 (0.1-0.6); Monocytes Percent Auto 6.5 % (2.6-8.5); Neutrophils Absolute Auto 6.7 K/mm3 (1.3-6.7); Neutrophils Percent Auto 74.3 % (45.5-73.1); Platelet Count Result 326 k/mm3 (150-375); Red Blood Count 2.94 M/mm3 (4.2-5.4); Red Cell Distribution Width 17.2 % (11.5-14.5)
[2020-04-20 10:41] LABS: Blood Urea Nitrogen 25 mg/dL (7-17); Calcium 7.4 mg/dL (8.4-10.2); Carbon Dioxide 20 mmol/L (22-30); Chloride 116 mmol/L (98-107); Estimated CRCL calculation 68 ml/min; Estimated Glomerular Filt Rate > 60; Glucose 214 mg/dL (65-105); Potassium 3.9 mmol/L (3.4-5.0); Sodium 143 mmol/L (137-145)
[2020-04-20 10:43] LABS: INR 1.7; Prothrombin Time 19.7 Seconds (11.1-14.7)
[2020-04-20 10:44] LABS: Partial Thromboplastin Time 45.3 SECONDS (22.3-36.8)
--- NOTE | 2020-04-20 10:58 | PCDIET ---
ICU Rounding Note: Patient has been tolerating Jevity 1.2 at 40mL/hr via Dobhoff tube. MD ordered increase to 65mL/hr goal rate for 1716kcal, 79g protein and 1154mL free water over 22 hours/day. Water flushes of 100mL every 4 hours also being provided. Plan for PEG and tracheostomy later this week. Last recorded weight is 68.7kg which is stable. Bowel Motility: FMS remains in place 2/2 diarrhea. Labs Reviewed: Glu (214), Cl (116), BUN (25), Cr (0.6), Kayla Ca (8.52) Meds Noted: Cefepime, Xopenex, Levophed, Fentanyl, Novolog, Protonix, KCl Additional Notes: Reglan and Florastor discontinued. RN reports buttock wound appears slightly worsened from a few days ago. Wound nurse following. Following daily in ICU rounds. Assessing/reassessing every Sunday/Sunday.
[2020-04-20 12:17] LABS: Glucose Point of Care 185 (65-105)
[2020-04-20 17:57] LABS: Glucose Point of Care 120 (65-105)
[2020-04-20] MEDS: NOREPINEPHRINE 8 MG/D5W 250 ML 8 MG/250 ML BAG 46.9 MG IV CONT (21:50)
[2020-04-20 22:01] LABS: Alveolar/Arterial O2 Gradient 122.3 mmHg; Base Excess ABG -9.5 mEq/l (+/-2.0); Fractional Inspired Oxygen 40 %; HCO3 ABG 15.4 mEq/l (22.0-26.0); Oxygen Content ABG 14.1 %vol (16.0-22.0); Oxygen Saturation ABG 98.4 % (95.0-100.0); Oxyhemoglobin 96.5 % THb (90.0-100.0); PO2 ABG 128.4 mmHg (80.0-100.0); PO2 FiO2 Ratio Arterial Blood 3.21 %; Total Hemoglobin 10.2 g/dL (12.0-18.0); pH ABG 7.327 (7.350-7.450)
[2020-04-20 22:02] LABS: Device VENTILATOR; Site Drawn ARTLINE
[2020-04-20 22:03] LABS: Arterial Blood Gas PEEP 5 cmH2O; Arterial Blood Gas Tidal Volume 320 ml; Arterial Blood Gas Vent Mode CMV; Arterial Blood Gas Ventilator rate 15 /MIN
--- NOTE | 2020-04-20 22:08 | WPDPROCEDUR ---
Procedures Arterial Line Arterial Line Date: 04/20/20 Arterial Line Time: 22:08 Perfomed Emergently - Given emergent patient conditions, temporal constraints may have precluded informed consent: Yes Time Out Performed: Yes Patient Position: supine Taping Supervisor Prep: sterile gown, sterile gloves, mask and hat Site: right and radial Site Prep: chlorhexidine and sterile drape Skin Anesthesia: placed under general anesthesia Technique used: ultrasound-guided Size (Gauge): 16 Length: 4.4 cm Closure/Dressing: suture, antimicrobial disc and tegaderm Patient tolerated procedure: well Complications: none Additional comments: Date of service was 04/20/2020 at 21:45 hrs.
[2020-04-20 22:11] LABS: Hematocrit 31.2 % (37.0-47.0); Hemoglobin 9.4 g/dL (12.0-15.0); Mean Corpuscular HGB Conc 30.1 g/dl (32-36); Mean Corpuscular Hemoglobin 29.1 pg (26-34); Mean Corpuscular Volume 96.6 fl (80-100); Mean Platelet Volume 11.1 fl (7.4-10.4); Platelet Count Result 446 k/mm3 (150-375); Red Blood Count 3.23 M/mm3 (4.2-5.4); White Blood Count 19.5 K/mm3 (4.5-10.0)
--- NOTE | 2020-04-20 22:11 | PDCODEBLUE ---
Code Blue Note Code Blue Note Time Arrived at [facility]: 22:00 Initial Rhythm on Arrival: KALLIE CHILDS was called overhead. On my arrival to bedside the patient was in sinus tachycardia with a pulse. She was treated with a NS IV bolus and routine labs were obtained including CBC, BMP, and lactic acid. We continued to monitor the patient closely including vital signs, urine output and labs. Nursing staff called the Tube And Rod Straightener and informed him of the overnight changes.
[2020-04-20 22:18] LABS: Magnesium 2.3 mg/dL (1.6-2.3); Phosphorus 2.9 mg/dL (2.5-4.5)
[2020-04-20 22:19] LABS: Alanine Aminotransferase 17 U/L (4-35); Albumin Level 2.1 g/dL (3.5-5.1); Alkaline Phosphatase 188 U/L (38-126); Aspartate Amino Transferase 27 U/L (14-36); Bilirubin,Total 1.5 mg/dL (0.2-1.3); Blood Urea Nitrogen 28 mg/dL (7-17); Carbon Dioxide 16 mmol/L (22-30); Chloride 120 mmol/L (98-107); Estimated CRCL calculation 52 ml/min; Estimated Glomerular Filt Rate > 60; Glucose 135 mg/dL (65-105); Potassium 3.8 mmol/L (3.4-5.0); Sodium 144 mmol/L (137-145)
[2020-04-20] MEDS: SODIUM BICARBONATE 8.4% 50 MEQ/50 ML VIAL IV PUSH (22:19)
[2020-04-20] MEDS: ATROPINE SULFATE 1 MG/10 ML SYRINGE IV PUSH (22:20)
[2020-04-20 22:21] LABS: Lactic Acid 3.4 mmol/L (0.7-2.1)
[2020-04-20] MEDS: SODIUM CHLORIDE 0.9% IV 1,000 ML 999 ML IV CONT ×2 (22:21→23:34)
[2020-04-20 22:25] LABS: Band Neutrophils Percent 10 % (0-6); Lymphocytes Absolute Manual 2.53 K/mm3 (1.1-4.5); Lymphocytes Percent Manual 13 % (18-44); Monocytes Absolute Manual 0.78 K/mm3 (0.1-0.90); Monocytes Percent Manual 4 % (3-9); Neutrophils Absolute Manual 16.18 K/mm3 (1.7-7.2); Neutrophils Percent Manual 73 % (46-73); Total Cells Counted 100
[2020-04-20 22:26] LABS: Ovalocytes 1+ (NORMAL); Platelet Estimate Increased (Adequate); Target Cells 1+ (NORMAL)
[2020-04-20 22:27] LABS: Stomatocytes 1+ (NORMAL)
[2020-04-20 22:30] LABS: Troponin I < 0.012 ng/mL (0.000-0.034)
[2020-04-20] MEDS: HEPARIN SODIUM 5,000 UNITS/ML VIAL 5000 UNITS IV PUSH (23:39)
[2020-04-20] MEDS: HEPARIN SOD/D5W 100 UNITS/ML 25,000 UNITS/250 ML BAG 11 UNITS IV CONT (23:39)
[2020-04-20] MEDS: HYDROCORTISONE SODIUM SUCCINATE 100 MG/2 ML VIAL IV PUSH (23:43)
[2020-04-21] VITALS (34 sets, daily range): BP systolic 84–118; BP diastolic 45–68; PULSE 100–145; RESP 23–40; TEMP 38.3–40.4; O2SAT 86–100
--- NOTE | 2020-04-21 | ECHO_ITS ---
Patient Info Name: Kiya Esposito Age: 69 years : 1950 Gender: Female Ht: 65 in Wt: 155 lbs BSA: 1.81 m2 HR: 130 bpm BP: 80 / 51 mmHg Heart Rhythm: Tachycardia Technical Quality: Good Exam Date: 04/21/2020 8:50 AM Exam Location: [facility] Patient Status: Inpatient Admit Date: 04/07/2020 Staff Ordering Physician: Tong Santana MD Sheep Rancher: Elvis Bashir RDCS Attending Provider: Tim Quiroga MD Exam Type: CA echo dop color flow w con Study Info Indications R65.21 - Severe sepsis with septic shock Complete two-dimensional, color flow and Doppler transthoracic echocardiogram is performed with contrast to opacify the left ventricle and to improve the deliniation of the left ventricle endocardial borders. Contrast/Agitated Saline Contrast/Ag. Saline: Definity Amount: 2.00 ml Administered By: Tate Frazier RN Existing IV Access: Yes History/Risk Factors Septic shock; ischemic bowel, DM2, HoTN. Summary 1. The left ventricle is not well visualized and definity echo contrast was used. Overall there is normal size with good contractility, with no focal wall motion abnormalities. Estimated ejection fraction is 60-65%. Mild concentric LVH and grade 2 diastolic dysfunction is present. 2. Right ventricular chamber dimension is normal, with normal contractility. 3. Mild pulmonary hypertension, estimated pulmonary arterial systolic pressure is 40 mmHg. 4. No significant valve disease. 5. No pericardial effusion. 6. The atrial septum is echogenic, suggesting lipomatous hypertrophy of the atrial septum, usually a benign finding. 7. Sinus tachycardia. Left Ventricle Left ventricular chamber dimension is normal. Left ventricular systolic function is normal, estimated at 60-65%. There is mildly increased left ventricular wall thickness. Left ventricular septal wall motion is normal. The left ventricular diastolic function is grade II diastolic dysfunction. Right Ventricle Right ventricular chamber dimension is normal, with normal contractility. Right ventricular systolic function is normal. Left Atria Left atrial chamber dimension is normal. Right Atria Right atrial chamber dimension is normal. Aortic Valve The aortic valve is trileaflet. There is no aortic valve sclerosis. There is no aortic valve stenosis. There is no aortic valve regurgitation. Pulmonic Valve The pulmonic valve is normal. There is no pulmonic valve stenosis. There is no pulmonic regurgitation. Mitral Valve The mitral valve has normal leaflets. There is no mitral valve stenosis. There is no mitral valve regurgitation. Tricuspid Valve The tricuspid valve leaflets are normal. There is no significant tricuspid valve stenosis. There is trace tricuspid valve regurgitation. Mild pulmonary hypertension, estimated pulmonary arterial systolic pressure is 40 mmHg. Pericardium/Pleural The pericardium appears normal. There is no pericardial effusion. Inferior Vena Cava Normal inferior vena cava with >50% collapse upon inspiration consistent with Empty right atrial pressure, 5 mmHg. Aorta The aortic root size at the sinus of Valsalva is normal. The prox ascending aorta size is normal. Left Ventricular Outflow Tract Name Value Normal
[2020-04-21 00:06] LABS: Glucose Point of Care 116 (65-105)
[2020-04-21] MEDS: VASOPRESSIN INJ 100 UNITS in DEXTROSE 5% 95 ML IV CONT (00:26)
[2020-04-21] MEDS: ACETAMINOPHEN ELIXIR 325 MG/10.15 ML UDC 650 MG FEED TUBE ×4 (00:43→19:59)
[2020-04-21] MEDS: NOREPINEPHRINE 8 MG/D5W 250 ML 8 MG/250 ML BAG 56.3 MG IV CONT ×3 (03:13→11:37)
[2020-04-21 03:57] LABS: Alveolar/Arterial O2 Gradient 132.5 mmHg; Base Excess ABG -15.2 mEq/l (+/-2.0); Fractional Inspired Oxygen 40 %; Oxygen Content ABG 14.6 %vol (16.0-22.0); Oxygen Saturation ABG 98.2 % (95.0-100.0); Oxyhemoglobin 96.4 % THb (90.0-100.0); PO2 ABG 126.9 mmHg (80.0-100.0); PO2 FiO2 Ratio Arterial Blood 3.17 %; Total Hemoglobin 10.6 g/dL (12.0-18.0)
[2020-04-21 04:03] LABS: Hematocrit 36.5 % (37.0-47.0); Hemoglobin 10.7 g/dL (12.0-15.0); Mean Corpuscular HGB Conc 29.3 g/dl (32-36); Mean Corpuscular Hemoglobin 28.8 pg (26-34); Mean Corpuscular Volume 98.1 fl (80-100); Mean Platelet Volume 10.9 fl (7.4-10.4); Platelet Count Result 539 k/mm3 (150-375); Red Blood Count 3.72 M/mm3 (4.2-5.4); Red Cell Distribution Width 17.2 % (11.5-14.5); White Blood Count 32.5 K/mm3 (4.5-10.0)
[2020-04-21 04:26] LABS: Band Neutrophils Percent 18 % (0-6); Monocytes Absolute Manual 0.65 K/mm3 (0.1-0.90); Monocytes Percent Manual 2 % (3-9); Neutrophils Absolute Manual 29.25 K/mm3 (1.7-7.2); Neutrophils Percent Manual 72 % (46-73); Platelet Estimate Increased (Adequate); Total Cells Counted 100
[2020-04-21 04:27] LABS: Stomatocytes 1+ (NORMAL)
[2020-04-21 04:29] LABS: Alanine Aminotransferase 24 U/L (4-35); Albumin Level 2.4 g/dL (3.5-5.1); Alkaline Phosphatase 217 U/L (38-126); Aspartate Amino Transferase 30 U/L (14-36); Bilirubin,Total 2.1 mg/dL (0.2-1.3); Blood Urea Nitrogen 27 mg/dL (7-17); Calcium 6.9 mg/dL (8.4-10.2); Carbon Dioxide 12 mmol/L (22-30); Chloride 118 mmol/L (98-107); Estimated CRCL calculation 42 ml/min; Estimated Glomerular Filt Rate 55; Glucose 244 mg/dL (65-105); Magnesium 2.2 mg/dL (1.6-2.3); Phosphorus 4.1 mg/dL (2.5-4.5); Potassium 4.8 mmol/L (3.4-5.0); Sodium 144 mmol/L (137-145)
[2020-04-21 04:30] LABS: Lactic Acid Reflex 6.9 mmol/L (0.7-2.1)
[2020-04-21 04:42] LABS: Device VENTILATOR; PCO2 ABG 22.4 mmHg (35.0-45.0); Site Drawn ARTLINE; pH ABG 7.267 (7.350-7.450)
[2020-04-21 04:43] LABS: Arterial Blood Gas Ventilator rate 15 /MIN
[2020-04-21 04:44] LABS: Arterial Blood Gas PEEP 5 cmH2O; Arterial Blood Gas Tidal Volume 320 ml; Arterial Blood Gas Vent Mode CMV
[2020-04-21] MEDS: HYDROCORTISONE SODIUM SUCCINATE 100 MG/2 ML VIAL IV PUSH ×3 (05:16→21:58)
[2020-04-21 05:17] LABS: Glucose Point of Care 188 (65-105)
[2020-04-21] MEDS: SODIUM BICARBONATE 8.4% 150 MEQ in WATER, STERILE FOR INJECTION 950 ML 50 MEQ IV CONT (05:50)
[2020-04-21] MEDS: SODIUM CHLORIDE 0.9% IV 1,000 ML 999 ML IV CONT (06:43)
[2020-04-21] MEDS: SODIUM BICARBONATE 8.4% 50 MEQ/50 ML VIAL 100 MEQ IV PUSH ×6 (06:43→21:19)
[2020-04-21 06:45] LABS: Partial Thromboplastin Time 236.1 SECONDS (22.3-36.8)
[2020-04-21 07:01] LABS: Reflex Lactic Acid Yes or No Add Lactic
[2020-04-21 07:02] LABS: Mean Platelet Volume 11.2 fl (7.4-10.4); Platelet Count Result 499 k/mm3 (150-375)
[2020-04-21 07:09] LABS: INR 3.3; Prothrombin Time 33.1 Seconds (11.1-14.7)
--- NOTE | 2020-04-21 07:10 | WPDINTPN ---
Progress Note: A&P Assessment and Plan (1) Shock: Code(s): R57.9 - Shock, unspecified Status: Resolved Assessment and Plan: Patient was initially admitted with Septic shock most likely related to perforated viscus, ileus, ischemic bowel. Patient was resuscitated with IV fluid and was started on vasopressor. -sputum cultures grew Klebsiella and Zosyn switched to cefepime, metronidazole was discontinued -blood cultures are positive for Tonya glabrata. Patient was started on IV micafungin -arterial line was inserted on 04/08/2020, and was later removed -femoral central line was removed on 04/15/2020 and JACC catheter was placed on 04/15/2020 -repeat blood cultures sent 04/17 and are negative at this time -consulted infectious disease and Dr. chakraborty to did not recommend transfer patient for ophtho examination unless patient had persistent positive cultures with Tonya 04/21 overnight patient deteriorated again and went into shock, also diagnosed with new PE and AFib with RVR New onset shock could be sepsis versus cardiogenic versus both. I will continue cefepime and micafungin but I have added vancomycin to broaden antibiotic coverage Stat echo has been ordered Re-cultured Currently on Levophed vasopressin and epinephrine infusions Stress dose steroids (2) Pulmonary embolism: Code(s): I26.99 - Other pulmonary embolism without acute cor pulmonale Status: Acute Assessment and Plan: CTA lung was done last night once patient deteriorated and showed pulmonary embolism and right lower lobe subsegment. TPA was not given due to patient's recent multiples abdominal surgeries leading her to high risk of bleeding. And PE not being very big on CT lung Stat echo ordered this morning Heparin infusion started Lower extremity Dopplers ordered (3) Respiratory failure: Qualifiers: Chronicity: acute Respiratory failure complication: unspecified whether with hypoxia or hypercapnia Qualified Code(s): J96.00 - Acute respiratory failure, unspecified whether with hypoxia or hypercapnia Code(s): J96.90 - Respiratory failure, unspecified, unspecified whether with hypoxia or hypercapnia Status: Acute Assessment and Plan: Post surgery respiratory failure secondary to metabolic acidosis, ischemic bowel -patient on 30% FiO2 and peep of 5, -patient had failed weaning trial for many days and failed -I had consulted ENT for tracheostomy and was planned for Sunday. Since overnight events patient now is more hypoxic saturation may not be correlating due to atrial fibrillation with RVR -I have increased FiO2 to 100%. I will leave PEEP at 5 due to shock. I will check ABG in little bit -CTA of lung and morning chest x-ray reviewed (4) Atrial fibrillation with rapid ventricular response: Code(s): I48.91 - Unspecified atrial fibrillation Status: Acute Assessment and Plan: New onset AFib with RVR could be from sepsis, metabolic abnormalities and or PE Amio bolus and drip On heparin infusion (5) Perforated viscus: Code(s): R19.8 - Other specified symptoms and signs involving the digestive system and abdomen Status: Acute Assessment and Plan: CT scan abdomen and pelvis showed wall thickening of the gastric antrum with gas in the duodenal wall, retroperitoneum, small bowel mesentery, and peritoneum consistent with perforated viscus. Patietn with peritoneal signs. -04/08/2020 status post ex lap, lysis of adhesions, small-bowel resection, of wound VAC placement. - 04/09/2020: Status post 2nd laparotomy abdominal washout and 13 in of small-bowel resection along with wound VAC placement -04/11/2020: Reopening of previous laparotomy, abdominal washout, entero entero anastomosis, placement of abdominal wound VAC -continue antibiotics as above, -Surgery following the patient closely - wound management per surgery -will repeat CT abdomen pelvis once patient is more stable (6)
[2020-04-21 07:11] LABS: D Dimer 2.73 ug/mL (<0.48)
[2020-04-21 07:25] LABS: Fibrinogen 273 mg/dl (215-510)
[2020-04-21] MEDS: AMIODARONE 150 MG/D5W 100 ML 150 MG/100 ML BAG 600 MG IV CONT ×2 (08:24→23:01)
[2020-04-21] MEDS: AMIODARONE 360 MG/D5W 200 ML 360 MG/200 ML BAG 33.3 MG IV CONT ×2 (08:45→22:50)
[2020-04-21] MEDS: TOLNAFTATE 1% POWDER 45 GM BTL 1 APPLIC TOPICAL ×2 (08:46→20:00)
[2020-04-21] MEDS: PANTOPRAZOLE SODIUM IV 40 MG VIAL IV PUSH ×2 (08:58→20:01)
[2020-04-21] MEDS: MICAFUNGIN SODIUM 100 MG in SODIUM CHLORIDE 0.9% IV 100 ML IVPB (09:07)
[2020-04-21 09:09] LABS: Lactic Acid 6.4 mmol/L (0.7-2.1)
[2020-04-21 09:15] LABS: Alveolar/Arterial O2 Gradient 219.8 mmHg; Base Excess ABG -13.6 mEq/l (+/-2.0); Fractional Inspired Oxygen 100 %; HCO3 ABG 12.1 mEq/l (22.0-26.0); Oxygen Content ABG 15.6 %vol (16.0-22.0); Oxygen Saturation ABG 99.8 % (95.0-100.0); Oxyhemoglobin 97.9 % THb (90.0-100.0); PO2 ABG 465.2 mmHg (80.0-100.0); PO2 FiO2 Ratio Arterial Blood 4.65 %; Total Hemoglobin 10.4 g/dL (12.0-18.0)
[2020-04-21 09:16] LABS: Device VENTILATOR; Site Drawn ARTLINE; pH ABG 7.255 (7.350-7.450)
[2020-04-21 09:17] LABS: Arterial Blood Gas PEEP 5 cmH2O; Arterial Blood Gas Tidal Volume 320 ml; Arterial Blood Gas Vent Mode CMV; Arterial Blood Gas Ventilator rate 15 /MIN
[2020-04-21] MEDS: PERFLUTREN LIPID MICROSPHERES 1.5 ML VIAL DILUTED TO 10 ML TOTAL VOLUME IV PUSH (09:29)
[2020-04-21 09:30] LABS: Partial Thromboplastin Time 180.8 SECONDS (22.3-36.8)
--- NOTE | 2020-04-21 10:53 | PCDIET ---
ICU Rounding Note: Patient continues on Jevity 1.2 at 65mL/hr with 100mL water flush every 4 hours via Dobhoff. No issues reported. Last recorded weight is 70.3kg which is increased from last review. I/O noted. Bowel Motility: +BMs - FMS in place. Labs Reviewed: Hgb (10.7), Hct (36.5), Glu (244), BUN (27), Cl (118), Alb (2.4), Kayla Ca (8.18) Meds Noted: Maxipime, Epinephrine, Fentanyl, Solu Cortef, Novolog, Micafungin, Levophed, Protonix, Vancomycin, Vasopressin, Sodium Bicarbonate/Water at 50mL/hr Additional Notes: No change in skin reported. +Temperature this morning. Overnight code noted. No new recommendations at this time. Following daily in ICU rounds. Assessing/reassessing every Sunday/Sunday.
--- NOTE | 2020-04-21 10:58 | WPDGIPROGNO ---
Progress Note: A&P Additional Plan Patient became unstable overnight. Appears to have gone back into shock. Overnight was diagnosed with pulmonary embolus and atrial fib with rapid ventricular response. At the present time we will defer PEG tube initially planned for . Reschedule PEG tube depending on when she is more stable. We will follow peripherally. Subjective Date/time seen: 04/21/20 10:58 Objective Data Vital Signs Vital Signs: Vital Signs - 24 hr 04/20/20 11:30 04/20/20 12:00 04/20/20 14:00 Temperature 37.1 C Pulse Rate 86 91 93 Respiratory Rate 31 H 33 H Blood Pressure 118/62 119/67 Pulse Oximetry 100 100 100 04/20/20 14:24 04/20/20 16:00 04/20/20 17:12 Temperature 37.3 C Pulse Rate 88 97 100 Respiratory Rate 25 H Blood Pressure 87/48 L Pulse Oximetry 100 100 100 04/20/20 18:00 04/20/20 20:00 04/20/20 20:15 Temperature 37.9 C H Pulse Rate 106 H 103 H 106 H Respiratory Rate 38 H 34 H Blood Pressure 92/45 L 161/90 H Pulse Oximetry 100 100 100 04/20/20 21:00 04/20/20 21:16 04/20/20 21:40 Temperature 37.6 C Pulse Rate 74 148 H Respiratory Rate 16 Blood Pressure 129/86 78/43 L Pulse Oximetry 100 04/20/20 22:00 04/20/20 22:51 04/21/20 00:00 Temperature 39.1 C H Pulse Rate 137 H 85 134 H Respiratory Rate 31 H 36 H Blood Pressure 103/53 L 90/53 L Pulse Oximetry 100 100 100 04/21/20 00:43 04/21/20 01:41 04/21/20 01:49 Temperature 39.1 C H 38.3 C H Pulse Rate 136 H Respiratory Rate Blood Pressure Pulse Oximetry 100 04/21/20 02:00 04/21/20 04:00 04/21/20 04:08 Temperature 39.4 C H Pulse Rate 135 H 139 H 129 H Respiratory Rate 36 H 36 H Blood Pressure 90/52 L 105/57 L Pulse Oximetry 100 100 100 04/21/20 06:00 04/21/20 06:35 04/21/20 08:00 Temperature 39.4 C H 39.9 C H Pulse Rate 133 H 135 H 131 H Respiratory Rate 25 H 26 H Blood Pressure 112/60 86/54 L Pulse Oximetry 100 86 L 04/21/20 09:01 04/21/20 10:00 04/21/20 10:01 Temperature 39.9 C H 39.7 C H Pulse Rate 126 H Respiratory Rate 23 H Blood Pressure 94/68 L Pulse Oximetry 100 Intake/Output Intake/Output: Intake & Output 04/18/20 04/19/20 04/20/20 04/21/20 23:59 23:59 23:59 23:59 Intake Total 1156 2448 1915 1317.6 Output Total 2850 0 1999 450 Balance -3894 398 -85 867.6 Meds/Results Medications: Active Medications Generic Name Dose Route Start Last Admin Trade Name Freq PRN Reason Stop Dose Admin Acetaminophen 650 mg 04/19/20 16:54 04/21/20 09:01 Tylenol Elixir FEED TUBE 650 mg Q4H PRN Administration Mild Pain (1-3) or Fever Alteplase, Recombinant 2 mg 04/12/20 09:11 04/17/20 14:22 Cathflo Activase IV PUSH 2 mg ONCE PRN Administration Line Occlusion Dextrose 12.5 gm 04/07/20 19:48 04/09/20 11:26 Dextrose 50% Syringe IV PUSH 12.5 gm PRN PRN Administration Hypoglycemia Protocol Fentanyl Citrate 25 mcg 04/18/20 11:30 04/18/20 23:21 Sublimaze IV PUSH 25 mcg Q2H PRN Administration Pain Rated 7-10 Glucagon 1 mg 04/07/20 19:48 Glucagon For Inj IM PRN PRN Hypoglycemia Protocol Heparin Sodium (Porcine) 5,000 units 04/20/20 23:21 Heparin Sodium IV PUSH PRN PRN aPTT less than 55 seconds Heparin Sodium (Porcine) 2,500 units 04/20/20 23:21 Heparin Sodium IV PUSH PRN PRN aPTT 55 - 70 seconds Hydrocortisone Sodium Succinate 100 mg 04/20/20 23:35 04/21/20 05:16 Solu-Cortef IV PUSH 100 mg Q8HR YAKELIN Administration Dextrose 1,000 mls @ 100 mls/hr 04/07/20 19:48 Dextrose 5% 1,000 Ml IVPB PRN PRN Hypoglycemia Protocol Dextrose 1,000 mls @ 50 mls/hr 04/10/20 10:47 Dextrose 10% IV CONT .Q20H PRN if PN is interrupted Cefepime HCl 2 gm in 50 mls @ 100 mls/hr 04/16/20 08:05 04/21/20 08:56 Maxipime 2 Gm/D5w 50 Ml IVPB 100 mls/hr Q8H YAKELIN Administration Ambreen
[2020-04-21] MEDS: INSULIN ASPART (*BKC) 100 UNITS/ML SUB-Q ×3 (11:29→22:39)
[2020-04-21 11:40] LABS: Add Urine Microscopic? YES; Appearance Urine Cloudy (Clear); Bacteria Urine Trace /hpf; Bilirubin Urine 1+ (Negative); Blood Urine 1+ (Negative); Color Urine Amber (Yellow); Glucose Urine UA 1+ mg/dL (Negative); Ketones Urine Trace mg/dL (Negative); Leukocyte Esterase Ur Negative LEU/UL (Negative); Mucus Urine Rare /lpf; Nitrate Urine Negative (Negative); Protein Urine 2+ mg/dL (Negative); Squamous Epithelial Cell Urine Rare /hpf (Few); Urobilinogen Urine Negative mg/dL (<2.0)
[2020-04-21 11:45] LABS: Partial Thromboplastin Time 76.2 SECONDS (22.3-36.8)
[2020-04-21 11:50] LABS: Specific Grav Ur 1.039 (1.001-1.035)
--- NOTE | 2020-04-21 11:51 | PM.EVENT ---
Event Note Event Note Event Note: Call cardiology twice requesting stat read on echocardiogram done this morning.
[2020-04-21] MEDS: CALCIUM CHLORIDE 1,000 MG/10 ML SYRINGE 1000 MG IV PUSH (11:58)
--- NOTE | 2020-04-21 12:15 | WPDINFPN2 ---
Progress Note: A&P Assessment and Plan (1) Candidal septicemia: Code(s): B37.7 - Candidal sepsis Status: Acute Assessment and Plan: 1. Tonya septicemia, line vs intraabd. source. Line changed. 2. Past C diff 3. Klebsiella in sputum, possible tracheobronchitis 4. Small bowel ischemia, multiple operations 5. Breakthrough fever 6. Cardiac arrest overnight REC Micafungin # 6 / 10 days. Cefepime # 6 / [address] line in place. Wound vac in place. Vancomycin also started #1, target trough 10-15. PharmD dosing. She looks preterminal. Subjective Date/time seen: 04/21/20 12:15 Interval history: events noted, multiple pressors and still in 80's systolic Exam Narrative: Exam Narrative: t max 39.7 core Const: General: in distress Resp: Auscultation: diminished lung sounds Other: very diminished breath sounds on left Cardio: Rate: tachycardic Rhythm: regular rhythm Heart sounds: no murmurs GI: Inspection: distended GI Palp: Yes Firmness to palpation present (GI) and No Guarding due to palpation present (GI) Percussion: Yes tympanic to percussion Auscultation: abnormal bowel sounds Urinary Catheter: Urinary Catheter: patent and draining and urine clear Skin: General skin exam: no rashes or lesions noted Objective Data Vital Signs Vital Signs: Vital Signs - 24 hr 04/20/20 14:00 04/20/20 14:24 04/20/20 16:00 Temperature 37.3 C Pulse Rate 93 88 97 Respiratory Rate 33 H 25 H Blood Pressure 119/67 87/48 L Pulse Oximetry 100 100 100 04/20/20 17:12 04/20/20 18:00 04/20/20 20:00 Temperature 37.9 C H Pulse Rate 100 106 H 103 H Respiratory Rate 38 H 34 H Blood Pressure 92/45 L 161/90 H Pulse Oximetry 100 100 100 04/20/20 20:15 04/20/20 21:00 04/20/20 21:16 Temperature 37.6 C Pulse Rate 106 H 74 Respiratory Rate 16 Blood Pressure 129/86 Pulse Oximetry 100 100 04/20/20 21:40 04/20/20 22:00 04/20/20 22:51 Temperature Pulse Rate 148 H 137 H 85 Respiratory Rate 31 H Blood Pressure 78/43 L 103/53 L Pulse Oximetry 100 100 04/21/20 00:00 04/21/20 00:43 04/21/20 01:41 Temperature 39.1 C H 39.1 C H Pulse Rate 134 H 136 H Respiratory Rate 36 H Blood Pressure 90/53 L Pulse Oximetry 100 100 04/21/20 01:49 04/21/20 02:00 04/21/20 04:00 Temperature 38.3 C H 39.4 C H Pulse Rate 135 H 139 H Respiratory Rate 36 H 36 H Blood Pressure 90/52 L 105/57 L Pulse Oximetry 100 100 04/21/20 04:08 04/21/20 06:00 04/21/20 06:35 Temperature 39.4 C H Pulse Rate 129 H 133 H 135 H Respiratory Rate 25 H Blood Pressure 112/60 Pulse Oximetry 100 100 04/21/20 08:00 04/21/20 09:01 04/21/20 10:00 Temperature 39.9 C H 39.9 C H Pulse Rate 131 H 126 H Respiratory Rate 26 H 23 H Blood Pressure 86/54 L 94/68 L Pulse Oximetry 86 L 100 04/21/20 10:01 04/21/20 12:05 Temperature 39.7 C H 39.6 C H Pulse Rate Respiratory Rate Blood Pressure Pulse Oximetry Intake/Output Intake/Output: Intake & Output 04/18/20 04/19/20 04/20/20 04/21/20 23:59 23:59 23:59 23:59 Intake Total 1156 2448 1915 2286.6 Output Total 2850 2050 2000 [facility] Balance -7974 398 -85 1836.6 Meds/Results Medications: Active Medications Generic Name Dose Route Start Last Admin Trade Name Freq PRN Reason Stop Dose Admin Acetaminophen 650 mg 04/19/20 16:54 04/21/20 12:05 Tylenol Elixir FEED TUBE 650 mg Q4H PRN Administration Mild Pain (1-3) or Fever Alteplase, Recombinant 2 mg 04/12/20 09:11 04/17/20 14:22 Cathflo Activase IV PUSH 2 mg ONCE PRN Administration Line Occlusion Dextrose 12.5 gm 04/07/20 19:48 04/09/20 11:26 Dextrose 50% Syringe IV PUSH 12.5 gm PRN PRN Administration Hypoglycemia Protocol Fentanyl Citrate 25 mcg 04/18/20 11:30 04/18/20 23:21 Sublimaze IV PUSH 25 mcg Q2H PRN Administration Pain Rated 7-10 Glucagon 1 mg 04/07/20 19:48 Glucagon For Inj IM PRN PRN
[2020-04-21 12:22] LABS: Glucose Point of Care 287 (65-105)
[2020-04-21 12:22] LABS: Glucose Point of Care 279 (65-105)
[2020-04-21] MEDS: ALBUMIN HUMAN 25% 12.5 GM/50ML 50 ML IVPB ×2 (12:28→18:04)
[2020-04-21] MEDS: SODIUM CHLORIDE 0.9% IV 500 ML IV CONT (12:35)
[2020-04-21 13:41] LABS: Alveolar/Arterial O2 Gradient 151.2 mmHg; Arterial Blood Gas Ventilator rate 15 /MIN; Base Excess ABG -10.8 mEq/l (+/-2.0); Device VENTILATOR; Fractional Inspired Oxygen 50 %; HCO3 ABG 14.5 mEq/l (22.0-26.0); Oxygen Content ABG 13.1 %vol (16.0-22.0); Oxyhemoglobin 97.1 % THb (90.0-100.0); PCO2 ABG 30.1 mmHg (35.0-45.0); PO2 ABG 171.4 mmHg (80.0-100.0); PO2 FiO2 Ratio Arterial Blood 3.43 %; Site Drawn ARTLINE; Total Hemoglobin 9.3 g/dL (12.0-18.0); pH ABG 7.301 (7.350-7.450)
[2020-04-21 13:42] LABS: Arterial Blood Gas PEEP 5 cmH2O; Arterial Blood Gas Tidal Volume 320 ml; Arterial Blood Gas Vent Mode CMV
--- NOTE | 2020-04-21 13:56 | PM.EVENT ---
Event Note Event Note Event Note: Echo report reviewed. 500 mL NS bolus Requested nurse to place temp measuring Krause. Will use cooling blanket if needed Repeat BMP and lactic acid now 2 more amps of bicarb for last ABG Additional critical care time 10 minutes
[2020-04-21 14:17] LABS: Blood Urea Nitrogen 30 mg/dL (7-17); Carbon Dioxide 17 mmol/L (22-30); Chloride 116 mmol/L (98-107); Estimated CRCL calculation 33 ml/min; Estimated Glomerular Filt Rate 41; Glucose 311 mg/dL (65-105); Potassium 4.2 mmol/L (3.4-5.0); Sodium 148 mmol/L (137-145)
[2020-04-21 14:19] LABS: Lactic Acid 8.7 mmol/L (0.7-2.1)
[2020-04-21] MEDS: AMIODARONE 360 MG/D5W 200 ML 360 MG/200 ML BAG 16.7 MG IV CONT ×2 (14:36→18:05)
--- NOTE | 2020-04-21 15:42 | PM.PNGS ---
Progress Note: A&P Assessment and Plan (1) Ischemic necrosis of small bowel: Code(s): K55.029 - Acute infarction of small intestine, extent unspecified Status: Acute Assessment and Plan: 04/08/20 - ex. lap, lysis of adhesions, small-bowel resection, placement of ABThera wound VAC 04/09/20 - Second-look laparotomy, abdominal washout, small-bowel resection, placement of abdominal wound VAC 04/12/20 - Reopening of previous laparotomy, abdominal washout, entero-entero anastomosis, placement of abdominal wound VAC Significant deterioration over the past 24 hours, went into shock. Cardiac arrest overnight. Now on 3 vasopressors with worsening leukocytosis and lactic acid climbing up to 8.7 now. Discussed with the Hospitalist as well as Dr. Nicholson. The patient is too unstable for transfer for a CT scan of the abd/pelvis. She is too unstable for exploratory surgery at this point and has already had a large amount of small bowel resected. The Painting Worker spoke with family earlier today regarding plan of care. Dr. Nicholson is calling the patient's family again this afternoon to discuss treatment options at this point. Prognosis is poor. (2) Respiratory failure: Qualifiers: Chronicity: acute Respiratory failure complication: unspecified whether with hypoxia or hypercapnia Qualified Code(s): J96.00 - Acute respiratory failure, unspecified whether with hypoxia or hypercapnia Code(s): J96.90 - Respiratory failure, unspecified, unspecified whether with hypoxia or hypercapnia Status: Acute Assessment and Plan: Care per Painting Worker. Plans for trach/PEG on hold due to patient's deterioration and current condition. (3) Septic shock: Code(s): A41.9 - Sepsis, unspecified organism; R65.21 - Severe sepsis with septic shock Status: Acute Assessment and Plan: Now back in shock with worsening lactic acidosis and leukocytosis. Requiring vasopressor support again with 3 separate vasopressors. Repeat cultures. Still on IV Micafungin and IV abx broadened today by Painting Worker. ID following and recommendations noted. Has received multiple amps of bicarb and on a bicarb drip. Continue management per primary/critical care services. (4) Pulmonary embolism: Code(s): I26.99 - Other pulmonary embolism without acute cor pulmonale Status: Acute Assessment and Plan: CTA performed overnight showing pulmonary emboli in subsegmental branches of the right lower lobe. Now on IV Heparin drip for anticoagulation. Bilateral venous dopplers today showed no DVT. Echo ordered. (5) Atrial fibrillation with rapid ventricular response: Code(s): I48.91 - Unspecified atrial fibrillation Status: Acute Assessment and Plan: New overnight. Was started on amiodarone drip. Management per Painting Worker. (6) Candidal septicemia: Code(s): B37.7 - Candidal sepsis Status: Acute Additional Plan Discussed the patient's case and plan of care with Dr. Nicholson. Subjective Subjective Date/Time Seen: 04/21/20 15:00 Interval history: Patient vented and sedated. Seen in ICU with wound care nurses. Currently on Levophed, Vasopressin, and Epinephrine drips for blood pressure support. Unresponsive, not following commands, no tracking, and does not withdraw to pain. Not currently on sedation. Review of Systems Review of Systems: ROS unobtainable: Yes unobtainable due to endotracheal tube and unobtainable due to medical condition Exam Const: Other: Intubated and unresponsive. Cardio: Rate: tachycardic GI: Inspection: distended GI Palp: Yes Soft to palpation Auscultation: absent bowel sounds Other: Midline wound VAC removed, incision with small amount of necrotic debri in the base of the wound with tunneling at the bottom of the incision caudally. The bottom half of the incision now has opened to the layer of fascia, but fascia remains intact. No purulent drainage. Some granulation tissue noted circumferenti
--- NOTE | 2020-04-21 17:50 | PC.NURSE ---
Notified Dr. Santana of BP continuously dropping. MAP isn't greater than 55. New order to give another 2 amps of bicarb, increase epi to 10mcg.
[2020-04-21 18:18] LABS: Glucose Point of Care 280 (65-105)
[2020-04-21] MEDS: SODIUM BICARBONATE 8.4% 100 MEQ in WATER, STERILE FOR INJECTION 1,000 ML 50 MEQ IV CONT (19:00)
[2020-04-21] MEDS: NOREPINEPHRINE 8 MG/D5W 250 ML 8 MG/250 ML BAG 82.5 MG IV CONT ×2 (20:03→22:57)
[2020-04-21 20:04] LABS: Alveolar/Arterial O2 Gradient 140.8 mmHg; Base Excess ABG -13.5 mEq/l (+/-2.0); Carboxyhemoglobin 0.2 % THb (0-2.0); Fractional Inspired Oxygen 40 %; Methemoglobin ABG 0.7 %THb (0-1.5); Oxygen Content ABG 10.2 %vol (16.0-22.0); Oxygen Saturation ABG 97.8 % (95.0-100.0); Oxyhemoglobin 95.7 % THb (90.0-100.0); PCO2 ABG 26.2 mmHg (35.0-45.0); PO2 ABG 114.3 mmHg (80.0-100.0); PO2 FiO2 Ratio Arterial Blood 2.86 %; Reduced Hemoglobin 3.4 %THb (0-5.0)
[2020-04-21 20:05] LABS: Site Drawn ARTLINE; Total Hemoglobin 7.4 g/dL (12.0-18.0); pH ABG 7.277 (7.350-7.450)
[2020-04-21 20:06] LABS: Arterial Blood Gas PEEP 5 cmH2O; Arterial Blood Gas Tidal Volume 320 ml; Arterial Blood Gas Vent Mode CMV; Arterial Blood Gas Ventilator rate 15 /MIN; Device VENTILATOR
[2020-04-21 20:09] LABS: Blood Urea Nitrogen 31 mg/dL (7-17); Calcium 6.6 mg/dL (8.4-10.2); Carbon Dioxide 15 mmol/L (22-30); Chloride 113 mmol/L (98-107); Estimated CRCL calculation 31 ml/min; Estimated Glomerular Filt Rate 37; Glucose 314 mg/dL (65-105); Magnesium 2.1 mg/dL (1.6-2.3); Phosphorus 4.4 mg/dL (2.5-4.5); Potassium 4.2 mmol/L (3.4-5.0); Sodium 149 mmol/L (137-145)
[2020-04-21 20:19] LABS: Partial Thromboplastin Time > 200.0 SECONDS (22.3-36.8)
[2020-04-21 20:30] LABS: Lactic Acid 12.5 mmol/L (0.7-2.1)
[2020-04-21 20:34] LABS: Hematocrit 23.5 % (37.0-47.0); Mean Corpuscular HGB Conc 29.4 g/dl (32-36); Mean Corpuscular Hemoglobin 29.6 pg (26-34); Mean Corpuscular Volume 100.9 fl (80-100); Mean Platelet Volume 11.3 fl (7.4-10.4); Platelet Count Result 356 k/mm3 (150-375); Red Blood Count 2.33 M/mm3 (4.2-5.4); Red Cell Distribution Width 17.7 % (11.5-14.5); White Blood Count 39.4 K/mm3 (4.5-10.0)
[2020-04-21 20:36] LABS: Hemoglobin 6.9 g/dL (12.0-15.0)
--- NOTE | 2020-04-21 20:43 | PC.NURSE ---
Dr. Santana notified of all labs. Give 1 unit PRBC. 1GM calcium chloride. 2 amps bicarb. 200 CC free water flush Via dobhoff Q4h. Change SSI to high dose Q4h. Give 20 units Lantus now.
--- NOTE | 2020-04-21 20:46 | PC.NURSE ---
Do not check labs until AM per Dr. Santana.
--- NOTE | 2020-04-21 20:53 | PM.IMPN ---
Progress Note: A&P Assessment and Plan (1) Severe sepsis: Code(s): A41.9 - Sepsis, unspecified organism; R65.20 - Severe sepsis without septic shock Status: Acute Assessment and Plan: Severe sepsis with septic shock currently off Levophed since 04/16. Related to acute peritonitis from perforated viscus and ischemic bowel. Lactic acid 3.9 on admission and peaked at 10. Metabolic lactic acidosis was treated with bicarb drip but currently off. Has received 3U PRBC, 7U FFP, 4U Plt, and 4U Cryo. Urine now growing Klebsiella and antibiotics changed to cefepime 04/16 (d#6/7) Blood cultures growing yeast and Micafungin started 04/16 (D#6/) Condition has deteriorated considerably and now on maximum support with MAPs int he 60s. The initially agreed to withdraw care given the dire nature of the situation. Son arrived this afternoon and contradicted this decision. Talk with the personally who again wish the patient to be kept comfortable but did not seem to fully understand the severity. Had a family meeting with Fabien, the son Sanju and myself. Explained to the son the severity of the patient's condition and he appeared to understand although did not ask many questions. We then called the of the patient who proceed to contradict his previous statement. he did repeat that he wanted to proceed with what ever the son wanted. Upon asking, the agrees to allow for Sanju to make medical decisions for the patient given the wavering decision making from the . Son wants every thing done since his mother told him this is what she would want. Plan is to continue maximumtherapy but the outlook is grim and this was explained to the son. (2) Candidal septicemia: Code(s): B37.7 - Candidal sepsis Status: Acute Assessment and Plan: As above. (3) Perforated viscus: Code(s): R19.8 - Other specified symptoms and signs involving the digestive system and abdomen Status: Acute Assessment and Plan: CT A/P 04/07/20 showing wall thickening of the gastric antrum with gas in the duodenal wall, retroperitoneum, small bowel mesentery, and peritoneum consistent with perforated viscus. Patient taken to the OR 04/08 and is now POD#13 from a exploratory laparotomy, lysis of adhesions, small-bowel resection (approx 2 feet), placement of wound VAC. Mid to distal jejunum is noted to be viable with areas of duskiness. At the level of the proximal ileum, there was jaylin ischemia and necrosis up to 20cm proximal to the ileoccecal valve. Patient had repeat surgery 04/09/20 and is now POD #12 from a bowel resection of 13.5 inches of the distal jejunum and proximal ileum. There was no evidence of bowel leakage. 3rd surgery 04/12 POD#9 viable bowel and reanastomed. TPN stopped with yeast in blood 04/16. Suspect she may have perorated now (4) Acute renal failure: Code(s): N17.9 - Acute kidney failure, unspecified Status: Acute Assessment and Plan: Likely secondary to severe sepsis/ATN. Cr as high as 2.2 but has dropped to normal and has remained normal for over 1 week. Cr worsening related to above (5) Hypocalcemia: Code(s): E83.51 - Hypocalcemia Status: Acute Assessment and Plan: Serum calcium 6.9. Continue to follow. (6) Ileus: Code(s): K56.7 - Ileus, unspecified Status: Acute Assessment and Plan: As above (7) Leukocytosis: Qualifiers: Leukocytosis type: unspecified Qualified Code(s): D72.829 - Elevated white blood cell count, unspecified Code(s): D72.829 - Elevated white blood cell count, unspecified Status: Acute Assessment and Plan: WBC 20K on admission that climbed to 33K but has now normalized. Continue to monitor CBC (8) Anemia: Qualifiers: Anemia type: unspecified type Qualified Code(s): D64.9 - Anemia, unspecified Code(s): D64.9 - An
[2020-04-21] MEDS: CALCIUM CHLOR 1,000MG/100ML NS 1,000 MG/100 ML BAG 100 MG IVPB (21:39)
[2020-04-21] MEDS: SODIUM CHLORIDE 0.9% IV 250 ML 30 ML IV CONT (21:40)
[2020-04-21] MEDS: INSULIN GLARGINE (*BKC) 100 UNITS/ML 20 UNITS SUB-Q (21:52)
[2020-04-22] VITALS (46 sets, daily range): BP systolic 90–137; BP diastolic 46–77; PULSE 82–156; RESP 21–32; TEMP 37.4–38.7; O2SAT 27–100
[2020-04-22] MEDS: ALBUMIN HUMAN 25% 12.5 GM/50ML 50 ML IVPB ×4 (00:02→17:10)
[2020-04-22 00:50] LABS: Glucose Point of Care 289 (65-105)
[2020-04-22] MEDS: INSULIN ASPART (*BKC) 100 UNITS/ML SUB-Q ×3 (00:52→09:34)
[2020-04-22 01:03] LABS: Partial Thromboplastin Time > 200.0 SECONDS (22.3-36.8)
[2020-04-22] MEDS: NOREPINEPHRINE 8 MG/D5W 250 ML 8 MG/250 ML BAG 63.8 MG IV CONT (02:12)
[2020-04-22] MEDS: SODIUM BICARBONATE 8.4% 100 MEQ in WATER, STERILE FOR INJECTION 1,000 ML 50 MEQ IV CONT (04:14)
[2020-04-22] MEDS: ACETAMINOPHEN ELIXIR 325 MG/10.15 ML UDC 650 MG FEED TUBE ×2 (04:15→14:26)
[2020-04-22 04:20] LABS: Alveolar/Arterial O2 Gradient 110.4 mmHg; Base Excess ABG -10.6 mEq/l (+/-2.0); Fractional Inspired Oxygen 40 %; HCO3 ABG 14.5 mEq/l (22.0-26.0); Oxygen Saturation ABG 98.7 % (95.0-100.0); Oxyhemoglobin 96.9 % THb (90.0-100.0); PO2 ABG 141.5 mmHg (80.0-100.0); PO2 FiO2 Ratio Arterial Blood 3.54 %; pH ABG 7.316 (7.350-7.450)
[2020-04-22 04:21] LABS: Device VENTILATOR; Site Drawn ARTLINE; Total Hemoglobin 7.8 g/dL (12.0-18.0)
[2020-04-22 04:22] LABS: Arterial Blood Gas PEEP 5 cmH2O; Arterial Blood Gas Tidal Volume 320 ml; Arterial Blood Gas Vent Mode CMV; Arterial Blood Gas Ventilator rate 15 /MIN
[2020-04-22] MEDS: AMIODARONE 360 MG/D5W 200 ML 360 MG/200 ML BAG 16.7 MG IV CONT (04:39)
[2020-04-22 05:56] LABS: Hematocrit 22.6 % (37.0-47.0); Mean Corpuscular HGB Conc 30.5 g/dl (32-36); Mean Corpuscular Hemoglobin 29.5 pg (26-34); Mean Corpuscular Volume 96.6 fl (80-100); Mean Platelet Volume 11.3 fl (7.4-10.4); Platelet Count Result 203 k/mm3 (150-375); Red Blood Count 2.34 M/mm3 (4.2-5.4); Red Cell Distribution Width 17.8 % (11.5-14.5); White Blood Count 33.3 K/mm3 (4.5-10.0)
[2020-04-22] MEDS: HYDROCORTISONE SODIUM SUCCINATE 100 MG/2 ML VIAL IV PUSH ×3 (06:03→22:57)
[2020-04-22 06:04] LABS: Hemoglobin 6.9 g/dL (12.0-15.0)
[2020-04-22] MEDS: NOREPINEPHRINE 8 MG/D5W 250 ML 8 MG/250 ML BAG 54.4 MG IV CONT (06:16)
[2020-04-22 06:20] LABS: Blood Urea Nitrogen 33 mg/dL (7-17); Calcium 6.8 mg/dL (8.4-10.2); Carbon Dioxide 18 mmol/L (22-30); Chloride 109 mmol/L (98-107); Estimated CRCL calculation 36 ml/min; Estimated Glomerular Filt Rate 37; Glucose 306 mg/dL (65-105); Magnesium 2.1 mg/dL (1.6-2.3); Potassium 3.2 mmol/L (3.4-5.0); Sodium 145 mmol/L (137-145)
[2020-04-22 06:22] LABS: Partial Thromboplastin Time > 200.0 SECONDS (22.3-36.8)
[2020-04-22 06:23] LABS: Lactic Acid 10.7 mmol/L (0.7-2.1)
[2020-04-22 06:38] LABS: Band Neutrophils Percent 8 % (0-6); Crenated RBC 1+ (NORMAL); Hypochromasia 2+ (NORMAL); Lymphocytes Absolute Manual 1.33 K/mm3 (1.1-4.5); Metamyelocytes Percent 1 %; Neutrophils Absolute Manual 31.63 K/mm3 (1.7-7.2); Neutrophils Percent Manual 87 % (46-73); Platelet Estimate Adequate (Adequate); Total Cells Counted 100
[2020-04-22 06:58] LABS: Fibrinogen 196 mg/dl (215-510)
[2020-04-22] MEDS: CALCIUM CHLOR 1,000MG/100ML NS 1,000 MG/100 ML BAG 100 MG IVPB (08:47)
--- NOTE | 2020-04-22 08:49 | PC.NURSE ---
Patient turned and cleaned. Did not tolerate well. Capture Manager called to bedside. Patient with irregular, slow pulse. Orders received to adjust rate of epinephrine, levophed, and amiodarone. 1mg atropine administered at this time per physician order.
[2020-04-22] MEDS: ATROPINE SULFATE 1 MG/10 ML SYRINGE (08:53)
[2020-04-22] MEDS: POTASSIUM CHLORIDE 20 MEQ PACKET (FOR LIQUID) 40 MEQ PO ×2 (09:00→14:26)
[2020-04-22] MEDS: MICAFUNGIN SODIUM 100 MG in SODIUM CHLORIDE 0.9% IV 100 ML IVPB (09:01)
[2020-04-22] MEDS: TOLNAFTATE 1% POWDER 45 GM BTL 1 APPLIC TOPICAL ×2 (09:15→20:28)
[2020-04-22] MEDS: PANTOPRAZOLE SODIUM IV 40 MG VIAL IV PUSH ×2 (09:16→20:28)
[2020-04-22] MEDS: metroNIDAZOLE 500 MG/ISO 100ML 500 MG/100 ML BAG 100 MG IVPB ×3 (09:28→20:29)
[2020-04-22 09:38] LABS: Glucose Point of Care 269 (65-105)
--- NOTE | 2020-04-22 10:40 | PM.IMPN ---
Progress Note: A&P Assessment and Plan (1) Severe sepsis: Code(s): A41.9 - Sepsis, unspecified organism; R65.20 - Severe sepsis without septic shock Status: Acute Assessment and Plan: Severe sepsis with septic shock currently off Levophed since 04/16. Related to acute peritonitis from perforated viscus and ischemic bowel. Lactic acid 3.9 on admission and peaked at 10. Metabolic lactic acidosis was treated with bicarb drip but currently off. Has received 3U PRBC, 7U FFP, 4U Plt, and 4U Cryo. Urine now growing Klebsiella and antibiotics changed to cefepime 04/16 (d#6/7) Blood cultures growing yeast and Micafungin started 04/16 (D#6/) Condition has deteriorated considerably and now on maximum support with MAPs in the 60s on 3 pressors. Discussed with and he again sates he wants everything done in accordance with his sons wishes. Son also called by Care Coordination and patient to remain a full code. . (2) Candidal septicemia: Code(s): B37.7 - Candidal sepsis Status: Acute Assessment and Plan: As above. (3) Perforated viscus: Code(s): R19.8 - Other specified symptoms and signs involving the digestive system and abdomen Status: Acute Assessment and Plan: CT A/P 04/07/20 showing wall thickening of the gastric antrum with gas in the duodenal wall, retroperitoneum, small bowel mesentery, and peritoneum consistent with perforated viscus. Patient taken to the OR 04/08 and is now POD#14 from a exploratory laparotomy, lysis of adhesions, small-bowel resection (approx 2 feet), placement of wound VAC. Mid to distal jejunum is noted to be viable with areas of duskiness. At the level of the proximal ileum, there was jaylin ischemia and necrosis up to 20cm proximal to the ileoccecal valve. Patient had repeat surgery 04/09/20 and is now POD #13 from a bowel resection of 13.5 inches of the distal jejunum and proximal ileum. There was no evidence of bowel leakage. 3rd surgery 04/12 POD#10 viable bowel and reanastomed. TPN stopped with yeast in blood 04/16. Suspect she may have perforated or ischemic bowel (4) Acute renal failure: Code(s): N17.9 - Acute kidney failure, unspecified Status: Acute Assessment and Plan: Likely secondary to severe sepsis/ATN. Cr as high as 2.2 but did drop to normal. Cr back up related to above. (5) Hypocalcemia: Code(s): E83.51 - Hypocalcemia Status: Acute Assessment and Plan: Serum calcium 6.8. Continue to follow. (6) Ileus: Code(s): K56.7 - Ileus, unspecified Status: Acute Assessment and Plan: As above (7) Leukocytosis: Qualifiers: Leukocytosis type: unspecified Qualified Code(s): D72.829 - Elevated white blood cell count, unspecified Code(s): D72.829 - Elevated white blood cell count, unspecified Status: Acute Assessment and Plan: WBC 20K on admission that climbed to 33K but then normalized. WBC back up to 39K before improving to 21K today (8) Anemia: Qualifiers: Anemia type: unspecified type Qualified Code(s): D64.9 - Anemia, unspecified Code(s): D64.9 - Anemia, unspecified Status: Chronic Assessment and Plan: Chronic anemia in the 7-8 range. B12/folate/Ferritin normal. No iron studies. Hgb 10 on admission but probably more hemoconcentrated. Hgb dropped to 6.5 on 04/08 and received 1U PRBC. Hgb dropped again and received a 2nd unit on 04/09. Hbg 6.9 on 04/19 and receive another unit of blood. Hemoglobin 6.9 this morning and transfusion ordered. Continue to monitor. Transfuse as needed. (9) Thrombocytosis: Code(s): D47.3 - Essential (hemorrhagic) thrombocythemia Status: Acute Assessment and Plan: Thrombocytosis related to above but then converted to thrombocytopenia. Plt count dropped to 50K range felt related to consumption and has rebounded to normal. Lovenox starte
--- NOTE | 2020-04-22 10:46 | WPDINTPN ---
Progress Note: A&P Assessment and Plan (1) Shock: Code(s): R57.9 - Shock, unspecified Status: Resolved Assessment and Plan: Patient was initially admitted with Septic shock most likely related to perforated viscus, ileus, ischemic bowel. Patient was resuscitated with IV fluid and was started on vasopressor. -sputum cultures grew Klebsiella and Zosyn switched to cefepime, metronidazole was discontinued -blood cultures are positive for Tonya glabrata. Patient was started on IV micafungin -arterial line was inserted on 04/08/2020, and was later removed -femoral central line was removed on 04/15/2020 and JACC catheter was placed on 04/15/2020 -repeat blood cultures sent 04/17 and are negative at this time -consulted infectious disease and Dr. chakraborty to did not recommend transfer patient for ophtho examination unless patient had persistent positive cultures with Tonya 04/21 overnight patient deteriorated again and went into shock, also diagnosed with new PE and AFib with RVR New onset shock most likely both sepsis and cardiogenic. Patient continues to be in profound shock requiring high doses of 3 vasopressors steroids and several pushes of bicarb to maintain her blood pressure. patient also getting significant amount of IV fluids I will continue cefepime, vancomycin and micafungin added Flagyl for anaerobic coverage and see coverage for C diff Stat echo obtained yesterday and did not showed any evidence of RV failure from PE Re-cultured yesterday Currently on Levophed vasopressin and epinephrine infusions Stress dose steroids (2) Pulmonary embolism: Code(s): I26.99 - Other pulmonary embolism without acute cor pulmonale Status: Acute Assessment and Plan: CTA lung was done 04/20 once patient deteriorated and showed pulmonary embolism and right lower lobe subsegment. TPA was not given due to patient's recent multiples abdominal surgeries leading her to high risk of bleeding. And PE not being very big on CT lung Stat echo done yesterday did not showed RV failure Heparin infusion was started but patient now has new onset GI bleed. I will discontinue heparin infusion at this point Lower extremity Dopplers were checked at did not showed any DVT In ideal will patient would be a candidate for a IVC filter but at this point patient is too unstable to move out of room and also the fact that patient does not have any DVT the IVC filter may not be worth the risk (3) Respiratory failure: Qualifiers: Chronicity: acute Respiratory failure complication: unspecified whether with hypoxia or hypercapnia Qualified Code(s): J96.00 - Acute respiratory failure, unspecified whether with hypoxia or hypercapnia Code(s): J96.90 - Respiratory failure, unspecified, unspecified whether with hypoxia or hypercapnia Status: Acute Assessment and Plan: Post surgery respiratory failure secondary to metabolic acidosis, ischemic bowel -patient on 30% FiO2 and peep of 5, -patient had failed weaning trial for many days and failed -I had consulted ENT for tracheostomy and was planned for Sunday. -CTA of lung and morning chest x-ray reviewed At this point patient is too critically ill for any weaning ABG reviewed (4) Atrial fibrillation with rapid ventricular response: Code(s): I48.91 - Unspecified atrial fibrillation Status: Acute Assessment and Plan: New onset AFib with RVR could be from sepsis, metabolic abnormalities and or PE Amio bolus and drip. Additional amio bolus was given overnight due to persistent AVR and amnio rate was increased to 1 mg Discontinued heparin infusion This morning patient had episode of bradycardia and atropine was given with improvement. Amiodarone has been discontinued at this time (5) Perforated viscus: Code(s): R19.8 - Other specified symptoms and signs involving the digestive system and abdomen Status: Acute Assessment and Plan: CT scan abdome
--- NOTE | 2020-04-22 11:34 | PCDIET ---
ICU Rounding Note: Patient is currently NPO with BRBPR. FMS remains in place. If active GI bleeding continues and aggressive nutritional therapy is desired, will likely need to consider parenteral nutrition. Last recorded weight is 81.0kg which is significantly increased. +I/O noted. Bowel Motility: +Red stool in FMS, per nursing. Labs Reviewed: Hgb (6.9), Hct (22.6), Glu (306), BUN (33), Cr (1.4), K (3.2), Ca (6.8) Meds Noted: Calcium Chloride, Albumin, Cefepime, Novolog, Micafungin, Levophed, Protonix, KCl, Solu Cortef, Flagyl, Vancomycin, Vasopression, Sodium Bicarbonate/Water at 50mL/hr Additional Notes: Groin and buttocks macerated. Wound vac to abdomen. Following daily in ICU rounds. Assessing/reassessing every 3 days.
[2020-04-22] MEDS: NOREPINEPHRINE 8 MG/D5W 250 ML 8 MG/250 ML BAG 37.5 MG IV CONT (12:04)
[2020-04-22 12:26] LABS: Hemoglobin 8.3 g/dL (12.0-15.0); Immature Platelet Fraction Pct 6.5 % (0.9-11.2); Mean Corpuscular HGB Conc 31.9 g/dl (32-36); Mean Corpuscular Hemoglobin 29.9 pg (26-34); Mean Corpuscular Volume 93.5 fl (80-100); Mean Platelet Volume 11.6 fl (7.4-10.4); Platelet Count Result 152 k/mm3 (150-375); Red Blood Count 2.78 M/mm3 (4.2-5.4); White Blood Count 27.5 K/mm3 (4.5-10.0)
[2020-04-22 12:35] LABS: Partial Thromboplastin Time 77.7 SECONDS (22.3-36.8)
[2020-04-22 12:45] LABS: Albumin Level 2.1 g/dL (3.5-5.1); Alkaline Phosphatase 100 U/L (38-126); Aspartate Amino Transferase 53 U/L (14-36); Bilirubin,Total 1.6 mg/dL (0.2-1.3); Blood Urea Nitrogen 36 mg/dL (7-17); Calcium 7.2 mg/dL (8.4-10.2); Carbon Dioxide 18 mmol/L (22-30); Chloride 110 mmol/L (98-107); Estimated CRCL calculation 38 ml/min; Estimated Glomerular Filt Rate 41; Glucose 259 mg/dL (65-105); Potassium 3.5 mmol/L (3.4-5.0); Sodium 144 mmol/L (137-145)
[2020-04-22 12:45] LABS: Lactic Acid 8.2 mmol/L (0.7-2.1)
[2020-04-22 12:49] LABS: Alanine Aminotransferase 36 U/L (4-35)
[2020-04-22] MEDS: SODIUM CHLORIDE 0.9% IV 500 ML IV CONT (12:54)
[2020-04-22 13:03] LABS: Band Neutrophils Percent 5 % (0-6); Hypochromasia 3+ (NORMAL); Monocytes Percent Manual 4 % (3-9); Neutrophils Percent Manual 83 % (46-73); Nucleated Red Blood Cells 1 %; Platelet Estimate Adequate (Adequate); Total Cells Counted 100
[2020-04-22 13:04] LABS: Stomatocytes 2+ (NORMAL)
[2020-04-22] MEDS: VASOPRESSIN INJ 100 UNITS in DEXTROSE 5% 95 ML IV CONT (14:16)
[2020-04-22 14:33] LABS: Alveolar/Arterial O2 Gradient 108.1 mmHg; Base Excess ABG -6.2 mEq/l (+/-2.0); Fractional Inspired Oxygen 40 %; HCO3 ABG 17.7 mEq/l (22.0-26.0); Oxygen Content ABG 12.2 %vol (16.0-22.0); Oxygen Saturation ABG 98.9 % (95.0-100.0); PCO2 ABG 28.9 mmHg (35.0-45.0); PO2 ABG 143.9 mmHg (80.0-100.0); Total Hemoglobin 8.7 g/dL (12.0-18.0); pH ABG 7.404 (7.350-7.450)
[2020-04-22 14:35] LABS: Device VENTILATOR; Site Drawn ARTLINE
[2020-04-22 14:36] LABS: Arterial Blood Gas PEEP 5 cmH2O; Arterial Blood Gas Tidal Volume 320 ml; Arterial Blood Gas Vent Mode CMV; Arterial Blood Gas Ventilator rate 15 /MIN
[2020-04-22 15:07] LABS: Fibrinogen 245 mg/dl (215-510)
[2020-04-22 17:18] LABS: Glucose Point of Care 161 (65-105)
[2020-04-22 17:18] LABS: Glucose Point of Care 198 (65-105)
[2020-04-22 17:39] LABS: Hematocrit 24.1 % (37.0-47.0); Hemoglobin 7.7 g/dL (12.0-15.0); Immature Platelet Fraction Pct 8.3 % (0.9-11.2); Mean Corpuscular Hemoglobin 29.7 pg (26-34); Mean Corpuscular Volume 93.1 fl (80-100); Mean Platelet Volume 11.7 fl (7.4-10.4); Platelet Count Result 112 k/mm3 (150-375); Red Blood Count 2.59 M/mm3 (4.2-5.4); Red Cell Distribution Width 17.1 % (11.5-14.5); White Blood Count 20.9 K/mm3 (4.5-10.0)
[2020-04-22] MEDS: NOREPINEPHRINE 8 MG/D5W 250 ML 8 MG/250 ML BAG 26.3 MG IV CONT (20:25)
[2020-04-22 21:02] LABS: Glucose Point of Care 150 (65-105)
[2020-04-23] VITALS (43 sets, daily range): BP systolic 72–134; BP diastolic 1–66; PULSE 79–111; RESP 27–34; TEMP 37.1–37.8; O2SAT 76–100
[2020-04-23 00:25] LABS: Hematocrit 22.6 % (37.0-47.0); Hemoglobin 7.3 g/dL (12.0-15.0); Mean Corpuscular HGB Conc 32.3 g/dl (32-36); Mean Corpuscular Hemoglobin 29.4 pg (26-34); Mean Corpuscular Volume 91.1 fl (80-100); Mean Platelet Volume 12.5 fl (7.4-10.4); Platelet Count Result 85 k/mm3 (150-375); Red Blood Count 2.48 M/mm3 (4.2-5.4); Red Cell Distribution Width 17.2 % (11.5-14.5); White Blood Count 15.1 K/mm3 (4.5-10.0)
[2020-04-23 00:39] LABS: Glucose 152 mg/dL (65-105)
[2020-04-23] MEDS: metroNIDAZOLE 500 MG/ISO 100ML 500 MG/100 ML BAG 100 MG IVPB ×4 (02:46→20:09)
[2020-04-23] MEDS: SODIUM BICARBONATE 8.4% 100 MEQ in WATER, STERILE FOR INJECTION 1,000 ML 50 MEQ IV CONT (02:46)
[2020-04-23 04:21] LABS: Alveolar/Arterial O2 Gradient 58.9 mmHg; Base Excess ABG -4.7 mEq/l (+/-2.0); Carboxyhemoglobin 0.2 % THb (0-2.0); Device VENTILATOR; Fractional Inspired Oxygen 30 %; HCO3 ABG 18.5 mEq/l (22.0-26.0); Methemoglobin ABG 0.3 %THb (0-1.5); Oxygen Content ABG 13.8 %vol (16.0-22.0); Oxygen Saturation ABG 98.6 % (95.0-100.0); Oxyhemoglobin 96.8 % THb (90.0-100.0); PCO2 ABG 28.1 mmHg (35.0-45.0); PO2 FiO2 Ratio Arterial Blood 4.07 %; Reduced Hemoglobin 2.7 %THb (0-5.0); Site Drawn ARTLINE; pH ABG 7.436 (7.350-7.450)
[2020-04-23 04:22] LABS: Arterial Blood Gas Ventilator rate 15 /MIN
[2020-04-23 04:23] LABS: Arterial Blood Gas PEEP 5 cmH2O; Arterial Blood Gas Tidal Volume 320 ml; Arterial Blood Gas Vent Mode CMV
[2020-04-23 04:53] LABS: Hematocrit 22.3 % (37.0-47.0); Hemoglobin 7.3 g/dL (12.0-15.0); Immature Platelet Fraction Pct 14.3 % (0.9-11.2); Mean Corpuscular HGB Conc 32.7 g/dl (32-36); Mean Corpuscular Hemoglobin 29.4 pg (26-34); Mean Corpuscular Volume 89.9 fl (80-100); Mean Platelet Volume 12.7 fl (7.4-10.4); Platelet Count Result 66 k/mm3 (150-375); Red Blood Count 2.48 M/mm3 (4.2-5.4); White Blood Count 14.6 K/mm3 (4.5-10.0)
[2020-04-23 05:02] LABS: INR 2.8; Prothrombin Time 29.1 Seconds (11.1-14.7)
[2020-04-23 05:14] LABS: Alanine Aminotransferase 39 U/L (4-35); Albumin Level 2.1 g/dL (3.5-5.1); Alkaline Phosphatase 81 U/L (38-126); Aspartate Amino Transferase 71 U/L (14-36); Bilirubin,Total 1.5 mg/dL (0.2-1.3); Blood Urea Nitrogen 43 mg/dL (7-17); Calcium 6.7 mg/dL (8.4-10.2); Carbon Dioxide 19 mmol/L (22-30); Chloride 109 mmol/L (98-107); Estimated CRCL calculation 42 ml/min; Estimated Glomerular Filt Rate 45; Glucose 121 mg/dL (65-105); Magnesium 1.9 mg/dL (1.6-2.3); Potassium 3.1 mmol/L (3.4-5.0); Sodium 142 mmol/L (137-145)
[2020-04-23] MEDS: HYDROCORTISONE SODIUM SUCCINATE 100 MG/2 ML VIAL IV PUSH ×3 (06:21→23:04)
[2020-04-23 08:41] LABS: Glucose Point of Care 86 (65-105)
[2020-04-23] MEDS: PANTOPRAZOLE SODIUM IV 40 MG VIAL IV PUSH ×2 (08:42→20:05)
[2020-04-23] MEDS: NOREPINEPHRINE 8 MG/D5W 250 ML 8 MG/250 ML BAG 18.8 MG IV CONT (08:45)
[2020-04-23] MEDS: MICAFUNGIN SODIUM 100 MG in SODIUM CHLORIDE 0.9% IV 100 ML IVPB (08:46)
[2020-04-23 08:48] LABS: Lactic Acid Reflex 3.9 mmol/L (0.7-2.1)
[2020-04-23] MEDS: TOLNAFTATE 1% POWDER 45 GM BTL 1 APPLIC TOPICAL ×2 (08:48→20:05)
[2020-04-23 11:34] LABS: Reflex Lactic Acid Yes or No Add Lactic
--- NOTE | 2020-04-23 11:39 | PCDIET ---
Nutrition Follow-Up Complete: Nutrition Diagnosis: Inadequate oral intake related to small bowel resection as evidenced by NPO status, mechanical ventilation. Nutrition Goal: Patient to meet estimated nutritional needs. Goal not met. Unable to feed enterally due to GI bleeding. MD holding off on PN at this time due to growth in bloodstream. This is appropriate, as patient was tolerating enteral nutrition at goal previously. If unable to resume enteral feedings in next few days, will need to reconsider PN. Last recorded weight is 84.9 kg which is further increased. +I/O. Decreased urine output noted. Bowel Motility: +Red stools, per FMS. Labs Reviewed: Hgb (7.3), Hct (22.3), Glu (121), BUN (43), Cr (1.2), K (3.1), Alb (2.1), Kayla Ca (8.22) Meds Noted: Vancomycin, Vasopressin, Cefepime, Flagyl, Epinephrine, Micafuncin, Solu Cortef, Levophed, Protonix, Novolog, KCl, Sodium Bicarbonate Additional Notes: No change in skin noted. Wound care continuing to see for abdominal wound. Will continue to follow closely with same goal. Nutrition Monitoring and Evaluation: Follow up every 3 days.
[2020-04-23 12:11] LABS: Glucose Point of Care 61 (65-105)
--- NOTE | 2020-04-23 12:31 | WPDINTPN ---
Progress Note: A&P Assessment and Plan (1) Shock: Code(s): R57.9 - Shock, unspecified Status: Resolved Assessment and Plan: Patient was initially admitted with Septic shock most likely related to perforated viscus, ileus, ischemic bowel. Patient was resuscitated with IV fluid and was started on vasopressor. -sputum cultures grew Klebsiella and Zosyn switched to cefepime, metronidazole was discontinued -blood cultures are positive for Tonya glabrata. Patient was started on IV micafungin -arterial line was inserted on 04/08/2020, and was later removed -femoral central line was removed on 04/15/2020 and JACC catheter was placed on 04/15/2020 -repeat blood cultures sent 04/17 and are negative at this time -consulted infectious disease and Dr. chakraborty to did not recommend transfer patient for ophtho examination unless patient had persistent positive cultures with Tonya 04/21 overnight patient deteriorated again and went into shock, also diagnosed with new PE and AFib with RVR New onset shock most likely both sepsis and cardiogenic. Patient continues to be in profound shock, on vasopressin and Levophed and stress dose steroids continue cefepime, vancomycin and micafungin and Flagyl for anaerobic coverage and see coverage for C diff Stat echo obtained yesterday and did not showed any evidence of RV failure from PE 08/21/2020: C diff Was negative, blood cultures were negative x2, urine culture was negative Sputum culture from 08/21/2020 growing gram-negative bacilli (2) Pulmonary embolism: Code(s): I26.99 - Other pulmonary embolism without acute cor pulmonale Status: Acute Assessment and Plan: CTA lung was done 04/20 once patient deteriorated and showed pulmonary embolism and right lower lobe subsegment. TPA was not given due to patient's recent multiples abdominal surgeries leading her to high risk of bleeding. And PE not being very big on CT lung Stat echo done on 04/21/2020 did not showed RV failure Heparin infusion was started but patient now has new onset GI bleed. Heparin infusion was discontinued Lower extremity Dopplers t did not showed any DVT In ideal world patient would be a candidate for a IVC filter but at this point patient is too unstable to move out of room and also the fact that patient does not have any DVT the IVC filter may not be worth the risk (3) Respiratory failure: Qualifiers: Chronicity: acute Respiratory failure complication: unspecified whether with hypoxia or hypercapnia Qualified Code(s): J96.00 - Acute respiratory failure, unspecified whether with hypoxia or hypercapnia Code(s): J96.90 - Respiratory failure, unspecified, unspecified whether with hypoxia or hypercapnia Status: Acute Assessment and Plan: Post surgery respiratory failure secondary to metabolic acidosis, ischemic bowel -patient on 30% FiO2 and peep of 5, -patient had failed weaning trial for many days and failed -patient at this time is unstable to undergo a tracheostomy and PEG tube placement -CTA of lung and morning chest x-ray reviewed At this point patient is too critically ill for any weaning ABG reviewed (4) Atrial fibrillation with rapid ventricular response: Code(s): I48.91 - Unspecified atrial fibrillation Status: Acute Assessment and Plan: New onset AFib with RVR could be from sepsis, metabolic abnormalities and or PE Amio bolus and drip. Additional amio bolus was given overnight due to persistent AVR and amnio rate was increased to 1 mg Discontinued heparin infusion On 04/22/2020 patient had episode of bradycardia and atropine was given with improvement. Amiodarone was discontinued (5) Perforated viscus: Code(s): R19.8 - Other specified symptoms and signs involving the digestive system and abdomen Status: Acute Assessment and Plan: CT scan abdomen and pelvis showed wall thickening of the gastric antrum with gas in the duodenal wall, r
[2020-04-23 12:34] LABS: Hematocrit 24.3 % (37.0-47.0); Hemoglobin 8.1 g/dL (12.0-15.0); Immature Platelet Fraction Pct 17.1 % (0.9-11.2); Mean Corpuscular HGB Conc 33.3 g/dl (32-36); Mean Corpuscular Hemoglobin 30.2 pg (26-34); Mean Corpuscular Volume 90.7 fl (80-100); Mean Platelet Volume 13.3 fl (7.4-10.4); Platelet Count Result 68 k/mm3 (150-375); Red Blood Count 2.68 M/mm3 (4.2-5.4); Red Cell Distribution Width 17.2 % (11.5-14.5); White Blood Count 21.3 K/mm3 (4.5-10.0)
[2020-04-23] MEDS: DEXTROSE 5%/0.9% SOD CHL 1,000 ML 50 ML IV CONT (12:38)
[2020-04-23 12:47] LABS: Lactic Acid 4.1 mmol/L (0.7-2.1)
--- NOTE | 2020-04-23 14:04 | WPDINFPN2 ---
Progress Note: A&P Assessment and Plan (1) Candidal septicemia: Code(s): B37.7 - Candidal sepsis Status: Acute Assessment and Plan: 1. Tonya septicemia, line vs intraabd. source. Line changed. 2. Past C diff 3. Klebsiella in sputum, possible tracheobronchitis 4. Small bowel ischemia, multiple operations 5. Breakthrough fever 6. Cardiac arrest REC Micafungin # 8 / 10 days. Cefepime # 8, stop. IJ line in place. Wound vac in place. Stop Vancomycin. Subjective Date/time seen: 04/23/20 14:04 Interval history: on pressors once again after she was turned. Flexiseal in, but some leakage around it, requiring the turning Exam Narrative: Exam Narrative: t max 38.6 core Const: General: in distress Eyes: General: appearance normal, both eyes and all related structures Resp: Auscultation: clear to auscultation bilaterally and diminished lung sounds Cardio: Rate: regular rate Rhythm: regular rhythm GI: Inspection: distended GI Palp: Yes Firmness to palpation present (GI), No Tenderness to palpation present (GI) and No Guarding due to palpation present (GI) Urinary Catheter: Urinary Catheter: patent and draining and urine clear Skin: General skin exam: normal color and no rashes or lesions noted Objective Data Vital Signs Vital Signs: Vital Signs - 24 hr 04/22/20 14:16 04/22/20 14:20 04/22/20 14:25 Temperature Pulse Rate 112 H 102 H 103 H Respiratory Rate Blood Pressure 117/62 103/59 L 109/57 L Pulse Oximetry 100 04/22/20 14:26 04/22/20 15:10 04/22/20 15:40 Temperature 37.8 C H 38.3 C H Pulse Rate 97 Respiratory Rate Blood Pressure 98/56 L Pulse Oximetry 04/22/20 15:53 04/22/20 16:00 04/22/20 16:30 Temperature 38.5 C H Pulse Rate 98 97 102 H Respiratory Rate 26 H Blood Pressure 116/60 113/58 L 90/77 L Pulse Oximetry 100 04/22/20 16:47 04/22/20 17:20 04/22/20 18:00 Temperature 38.6 C H Pulse Rate 101 H 104 H 87 Respiratory Rate 29 H Blood Pressure 124/65 132/63 Pulse Oximetry 100 100 04/22/20 19:44 04/22/20 20:00 04/22/20 20:25 Temperature 38.3 C H Pulse Rate 92 85 85 Respiratory Rate 26 H Blood Pressure 137/68 131/65 Pulse Oximetry 100 100 04/22/20 22:00 04/22/20 22:58 04/22/20 23:20 Temperature 37.4 C Pulse Rate 84 82 87 Respiratory Rate 27 H Blood Pressure 122/56 L 120/56 L Pulse Oximetry 27 L 100 04/23/20 00:00 04/23/20 00:07 04/23/20 01:53 Temperature 37.1 C Pulse Rate 81 83 82 Respiratory Rate 29 H Blood Pressure 104/51 L 116/52 L Pulse Oximetry 100 04/23/20 02:00 04/23/20 02:38 04/23/20 03:09 Temperature 37.8 C H Pulse Rate 82 80 Respiratory Rate 27 H 29 H Blood Pressure 116/54 L Pulse Oximetry 100 100 100 04/23/20 03:11 04/23/20 03:13 04/23/20 04:00 Temperature 37.6 C H Pulse Rate 80 79 80 Respiratory Rate 28 H Blood Pressure 106/49 L 110/50 L 116/52 L Pulse Oximetry 100 04/23/20 04:25 04/23/20 04:50 04/23/20 04:52 Temperature Pulse Rate 80 80 80 Respiratory Rate Blood Pressure 118/52 L 113/50 L Pulse Oximetry 100 04/23/20 04:53 04/23/20 06:00 04/23/20 06:19 Temperature 37.6 C Pulse Rate 80 104 H 83 Respiratory Rate 31 H Blood Pressure 113/50 L 107/52 L 92/45 L Pulse Oximetry 100 04/23/20 07:54 04/23/20 08:00 04/23/20 08:45 Temperature 37.2 C Pulse Rate 85 84 102 H Respiratory Rate 29 H Blood Pressure 102/46 L 104/52 L Pulse Oximetry 100 100 04/23/20 10:00 04/23/20 12:00 04/23/20 13:27 Temperature 37.3 C Pulse Rate 88 100 98 Respiratory Rate 31 H 34 H Blood Pressure 90/42 L 88/45 L Pulse Oximetry 100 100 76 L 04/23/20 13:30 Temperature Pulse Rate 97 Respiratory Rate Blood Pressure Pulse Oximetry 98 Intake/Output Intake/Output: Intake & Output 04/20/20 04/21/20 04/22/20 04/23/20 23:59 23:59 23:59 23:59 Intake Total 4095 5231.6 6586 2281 Output Total 1999 873 0320 1625 Balance -85 4531.6 313
[2020-04-23 14:52] LABS: Alveolar/Arterial O2 Gradient 130.5 mmHg; Base Excess ABG -5.2 mEq/l (+/-2.0); Device VENTILATOR; Fractional Inspired Oxygen 60 %; HCO3 ABG 17.9 mEq/l (22.0-26.0); Oxygen Content ABG 12.9 %vol (16.0-22.0); Oxygen Saturation ABG 99.7 % (95.0-100.0); Oxyhemoglobin 97.3 % THb (90.0-100.0); PCO2 ABG 26.3 mmHg (35.0-45.0); PO2 ABG 268.4 mmHg (80.0-100.0); PO2 FiO2 Ratio Arterial Blood 4.47 %; Site Drawn ARTLINE; Total Hemoglobin 8.9 g/dL (12.0-18.0)
[2020-04-23 14:53] LABS: Arterial Blood Gas PEEP 5 cmH2O; Arterial Blood Gas Tidal Volume 320 ml; Arterial Blood Gas Vent Mode CMV; Arterial Blood Gas Ventilator rate 15 /MIN
--- NOTE | 2020-04-23 16:41 | PM.IMPN ---
Progress Note: A&P Assessment and Plan (1) Severe sepsis: Code(s): A41.9 - Sepsis, unspecified organism; R65.20 - Severe sepsis without septic shock Status: Acute Assessment and Plan: Severe sepsis with septic shock currently off Levophed since 04/16. Related to acute peritonitis from perforated viscus and ischemic bowel. Lactic acid 3.9 on admission and peaked at 10. Metabolic lactic acidosis was treated with bicarb drip but currently off. Has received 3U PRBC, 7U FFP, 4U Plt, and 4U Cryo. Urine now growing Klebsiella and antibiotics changed to cefepime 04/16 (d#8/7). Blood cultures growing yeast and Micafungin started 04/16 (D#8/10) Condition has deteriorated considerably and now on maximum support. Condition is grim; patient remains a full code. Cefepime stopped. (2) Candidal septicemia: Code(s): B37.7 - Candidal sepsis Status: Acute Assessment and Plan: As above. (3) Perforated viscus: Code(s): R19.8 - Other specified symptoms and signs involving the digestive system and abdomen Status: Acute Assessment and Plan: CT A/P 04/07/20 showing wall thickening of the gastric antrum with gas in the duodenal wall, retroperitoneum, small bowel mesentery, and peritoneum consistent with perforated viscus. Patient taken to the OR 04/08 for an exploratory laparotomy, lysis of adhesions, small-bowel resection (approx 2 feet), placement of wound VAC. Mid to distal jejunum is noted to be viable with areas of duskiness. At the level of the proximal ileum, there was jaylin ischemia and necrosis up to 20cm proximal to the ileoccecal valve. Patient had repeat surgery 04/09/20 for a bowel resection of 13.5 inches of the distal jejunum and proximal ileum. There was no evidence of bowel leakage. 3rd surgery 04/12 showing viable bowel and she underwent reanastomed. TPN stopped with yeast in blood 04/16. Suspect she may have perforated or ischemic bowel now to explain her sudden clinical change (4) Atrial fibrillation with rapid ventricular response: Code(s): I48.91 - Unspecified atrial fibrillation Status: Acute Assessment and Plan: Pateitn with intermittent AFib with RVR. This is intermixed with sinus tachycardia which is compensatory to her low BP. Continue to monitor on tele but hold on intervention. (5) Pulmonary embolism: Code(s): I26.99 - Other pulmonary embolism without acute cor pulmonale Status: Acute Assessment and Plan: CT scan showing RLL PE. Was on heparin but stopped due to excessive GI blood loss and anemia. Filter not realistic in this unstable patient. (6) Acute renal failure: Code(s): N17.9 - Acute kidney failure, unspecified Status: Acute Assessment and Plan: Likely secondary to severe sepsis/ATN. Cr as high as 2.2 but did drop to normal. Cr back up to 1.4 but better; felt related to above. UOP 500mL. (7) Hypocalcemia: Code(s): E83.51 - Hypocalcemia Status: Acute Assessment and Plan: Serum calcium 6.7. Continue to follow. (8) Ileus: Code(s): K56.7 - Ileus, unspecified Status: Acute Assessment and Plan: As above (9) Leukocytosis: Qualifiers: Leukocytosis type: unspecified Qualified Code(s): D72.829 - Elevated white blood cell count, unspecified Code(s): D72.829 - Elevated white blood cell count, unspecified Status: Acute Assessment and Plan: WBC 20K on admission that climbed to 33K but then normalized. WBC back up to 39K on 04/21/20 and remaining elevated. Related to above. (10) Anemia: Qualifiers: Anemia type: unspecified type Qualified Code(s): D64.9 - Anemia, unspecified Code(s): D64.9 - Anemia, unspecified Status: Chronic Assessment and Plan: Chronic anemia in the 7-8 range. B12/folate/Ferritin normal. No iron studies. Has received a total of PRBC 5U, FFP 7U, P
[2020-04-23 17:04] LABS: Glucose Point of Care 95 (65-105)
[2020-04-23] MEDS: NOREPINEPHRINE 8 MG/D5W 250 ML 8 MG/250 ML BAG 41.3 MG IV CONT (17:04)
[2020-04-23 17:56] LABS: Hematocrit 24.4 % (37.0-47.0); Mean Corpuscular HGB Conc 32.8 g/dl (32-36); Mean Corpuscular Hemoglobin 29.5 pg (26-34); Mean Platelet Volume 12.8 fl (7.4-10.4); Platelet Count Result 51 k/mm3 (150-375); Red Blood Count 2.71 M/mm3 (4.2-5.4); Red Cell Distribution Width 17.1 % (11.5-14.5); White Blood Count 36.2 K/mm3 (4.5-10.0)
[2020-04-23] MEDS: ALBUMIN HUMAN 25% 25 GM/100 ML 100 ML IVPB (20:04)
[2020-04-23 21:07] LABS: Glucose Point of Care 90 (65-105)
[2020-04-23] MEDS: NOREPINEPHRINE 8 MG/D5W 250 ML 8 MG/250 ML BAG 48.8 MG IV CONT (23:02)
[2020-04-23] MEDS: SODIUM BICARBONATE 8.4% 100 MEQ in DEXTROSE 5% 1,000 ML 1,000 ML 50 MEQ IV CONT (23:04)
[2020-04-24] VITALS (34 sets, daily range): BP systolic 74–125; BP diastolic 40–62; PULSE 98–146; RESP 22–37; TEMP 37.6–38.2; O2SAT 92–100
[2020-04-24 01:21] LABS: Glucose Point of Care 106 (65-105)
[2020-04-24] MEDS: MIDAZOLAM HCL 2 MG/2 ML VIAL 1 MG IV PUSH ×2 (02:46→05:37)
[2020-04-24] MEDS: NOREPINEPHRINE 8 MG/D5W 250 ML 8 MG/250 ML BAG 46.9 MG IV CONT ×2 (04:26→10:27)
[2020-04-24] MEDS: metroNIDAZOLE 500 MG/ISO 100ML 500 MG/100 ML BAG 100 MG IVPB ×4 (04:27→20:53)
[2020-04-24 05:18] LABS: Alveolar/Arterial O2 Gradient 100.4 mmHg; Carboxyhemoglobin 0.3 % THb (0-2.0); Fractional Inspired Oxygen 30 %; HCO3 ABG 16.9 mEq/l (22.0-26.0); Methemoglobin ABG 0.9 %THb (0-1.5); Oxygen Content ABG 9.6 %vol (16.0-22.0); Oxygen Saturation ABG 96.5 % (95.0-100.0); Oxyhemoglobin 93.3 % THb (90.0-100.0); Reduced Hemoglobin 5.5 %THb (0-5.0); pH ABG 7.468 (7.350-7.450)
[2020-04-24 05:19] LABS: PCO2 ABG 23.9 mmHg (35.0-45.0); Total Hemoglobin 7.2 g/dL (12.0-18.0)
[2020-04-24 05:21] LABS: Arterial Blood Gas PEEP 5 cmH2O; Arterial Blood Gas Vent Mode CMV; Device VENTILATOR; Site Drawn ARTLINE
[2020-04-24 05:26] LABS: Arterial Blood Gas Ventilator rate 15 /MIN
[2020-04-24 05:27] LABS: Arterial Blood Gas Tidal Volume 320 ml
[2020-04-24] MEDS: VASOPRESSIN INJ 100 UNITS in DEXTROSE 5% 95 ML IV CONT (05:39)
[2020-04-24 05:40] LABS: Hematocrit 21.1 % (37.0-47.0); Immature Platelet Fraction Pct 23.5 % (0.9-11.2); Mean Corpuscular HGB Conc 33.2 g/dl (32-36); Mean Corpuscular Hemoglobin 30.2 pg (26-34); Mean Corpuscular Volume 90.9 fl (80-100); Platelet Count Result 43 k/mm3 (150-375); Red Blood Count 2.32 M/mm3 (4.2-5.4); Red Cell Distribution Width 17.2 % (11.5-14.5)
[2020-04-24] MEDS: HYDROCORTISONE SODIUM SUCCINATE 100 MG/2 ML VIAL IV PUSH ×3 (05:41→20:54)
[2020-04-24 05:48] LABS: Glucose Point of Care 132 (65-105)
[2020-04-24 05:51] LABS: INR 3.3; Prothrombin Time 32.9 Seconds (11.1-14.7)
[2020-04-24 05:52] LABS: Phosphorus 4.3 mg/dL (2.5-4.5)
[2020-04-24 05:53] LABS: Alanine Aminotransferase 38 U/L (4-35); Albumin Level 2.2 g/dL (3.5-5.1); Alkaline Phosphatase 160 U/L (38-126); Aspartate Amino Transferase 46 U/L (14-36); Bilirubin,Total 2.2 mg/dL (0.2-1.3); Blood Urea Nitrogen 46 mg/dL (7-17); Calcium 6.4 mg/dL (8.4-10.2); Carbon Dioxide 18 mmol/L (22-30); Chloride 105 mmol/L (98-107); Estimated CRCL calculation 34 ml/min; Estimated Glomerular Filt Rate 34; Glucose 137 mg/dL (65-105); Magnesium 1.8 mg/dL (1.6-2.3); Potassium 3.1 mmol/L (3.4-5.0); Sodium 135 mmol/L (137-145)
[2020-04-24 05:56] LABS: Lactic Acid 4.4 mmol/L (0.7-2.1)
--- NOTE | 2020-04-24 08:24 | PM.IMPN ---
Progress Note: A&P Assessment and Plan (1) Severe sepsis: Code(s): A41.9 - Sepsis, unspecified organism; R65.20 - Severe sepsis without septic shock Status: Acute Assessment and Plan: Severe sepsis with septic shock currently off Levophed since 04/16. Related to acute peritonitis from perforated viscus and ischemic bowel. Lactic acid 3.9 on admission and peaked at 10 but then normalized before climbing agin here more recently to 12.5. Has received 3U PRBC, 7U FFP, 4U Plt, and 4U Cryo. Urine now growing Klebsiella and antibiotics changed to cefepime 04/16; Cefepime stopped after 8 days. Blood cultures growing yeast and Micafungin started 04/16 (D#9/). Lactic better at 4.4. Condition has deteriorated considerably and now on maximum support. Condition is grim; patient remains a full code. Discussed with drapery hemmer automatic (2) Candidal septicemia: Code(s): B37.7 - Candidal sepsis Status: Acute Assessment and Plan: As above. (3) Perforated viscus: Code(s): R19.8 - Other specified symptoms and signs involving the digestive system and abdomen Status: Acute Assessment and Plan: CT A/P 04/07/20 showing wall thickening of the gastric antrum with gas in the duodenal wall, retroperitoneum, small bowel mesentery, and peritoneum consistent with perforated viscus. Patient taken to the OR 04/08 for an exploratory laparotomy, lysis of adhesions, small-bowel resection (approx 2 feet), placement of wound VAC. Mid to distal jejunum is noted to be viable with areas of duskiness. At the level of the proximal ileum, there was jaylin ischemia and necrosis up to 20cm proximal to the ileoccecal valve. Patient had repeat surgery 04/09/20 for a bowel resection of 13.5 inches of the distal jejunum and proximal ileum. There was no evidence of bowel leakage. 3rd surgery 04/12 showing viable bowel and she underwent reanastomed. TPN stopped with yeast in blood 04/16. Suspect she may have perforated or ischemic bowel now to explain her sudden clinical change. (4) Atrial fibrillation with rapid ventricular response: Code(s): I48.91 - Unspecified atrial fibrillation Status: Acute Assessment and Plan: Pateitn with intermittent AFib with RVR. This is intermixed with sinus tachycardia which is compensatory to her low BP. Continue to monitor on tele but hold on intervention. (5) Pulmonary embolism: Code(s): I26.99 - Other pulmonary embolism without acute cor pulmonale Status: Acute Assessment and Plan: CT scan showing RLL PE. Was on heparin but stopped due to excessive GI blood loss and anemia. Filter not realistic in this unstable patient. (6) Acute renal failure: Code(s): N17.9 - Acute kidney failure, unspecified Status: Acute Assessment and Plan: Likely secondary to severe sepsis/ATN. Cr as high as 2.2 but did drop to normal. Cr back up to 1.5 today. UOP 300mL. (7) Hypocalcemia: Code(s): E83.51 - Hypocalcemia Status: Acute Assessment and Plan: Serum calcium 6.4. Continue to follow. (8) Ileus: Code(s): K56.7 - Ileus, unspecified Status: Acute Assessment and Plan: As above (9) Leukocytosis: Qualifiers: Leukocytosis type: unspecified Qualified Code(s): D72.829 - Elevated white blood cell count, unspecified Code(s): D72.829 - Elevated white blood cell count, unspecified Status: Acute Assessment and Plan: WBC 20K on admission that climbed to 33K but then normalized. WBC back up to 39K on 04/21/20 and remaining elevated. WBC up to 43K today. Related to above. (10) Anemia: Qualifiers: Anemia type: unspecified type Qualified Code(s): D64.9 - Anemia, unspecified Code(s): D64.9 - Anemia, unspecified Status: Chronic Assessment and Plan: Hgb stable in the 7-8 range since last transfusion. B12/folate/Ferritin nor
[2020-04-24] MEDS: ALBUMIN HUMAN 25% 25 GM/100 ML 100 ML IVPB ×2 (08:44→20:52)
[2020-04-24] MEDS: MICAFUNGIN SODIUM 100 MG in SODIUM CHLORIDE 0.9% IV 100 ML IVPB (08:45)
[2020-04-24] MEDS: TOLNAFTATE 1% POWDER 45 GM BTL 1 APPLIC TOPICAL ×2 (08:46→20:47)
[2020-04-24] MEDS: PANTOPRAZOLE SODIUM IV 40 MG VIAL IV PUSH ×2 (08:46→20:46)
--- NOTE | 2020-04-24 08:53 | WPDINTPN ---
Progress Note: A&P Assessment and Plan (1) Shock: Code(s): R57.9 - Shock, unspecified Status: Resolved Assessment and Plan: Patient was initially admitted with Septic shock most likely related to perforated viscus, ileus, ischemic bowel. Patient was resuscitated with IV fluid and was started on vasopressor. -sputum cultures grew Klebsiella and Zosyn switched to cefepime, metronidazole was discontinued -blood cultures are positive for Tonya glabrata. Patient was started on IV micafungin -arterial line was inserted on 04/08/2020, and was later removed -femoral central line was removed on 04/15/2020 and JACC catheter was placed on 04/15/2020 -repeat blood cultures sent 04/17 and are negative at this time -consulted infectious disease and Dr. chakraborty to did not recommend transfer patient for ophtho examination unless patient had persistent positive cultures with Tonya 04/21 overnight patient deteriorated again and went into shock, also diagnosed with new PE and AFib with RVR New onset shock most likely both sepsis and cardiogenic. Patient continues to be in profound shock, on vasopressin and Levophed and stress dose steroids -increased vasopressor requirements, will add Bertrand-Synephrine as the 3rd pressor. continue micafungin and Flagyl, infectious disease following the patient Stat echo obtained 04/21 and did not showed any evidence of RV failure from PE 08/21/2020: C diff Was negative, blood cultures were negative x2, urine culture was negative Sputum culture from 08/21/2020 growth of normal oropharyngeal horace (2) Pulmonary embolism: Code(s): I26.99 - Other pulmonary embolism without acute cor pulmonale Status: Acute Assessment and Plan: CTA lung was done 04/20 once patient deteriorated and showed pulmonary embolism and right lower lobe subsegment. TPA was not given due to patient's recent multiples abdominal surgeries leading her to high risk of bleeding. And PE not being very big on CT lung Stat echo done on 04/21/2020 did not showed RV failure Heparin infusion was started but patient now has new onset GI bleed. Heparin infusion was discontinued Lower extremity Dopplers did not showed any DVT In ideal world patient would be a candidate for a IVC filter but at this point patient is too unstable to move out of room and also the fact that patient does not have any DVT the IVC filter may not be worth the risk (3) Respiratory failure: Qualifiers: Chronicity: acute Respiratory failure complication: unspecified whether with hypoxia or hypercapnia Qualified Code(s): J96.00 - Acute respiratory failure, unspecified whether with hypoxia or hypercapnia Code(s): J96.90 - Respiratory failure, unspecified, unspecified whether with hypoxia or hypercapnia Status: Acute Assessment and Plan: Post surgery respiratory failure secondary to metabolic acidosis, ischemic bowel -patient on 30% FiO2 and peep of 5, -patient had failed weaning trial for many days -patient at this time is unstable to undergo a tracheostomy and PEG tube placement secondary to being medically unstable -chest x-ray and ABGs reviewed -At this point patient is critically ill for any weaning trials (4) Atrial fibrillation with rapid ventricular response: Code(s): I48.91 - Unspecified atrial fibrillation Status: Acute Assessment and Plan: New onset AFib with RVR could be from sepsis, metabolic abnormalities and or PE. Requiring amiodarone bolus and infusion Discontinued heparin infusion due to anemia and bleeding On 04/22/2020 patient had episode of bradycardia and atropine was given with improvement. Amiodarone was discontinued (5) Perforated viscus: Code(s): R19.8 - Other specified symptoms and signs involving the digestive system and abdomen Status: Acute Assessment and Plan: CT scan abdomen and pelvis showed wall thickening of the gastric antrum with gas in the duodenal wall, ret
[2020-04-24 09:22] LABS: Glucose Point of Care 112 (65-105)
[2020-04-24] MEDS: NOREPINEPHRINE 8 MG/D5W 250 ML 8 MG/250 ML BAG 56.3 MG IV CONT ×2 (15:17→20:42)
[2020-04-24 16:36] LABS: Glucose Point of Care 124 (65-105)
--- NOTE | 2020-04-24 17:09 | PC.NURSE ---
Pts son arrived around 1600. Requested permission to call his group marketing vp. Permission granted. Was at the time of [id number] unable to reach group marketing vp.
[2020-04-24] MEDS: SODIUM BICARBONATE 8.4% 100 MEQ in DEXTROSE 5% 1,000 ML 1,000 ML 50 MEQ IV CONT (19:39)
[2020-04-24 20:52] LABS: Glucose Point of Care 127 (65-105)
[2020-04-25] VITALS (34 sets, daily range): BP systolic 39–87; BP diastolic 31–43; PULSE 54–112; RESP 15–33; TEMP 36.1–38.2; O2SAT 50–100
[2020-04-25 00:16] LABS: Glucose Point of Care 147 (65-105)
[2020-04-25] MEDS: NOREPINEPHRINE 8 MG/D5W 250 ML 8 MG/250 ML BAG 56.3 MG IV CONT ×5 (00:55→20:11)
[2020-04-25 04:04] LABS: Glucose Point of Care 144 (65-105)
[2020-04-25] MEDS: metroNIDAZOLE 500 MG/ISO 100ML 500 MG/100 ML BAG 100 MG IVPB ×4 (04:15→21:22)
[2020-04-25 05:01] LABS: Alveolar/Arterial O2 Gradient 265.4 mmHg; Base Excess ABG -17.7 mEq/l (+/-2.0); Carboxyhemoglobin 0.3 % THb (0-2.0); Fractional Inspired Oxygen 90 %; HCO3 ABG 9.3 mEq/l (22.0-26.0); Methemoglobin ABG 1.1 %THb (0-1.5); Oxygen Saturation ABG 99.7 % (95.0-100.0); Oxyhemoglobin 96.9 % THb (90.0-100.0); PCO2 ABG 26.6 mmHg (35.0-45.0); PO2 FiO2 Ratio Arterial Blood 3.88 %; Reduced Hemoglobin 1.7 %THb (0-5.0)
[2020-04-25 05:05] LABS: pH ABG 7.163 (7.350-7.450)
[2020-04-25 05:06] LABS: Device VENTILATOR; Site Drawn ARTLINE; Total Hemoglobin 5.9 g/dL (12.0-18.0)
[2020-04-25 05:07] LABS: Arterial Blood Gas PEEP 5 cmH2O; Arterial Blood Gas Tidal Volume 320 ml; Arterial Blood Gas Vent Mode CMV; Arterial Blood Gas Ventilator rate 15 /MIN
[2020-04-25] MEDS: HYDROCORTISONE SODIUM SUCCINATE 100 MG/2 ML VIAL IV PUSH ×3 (05:20→21:23)
[2020-04-25 06:44] LABS: Immature Platelet Fraction Pct 25.6 % (0.9-11.2); Platelet Count Result 26 k/mm3 (150-375); Red Blood Count 1.68 M/mm3 (4.2-5.4); Red Cell Distribution Width 18.2 % (11.5-14.5)
[2020-04-25 06:45] LABS: Hematocrit 16.8 % (37.0-47.0); Hemoglobin 5.2 g/dL (12.0-15.0); White Blood Count 55.1 K/mm3 (4.5-10.0)
[2020-04-25 06:52] LABS: Prothrombin Time 53.2 Seconds (11.1-14.7)
[2020-04-25 06:53] LABS: INR 6.1
[2020-04-25 07:06] LABS: Alanine Aminotransferase 29 U/L (4-35); Albumin Level 2.3 g/dL (3.5-5.1); Alkaline Phosphatase 147 U/L (38-126); Aspartate Amino Transferase 28 U/L (14-36); Blood Urea Nitrogen 42 mg/dL (7-17); Carbon Dioxide 8 mmol/L (22-30); Chloride 100 mmol/L (98-107); Estimated CRCL calculation 31 ml/min; Estimated Glomerular Filt Rate 30; Glucose 147 mg/dL (65-105); Magnesium 1.9 mg/dL (1.6-2.3); Potassium 3.8 mmol/L (3.4-5.0); Sodium 134 mmol/L (137-145)
[2020-04-25 07:08] LABS: Lactic Acid 13.6 mmol/L (0.7-2.1)
--- NOTE | 2020-04-25 08:46 | PM.IMPN ---
Progress Note: A&P Assessment and Plan (1) Severe sepsis: Code(s): A41.9 - Sepsis, unspecified organism; R65.20 - Severe sepsis without septic shock Status: Acute Assessment and Plan: Severe sepsis with septic shock currently off Levophed since 04/16. Related to acute peritonitis from perforated viscus and ischemic bowel. Lactic acid 3.9 on admission and peaked at 10 but then normalized before climbing agin here more recently to 12.5. Has received 3U PRBC, 7U FFP, 4U Plt, and 4U Cryo. Urine now growing Klebsiella and antibiotics changed to cefepime 04/16; Cefepime stopped after 8 days. Blood cultures growing yeast and Micafungin started 04/16 (D#10). Lactic better at 4.4. Condition has deteriorated considerably and now on maximum support. Condition is grim; patient now a modified code. Discussed with welt stitcher (2) Candidal septicemia: Code(s): B37.7 - Candidal sepsis Status: Acute Assessment and Plan: As above. (3) Perforated viscus: Code(s): R19.8 - Other specified symptoms and signs involving the digestive system and abdomen Status: Acute Assessment and Plan: CT A/P 04/07/20 showing wall thickening of the gastric antrum with gas in the duodenal wall, retroperitoneum, small bowel mesentery, and peritoneum consistent with perforated viscus. Patient taken to the OR 04/08 for an exploratory laparotomy, lysis of adhesions, small-bowel resection (approx 2 feet), placement of wound VAC. Mid to distal jejunum is noted to be viable with areas of duskiness. At the level of the proximal ileum, there was jaylin ischemia and necrosis up to 20cm proximal to the ileoccecal valve. Patient had repeat surgery 04/09/20 for a bowel resection of 13.5 inches of the distal jejunum and proximal ileum. There was no evidence of bowel leakage. 3rd surgery 04/12 showing viable bowel and she underwent reanastomed. TPN stopped with yeast in blood 04/16. Suspect she may have perforated or ischemic bowel now to explain her sudden clinical change. (4) Atrial fibrillation with rapid ventricular response: Code(s): I48.91 - Unspecified atrial fibrillation Status: Acute Assessment and Plan: Patient with intermittent AFib with RVR. This is intermixed with sinus tachycardia which is compensatory to her low BP. Continue to monitor on tele but hold on intervention. (5) Pulmonary embolism: Code(s): I26.99 - Other pulmonary embolism without acute cor pulmonale Status: Acute Assessment and Plan: CT scan showing RLL PE. Was on heparin but stopped due to excessive GI blood loss and anemia. Filter not realistic in this unstable patient. (6) Acute renal failure: Code(s): N17.9 - Acute kidney failure, unspecified Status: Acute Assessment and Plan: Likely secondary to severe sepsis/ATN. Cr as high as 2.2 but did drop to normal. Cr back up to 1.7 today. UOP 125mL. (7) Hypocalcemia: Code(s): E83.51 - Hypocalcemia Status: Acute Assessment and Plan: Serum calcium 6.0. Continue to follow. (8) Ileus: Code(s): K56.7 - Ileus, unspecified Status: Acute Assessment and Plan: As above (9) Leukocytosis: Qualifiers: Leukocytosis type: unspecified Qualified Code(s): D72.829 - Elevated white blood cell count, unspecified Code(s): D72.829 - Elevated white blood cell count, unspecified Status: Acute Assessment and Plan: WBC 20K on admission that climbed to 33K but then normalized. WBC back up to 39K on 04/21/20 and remaining elevated. WBC up to 55K today. Related to above. (10) Anemia: Qualifiers: Anemia type: unspecified type Qualified Code(s): D64.9 - Anemia, unspecified Code(s): D64.9 - Anemia, unspecified Status: Chronic Assessment and Plan: Hgb stable in the 7-8 range since last transfusion. B12/folate/Ferritin nor
--- NOTE | 2020-04-25 08:58 | WPDINTPN ---
Progress Note: A&P Assessment and Plan (1) Shock: Code(s): R57.9 - Shock, unspecified Status: Resolved Assessment and Plan: Patient was initially admitted with Septic shock most likely related to perforated viscus, ileus, ischemic bowel. Patient was resuscitated with IV fluid and was started on vasopressor. -sputum cultures grew Klebsiella and Zosyn switched to cefepime, metronidazole was discontinued -blood cultures are positive for Tonya glabrata. Patient was started on IV micafungin -arterial line was inserted on 04/08/2020, and was later removed -femoral central line was removed on 04/15/2020 and JACC catheter was placed on 04/15/2020 -repeat blood cultures sent 04/17 and are negative at this time -consulted infectious disease and Dr. chakraborty to did not recommend transfer patient for ophtho examination unless patient had persistent positive cultures with Tonya 04/21 overnight patient deteriorated again and went into shock, also diagnosed with new PE and AFib with RVR New onset shock most likely both sepsis and cardiogenic. Patient continues to be in profound shock, maxed out on Levophed, Bertrand-Synephrine vasopressin. -WBC count 55,000 -continue stress dose steroids continue micafungin and Flagyl, infectious disease following the patient Stat echo obtained 04/21 and did not showed any evidence of RV failure from PE 08/21/2020: C diff Was negative, blood cultures were negative x2, urine culture was negative Sputum culture from 08/21/2020 growth of normal oropharyngeal horace (2) Pulmonary embolism: Qualifiers: Pulmonary embolism type: unspecified Code(s): I26.99 - Other pulmonary embolism without acute cor pulmonale Status: Acute Assessment and Plan: CTA lung was done 04/20 once patient deteriorated and showed pulmonary embolism and right lower lobe subsegment. TPA was not given due to patient's recent multiples abdominal surgeries leading her to high risk of bleeding. And PE not being very big on CT lung Stat echo done on 04/21/2020 did not showed RV failure Heparin infusion was started but patient now has new onset GI bleed. Heparin infusion was discontinued Lower extremity Dopplers did not showed any DVT In ideal world patient would be a candidate for a IVC filter but at this point patient is too unstable to move out of room and also the fact that patient does not have any DVT the IVC filter may not be worth the risk (3) Respiratory failure: Qualifiers: Chronicity: acute Respiratory failure complication: unspecified whether with hypoxia or hypercapnia Qualified Code(s): J96.00 - Acute respiratory failure, unspecified whether with hypoxia or hypercapnia Code(s): J96.90 - Respiratory failure, unspecified, unspecified whether with hypoxia or hypercapnia Status: Acute Assessment and Plan: Post surgery respiratory failure secondary to metabolic acidosis, ischemic bowel -patient on 90% FiO2 and peep of 5, -patient had failed weaning trial for many days -patient at this time is unstable to undergo a tracheostomy and PEG tube placement secondary to being medically unstable -chest x-ray and ABGs reviewed -At this point patient is critically ill for any weaning trials -discussing with family, mainly with the son regarding withdrawal of support (4) Atrial fibrillation with rapid ventricular response: Code(s): I48.91 - Unspecified atrial fibrillation Status: Acute Assessment and Plan: New onset AFib with RVR could be from sepsis, metabolic abnormalities and or PE. Requiring amiodarone bolus and infusion Discontinued heparin infusion due to anemia and bleeding On 04/22/2020 patient had episode of bradycardia and atropine was given with improvement. Amiodarone was discontinued (5) Perforated viscus: Code(s): R19.8 - Other specified symptoms and signs involving the digestive system and abdomen Status: Acute Assessment and Plan
[2020-04-25] MEDS: MICAFUNGIN SODIUM 100 MG in SODIUM CHLORIDE 0.9% IV 100 ML IVPB (09:28)
[2020-04-25] MEDS: PANTOPRAZOLE SODIUM IV 40 MG VIAL IV PUSH ×2 (09:29→20:20)
[2020-04-25] MEDS: TOLNAFTATE 1% POWDER 45 GM BTL 1 APPLIC TOPICAL ×2 (09:30→20:21)
[2020-04-25 10:57] LABS: Glucose Point of Care 151 (65-105)
[2020-04-25 13:02] LABS: Glucose Point of Care 120 (65-105)
[2020-04-25] MEDS: SODIUM BICARBONATE 8.4% 100 MEQ in DEXTROSE 5% 1,000 ML 1,000 ML 50 MEQ IV CONT (16:38)
[2020-04-25 16:44] LABS: Glucose Point of Care 88 (65-105)
[2020-04-25 20:38] LABS: Glucose Point of Care 22 (65-105)
[2020-04-25 20:38] LABS: Glucose Point of Care 142 (65-105)
[2020-04-25] MEDS: DEXTROSE 50% 25 GM/50 ML SYRINGE IV PUSH (20:39)
[2020-04-25 21:57] LABS: Glucose Point of Care 101 (65-105)
--- NOTE | 2020-04-25 22:26 | PDCODEBLUE ---
Code Blue Note Code Blue Note Time Arrived at Code Blue: 21:49 Initial Rhythm on Arrival: Sinus bradycardia with a rate in the 20's Airway Management: Patient was already intubated and on the ventilator Chest Compressions: No compressions given Result of Code Blue: Patient is already in the ICU Cardiac Rhythm Post Code: Sinus rhythm Code Blue Summary: The patient has been critically ill for some time. She was already on pressor therapy with Levophed maxed out, vasopressin maxed out, and Bertrand-Synephrine maxed out. The patient has had progressive leukocytosis, climbing INR, suspected DIC, overwhelming metabolic acidosis and continuing clinical decline. The patient was modified code with the family still wanting the patient to receive cardiac medications and electrical cardioversion if needed. When I arrived to the bedside the patient had already received a dose of atropine. Shortly after my arrival patient received to push of epinephrine. 3 minutes later repeat dose of epinephrine was given. The patient's heart rate had improved to the 60s. Her repeat blood pressure was 103 systolic on art line. Given her bradycardia profound hypotension and the family's desire to continue trying further medications the patient was initiated on dopamine at 20 mg. The patient is continuing clinical decline was discussed with the son who is at bedside. Stat labs have been ordered and results are pending. Addendum 04/25/2020 at 11:00 p.m. The patient's BMP return with potassium of 7.4 and a bicarb of less than 5. At that same time the patient also became bradycardic. A stat albuterol nebulizer hour long was ordered as well as 2 amp sodium bicarb and 1 amp of calcium gluconate and atropine was given with improvement in her heart rate up to the 120s. The patient's heart rate came down within a 20 minutes. Down to mid 80s and stated that range for the most part until after midnight.. Insulin was not given is the patient had been hypoglycemic within a couple of hours of these recent labs. Stat CBC, PT PTT INR and fibrinogen were still pending. Addendum 04/26/2020 at 2:30 a.m. The patient's stat PT PTT and INR had to be redrawn. When the labs returned patient's INR was greater than 19, PTT was greater than 200 PT was greater than 120 and fibrinogen was low consistent with DIC. By that point the patient having significant output from both her ET and NG tube. She was also having some bleeding around her surgical dressing. The patient was on 4 pressors further care was not going to change the patient's clinical condition. Nursing staff discuss this with the patient's son and he agreed to a DNR status. Approximately 15 minutes later at 2:15 a.m. patient went into asystole and was pronounced . 45 minutes spent in critical care activities. This case had a high probability of a clinically significant, sudden, or life threatening deterioration of this patient's condition which required my full and direct attention, intervention and personal management.
[2020-04-25 22:52] LABS: Alanine Aminotransferase 26 U/L (4-35); Albumin Level 1.5 g/dL (3.5-5.1); Alkaline Phosphatase 175 U/L (38-126); Aspartate Amino Transferase 197 U/L (14-36); Bilirubin,Total 2.3 mg/dL (0.2-1.3); Blood Urea Nitrogen 37 mg/dL (7-17); Calcium 6.6 mg/dL (8.4-10.2); Carbon Dioxide < 5 mmol/L (22-30); Chloride 94 mmol/L (98-107); Glucose 258 mg/dL (65-105); Magnesium 2.4 mg/dL (1.6-2.3); Phosphorus 11.9 mg/dL (2.5-4.5); Potassium 7.3 mmol/L (3.4-5.0); Sodium 127 mmol/L (137-145)
[2020-04-25] MEDS: SODIUM BICARBONATE 8.4% 50 MEQ/50 ML VIAL 100 MEQ IV PUSH (23:17)
[2020-04-25] MEDS: CALCIUM GLUCONATE 1,000 MG/10 ML VIAL 1000 MG IV PUSH (23:17)
[2020-04-25] MEDS: ALBUTEROL SULFATE NEB 2.5 MG/0.5 ML INH 10 MG NEBULIZE (23:20)
--- NOTE | 2020-04-25 23:28 | PC.NURSE ---
pt heart rate dropped to 54 to 22. unable to obtain femoral pulse with doppler. Code radha called at [id number], see code blue sheet. 9025 Critical lab results back and orders received from Dr. Barlow. See MAR
[2020-04-25 23:47] LABS: Estimated CRCL calculation 28 ml/min; Estimated Glomerular Filt Rate 26
[2020-04-25] MEDS: ATROPINE SULFATE 1 MG/10 ML SYRINGE IV PUSH (23:59)
[2020-04-26] VITALS: BP 54/42; PULSE 77; RESP 16; TEMP 35.4
[2020-04-26 01:16] VITALS: BP 48/44; PULSE 86
[2020-04-26] MEDS: NOREPINEPHRINE 8 MG/D5W 250 ML 8 MG/250 ML BAG 56.3 MG IV CONT (01:16)
[2020-04-26 01:17] LABS: Glucose Point of Care 163 (65-105)
[2020-04-26] MEDS: SODIUM BICARBONATE 8.4% 50 MEQ/50 ML VIAL (01:21)
[2020-04-26] MEDS: CALCIUM CHLORIDE 1,000 MG/10 ML SYRINGE 1000 MG IV PUSH (01:30)
[2020-04-26 01:35] LABS: Fibrinogen 147 mg/dl (215-510)
[2020-04-26 01:37] LABS: Lactic Acid > 24.0 mmol/L (0.7-2.1)
[2020-04-26 01:42] LABS: Prothrombin Time > 120.0 Seconds (11.1-14.7)
[2020-04-26 01:43] LABS: INR > 19.0; Partial Thromboplastin Time > 200.0 SECONDS (22.3-36.8)
[2020-04-26] MEDS: SODIUM CHLORIDE 0.9% INJ 10 ML 999 ML (02:01)
--- NOTE | 2020-04-26 03:16 | PCRCNOTE ---
Patient passed at 02:15. I turned off the ventilator at that time. With the reading instructor's permission, I removed the endotracheal tube and took the ventilator from the room at 02:40. -Muna Nicolas, BIOLOGICAL SCIENTIST
--- NOTE | 2020-04-26 04:51 | PC.NURSE ---
0150 Charge spoke at length with son about plan of care, code status, and comfort cares. Son wants to continue all present cares but if her hearat rate decreases again, no more medications. 0215 Heart on monitor noted to be 20's. Son remains at bedside. No palpabl;e pulses, no pulses noted per doppler. Charge nurse notified. Son denies any questions at this time. 0445 notified regarding 's expiration.
--- NOTE | 2020-05-25 14:58 | PM.DDS ---
Discharge Sum: Prov Provider Primary care physician: Jb Meyers, Admitting provider: Laith Quiroga MD Discharge Sum: Diag Contributing Factors (1) Severe sepsis: (2) Candidal septicemia: (3) Perforated viscus: (4) Atrial fibrillation with rapid ventricular response: (5) Pulmonary embolism: (6) Acute renal failure: (7) Hypocalcemia: (8) Ileus: (9) Leukocytosis: (10) Anemia: (11) Thrombocytosis: (12) Type 2 diabetes mellitus: (13) Chronic obstructive pulmonary disease: (14) Chronic back pain: (15) Sacral decubitus ulcer, stage II: (16) Suspected COVID-19 virus infection: Discharge Sum: Summary Date and Time Date of admission: 04/07/20 17:49 Summary Details: 69yo female recently hospitalized for colitis from [facility] admitted for abd pain and found to have perforated viscous. CT A/P 04/07/20 showing wall thickening of the gastric antrum with gas in the duodenal wall, retroperitoneum, small bowel mesentery, and peritoneum consistent with perforated viscus. Patient taken to the OR 04/08 for an exploratory laparotomy, lysis of adhesions, small-bowel resection (approx 2 feet), placement of wound VAC. Mid to distal jejunum is noted to be viable with areas of duskiness. At the level of the proximal ileum, there was jaylin ischemia and necrosis up to 20cm proximal to the ileoccecal valve. Patient had repeat surgery 04/09/20 for a bowel resection of 13.5 inches of the distal jejunum and proximal ileum. There was no evidence of bowel leakage. 3rd surgery 04/12 showing viable bowel and she underwent reanastomed. TPN stopped with yeast in blood 04/16. Suspect she may have perforated or ischemic bowel now to explain her sudden clinical change. Patient had code blue called 04/20 with return of ROSC. She required blood pressure support off and on through out her hospital course and up to 3 pressors after the last Code Blue. Discussed with family at length regarding patient's critical condition and that she was terminal. Comfort measures and withdrawal of support was discussed but family wished to continue with current care. Patient had another Code Blue but did not survive and on the evening on 04/25/20. Additional Data Attending physician: Laith Quiroga MD
== END 2020-04-26 03:00 | disposition expired | DRG 853 ==
LOC: ANHED 18:04 → ANHICU 18:39
PROVIDERS: Emergency Medicine Emergency Medical Services; Family Medicine; Internal Medicine; Internal Medicine Gastroenterology; Nurse Practitioner; Physician Assistant; Surgery; Admitting Provider Internal Medicine; Emergency Provider Emergency Medicine; PCP Internal Medicine; Visit Provider Internal Medicine
PROC: 0DB80ZZ Excision of Small Intestine, Open Approach (ICD-10-PCS; CPT 49000; principal; 2020-04-08 15:30)
PROC: 0DBB0ZZ Excision of Ileum, Open Approach (ICD-10-PCS; CPT 49000; principal; 2020-04-09 13:30)
PROC: 0DJD0ZZ Inspection of Lower Intestinal Tract, Open Approach (ICD-10-PCS; CPT 49000; principal; 2020-04-12 14:30)
DX: A41.9 Sepsis, unspecified organism (principal); R65.21 Severe sepsis with septic shock; J96.00 Acute respiratory failure, unspecified whether with hypoxia or hypercapnia; N17.0 Acute kidney failure with tubular necrosis; I26.99 Other pulmonary embolism without acute cor pulmonale; N17.9 Acute kidney failure, unspecified; K56.7 Ileus, unspecified; R18.8 Other ascites; K55.9 Vascular disorder of intestine, unspecified; E87.2 Acidosis; G93.40 Encephalopathy, unspecified; E83.51 Hypocalcemia; J44.9 Chronic obstructive pulmonary disease, unspecified; L89.152 Pressure ulcer of sacral region, stage 2; D64.9 Anemia, unspecified; E78.5 Hyperlipidemia, unspecified; F41.8 Other specified anxiety disorders; M19.90 Unspecified osteoarthritis, unspecified site; E11.9 Type 2 diabetes mellitus without complications; Z87.891 Personal history of nicotine dependence; G89.29 Other chronic pain; Z20.828 Contact with and (suspected) exposure to other viral communicable diseases; I50.9 Heart failure, unspecified; D69.6 Thrombocytopenia, unspecified; B37.7 Candidal sepsis; I48.91 Unspecified atrial fibrillation
CPT/HCPCS: 36415; 36430; 36556; 36600; 43752; 51701; 70450; 71045; 71275; 74018; 74177; 80048; 80053; 81001; 82140; 82375; 82550; 82805; 82947; 83050; 83605; 83690; 83735; 83880; 84100; 84132; 84466; 84478; 84484; 85014; 85018; 85025; 85027; 85049; 85055; 85380; 85384; 85610; 85730; 86850; 86900; 86901; 86923; 87040; 87070; 87077; 87086; 87106; 87186; 87205; 87324; 87635; 88307; 93005; 93970; 94002; 94003; 94640; 96361; 96365; 96375; 99285; P9036; A9270; C1751; C8929; C9113; C9803; J0131; J0171; J0282; J0330; J0461; J0610; J0692; J1265; J1644; J1650; J1720; J1815; J2060; J2248; J2250; J2370; J2405; J2543; J2704; J2997; J3010; J3370; J3475; J3480; J7030; J7040; J7042; J7050; J7060; J7070; J7120; P9012; P9016; P9017; P9034; P9047; Q9957; Q9967; Q9968; U0003